=== PATIENT | female | born 1970 | race Caucasian/White ===

== ENCOUNTER 2019-10-20 11:32 | Outpatient (CLI) | payer OTHER, SELFPAY ==
[2019-10-20 11:53] VITALS: BMI 39.3
--- NOTE | 2019-10-20 12:08 | XR_ITS ---
PROCEDURE: XR CHEST PORTABLE PICC PLAC CLINICAL HISTORY: PICC line placement COMPARISON: No exams were available for comparison FINDINGS: A PICC line has been inserted by the right subclavian approach. The tip is in satisfactory position in the region of the superior vena cava. Faint nodular density is noted over the left lower lobe nonspecific measuring approximately 8 mm No acute bony abnormalities. IMPRESSION: Good position of PICC line. Nodular opacity left lower lobe nonspecific. Consider follow-up PA and lateral chest for further evaluation Dictated by: Zac Glover MD 10/20/2019 12:51 Electronically signed by Zac Glover MD in [place] 10/20/2019 12:51
[2019-10-20 13:30] VITALS: BP 112/74; PULSE 68; RESP 20; TEMP 36.9; O2SAT 95
[2019-10-20 14:00] VITALS: BP 116/74; PULSE 68; RESP 20; TEMP 36.9; O2SAT 95
[2019-10-20 14:30] VITALS: BP 112/74; PULSE 68; RESP 20; TEMP 36.6; O2SAT 97
[2019-10-20 15:00] VITALS: BP 112/55; PULSE 68; RESP 20; TEMP 36.9; O2SAT 95
[2019-10-20 15:30] VITALS: BP 112/74; PULSE 68; RESP 20; TEMP 36.9; O2SAT 95
[2019-10-20 16:00] VITALS: BP 116/74; PULSE 68; RESP 20; TEMP 36.9
== END 2019-10-20 16:00 | disposition home or self-care (01) ==
LOC: INF 11:39
PROVIDERS: PCP Internal Medicine Adolescent Medicine; Visit Provider Internal Medicine Adolescent Medicine
DX: L03.116 Cellulitis of left lower limb (principal); E11.621 Type 2 diabetes mellitus with foot ulcer
CPT/HCPCS: 36569; 71045; 96365; 96366; 96367; C1751; J3370

== ENCOUNTER → 2019-10-22 18:16 | Outpatient (CLI) | payer OTHER, SELFPAY ==
[2019-10-22 19:11] LABS: Vancomycin,Trough 19.6 mcg/ml (10.0-20.0)
== END ==
PROVIDERS: PCP Internal Medicine Adolescent Medicine; Visit Provider Internal Medicine Adolescent Medicine
DX: Z51.81 Encounter for therapeutic drug level monitoring (principal)
CPT/HCPCS: 80202

== ENCOUNTER → 2019-10-24 01:05 | Outpatient (REF) | payer SELFPAY ==
[2019-10-24 01:41] LABS: Gentamicin,Random 1.4 ug/mL (4.0-10.0)
== END ==
LOC: LAB.DROPOF 01:05
PROVIDERS: Visit Provider Internal Medicine Adolescent Medicine
DX: Z51.81 Encounter for therapeutic drug level monitoring (principal)
CPT/HCPCS: 80170

== ENCOUNTER → 2019-10-24 08:50 | Outpatient (CLI) | payer OTHER, SELFPAY ==
--- NOTE | 2019-10-24 09:00 | NM_ITS ---
PROCEDURE: NM BONE 3 PHASE CLINICAL INDICATION: CULCANEOUS ABCESS OF FOOT,CELLULITIS Possible osteomyelitis COMPARISON: No exams were available for comparison TECHNIQUE: Dose: 25.0 mCi technetium MDP FINDINGS: Blood flow images demonstrates focal increased activity at the lateral aspect the left metatarsophalangeal junction at the 5th MTP joint region. Blood pool images show increased activity at the left 5th metatarsophalangeal junction with slight increased activity at the 1st MTP joint. Delayed images also show increased activity at the left 5th metatarsophalangeal junction. Nonspecific increased activity is also present in the ankle. IMPRESSION: There is increased activity at the left 5th metatarsophalangeal junction on all 3 phases. This is consistent with osteomyelitis. Please correlate with radiographic findings. Patient refused to have x-rays performed at this institution at the time of the bone scan. Dictated by: Zac Glover MD 10/25/2019 13:41 Electronically signed by Zac Glover MD in [place] 10/25/2019 13:41
--- NOTE | 2019-10-24 10:48 | HMH.ITSHM ---
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 []COZAAR ASA NEURONTIN AMITRIPTYLINE PLAVIX MELOXICAM LIPITOR VITAMIN C ZINC LANTUS LOSARTAN HUMALOG
== END ==
PROVIDERS: PCP Family Medicine; Visit Provider Internal Medicine Adolescent Medicine
DX: L02.612 Cutaneous abscess of left foot (principal); L03.119 Cellulitis of unspecified part of limb
CPT/HCPCS: 78315; A9503

== ENCOUNTER → 2019-10-27 12:17 | Outpatient (CLI) | payer OTHER, SELFPAY ==
[2019-10-27 12:56] LABS: Gentamicin,Trough 0.3 ug/mL (0.0-2.0)
== END ==
PROVIDERS: Visit Provider Internal Medicine Adolescent Medicine
DX: Z51.81 Encounter for therapeutic drug level monitoring (principal)
CPT/HCPCS: 80170

== ENCOUNTER → 2019-11-06 17:24 | Outpatient (CLI) | payer OTHER, SELFPAY | PROVIDERS: Visit Provider Podiatrist | DX: E08.621 Diabetes mellitus due to underlying condition with foot ulcer (principal); L97.512 Non-pressure chronic ulcer of other part of right foot with fat layer exposed; G89.18 Other acute postprocedural pain; Z98.890 Other specified postprocedural states | CPT/HCPCS: 87070; 87077; 87186; 87205 ==

== ENCOUNTER → 2019-11-09 13:37 | Outpatient (REF) | payer OTHER, SELFPAY ==
[2019-11-09 15:32] LABS: Gentamicin,Trough 0.4 ug/mL (0.0-2.0)
== END ==
LOC: LAB 13:37
PROVIDERS: Visit Provider Internal Medicine Adolescent Medicine
DX: Z51.81 Encounter for therapeutic drug level monitoring (principal)
CPT/HCPCS: 80170

== ENCOUNTER → 2019-11-10 18:30 | Outpatient (CLI) | payer OTHER, SELFPAY ==
[2019-11-10 18:47] LABS: Vancomycin,Trough 17.3 mcg/ml (10.0-20.0)
== END ==
PROVIDERS: Visit Provider Internal Medicine Adolescent Medicine
DX: Z51.81 Encounter for therapeutic drug level monitoring (principal)
CPT/HCPCS: 80202

== ENCOUNTER → 2019-11-20 08:31 | Outpatient (CLI) | payer OTHER, SELFPAY ==
--- NOTE | 2019-11-20 08:40 | XR_ITS ---
PROCEDURE: XR FOOT WT BEARING LT 3V CLINICAL INDICATION: postop and diabetic ulcer COMPARISON: XR FOOT LT MIN 3V from 11/02/2019 XR FOOT LT 2V from 11/02/2019 XR FOOT RT MIN 3V from 11/02/2019 FINDINGS: Cast is still present which obscures most of the osseous detail. Postoperative findings at the 5th metatarsal area or are stable. On the lateral view there is somewhat more dorsal flexion causing relative widening of the posterior aspect of the tibiotalar joint compared to the prior study. IMPRESSION: Overall considering positioning of foot no significant change. Dictated by: Osiel Corrales 11/20/2019 15:01 Electronically signed by Osiel Corrales in [place] 11/20/2019 15:01
--- NOTE | 2019-11-20 08:40 | XR_ITS ---
PROCEDURE: XR ANKLE WT BEARING LT MIN 3V CLINICAL INDICATION: postop and diabetic ulcer COMPARISON: XR FOOT WT BEARING LT 3V from 11/20/2019 FINDINGS: When compared with exam of the foot performed on the same day, 11/20/2019, postoperative findings at the visualized portions of the 5th digit remains stable. The bone density, joint spaces and alignment appear normal. There is no definite acute fracture. The splint device obscures some of the osseous detail. IMPRESSION: No acute findings. Dictated by: Osiel Corrales 11/20/2019 18:02 Electronically signed by Osiel Corralse in [place] 11/20/2019 18:02
[2019-11-20 18:19] LABS: Vancomycin,Trough 6.2 mcg/ml (10.0-20.0)
== END ==
PROVIDERS: PCP Internal Medicine Adolescent Medicine; Referring Provider Family Medicine; Visit Provider Podiatrist
DX: M86.672 Other chronic osteomyelitis, left ankle and foot (principal); E11.40 Type 2 diabetes mellitus with diabetic neuropathy, unspecified; Z79.4 Long term (current) use of insulin; Z51.81 Encounter for therapeutic drug level monitoring
CPT/HCPCS: 73610; 73630; 80202

== ENCOUNTER → 2019-12-04 11:00 | Outpatient (CLI) | payer OTHER, SELFPAY ==
[2019-12-04 13:13] LABS: Vancomycin,Trough 19.2 mcg/ml (10.0-20.0)
== END ==
PROVIDERS: Visit Provider Nurse Practitioner Family
DX: Z51.81 Encounter for therapeutic drug level monitoring (principal)
CPT/HCPCS: 80202

== ENCOUNTER → 2019-12-11 16:52 | Outpatient (CLI) | payer OTHER, SELFPAY | PROVIDERS: Visit Provider Podiatrist | DX: E08.621 Diabetes mellitus due to underlying condition with foot ulcer (principal); L97.512 Non-pressure chronic ulcer of other part of right foot with fat layer exposed; Z98.890 Other specified postprocedural states; A49.8 Other bacterial infections of unspecified site | CPT/HCPCS: 87070; 87077; 87186; 87205 ==

== ENCOUNTER → 2019-12-18 11:48 | Outpatient (CLI) | payer OTHER, SELFPAY ==
--- NOTE | 2019-12-18 11:56 | XR_ITS ---
PROCEDURE: XR ANKLE WT BEARING LT MIN 3V CLINICAL INDICATION: postop, diabetic ulcer COMPARISON: No exams were available for comparison FINDINGS: There is diffuse demineralization. No acute fracture or dislocation is apparent. Degenerative dorsal posterior and plantar calcaneal spurring is noted. Amputation at the level of the proximal 5th metatarsal is incidentally noted. Soft tissue swelling is seen over both malleoli greatest laterally. IMPRESSION: No acute bone findings about the ankle. Demineralization and soft tissue swelling. Dictated by: Andrea Cook 12/18/2019 17:55 Electronically signed by Andrea Cook in [place] 12/18/2019 17:55
--- NOTE | 2019-12-18 11:56 | XR_ITS ---
PROCEDURE: XR FOOT WT BEARING LT 3V CLINICAL INDICATION: postop, diabetic ulcer COMPARISON: XR FOOT LT MIN 3V from 11/02/2019 XR FOOT RT MIN 3V from 11/02/2019 XR FOOT LT 2V from 11/02/2019 XR FOOT WT BEARING LT 3V from 11/20/2019 XR ANKLE WT BEARING LT MIN 3V from 12/18/2019 FINDINGS: There has been amputation at the level of the proximal 5th metatarsal. There is soft tissue swelling along the distal aspect of the lateral foot in the absence of the bony elements of the 5th digit and a small gas collection is suggested there. Infection from gas producing organisms is not excluded. No fracture or dislocation. There is questionable osteolysis involving the medial aspect of the talus where there appears to be a bony defect. There is diffuse demineralization . The joint spaces are well-preserved. Degenerative calcaneal spurring is noted. IMPRESSION: Questionable osteolysis of medial aspect of the talus. Osteomyelitis is not excluded. Further assessment could be attempted with CT. Postoperative changes associated with the with 5th metatarsal amputation with soft tissue swelling of the distal lateral foot and possible gas collection which may represent diabetic ulcer. Dictated by: Andrea Cook 12/18/2019 18:03 Electronically signed by Andrea Cook in [place] 12/18/2019 18:03
== END ==
PROVIDERS: PCP Internal Medicine Adolescent Medicine; Visit Provider Podiatrist
DX: E11.40 Type 2 diabetes mellitus with diabetic neuropathy, unspecified (principal); Z79.4 Long term (current) use of insulin; Z98.890 Other specified postprocedural states
CPT/HCPCS: 73610; 73630; 87070; 87077; 87186; 87205

== ENCOUNTER → 2019-12-28 10:22 | Outpatient (CLI) | payer OTHER, SELFPAY ==
[2019-12-28 10:46] LABS: Vancomycin,Trough 18.6 mcg/ml (10.0-20.0)
--- NOTE | 2019-12-28 11:17 | CT_ITS ---
Procedure: CT ANGIO ABDOMEN PELVIS CLINICAL HISTORY: AORTOILIAC OCCLUSION DISEASE COMPARISON: No exams were available for comparison TECHNIQUE: IV Contrast: 100ml Optiray 350 Axial images obtained with sagittal and coronal reformats. All CT scans at the facility use one or more dose reduction, viz: automated exposure control, ma/kV adjustment per patient size (including targeted exams where dose is matched to indication, i.e. head), or iterative reconstruction technique. FINDINGS: The upper abdominal aorta has an unremarkable appearance. There are 2 right renal arteries most dominant being posterior with no evidence of renal artery stenosis. A small amount plaque within the ostium of the left renal artery but no significant stenosis. There is only 1 left renal artery noted. The celiac and SMA have an unremarkable appearance. CARLEY is patent. There is an aorto iliac stent present. The stent is patent with no significant stenosis. Scattered atheromatous plaque is present in the right common and external iliac artery and common femoral artery with no significant stenosis. There is a moderate/high-grade area of stenosis involving the distal aspect of the left common iliac artery just distal to the distal portion of the iliac stent. The stenosis is felt to be approximately 75 percent percent somewhat difficult to evaluate due to the underlying calcification Non angiographic findings: There is a 9 mm noncalcified nodule in the left lower lobe. There is mild fatty liver. Moderate amount of retained colonic feces noted. There is a small left adrenal nodule measuring 13 mm. There are degenerative changes in the lumbar spine. There are bilateral injection granulomas in the buttock region IMPRESSION: 1. Status post prior aorto bi-iliac stent placement. The stent is patent. 2. Moderate to high-grade stenosis of the distal aspect of the left common iliac artery just distal to the distal portion of the stent. The stenosis is felt to be approximately 75 percent 3. 9 mm left lower lobe pulmonary nodule. Suggest 3 month follow-up CT chest without and with contrast Dictated by: Zac Glover MD 12/29/2019 10:27 Electronically signed by Zac Glover MD in [place] 12/29/2019 10:27
[2019-12-28 11:44] LABS: Blood Urea Nitrogen 9 mg/dL (7-18); Creatinine,Serum 1.13 mg/dL (0.55-1.02); Estimated Glomerular Filt Rate 51 ml/min (>60); GFR (African American) 62 ML/MIN (>60)
== END ==
PROVIDERS: PCP Internal Medicine Adolescent Medicine; Visit Provider Surgery Vascular Surgery
DX: I74.09 Other arterial embolism and thrombosis of abdominal aorta (principal); Z51.81 Encounter for therapeutic drug level monitoring
CPT/HCPCS: 36415; 74174; 80202; 82565; 84520; Q9967

== ENCOUNTER → 2020-05-01 11:21 | Outpatient (CLI) | payer OTHER, SELFPAY ==
--- NOTE | 2020-05-01 11:26 | XR_ITS ---
PROCEDURE: XR FOOT WT BEARING LT 3V CLINICAL INDICATION: postop views Follow-up surgery COMPARISON: XR FOOT LT MIN 3V from 11/02/2019 XR FOOT RT MIN 3V from 11/02/2019 XR FOOT WT BEARING LT 3V from 11/20/2019 XR FOOT WT BEARING LT 3V from 12/18/2019 FINDINGS: There has been prior amputation at the base of the 5th metatarsal. No other significant anomalies are evident. No bony destructive or lytic changes evident. The joint spaces are well-preserved. No significant degenerative/arthritic changes. No erosive changes evident. Other findings:None. IMPRESSION: Status post amputation at the base of the 5th metatarsal otherwise negative Dictated by: Zac Glover MD 05/01/2020 11:45 Electronically signed by Zac Glover MD in [place] 05/01/2020 11:45
--- NOTE | 2020-05-01 11:26 | XR_ITS ---
PROCEDURE: XR FOOT WT BEARING RT 3V CLINICAL INDICATION: wound Pain COMPARISON: XR FOOT LT MIN 3V from 11/02/2019 XR FOOT RT MIN 3V from 11/02/2019 XR FOOT WT BEARING LT 3V from 11/20/2019 XR FOOT WT BEARING LT 3V from 12/18/2019 FINDINGS: No fracture or dislocation. No lytic or blastic change. There is normal mineralization. The joint spaces are well-preserved. No significant degenerative/arthritic changes. No erosive changes evident. Other findings:None. IMPRESSION: No acute findings. Dictated by: Zac Glover MD 05/01/2020 11:44 Electronically signed by Zac Glover MD in [place] 05/01/2020 11:44
[2020-05-01 12:25] LABS: Basophils % 0.4 % (0.1-2.0); Eosinophils # 0.1 K/mm3 (0.0-0.4); Eosinophils % 0.8 % (0.1-12.0); Hematocrit 37.9 % (37.0-47.0); Hemoglobin 12.4 g/dL (12.2-16.2); Lymphocytes # 2.9 K/mm3 (0.7-4.5); Lymphocytes % 31.5 % (10-50); Mean Corpuscular HGB Conc 32.6 g/dL (31.8-35.4); Mean Corpuscular Hemoglobin 28.5 pg (27.0-31.2); Mean Corpuscular Volume 87.5 fl (81-99); Mean Platelet Volume 9.1 fl (7.4-10.4); Monocytes # 0.4 K/mm3 (0.1-1.0); Monocytes % 4.3 % (1.7-9.3); Neutrophils # 5.7 K/mm3 (1.8-7.8); Platelet Count 197 K/mm3 (142-424); Red Blood Count 4.33 M/mm3 (4.20-5.40); White Blood Count 9.1 K/mm3 (4.8-10.8)
[2020-05-01 13:32] LABS: Chloride 92 mmol/L (98-107); Potassium 3.8 mmoL/L (3.5-5.1); Sodium 135 mmol/L (136-145)
[2020-05-01 13:34] LABS: Blood Urea Nitrogen 42 mg/dl (7-17); Estimated Glomerular Filt Rate 43 ml/min (>60); GFR (African American) 52 ML/MIN (>60)
[2020-05-01 13:35] LABS: Alanine Aminotransferase 32 U/L (12-78); Albumin Level 3.9 g/dl (3.5-5.0); Albumin/Globulin Ratio 1.3 (1.1-1.8); Alkaline Phosphatase 113 U/L (38-126); Anion Gap 13.8 mEq/L (5-15); Aspartate Amino Transferase 38 U/L (14-36); Bilirubin,Total 0.9 mg/dl (0.2-1.3); Calcium 9.2 mg/dl (8.4-10.2); Carbon Dioxide 33 mmol/L (22.0-30.0); Globulin 3.1 g/dL (1.3-3.2); Glucose 247 mg/dl (74-100); Magnesium 1.6 mg/dl (1.6-2.3)
[2020-05-01 13:41] LABS: C-Reactive Protein 29.9 mg/L (0-4)
[2020-05-01 13:43] LABS: Erythrocyte Sedimentation Rate 31 mm/hr (0-20)
[2020-05-01 15:24] LABS: Hemoglobin A1C 11.9 % (4.0-6.0)
== END ==
PROVIDERS: PCP Family Medicine; Visit Provider Podiatrist
DX: Z98.890 Other specified postprocedural states (principal); Z51.89 Encounter for other specified aftercare; E11.621 Type 2 diabetes mellitus with foot ulcer; L97.529 Non-pressure chronic ulcer of other part of left foot with unspecified severity; E08.621 Diabetes mellitus due to underlying condition with foot ulcer
CPT/HCPCS: 36415; 73630; 80053; 83036; 83735; 85025; 85651; 86140; 87070; 87205

== ENCOUNTER → 2020-05-13 10:46 | Outpatient (CLI) | payer OTHER, SELFPAY ==
[2020-05-13 11:33] LABS: Basophils % 0.2 % (0.1-2.0); Eosinophils # 0.1 K/mm3 (0.0-0.4); Eosinophils % 0.8 % (0.1-12.0); Hematocrit 38.2 % (37.0-47.0); Hemoglobin 12.7 g/dL (12.2-16.2); Lymphocytes # 3.1 K/mm3 (0.7-4.5); Mean Corpuscular HGB Conc 33.3 g/dL (31.8-35.4); Mean Corpuscular Hemoglobin 29.4 pg (27.0-31.2); Mean Corpuscular Volume 88.4 fl (81-99); Mean Platelet Volume 9.1 fl (7.4-10.4); Monocytes # 0.4 K/mm3 (0.1-1.0); Monocytes % 4.4 % (1.7-9.3); Neutrophils # 5.5 K/mm3 (1.8-7.8); Neutrophils % 60.6 % (37.0-80.0); Platelet Count 190 K/mm3 (142-424); Red Blood Count 4.32 M/mm3 (4.20-5.40); Red Cell Distribution Width 16.8 % (11.5-17.5); White Blood Count 9.1 K/mm3 (4.8-10.8)
[2020-05-13 11:55] LABS: Alanine Aminotransferase 40 U/L (12-78); Albumin Level 4.1 g/dl (3.5-5.0); Albumin/Globulin Ratio 1.2 (1.1-1.8); Alkaline Phosphatase 118 U/L (38-126); Anion Gap 16.7 mEq/L (5-15); Aspartate Amino Transferase 47 U/L (14-36); Bilirubin,Total 0.6 mg/dl (0.2-1.3); Blood Urea Nitrogen 28 mg/dl (7-17); Carbon Dioxide 31 mmol/L (22.0-30.0); Chloride 91 mmol/L (98-107); Estimated Glomerular Filt Rate 59 ml/min (>60); GFR (African American) 71 ML/MIN (>60); Globulin 3.3 g/dL (1.3-3.2); Glucose 237 mg/dl (74-100); Potassium 3.7 mmoL/L (3.5-5.1); Sodium 135 mmol/L (136-145); Total Protein,Serum 7.4 g/dl (6.3-8.2)
[2020-05-13 12:40] LABS: Erythrocyte Sedimentation Rate 40 mm/hr (0-20)
[2020-05-13 13:34] LABS: C-Reactive Protein 26.8 mg/L (0-4)
== END ==
PROVIDERS: Visit Provider Podiatrist
DX: E08.621 Diabetes mellitus due to underlying condition with foot ulcer (principal); E11.621 Type 2 diabetes mellitus with foot ulcer; L97.529 Non-pressure chronic ulcer of other part of left foot with unspecified severity; Z79.4 Long term (current) use of insulin
CPT/HCPCS: 36415; 80053; 85025; 85651; 86140

== ENCOUNTER → 2020-05-27 10:38 | Outpatient (CLI) | payer OTHER, SELFPAY ==
[2020-05-27 11:30] LABS: Basophils % 0.4 % (0.1-2.0); Eosinophils # 0.1 K/mm3 (0.0-0.4); Eosinophils % 0.6 % (0.1-12.0); Hematocrit 39.1 % (37.0-47.0); Hemoglobin 13.4 g/dL (12.2-16.2); Lymphocytes % 29.9 % (10-50); Mean Corpuscular HGB Conc 34.2 g/dL (31.8-35.4); Mean Corpuscular Hemoglobin 29.6 pg (27.0-31.2); Mean Corpuscular Volume 86.6 fl (81-99); Mean Platelet Volume 8.6 fl (7.4-10.4); Monocytes # 0.4 K/mm3 (0.1-1.0); Monocytes % 4.2 % (1.7-9.3); Neutrophils # 6.5 K/mm3 (1.8-7.8); Platelet Count 226 K/mm3 (142-424); Red Blood Count 4.51 M/mm3 (4.20-5.40)
[2020-05-27 12:13] LABS: Erythrocyte Sedimentation Rate 65 mm/hr (0-20)
[2020-05-27 12:29] LABS: Chloride 92 mmol/L (98-107); Potassium 3.3 mmoL/L (3.5-5.1); Sodium 134 mmol/L (136-145)
[2020-05-27 12:32] LABS: Alanine Aminotransferase 42 U/L (12-78); Albumin/Globulin Ratio 1.2 (1.1-1.8); Alkaline Phosphatase 98 U/L (38-126); Anion Gap 14.3 mEq/L (5-15); Aspartate Amino Transferase 45 U/L (14-36); Bilirubin,Total 1.3 mg/dl (0.2-1.3); Blood Urea Nitrogen 24 mg/dl (7-17); Carbon Dioxide 31 mmol/L (22.0-30.0); Estimated Glomerular Filt Rate 53 ml/min (>60); GFR (African American) 64 ML/MIN (>60); Globulin 3.3 g/dL (1.3-3.2); Total Protein,Serum 7.3 g/dl (6.3-8.2)
[2020-05-27 12:33] LABS: Calcium 9.3 mg/dl (8.4-10.2); Glucose 144 mg/dl (74-100)
[2020-05-27 12:41] LABS: C-Reactive Protein 36.9 mg/L (0-4)
== END ==
PROVIDERS: Visit Provider Podiatrist
DX: Z51.89 Encounter for other specified aftercare (principal); E08.621 Diabetes mellitus due to underlying condition with foot ulcer; L97.512 Non-pressure chronic ulcer of other part of right foot with fat layer exposed; Z79.4 Long term (current) use of insulin
CPT/HCPCS: 36415; 80053; 85025; 85651; 86140

== ENCOUNTER → 2020-06-05 08:28 | Outpatient (CLI) | payer OTHER, SELFPAY ==
--- NOTE | 2020-06-05 08:35 | CT_ITS ---
Procedure: CT ANGIO ABDOMEN PELVIS CLINICAL HISTORY: AORTOILIAC OCCLUSIVE DISEASE COMPARISON: CT ANGIO ABDOMEN PELVIS from 12/28/2019 TECHNIQUE: IV Contrast: 100ml Optiray 350 Axial images obtained with sagittal and coronal reformats. All CT scans at the facility use one or more dose reduction, viz: automated exposure control, ma/kV adjustment per patient size (including targeted exams where dose is matched to indication, i.e. head), or iterative reconstruction technique. FINDINGS: There is a distal aortoiliac stent which is patent. There is only mild narrowing of the ostium of the right iliac artery. Moderate stenosis once again noted involving the ostium of the left external iliac artery just distal to the stent. It is difficult to determine the degree of stenosis due to artifact from the overlying stent but is felt to be 50 percent or less. The external iliacs have an unremarkable appearance. Mild calcific plaque noted at the femoral arteries on both sides. The SMA and celiac are unremarkable. The CARLEY is patent. Mild atheromatous changes are present at the ostium of the left renal artery with less than 50 percent stenosis. 9 mm noncalcified nodule once again noted involving the left lower lobe. Scattered areas of decreased attenuation are present involving the peripheral aspect of the liver consistent with fatty infiltration. Stable adrenal nodule. IMPRESSION: 1. Aortoiliac stent graft present and patent as described above with moderate stenosis of the proximal aspect of the left external iliac artery just distal to the stent of at least 50 percent. 2. Interval development of low-density changes in the sub capsular region of the liver in the right hepatic lobe consistent with focal fatty liver infiltration. Follow-up suggested to confirm stability Dictated by: Zac Glover MD 06/07/2020 12:06 Electronically signed by Zac Glover MD in [place] 06/07/2020 12:06
== END ==
PROVIDERS: PCP Family Medicine; Visit Provider Surgery Vascular Surgery
DX: I74.09 Other arterial embolism and thrombosis of abdominal aorta (principal)
CPT/HCPCS: 74174; Q9967

== ENCOUNTER → 2020-06-10 16:47 | Outpatient (CLI) | payer OTHER, SELFPAY | PROVIDERS: Visit Provider Nurse Practitioner | DX: Z51.89 Encounter for other specified aftercare (principal) | CPT/HCPCS: 87070; 87205 ==

== ENCOUNTER → 2020-07-01 17:54 | Outpatient (CLI) | payer OTHER, SELFPAY | PROVIDERS: Visit Provider Podiatrist | DX: E11.621 Type 2 diabetes mellitus with foot ulcer (principal); L97.529 Non-pressure chronic ulcer of other part of left foot with unspecified severity; Z51.89 Encounter for other specified aftercare | CPT/HCPCS: 87070; 87077; 87186; 87205 ==

== ENCOUNTER → 2020-09-23 15:24 | Outpatient (CLI) | payer OTHER, SELFPAY ==
--- NOTE | 2020-09-23 15:32 | XR_ITS ---
PROCEDURE: XR FOOT WT BEARING RT 3V CLINICAL INDICATION: foot pain COMPARISON: CR XR FOOT WT BEARING LT 3V from 11/20/2019 CR XR FOOT WT BEARING LT 3V from 12/18/2019 CR XR FOOT WT BEARING RT 3V from 05/01/2020 CR XR FOOT WT BEARING LT 3V from 05/01/2020 FINDINGS: No fracture or dislocation. No lytic or blastic change. There is normal mineralization. The joint spaces are well-preserved. No significant degenerative/arthritic changes. No erosive changes evident. Other findings:There is mild generalized osteopenia. There is normal alignment. IMPRESSION: Osteopenia otherwise negative Dictated by: Zac Glover MD 09/23/2020 16:23 Zac Glover MD in [place] 09/23/2020 16:23
--- NOTE | 2020-09-23 15:32 | XR_ITS ---
PROCEDURE: XR FOOT WT BEARING LT 3V CLINICAL INDICATION: foot pain COMPARISON: No exams were available for comparison FINDINGS: There is generalized osteopenia. There are mild osteoarthritic changes of the 1st metatarsophalangeal joint. There has been amputation at the base of the 5th metatarsal. No acute fracture or dislocation. Other findings:None. IMPRESSION: Minimal osteoarthritic change 1st MTP joint. Prior amputation base of 1st metatarsal. No change with no acute finding Dictated by: Zac Glover MD 09/23/2020 16:25 Zac Glover MD in [place] 09/23/2020 16:25
[2020-09-23 17:01] LABS: Basophils % 0.4 % (0.1-2.0); Eosinophils % 0.5 % (0.1-12.0); Hematocrit 41.6 % (37.0-47.0); Hemoglobin 13.2 g/dL (12.2-16.2); Lymphocytes # 2.5 K/mm3 (0.7-4.5); Lymphocytes % 32.4 % (10-50); Mean Corpuscular HGB Conc 31.6 g/dL (31.8-35.4); Mean Corpuscular Hemoglobin 28.1 pg (27.0-31.2); Mean Corpuscular Volume 88.9 fl (81-99); Mean Platelet Volume 9.1 fl (7.4-10.4); Monocytes # 0.4 K/mm3 (0.1-1.0); Monocytes % 5.4 % (1.7-9.3); Neutrophils # 4.8 K/mm3 (1.8-7.8); Neutrophils % 61.5 % (37.0-80.0); Platelet Count 199 K/mm3 (142-424); Red Blood Count 4.69 M/mm3 (4.20-5.40); Red Cell Distribution Width 15.4 % (11.5-17.5); White Blood Count 7.9 K/mm3 (4.8-10.8)
[2020-09-23 18:40] LABS: Erythrocyte Sedimentation Rate 23 mm/hr (0-20)
[2020-09-23 18:53] LABS: Blood Urea Nitrogen 27 mg/dl (7-17); Calcium 9.1 mg/dl (8.4-10.2); Carbon Dioxide 29 mmol/L (22.0-30.0); Chloride 88 mmol/L (98-107); Chol/HDL Ratio 3.9 (1-3.5); Cholesterol 135 mg/dl (140-200); Estimated Glomerular Filt Rate 53 ml/min (>60); GFR (African American) 64 ML/MIN (>60); HDL Cholesterol 35 mg/dl (40-60); Sodium 130 mmol/L (136-145); Triglycerides 382 mg/dl (30-150); VLDL Cholesterol 76 mg/dL (0-40)
[2020-09-23 19:00] LABS: C-Reactive Protein 29.6 mg/L (0-4)
[2020-09-23 19:04] LABS: Direct LDL Cholesterol 68.88 mg/dL (100-129)
[2020-09-23 19:23] LABS: Thyroid Stimulating Hormone 0.03 uIU/mL (0.465-4.68)
[2020-09-23 20:19] LABS: Glucose 489 mg/dl (74-100)
== END ==
PROVIDERS: Internal Medicine Endocrinology, Diabetes & Metabolism; PCP Family Medicine; Visit Provider Podiatrist
DX: L84 Corns and callosities (principal); M79.671 Pain in right foot; M79.672 Pain in left foot; E11.621 Type 2 diabetes mellitus with foot ulcer; L97.529 Non-pressure chronic ulcer of other part of left foot with unspecified severity; Z51.89 Encounter for other specified aftercare
CPT/HCPCS: 36415; 73630; 80048; 80061; 82533; 84443; 85025; 85651; 86140

== ENCOUNTER → 2020-11-04 15:31 | Outpatient (CLI) | payer OTHER, SELFPAY ==
[2020-11-04 19:10] LABS: Free T4 (Free Thyroxine) 1.72 ng/dl (0.78-2.19)
[2020-11-04 19:24] LABS: Thyroid Stimulating Hormone 1.58 uIU/mL (0.465-4.68)
== END ==
PROVIDERS: Visit Provider Internal Medicine Endocrinology, Diabetes & Metabolism
DX: E11.8 Type 2 diabetes mellitus with unspecified complications (principal); Z79.4 Long term (current) use of insulin
CPT/HCPCS: 36415; 84439; 84443

== ENCOUNTER → 2020-12-09 12:58 | Outpatient (CLI) | payer OTHER, SELFPAY ==
[2020-12-09 16:40] LABS: Folate > 20.00 ng/mL
== END ==
PROVIDERS: Visit Provider Specialist
DX: E11.40 Type 2 diabetes mellitus with diabetic neuropathy, unspecified (principal); R20.0 Anesthesia of skin; Z79.4 Long term (current) use of insulin
CPT/HCPCS: 36415; 82746

== ENCOUNTER → 2021-01-06 15:09 | Outpatient (CLI) | payer OTHER, SELFPAY ==
--- NOTE | 2021-01-06 15:10 | CA_ITS ---
APPROVED REPORT Bilateral Lower Extremity Venous Study for DVT. Wilderness Guide: Lilibeth Rosa RVT Indications Lower Extremity Pain: Bilateral Lower Extremity Edema: Bilateral leg pain/swelling Risk Factors Obesity Vein Imaging CFV (R): compressive, spontaneous, phasic, augmentation FEM (R): compressive, spontaneous, phasic, augmentation POP (R): compressive, spontaneous, phasic, augmentation GSV (R): Compressible Peroneals (R):Compressible GAS (R): Compressible CFV (L): compressive, spontaneous, phasic, augmentation FEM (L): compressive, spontaneous, phasic, augmentation POP (L): compressive, spontaneous, phasic, augmentation PTV (L): Compressible GSV (L): Compressible, Peroneals (L):Compressible GAS (L): Compressible Findings Study suggests no evidence of DVT of the bilateral lower extremites. Study suggests no evidence of SVT of the bilateral lower extremites. Conclusion Study suggests no evidence of DVT of the bilateral lower extremites. Study suggests no evidence of SVT of the bilateral lower extremites. Electronically signed by : Zac Glover MD 01/06/2021 16:05:45
== END ==
PROVIDERS: PCP Family Medicine; Visit Provider Nurse Practitioner Family
DX: I73.9 Peripheral vascular disease, unspecified (principal); M79.605 Pain in left leg; M79.604 Pain in right leg; R06.00 Dyspnea, unspecified; R60.0 Localized edema; Z95.828 Presence of other vascular implants and grafts
CPT/HCPCS: 93970

== ENCOUNTER → 2021-01-27 14:02 | Outpatient (CLI) | payer OTHER, SELFPAY ==
[2021-01-27 14:39] LABS: Basophils % 0.3 % (0.1-2.0); Eosinophils # 0.1 K/mm3 (0.0-0.4); Eosinophils % 0.9 % (0.1-12.0); Hematocrit 35.4 % (37.0-47.0); Hemoglobin 10.9 g/dL (12.2-16.2); Lymphocytes # 1.6 K/mm3 (0.7-4.5); Lymphocytes % 26.3 % (10-50); Mean Corpuscular HGB Conc 30.7 g/dL (31.8-35.4); Mean Corpuscular Hemoglobin 26.7 pg (27.0-31.2); Mean Corpuscular Volume 87.2 fl (81-99); Mean Platelet Volume 8.6 fl (7.4-10.4); Monocytes # 0.3 K/mm3 (0.1-1.0); Neutrophils # 4.2 K/mm3 (1.8-7.8); Neutrophils % 68.4 % (37.0-80.0); Platelet Count 154 K/mm3 (142-424); Red Blood Count 4.06 M/mm3 (4.20-5.40); Red Cell Distribution Width 15.9 % (11.5-17.5); White Blood Count 6.2 K/mm3 (4.8-10.8)
[2021-01-27 14:55] LABS: Hemoglobin A1C 9.8 % (4.0-6.0)
[2021-01-27 16:23] LABS: Alanine Aminotransferase 38 U/L (12-78); Albumin Level 3.8 g/dl (3.5-5.0); Albumin/Globulin Ratio 1.2 (1.1-1.8); Alkaline Phosphatase 99 U/L (38-126); Anion Gap 9.9 mEq/L (5-15); Aspartate Amino Transferase 46 U/L (14-36); Blood Urea Nitrogen 14 mg/dl (7-17); Calcium 9.9 mg/dl (8.4-10.2); Carbon Dioxide 32 mmol/L (22.0-30.0); Chloride 97 mmol/L (98-107); Estimated Glomerular Filt Rate 76 ml/min (>60); GFR (African American) 92 ML/MIN (>60); Globulin 3.2 g/dL (1.3-3.2); Glucose 285 mg/dl (74-100); Potassium 3.9 mmoL/L (3.5-5.1); Sodium 135 mmol/L (136-145)
[2021-01-27 16:29] LABS: C-Reactive Protein 33.6 mg/L (0-4)
[2021-01-27 17:01] LABS: Erythrocyte Sedimentation Rate 42 mm/hr (0-30)
== END ==
PROVIDERS: Visit Provider Podiatrist
DX: E08.621 Diabetes mellitus due to underlying condition with foot ulcer (principal); E11.621 Type 2 diabetes mellitus with foot ulcer; L03.116 Cellulitis of left lower limb; L97.529 Non-pressure chronic ulcer of other part of left foot with unspecified severity; L02.619 Cutaneous abscess of unspecified foot; L03.119 Cellulitis of unspecified part of limb; Z79.4 Long term (current) use of insulin
CPT/HCPCS: 80053; 83036; 85025; 85651; 86140; 87070; 87077; 87186; 87205

== ENCOUNTER 2021-02-05 09:10 | Outpatient (CLI) | payer OTHER, SELFPAY ==
[2021-02-05 10:38] VITALS: BMI 62.7
--- NOTE | 2021-02-05 10:50 | XR_ITS ---
PROCEDURE: XR CHEST PORTABLE CLINICAL HISTORY: Evaluate PICC line placement COMPARISON: CR XR CHEST PORTABLE PICC PLAC from 10/20/2019 FINDINGS: 10:54 a.m. Right upper extremity PICC line has been inserted. The line is curled in the infraclavicular region and projects back toward the axillary area. Suggest pulling back approximately 11 cm and then re-advancing. Otherwise negative. IMPRESSION: Abnormal right upper extremity PICC line position. Dictated by: Zac Glover MD 02/05/2021 11:01 Zac Glover MD in [place] 02/05/2021 11:01
--- NOTE | 2021-02-05 11:09 | XR_ITS ---
PROCEDURE: XR CHEST PORTABLE CLINICAL HISTORY: picc line placement COMPARISON: CR XR CHEST PORTABLE PICC PLAC from 10/20/2019 CR XR CHEST PORTABLE from 02/05/2021 FINDINGS: 11:10 a.m.. Right upper extremity PICC line is been reposition. The line appears curled along the medial aspect of the right clavicle projecting back upon itself toward the axillary region. Lungs are clear. IMPRESSION: Anomalous positioning of the PICC line on the right Dictated by: Zac Glover MD 02/05/2021 11:29 Zac Glover MD in [place] 02/05/2021 11:29
--- NOTE | 2021-02-05 11:24 | XR_ITS ---
PROCEDURE: XR CHEST PORTABLE CLINICAL HISTORY: picc line placement evaluation COMPARISON: CR XR CHEST PORTABLE PICC PLAC from 10/20/2019 CR XR CHEST PORTABLE PICC PLAC from 02/05/2021 CR XR CHEST PORTABLE from 02/05/2021 FINDINGS: 1132 hours. Right upper extremity PICC line tip now is in good position in the region of the SVC. The lungs are clear without infiltrates, suspicious nodules, or pleural effusions. No acute bony abnormalities. IMPRESSION: Right upper extremity PICC line tip in the region the SVC. Dictated by: Zac Glover MD 02/05/2021 11:39 Zac Glover MD in [place] 02/05/2021 11:39
[2021-02-05 12:15] VITALS: BP 151/63; PULSE 102; RESP 20; TEMP 36.3; O2SAT 99
[2021-02-05 13:20] VITALS: BP 127/56; PULSE 104; RESP 20
== END 2021-02-05 13:20 | disposition home or self-care (01) ==
LOC: INF 09:15
PROVIDERS: Visit Provider Podiatrist
DX: L03.116 Cellulitis of left lower limb (principal); E11.621 Type 2 diabetes mellitus with foot ulcer; L97.529 Non-pressure chronic ulcer of other part of left foot with unspecified severity; Z79.4 Long term (current) use of insulin
CPT/HCPCS: 36569; 71045; 96365; C1751; J0878

== ENCOUNTER → 2021-02-10 10:23 | Outpatient (CLI) | payer OTHER, SELFPAY ==
--- NOTE | 2021-02-10 10:24 | US_ITS ---
APPROVED REPORT Exam Type: Lower Extremity Segmental Pressures Senior Sharepoint Developer: Lilibeth Rosa RVT Indications Non-healing Ulcer: Numbness/Tingling Edema History of Smoking ULCER LT GREAT TOE Risk Factors Hypertension Hyperlipidemia Obesity Diabetes History of Smoking Pressures/Indices Right Indices Left Indices Brachial Brachial 145.00 mmHg Low Thigh 136.00 mmHg 0.94 Low Thigh 133.00 mmHg 0.92 Calf 115.00 mmHg 0.79 Calf 133.00 mmHg 0.92 Ankle(PT) 100.00 mmHg 0.69 Ankle(PT) 124.00 mmHg 0.86 Ankle(DP) 79.00 mmHg 0.54 Ankle(DP) 58.00 mmHg 0.40 Digit 130.00 mmHg 0.90 Digit 127.00 mmHg 0.88 Findings RT NICOLASA:0.69 LT NICOLASA:0.86 RT TBI:0.90 LT TBI:0.88 NORMAL WAVEFORMS BILATERAL NORMAL PULSES BILATERAL Conclusion RT NICOLASA:0.69 LT NICOLASA:0.86 RT TBI:0.90 LT TBI:0.88 NORMAL WAVEFORMS BILATERAL NORMAL PULSES BILATERAL Moderate arterial disease Electronically signed by : Zac Glover MD 02/10/2021 15:15:39
--- NOTE | 2021-02-10 10:24 | CA_ITS ---
APPROVED REPORT EXAM: Comprehensive 2D, Doppler, and color-flow Echocardiogram Fisher Spear: MAX Najera, RVS Ht: 5 ft 10 in Wt: 332lbs BSA: 2.59 BP: 140/68 mmHg Indications: CAD, morbid obesity,dm, ex-smoker 2D Dimensions LVDd 5.18 cm LVEF (Visual) 70.20 % LVDs 3.11 cm LA Volume 70.80 mL LVOT 2.11 cm (M/F) 1.5-2.5 LA Volume Index 26.70 mL/m2 (M/F) 16-34 M-Mode Dimensions RVDd 2.60 cm (0.9-2.6) LA Diam 3.66 cm (1.9-4.0) LVDd 5.58 cm (3.5-5.7) Ao Diam 2.85 cm (2.0-3.7) IVSd 0.74 cm (0.6-1.1) PWd 0.74 cm (0.6-1.1) EPSs 0.94 cm EDV (Teich) 152.40 mL TAPSE 2.56 (<1.7) LV Diastology E Decel Time 163.00 (160-240 msec) E/A Ratio 1.27 MED E' 10.10 (< 7 cm/sec) MED A' 11.40 cm/s E'/MED E' Ratio 10.30 (>14) LAT E' 9.70 (<10 cm/sec) LAT A' 10.20 cm/s E/LAT E' Ratio 10.72 (>14) Aortic Valve AO Peak GR. 9.90 mmHg Mitral Valve MV E Max Kermit. 104.00 (40-130 cm/s) MV A Velocity 82.00 (40-130 cm/s) E/A Ratio 1.27 MV Decel. Time 163.00 (160-240 ms) MV PHT 48.00 ms Pulmonary Valve PV Peak Velocity 109.00 (50-150 cm/s) Tricuspid Valve TR P. Velocity 245.00 cm/s Left Ventricle Left atrium is mildly enlarged, left ventricle is normal size, there is no concentric left ventricular hypertrophy, visually estimated ejection fraction 55% with no regional wall motion abnormality, diastolic parameters are within normal range. Right Ventricle Right atrium and right ventricle mildly enlarged with normal contractility. Aortic Valve Aortic valve is minimally thickened and calcified, there is no aortic stenosis or aortic insufficiency. Mitral Valve Mitral valve is grossly normal, there is trace mitral regurgitation. Tricuspid Valve Tricuspid valve grossly normal, there is trace tricuspid regurgitation, tricuspid regurgitation jet velocity is inadequate for calculation of the right ventricular systolic pressure. Pulmonic Valve Pulmonic valve is poorly visualized. Great Vessels Aortic root is normal size. Pericardium No significant pericardial effusion noted. Conclusion 1. Biatrial enlargement, normal left ventricular size, visually estimated ejection fraction 55% with no regional wall motion abnormality, diastolic parameters are within normal range. 2. Mildly enlarged right ventricle with normal contractility. 3. Trace mitral and tricuspid regurgitation. 4. No significant pericardial effusion noted. Electronically signed by : Kendrick Plasencia, 02/10/2021 11:57:01
[2021-02-10 12:03] LABS: Basophils % 0.3 % (0.1-2.0); Eosinophils # 0.1 K/mm3 (0.0-0.4); Eosinophils % 1.9 % (0.1-12.0); Hematocrit 33.9 % (37.0-47.0); Hemoglobin 10.3 g/dL (12.2-16.2); Lymphocytes # 1.6 K/mm3 (0.7-4.5); Lymphocytes % 31.2 % (10-50); Mean Corpuscular HGB Conc 30.3 g/dL (31.8-35.4); Mean Corpuscular Hemoglobin 26.9 pg (27.0-31.2); Mean Corpuscular Volume 88.8 fl (81-99); Mean Platelet Volume 9.1 fl (7.4-10.4); Monocytes # 0.3 K/mm3 (0.1-1.0); Monocytes % 6.7 % (1.7-9.3); Platelet Count 147 K/mm3 (142-424); Red Blood Count 3.82 M/mm3 (4.20-5.40); Red Cell Distribution Width 16.1 % (11.5-17.5)
[2021-02-10 12:43] LABS: Erythrocyte Sedimentation Rate 44 mm/hr (0-30)
[2021-02-10 12:55] LABS: Chloride 96 mmol/L (98-107)
[2021-02-10 12:56] LABS: Potassium 4.3 mmoL/L (3.5-5.1); Sodium 132 mmol/L (136-145)
[2021-02-10 12:58] LABS: Alanine Aminotransferase 47 U/L (12-78); Alkaline Phosphatase 111 U/L (38-126); Anion Gap 8.3 mEq/L (5-15); Aspartate Amino Transferase 52 U/L (14-36); Bilirubin,Total 1.1 mg/dl (0.2-1.3); Blood Urea Nitrogen 18 mg/dl (7-17); Carbon Dioxide 32 mmol/L (22.0-30.0); Creatine Kinase 212 U/L (30-135); Estimated Glomerular Filt Rate 66 ml/min (>60); GFR (African American) 80 ML/MIN (>60)
[2021-02-10 12:59] LABS: Albumin Level 3.5 g/dl (3.5-5.0); Albumin/Globulin Ratio 1.1 (1.1-1.8); Calcium 8.7 mg/dl (8.4-10.2); Globulin 3.2 g/dL (1.3-3.2); Total Protein,Serum 6.7 g/dl (6.3-8.2)
[2021-02-10 13:04] LABS: C-Reactive Protein 36.7 mg/L (0-4)
[2021-02-10 13:05] LABS: Glucose 409 mg/dl (74-100)
== END ==
PROVIDERS: Podiatrist; PCP Family Medicine; Visit Provider Nurse Practitioner Family
DX: R06.00 Dyspnea, unspecified (principal); R60.0 Localized edema; I73.9 Peripheral vascular disease, unspecified; Z95.828 Presence of other vascular implants and grafts
CPT/HCPCS: 36415; 80053; 82550; 85025; 85651; 86140; 93306; 93923

== ENCOUNTER → 2021-02-10 11:30 | Outpatient (CLI) | payer OTHER, SELFPAY | PROVIDERS: Visit Provider Podiatrist | DX: R06.02 Shortness of breath (principal) | CPT/HCPCS: 36415; 80053; 82550; 85025; 85651; 86140 ==

== ENCOUNTER 2021-03-03 12:04 | Outpatient (CLI) | payer OTHER, SELFPAY ==
[2021-03-03 12:05] VITALS: BMI 45.9
--- NOTE | 2021-03-03 12:17 | XR_ITS ---
PROCEDURE: XR FOOT WT BEARING LT 3V CLINICAL INDICATION: FRACTURE FOLLOW UP. COMPARISON: CR XR FOOT WT BEARING RT 3V from 05/01/2020 CR XR FOOT WT BEARING LT 3V from 05/01/2020 CR XR FOOT WT BEARING RT 3V from 09/23/2020 CR XR FOOT WT BEARING LT 3V from 09/23/2020 FINDINGS: There has been amputation at the base of the 5th metatarsal. There is a healing mildly displaced fracture involving the mid shaft of the 4th metatarsal. Fracture line remains visible especially on lateral view. There is minimal medial displacement of the distal fracture fragment with some developing callus formation noted. Minimally displaced fracture involves the diaphyseal metaphyseal junction of the 3rd metatarsal and 2nd metatarsal. There is some sclerosis at the fracture site suggesting healing. There is mild pes planus IMPRESSION: Healing fractures of the 2nd 3rd and 4th metatarsals as described above. Dictated by: Zac Glover MD 03/03/2021 14:32 Zac Glover MD in [place] 03/03/2021 14:32
[2021-03-03 12:29] LABS: Basophils % 0.2 % (0.1-2.0); Eosinophils # 0.1 K/mm3 (0.0-0.4); Eosinophils % 1.4 % (0.1-12.0); Hematocrit 36.3 % (37.0-47.0); Hemoglobin 10.6 g/dL (12.2-16.2); Lymphocytes # 2.2 K/mm3 (0.7-4.5); Lymphocytes % 31.6 % (10-50); Mean Corpuscular HGB Conc 29.3 g/dL (31.8-35.4); Mean Corpuscular Hemoglobin 25.7 pg (27.0-31.2); Mean Corpuscular Volume 87.8 fl (81-99); Mean Platelet Volume 7.6 fl (7.4-10.4); Monocytes # 0.4 K/mm3 (0.1-1.0); Monocytes % 5.7 % (1.7-9.3); Neutrophils # 4.2 K/mm3 (1.8-7.8); Neutrophils % 61.2 % (37.0-80.0); Platelet Count 162 K/mm3 (142-424); Red Blood Count 4.13 M/mm3 (4.20-5.40); Red Cell Distribution Width 16.3 % (11.5-17.5); White Blood Count 6.9 K/mm3 (4.8-10.8)
[2021-03-03 12:37] LABS: Chloride 101 mmol/L (98-107); Potassium 3.8 mmoL/L (3.5-5.1); Sodium 139 mmol/L (136-145)
[2021-03-03 12:39] LABS: Alanine Aminotransferase 63 U/L (12-78); Aspartate Amino Transferase 91 U/L (14-36); Blood Urea Nitrogen 13 mg/dl (7-17); Creatinine Clearance Estimated 90 mL/min (50-200); Estimated Glomerular Filt Rate 76 ml/min (>60); GFR (African American) 92 ML/MIN (>60)
[2021-03-03 12:40] LABS: Albumin/Globulin Ratio 1.1 (1.1-1.8); Alkaline Phosphatase 109 U/L (38-126); Anion Gap 8.8 mEq/L (5-15); Bilirubin,Total 0.9 mg/dl (0.2-1.3); Calcium 9.5 mg/dl (8.4-10.2); Carbon Dioxide 33 mmol/L (22.0-30.0); Globulin 3.5 g/dL (1.3-3.2); Glucose 111 mg/dl (74-100); Total Protein,Serum 7.5 g/dl (6.3-8.2)
[2021-03-03 12:45] LABS: C-Reactive Protein 19.7 mg/L (0-4)
[2021-03-03 13:54] LABS: Erythrocyte Sedimentation Rate > 140 mm/hr (0-30)
== END 2021-03-03 12:15 | disposition home or self-care (01) ==
LOC: INF 12:04
PROVIDERS: PCP Family Medicine; Visit Provider Podiatrist
DX: S92.302D Fracture of unspecified metatarsal bone(s), left foot, subsequent encounter for fracture with routine healing (principal); Z45.2 Encounter for adjustment and management of vascular access device
CPT/HCPCS: 73630; 80053; 85025; 85651; 86140; J1642

== ENCOUNTER 2021-03-18 11:56 | Outpatient (CLI) | payer OTHER, SELFPAY ==
[2021-03-18 13:05] VITALS: BMI 45.9
--- NOTE | 2021-03-18 13:06 | XR_ITS ---
PROCEDURE: XR CHEST PORTABLE PICC PLAC CLINICAL HISTORY: PICC line placement COMPARISON: CR XR CHEST PORTABLE PICC PLAC from 02/05/2021 CR XR CHEST PORTABLE from 02/05/2021 CR XR CHEST PORTABLE from 02/05/2021 FINDINGS: The patient is morbidly obese making visualization of the PICC line difficult. PICC line does appear to be situated at the junction of the right subclavian vein with SVC. The lung irving are grossly clear of infiltrate. Cardiac size and vascularity are grossly normal. IMPRESSION: PICC line with the tip location as described, this could be advanced 5-6 cm for better overall positioning if possible. Dictated by: Dr. Subhash French MD 03/18/2021 13:35 Dr. Subhash French MD in [place] 03/18/2021 13:35
[2021-03-18 13:54] LABS: Chloride 100 mmol/L (98-107); Potassium 4.2 mmoL/L (3.5-5.1); Sodium 136 mmol/L (136-145)
[2021-03-18 13:57] LABS: Alanine Aminotransferase 59 U/L (12-78); Albumin Level 3.5 g/dl (3.5-5.0); Albumin/Globulin Ratio 1.1 (1.1-1.8); Alkaline Phosphatase 96 U/L (38-126); Anion Gap 9.2 mEq/L (5-15); Aspartate Amino Transferase 65 U/L (14-36); Bilirubin,Total 0.8 mg/dl (0.2-1.3); Blood Urea Nitrogen 17 mg/dl (7-17); Calcium 9.1 mg/dl (8.4-10.2); Carbon Dioxide 31 mmol/L (22.0-30.0); Creatine Kinase 111 U/L (30-135); Creatinine Clearance Estimated 103 mL/min (50-200); Estimated Glomerular Filt Rate 88 ml/min (>60); GFR (African American) 107 ML/MIN (>60); Globulin 3.1 g/dL (1.3-3.2); Glucose 265 mg/dl (74-100); Total Protein,Serum 6.6 g/dl (6.3-8.2)
[2021-03-18 14:03] LABS: C-Reactive Protein 28.7 mg/L (0-4)
[2021-03-18 14:31] LABS: Basophils % 0.3 % (0.1-2.0); Eosinophils # 0.1 K/mm3 (0.0-0.4); Eosinophils % 1.3 % (0.1-12.0); Hemoglobin 10.8 g/dL (12.2-16.2); Lymphocytes % 32.5 % (10-50); Mean Corpuscular HGB Conc 30.8 g/dL (31.8-35.4); Mean Corpuscular Hemoglobin 27.1 pg (27.0-31.2); Mean Corpuscular Volume 87.9 fl (81-99); Mean Platelet Volume 8.8 fl (7.4-10.4); Monocytes # 0.3 K/mm3 (0.1-1.0); Monocytes % 5.4 % (1.7-9.3); Neutrophils # 3.6 K/mm3 (1.8-7.8); Neutrophils % 60.4 % (37.0-80.0); Platelet Count 146 K/mm3 (142-424); Red Blood Count 3.98 M/mm3 (4.20-5.40); Red Cell Distribution Width 17.1 % (11.5-17.5)
[2021-03-18 15:36] LABS: Erythrocyte Sedimentation Rate 43 mm/hr (0-30)
== END 2021-03-18 13:45 | disposition home or self-care (01) ==
LOC: INF 11:56
PROVIDERS: PCP Family Medicine; Visit Provider Podiatrist
DX: E11.621 Type 2 diabetes mellitus with foot ulcer (principal); L97.529 Non-pressure chronic ulcer of other part of left foot with unspecified severity; L03.116 Cellulitis of left lower limb; Z79.4 Long term (current) use of insulin
CPT/HCPCS: 36569; 71045; 80053; 82550; 85025; 85651; 86140; C1751

== ENCOUNTER 2021-03-24 15:55 | Outpatient (CLI) | payer OTHER, SELFPAY ==
[2021-03-24 15:59] VITALS: BMI 45.9
[2021-03-24 16:26] LABS: Basophils % 0.3 % (0.1-2.0); Eosinophils # 0.1 K/mm3 (0.0-0.4); Eosinophils % 1.4 % (0.1-12.0); Hematocrit 35.5 % (37.0-47.0); Hemoglobin 10.8 g/dL (12.2-16.2); Lymphocytes # 1.8 K/mm3 (0.7-4.5); Lymphocytes % 28.6 % (10-50); Mean Corpuscular HGB Conc 30.5 g/dL (31.8-35.4); Mean Corpuscular Volume 88.8 fl (81-99); Mean Platelet Volume 8.4 fl (7.4-10.4); Monocytes # 0.4 K/mm3 (0.1-1.0); Monocytes % 5.8 % (1.7-9.3); Neutrophils # 3.9 K/mm3 (1.8-7.8); Neutrophils % 63.9 % (37.0-80.0); Platelet Count 126 K/mm3 (142-424); Red Cell Distribution Width 17.2 % (11.5-17.5); White Blood Count 6.1 K/mm3 (4.8-10.8)
[2021-03-24 16:42] LABS: Alanine Aminotransferase 51 U/L (12-78); Albumin Level 3.6 g/dl (3.5-5.0); Albumin/Globulin Ratio 1.2 (1.1-1.8); Alkaline Phosphatase 103 U/L (38-126); Aspartate Amino Transferase 58 U/L (14-36); Bilirubin,Total 0.8 mg/dl (0.2-1.3); Blood Urea Nitrogen 19 mg/dl (7-17); Calcium 8.6 mg/dl (8.4-10.2); Carbon Dioxide 29 mmol/L (22.0-30.0); Chloride 98 mmol/L (98-107); Creatinine Clearance Estimated 90 mL/min (50-200); Estimated Glomerular Filt Rate 76 ml/min (>60); GFR (African American) 92 ML/MIN (>60); Glucose 379 mg/dl (74-100); Sodium 133 mmol/L (136-145); Total Protein,Serum 6.6 g/dl (6.3-8.2)
[2021-03-24 16:47] LABS: C-Reactive Protein 29.2 mg/L (0-4)
[2021-03-24 16:54] LABS: Erythrocyte Sedimentation Rate 40 mm/hr (0-30)
== END 2021-03-24 16:20 | disposition home or self-care (01) ==
LOC: INF 15:56
PROVIDERS: Podiatrist; PCP Family Medicine; Visit Provider Nurse Practitioner
DX: M86.172 Other acute osteomyelitis, left ankle and foot (principal); Z45.2 Encounter for adjustment and management of vascular access device
CPT/HCPCS: 80053; 85025; 85651; 86140; J1642

== ENCOUNTER → 2021-04-24 14:03 | Outpatient (CLI) | payer OTHER, SELFPAY ==
[2021-04-24 14:41] LABS: Appearance,Urine CLEAR (Clear); Bilirubin,Urine Negative (Negative); Blood, Urine Negative (Negative); Color,Urine YELLOW (Yellow); Glucose,Urine (UA) 2+ (Negative); Ketones,Urine TRACE (Negative); Leukocyte Esterase,Urine 1+ (Negative); Nitrate,Urine POSITIVE (Negative); Protein,Urine Negative (Negative); Specific Gravity, Urine 1.025 (1.005-1.030); Urobilinogen,Urine 0.2 EU/dl (0.2)
[2021-04-24 14:57] LABS: Bacteria,Urine 3+ /lpf; Microscopic, Urine URINE MICROSCOPIC (MICROSCOPIC)
== END ==
PROVIDERS: Visit Provider Internal Medicine Cardiovascular Disease
DX: R73.09 Other abnormal glucose (principal); I95.9 Hypotension, unspecified
CPT/HCPCS: 81001; 87086; 87088; 87186

== ENCOUNTER → 2021-05-01 09:31 | Outpatient (CLI) | payer OTHER, SELFPAY ==
[2021-05-01 10:14] LABS: Basophils % 0.2 % (0.1-2.0); Eosinophils # 0.1 K/mm3 (0.0-0.4); Hematocrit 38.6 % (37.0-47.0); Hemoglobin 12.5 g/dL (12.2-16.2); Lymphocytes # 1.8 K/mm3 (0.7-4.5); Lymphocytes % 32.5 % (10-50); Mean Corpuscular HGB Conc 32.3 g/dL (31.8-35.4); Mean Corpuscular Hemoglobin 28.7 pg (27.0-31.2); Mean Corpuscular Volume 88.9 fl (81-99); Mean Platelet Volume 9.4 fl (7.4-10.4); Monocytes # 0.3 K/mm3 (0.1-1.0); Monocytes % 5.4 % (1.7-9.3); Neutrophils # 3.4 K/mm3 (1.8-7.8); Neutrophils % 60.7 % (37.0-80.0); Platelet Count 128 K/mm3 (142-424); Red Blood Count 4.34 M/mm3 (4.20-5.40); Red Cell Distribution Width 17.3 % (11.5-17.5); White Blood Count 5.6 K/mm3 (4.8-10.8)
[2021-05-01 11:13] LABS: Alanine Aminotransferase 48 U/L (12-78); Albumin Level 3.5 g/dl (3.5-5.0); Albumin/Globulin Ratio 1.3 (1.1-1.8); Alkaline Phosphatase 93 U/L (38-126); Anion Gap 8.2 mEq/L (5-15); Aspartate Amino Transferase 62 U/L (14-36); Bilirubin,Total 0.8 mg/dl (0.2-1.3); Blood Urea Nitrogen 24 mg/dl (7-17); Calcium 8.7 mg/dl (8.4-10.2); Carbon Dioxide 32 mmol/L (22.0-30.0); Chloride 101 mmol/L (98-107); Creatine Kinase 103 U/L (30-135); Estimated Glomerular Filt Rate 66 ml/min (>60); GFR (African American) 80 ML/MIN (>60); Globulin 2.8 g/dL (1.3-3.2); Glucose 211 mg/dl (74-100); Potassium 4.2 mmoL/L (3.5-5.1); Sodium 137 mmol/L (136-145); Total Protein,Serum 6.3 g/dl (6.3-8.2)
[2021-05-01 11:15] LABS: Anion Gap 8.3 mEq/L (5-15); Blood Urea Nitrogen 24 mg/dl (7-17); Calcium 8.7 mg/dl (8.4-10.2); Carbon Dioxide 31 mmol/L (22.0-30.0); Chloride 101 mmol/L (98-107); Estimated Glomerular Filt Rate 76 ml/min (>60); GFR (African American) 92 ML/MIN (>60); Glucose 213 mg/dl (74-100); Potassium 4.3 mmoL/L (3.5-5.1); Sodium 136 mmol/L (136-145)
[2021-05-01 11:20] LABS: C-Reactive Protein 26.7 mg/L (0-4)
[2021-05-01 11:40] LABS: Erythrocyte Sedimentation Rate 22 mm/hr (0-30)
[2021-05-01 13:04] LABS: Hemoglobin A1C 10.1 % (4.0-6.0)
== END ==
PROVIDERS: Nurse Practitioner; Visit Provider Internal Medicine Cardiovascular Disease
DX: R06.00 Dyspnea, unspecified (principal); I73.9 Peripheral vascular disease, unspecified; E11.40 Type 2 diabetes mellitus with diabetic neuropathy, unspecified; M79.671 Pain in right foot; R60.0 Localized edema; Z79.4 Long term (current) use of insulin; Z95.828 Presence of other vascular implants and grafts; Z51.89 Encounter for other specified aftercare
CPT/HCPCS: 36415; 80048; 80053; 82550; 83036; 85025; 85651; 86140; 87070; 87205

== ENCOUNTER → 2021-05-08 15:02 | Outpatient (CLI) | payer OTHER, SELFPAY ==
--- NOTE | 2021-05-08 15:02 | US_ITS ---
APPROVED REPORT Exam Type: Ankle to Brachial Index Um Rn: Maximilian RCS, RVS/SW Indications Diabetic neuropathy Pressures/Indices Right Indices Left Indices Brachial 165.00 mmHg Brachial 152.00 mmHg Low Thigh 136.00 mmHg 0.82 Low Thigh 164.00 mmHg 0.99 Calf 141.00 mmHg 0.85 Calf 156.00 mmHg 0.95 Ankle(PT) 133.00 mmHg 0.81 Ankle(PT) 144.00 mmHg 0.87 Digit 127.00 mmHg 0.77 Digit 113.00 mmHg 0.68 Findings RT NICOLASA=0.85 LT NICOLASA=0.87 RT TPI=0.77 LT TPI=0.68 Conclusion RT NICOLASA=0.85 LT NICOLASA=0.87 RT TPI=0.77 LT TPI=0.68 Mild bilateral arterial disease Electronically signed by : Zac Glover MD 05/09/2021 15:08:15
== END ==
PROVIDERS: PCP Family Medicine; Visit Provider Podiatrist
DX: R09.89 Other specified symptoms and signs involving the circulatory and respiratory systems (principal)
CPT/HCPCS: 93923

== ENCOUNTER 2021-05-08 15:40 | Outpatient (RCR) | payer OTHER, SELFPAY ==
--- NOTE | 2021-05-08 16:40 | HMH.PTOPWND ---
Rehab Outpt Wound Evaluation Rehab OP Wound Evaluation Start: 05/08/21 15:56 Freq: Status: Active Protocol: Document 05/08/21 16:31 PWCHRISTI (Rec: 05/08/21 16:39 [email or web address] [id number]) Electronically Signed By Alennito Trammell, KATHY 05/08/21 16:31 Subjective/History History History This is the initial PT wound clinic evaluation for Zora Jerez. Pt is a 50 y/o female referred to wound care for non-healing DFU on B feet. 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 Pt now reports to wound clinic w/ 2 DFU's w/ a history of atleast 1 year each . Pt reports she is diabetic, A1C is 10+, and has severe neuropathy in B feet. Subjective Subjective pt c/o TTP along lateral L foot and 3rd/4th toe because they are broken Wound Eval Wound Left Medial Great Toe Wound Type Diabetic Foot Ulcer Is This a Chronic Wound Yes Wound Length (cm) 0.4 Wound Width (cm) 0.4 Wound Depth (cm) 0.1 Wound Bed Appearance Beefy Red Percentage Granulated (%) 100 Wound Margins Description Well Defined Surrounding Tissue Appearance Bright Red,Edematous Edema Type Non-Pitting Edema Appearance Tight Surrounding Tissue Temperature Warm Drainage Description None Drainage Amount None Drainage Odor No Odor Dressing Status Open to Air Wound Topical Solution/Irrigant Antibiotic Irrigant Primary Dressing Drainage Sponge Comment polymem dot Wound Debridement Method Sharps Wound Debridement Amount of Tissue Minimal Removed Wound Debridement Result Healthy Tissue Revealed Dressing Change Date 05/08/21 Dressing Change Patient Tolerance Tolerated Well Right Lower Medial Distal Foot Wound Type Diabetic Foot Ulcer Is This a Chronic Wound Yes Wound Length (cm) 0.4 Wound Width (cm) 0.4 Wound Depth (cm) 0.1 Wound Bed Appearance Beefy Red Percentage Granulated (%) 100 Wound Margins Description Well Defined Edema Type Non-Pitting Edema Appearance Tight Surrounding T
== END 2021-05-08 15:45 | disposition home or self-care (01) ==
LOC: PT 15:40
PROVIDERS: PCP Family Medicine; Visit Provider Podiatrist
DX: E11.621 Type 2 diabetes mellitus with foot ulcer (principal); L97.529 Non-pressure chronic ulcer of other part of left foot with unspecified severity; L97.512 Non-pressure chronic ulcer of other part of right foot with fat layer exposed
CPT/HCPCS: 97162; 97597

== ENCOUNTER → 2021-10-27 11:49 | Outpatient (CLI) | payer OTHER, SELFPAY ==
[2021-10-27 12:36] LABS: Basophils % 0.3 % (0.1-2.0); Eosinophils # 0.1 K/mm3 (0.0-0.4); Eosinophils % 0.8 % (0.1-12.0); Hematocrit 43.4 % (37.0-47.0); Lymphocytes % 25.7 % (10-50); Mean Corpuscular HGB Conc 32.2 g/dL (31.8-35.4); Mean Corpuscular Hemoglobin 30.7 pg (27.0-31.2); Mean Corpuscular Volume 95.4 fl (81-99); Mean Platelet Volume 9.4 fl (7.4-10.4); Monocytes # 0.3 K/mm3 (0.1-1.0); Monocytes % 3.9 % (1.7-9.3); Neutrophils # 5.3 K/mm3 (1.8-7.8); Neutrophils % 69.3 % (37.0-80.0); Platelet Count 134 K/mm3 (142-424); Red Blood Count 4.55 M/mm3 (4.20-5.40); Red Cell Distribution Width 15.5 % (11.5-17.5); White Blood Count 7.7 K/mm3 (4.8-10.8)
[2021-10-27 14:18] LABS: Chloride 100 mmol/L (98-107); Potassium 4.2 mmoL/L (3.5-5.1); Sodium 135 mmol/L (136-145)
[2021-10-27 14:20] LABS: Blood Urea Nitrogen 9 mg/dl (7-17); Estimated Glomerular Filt Rate 105 ml/min (>60); GFR (African American) 128 ML/MIN (>60)
[2021-10-27 14:21] LABS: Alanine Aminotransferase 20 U/L (12-78); Albumin Level 3.8 g/dl (3.5-5.0); Albumin/Globulin Ratio 1.3 (1.1-1.8); Alkaline Phosphatase 81 U/L (38-126); Anion Gap 10.2 mEq/L (5-15); Aspartate Amino Transferase 28 U/L (14-36); Bilirubin,Total 1.4 mg/dl (0.2-1.3); Calcium 9.6 mg/dl (8.4-10.2); Carbon Dioxide 29 mmol/L (22.0-30.0); Globulin 2.9 g/dL (1.3-3.2); Glucose 207 mg/dl (74-100); Total Protein,Serum 6.7 g/dl (6.3-8.2)
[2021-10-27 14:26] LABS: C-Reactive Protein 20.2 mg/L (0-4)
[2021-10-27 15:13] LABS: Erythrocyte Sedimentation Rate 23 mm/hr (0-30)
== END ==
PROVIDERS: Visit Provider Nurse Practitioner
DX: E11.621 Type 2 diabetes mellitus with foot ulcer (principal); L97.521 Non-pressure chronic ulcer of other part of left foot limited to breakdown of skin; L97.529 Non-pressure chronic ulcer of other part of left foot with unspecified severity; M14.672 Charcot's joint, left ankle and foot; R09.89 Other specified symptoms and signs involving the circulatory and respiratory systems; Z79.4 Long term (current) use of insulin; Z51.89 Encounter for other specified aftercare
CPT/HCPCS: 36415; 80053; 85025; 85651; 86140; 87070; 87077; 87186; 87205

== ENCOUNTER → 2022-02-26 10:36 | Outpatient (CLI) | payer OTHER, SELFPAY ==
--- NOTE | 2022-02-26 10:41 | XR_ITS ---
FINAL REPORT CLINICAL HISTORY: PAIN, simulated COMPARISON: March 03, 2021 FINDINGS: LEFT FOOT: Three simulated weight-bearing views of the left foot were obtained. There are postoperative changes from amputation of the 5th digit at the proximal 5th metatarsal. There is a chronic fracture of the 4th metatarsal with increased bone formation since the prior. There is a subacute fracture of the 2nd proximal phalanx without bony union. There are mild degenerative changes. There are calcaneal spurs. IMPRESSION: Postoperative changes and fractures as above. Reviewed, Interpreted and Dictated by Miah Queen III, MD Transcribed by Malcolm Mendiola Authenticated by Miah Queen III, MD on 02/26/2022 12:27:[address] [facility]
== END ==
PROVIDERS: PCP Family Medicine; Visit Provider Podiatrist
DX: M14.672 Charcot's joint, left ankle and foot (principal)
CPT/HCPCS: 73630

== ENCOUNTER → 2022-04-16 11:54 | Outpatient (CLI) | payer OTHER, SELFPAY ==
--- NOTE | 2022-04-16 12:06 | XR_ITS ---
FINAL REPORT CLINICAL HISTORY: pain, wounds COMPARISON: 02/26/2022 FINDINGS: LEFT FOOT Three views of the left foot demonstrate no acute fracture or dislocation. There is a chronic fracture of the 2nd proximal phalanx with at least partial nonunion, stable. There are chronic fractures of the distal 3rd metatarsal and mid 4th metatarsal. There are postoperative changes from amputation of the 5th digit at the proximal metatarsal. There is mild degenerative change. There are small calcaneal spurs. The soft tissues are unremarkable. IMPRESSION: Chronic fractures with degenerative and postoperative changes as above, with no acute bony abnormality. Reviewed, Interpreted and Dictated by Miah Queen III, MD Transcribed by Leonor Florez Authenticated by Miah Queen III, MD on 04/16/2022 01:17:59 PM [facility]
[2022-04-16 14:11] LABS: Basophils % 0.3 % (0.1-2.0); Eosinophils % 0.7 % (0.1-12.0); Hematocrit 37.9 % (37.0-47.0); Lymphocytes # 1.7 K/mm3 (0.7-4.5); Lymphocytes % 26.5 % (10-50); Mean Corpuscular HGB Conc 31.8 g/dL (31.8-35.4); Mean Corpuscular Hemoglobin 30.2 pg (27.0-31.2); Mean Corpuscular Volume 95.1 fl (81-99); Mean Platelet Volume 9.7 fl (7.4-10.4); Monocytes # 0.3 K/mm3 (0.1-1.0); Monocytes % 4.9 % (1.7-9.3); Neutrophils # 4.3 K/mm3 (1.8-7.8); Neutrophils % 67.7 % (37.0-80.0); Platelet Count 123 K/mm3 (142-424); Red Blood Count 3.98 M/mm3 (4.20-5.40); Red Cell Distribution Width 15.3 % (11.5-17.5); White Blood Count 6.4 K/mm3 (4.8-10.8)
[2022-04-16 14:45] LABS: Chloride 102 mmol/L (98-107); Potassium 4.2 mmoL/L (3.5-5.1); Sodium 136 mmol/L (136-145)
[2022-04-16 14:48] LABS: Alanine Aminotransferase 18 U/L (12-78); Albumin Level 3.4 g/dl (3.5-5.0); Albumin/Globulin Ratio 1.3 (1.1-1.8); Alkaline Phosphatase 93 U/L (38-126); Anion Gap 9.2 mEq/L (5-15); Aspartate Amino Transferase 20 U/L (14-36); Blood Urea Nitrogen 12 mg/dl (7-17); Calcium 9.2 mg/dl (8.4-10.2); Carbon Dioxide 29 mmol/L (22.0-30.0); Estimated Glomerular Filt Rate 105 ml/min (>60); GFR (African American) 127 ML/MIN (>60); Globulin 2.7 g/dL (1.3-3.2); Glucose 249 mg/dl (74-100); Total Protein,Serum 6.1 g/dl (6.3-8.2)
[2022-04-16 14:56] LABS: C-Reactive Protein 19.4 mg/L (0-4)
[2022-04-16 15:12] LABS: Erythrocyte Sedimentation Rate 35 mm/hr (0-30)
[2022-04-16 15:37] LABS: Hemoglobin A1C 8.6 % (4.0-6.0)
== END ==
PROVIDERS: PCP Family Medicine; Visit Provider Podiatrist
DX: M79.672 Pain in left foot (principal); Z51.89 Encounter for other specified aftercare
CPT/HCPCS: 36415; 73630; 80053; 83036; 85025; 85651; 86140; 87070; 87077; 87081; 87102; 87186; 87205; 87206; 87220

== ENCOUNTER → 2022-05-14 11:05 | Outpatient (CLI) | payer OTHER, SELFPAY ==
[2022-05-14 11:52] LABS: Basophils # 0.1 K/mm3 (0-0.2); Basophils % 1.3 % (0.1-2.0); Eosinophils # 0.1 K/mm3 (0.0-0.4); Eosinophils % 0.6 % (0.1-12.0); Hematocrit 34.2 % (37.0-47.0); Hemoglobin 11.3 g/dL (12.2-16.2); Lymphocytes # 2.4 K/mm3 (0.7-4.5); Lymphocytes % 24.6 % (10-50); Mean Corpuscular Hemoglobin 30.3 pg (27.0-31.2); Mean Corpuscular Volume 91.9 fl (81-99); Mean Platelet Volume 10.2 fl (7.4-10.4); Monocytes # 0.5 K/mm3 (0.1-1.0); Monocytes % 5.2 % (1.7-9.3); Neutrophils # 6.6 K/mm3 (1.8-7.8); Neutrophils % 68.3 % (37.0-80.0); Platelet Count 140 K/mm3 (142-424); Red Blood Count 3.73 M/mm3 (4.20-5.40); Red Cell Distribution Width 15.7 % (11.5-17.5); White Blood Count 9.6 K/mm3 (4.8-10.8)
[2022-05-14 12:18] LABS: Erythrocyte Sedimentation Rate 47 mm/hr (0-30)
[2022-05-14 12:32] LABS: Chloride 100 mmol/L (98-107); Sodium 140 mmol/L (136-145)
[2022-05-14 12:35] LABS: Alanine Aminotransferase 22 U/L (12-78); Albumin/Globulin Ratio 1.5 (1.1-1.8); Alkaline Phosphatase 81 U/L (38-126); Aspartate Amino Transferase 24 U/L (14-36); Bilirubin,Total 0.9 mg/dl (0.2-1.3); Blood Urea Nitrogen 20 mg/dl (7-17); Calcium 9.1 mg/dl (8.4-10.2); Carbon Dioxide 32 mmol/L (22.0-30.0); Estimated Glomerular Filt Rate 66 ml/min (>60); GFR (African American) 80 ML/MIN (>60); Globulin 2.6 g/dL (1.3-3.2); Glucose 190 mg/dl (74-100); Total Protein,Serum 6.6 g/dl (6.3-8.2)
[2022-05-14 12:37] LABS: Anion Gap 11.6 mEq/L (5-15); Potassium 3.6 mmoL/L (3.5-5.1)
[2022-05-14 12:40] LABS: C-Reactive Protein 19.6 mg/L (0-4)
== END ==
PROVIDERS: PCP Family Medicine; Visit Provider Podiatrist
DX: Z51.89 Encounter for other specified aftercare (principal); E11.621 Type 2 diabetes mellitus with foot ulcer; L97.519 Non-pressure chronic ulcer of other part of right foot with unspecified severity; Z79.4 Long term (current) use of insulin
CPT/HCPCS: 36415; 80053; 85025; 85651; 86140

== ENCOUNTER → 2022-06-05 09:41 | Outpatient (CLI) | payer OTHER, SELFPAY ==
--- NOTE | 2022-06-05 09:47 | CT_ITS ---
FINAL REPORT CLINICAL HISTORY: AORTOILIAC OCCLUSIVE DISEASE, NUMBNESS IN LOWER LEGS COMPARISON: June 05, 2020 FINDINGS: Thin section axial CT images of the abdomen, pelvis and lower extremities were obtained with contrast. Multiplanar reformatted images were also obtained and reviewed. ABDOMEN AND PELVIS: There is a stent in the distal abdominal aorta that is patent. There is moderate vascular calcification. There is no abdominal aortic aneurysm or dissection. The proximal celiac axis and proximal superior mesenteric artery are unremarkable. There is no renal artery stenosis. The inferior mesenteric artery is patent. There is mild stenosis of the right common iliac artery. There is moderate stenosis of the left common iliac artery, stable. The external iliac arteries demonstrate mild stenosis. The internal iliac arteries are patent. RIGHT LOWER EXTREMITY: There is mild stenosis of the common femoral artery. There is moderate stenosis of the proximal superficial femoral artery. The right deep femoral artery is patent. The right popliteal artery is patent. There is three-vessel runoff to the distal lower leg. LEFT LOWER EXTREMITY: There is mild stenosis of the common femoral artery. The superficial femoral artery is patent. The left deep femoral artery is patent. The left popliteal artery is patent. There is three-vessel runoff to the distal lower leg. OTHER FINDINGS: The liver has a lobular contour worrisome for cirrhosis. There is a left adrenal nodule consistent with an adenoma. IMPRESSION: Patent distal abdominal aorta stent. Moderate, stable stenosis of the left common internal iliac artery. Moderate stenosis of the proximal right superficial femoral artery. Mild stenoses of the right common iliac and bilateral common femoral arteries. Reviewed, Interpreted and Dictated by Miah Queen III, MD Transcribed by Malcolm Mendiola Authenticated and [facility]
== END ==
PROVIDERS: PCP Family Medicine; Visit Provider Surgery Vascular Surgery
DX: I74.09 Other arterial embolism and thrombosis of abdominal aorta (principal)
CPT/HCPCS: 75635; Q9967

== ENCOUNTER → 2022-06-25 16:29 | Outpatient (CLI) | payer OTHER, SELFPAY | PROVIDERS: Visit Provider Podiatrist | DX: Z51.89 Encounter for other specified aftercare (principal); E11.621 Type 2 diabetes mellitus with foot ulcer; L97.522 Non-pressure chronic ulcer of other part of left foot with fat layer exposed | CPT/HCPCS: 87070; 87205 ==

== ENCOUNTER → 2022-11-12 12:25 | Outpatient (CLI) | payer OTHER, SELFPAY ==
--- NOTE | 2022-11-12 12:30 | XR_ITS ---
FINAL REPORT CLINICAL HISTORY: Left Foot Pain COMPARISON: February 26, 2022 FINDINGS: LEFT FOOT Three views of the left foot were obtained. There has been amputation of the 5th digit at the proximal 5th metatarsal. There is a chronic 3rd proximal phalanx fracture with interval healing. No acute bony abnormality is identified. There are mild degenerative changes. The soft tissues are unremarkable. IMPRESSION: Amputation of 5th digit. Interval healing of chronic 3rd proximal phalanx fracture. Mild degenerative changes. Reviewed, Interpreted and Dictated by Miah Queen III, MD Transcribed by Rosa Gonzalez Authenticated and . [facility]
--- NOTE | 2022-11-12 12:30 | XR_ITS ---
FINAL REPORT CLINICAL HISTORY: Right Foot Pain COMPARISON: 09/23/2020 FINDINGS: RIGHT FOOT Three views of the right foot were obtained. There is a comminuted fracture of the distal aspect of the 2nd proximal phalanx. The fracture line extends to the PIP joint. There is soft tissue swelling of the 2nd digit. There is a chronic fracture of the distal 3rd metatarsal. There are mild degenerative changes. IMPRESSION: Comminuted fracture of the distal aspect of the 2nd proximal phalanx. Reviewed, Interpreted and Dictated by Miah Queen III, MD Transcribed by Rosa Gonzalez Authenticated and [facility]
== END ==
PROVIDERS: PCP Family Medicine; Visit Provider Podiatrist
DX: M79.671 Pain in right foot (principal); M79.672 Pain in left foot
CPT/HCPCS: 73630

== ENCOUNTER → 2023-01-19 12:15 | Outpatient (CLI) | payer OTHER, SELFPAY ==
--- NOTE | 2023-01-19 12:21 | XR_ITS ---
FINAL REPORT CLINICAL HISTORY: ? PINCHED NERVE IN NECK, PAIN FINDINGS: CERVICAL SPINE Five views of the cervical spine were obtained. There is no acute fracture. There is no malalignment. There are moderate degenerative changes at C5-6 and C6-7 with osteophytes. There is mild left C4-5 and C6-7 neural foraminal narrowing. There is no soft tissue abnormality. IMPRESSION: Degenerative changes with mild left C4-5 and C6-7 neural foraminal narrowing. No acute bony abnormality. Reviewed, Interpreted and Dictated by Miah Queen III, MD Transcribed by Rosa Gonzalez Authenticated and . [facility]
== END ==
LOC: RAD 12:16
PROVIDERS: PCP Family Medicine; Visit Provider Nurse Practitioner Family
DX: Z71.2 Person consulting for explanation of examination or test findings (principal); M54.2 Cervicalgia
CPT/HCPCS: 72050

== ENCOUNTER 2023-03-05 11:00 | Outpatient (RCR) | payer OTHER, SELFPAY ==
--- NOTE | 2023-01-19 15:36 | HMH.PTOPWND ---
Rehab Outpt Wound Evaluation Rehab OP Wound Evaluation Start: 01/19/23 14:32 Freq: Status: Active Protocol: Document 01/19/23 14:36 PHORNE (Rec: 01/19/23 15:36 PHORNE [id number]) E-signed By Geronimo Otero, PT Subjective/History History History This is the initial PT eval for Zora Jerez 52 yowf who presents with c/o B LE edema for many years. She reports difficulty walking even short distances and remains sedentary mnost of the day. She works from home and spends all day in a chair basically. She c/o significant pain related to diabetic neuropathy and has hx of significant PAD. She had NICOLASA performed to B LE 05/08/21 showing R LE= 0.85 and L LE= 0 .87. More recent CTA abdomen shows mild stenosis and femoral and common iliac arteries B, but otherwise good blood flow to B LE. She has hx of Aortic stenting due to PAD. She reports numbness in B LE from mid-calf distally and intermittent pain. 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 Subjective Subjective Currently 0/10 pain, at worst 8/10 pain. R capps wound L= 0.4 cm, W= 0.2 cm, D= 0.1 cm. L Capps wound L= 0.5 cm, W= 1.0 cm, D= 0.1 cm. No pitting edema at this time, mild fibrotic edema noted. Lymphedema Eval Classification of Lymphedema Secondary Lymphedema Yes: PAD/CVI Stemmer's sign Stemmer's Sign no Stage of Lymphedema Lymphedema stages Stage II (Pitting edema, increased fibrosis w/ decreased pitting) Skin Changes Dry Skin Yes Redness Yes Brittle Uneven Nails Yes Discoloration of Skin Yes Other Changes Yes Pain Scale Pain Scale (0-10) 8 Affected Extremities Areas Affected by Lymphedema/Edema Right Lower Extremity,Left
--- NOTE | 2023-03-05 12:21 | HMH.RHREAS ---
Rehab Reassessment Rehab OP Re-assessment Start: 03/05/23 12:04 Freq: Status: Active Protocol: Document 03/05/23 12:07 JACKELYN (Rec: 03/05/23 12:21 PHOALETHA [id number]) E-signed By Geronimo Otero, PT Rehab Re-assessment Subjective Subjective Pt reports She continues to have pain all the time , but does feel some better than initial eval. She has been unable to come in for any appointments over the past 3 weeks and states, It was raining, and I don't get out in the rain. Objective Objective Notes Circumferential measurements: R LE total 222.7 cm which is - 6.5 cm since initial eval. L LE total 223.9 cm which is -1. 1 cm since initial eval. Pain: 6/10 overall today. TTP: 1/4 on B lower legs. Edema: MIN fibrosis noted to B LE this date. Assessment Progress Assessment Slower Than Expected Assessment Notes Pt has shown improvement in B LE edema, but limited visits and decreased adherence to HEP have limited her improvements at this time. She has shown significantly less fibrotic edema with treatment. She continues to require skilled intervention to improve edema and all functional mobility for ADLs. Patient goals met ST,2,3,4,[address] LT,2,3,4,5,6,7,8, 9 Revised Goals none Plan Plan Continue per initial POC. Increase pt education re: importance of HEP and adherence to POC. Frequency of Therapy 1-2 x/wk Duration of therapy 4 wks Time and Billing Re-Eval Time 17 Re-Eval Billing Units 1 PHYSICIAN CERTIFICATION: I certify the specified therapy services for Zora Jerez are required, authorized, and reviewed every 30 days.
== END 2023-03-05 11:05 | disposition home or self-care (01) ==
LOC: PT 11:00
PROVIDERS: PCP Family Medicine; Visit Provider Podiatrist
DX: I89.0 Lymphedema, not elsewhere classified (principal); L89.891 Pressure ulcer of other site, stage 1; R09.89 Other specified symptoms and signs involving the circulatory and respiratory systems
CPT/HCPCS: 97110; 97140; 97163; 97164

== ENCOUNTER → 2023-08-24 12:00 | Outpatient (CLI) | payer OTHER, SELFPAY ==
--- NOTE | 2023-08-24 12:05 | XR_ITS ---
FINAL REPORT CLINICAL HISTORY: osteomyelitis COMPARISON: 11/12/2022 FINDINGS: AP, oblique and lateral views of the left foot were obtained. There is no prior exam for comparison. There is no acute fracture or dislocation. There is amputation of the 5th digit at the base of the 5th metatarsal. There is osteopenia and multi joint degenerative disease. Soft tissues are normal. IMPRESSION: Amputation of the 5th digit at the base of the 5th metatarsal. Multi joint degenerative disease and osteopenia. Reviewed, Interpreted and Dictated by Denise Barnett MD Transcribed by Zora Edwards Authenticated and [facility]
--- NOTE | 2023-08-24 12:05 | XR_ITS ---
FINAL REPORT CLINICAL HISTORY: osteomyelitis COMPARISON: 11/12/2022 FINDINGS: AP, oblique and lateral views of the right foot were obtained. There is no prior exam for comparison. Again identified is a fracture at the head of the 2nd proximal phalanx. Multi joint degenerative disease is identified, stable. Soft tissues are normal. IMPRESSION: Fracture at the head of the 2nd proximal phalanx with multi joint degenerative disease. Reviewed, Interpreted and Dictated by Denise Barnett MD Transcribed by Zora Edwards Authenticated and [facility]
== END ==
LOC: RAD 12:02
PROVIDERS: PCP Family Medicine
DX: M86.9 Osteomyelitis, unspecified (principal)
CPT/HCPCS: 73630

== ENCOUNTER → 2023-08-24 23:16 | Outpatient (CLI) | payer OTHER, SELFPAY | LOC: LAB.DROPOF 23:17 | PROVIDERS: PCP Family Medicine; Visit Provider Nurse Practitioner Family | DX: Z51.89 Encounter for other specified aftercare (principal); M79.671 Pain in right foot; B96.89 Other specified bacterial agents as the cause of diseases classified elsewhere; B96.1 Klebsiella pneumoniae [K. pneumoniae] as the cause of diseases classified elsewhere | CPT/HCPCS: 87070; 87077; 87186; 87205 ==

== ENCOUNTER 2024-05-15 12:30 | Outpatient (CLI) | payer OTHER, SELFPAY ==
--- NOTE | 2024-05-15 12:30 | US_ITS ---
FINAL REPORT CLINICAL HISTORY: decreased sensation of b/l LE, discoloration bilateral feet, HTN, previous smoker, DM, HLD, ulcers bilateral feet/great toes, morbid obesity COMPARISON: None FINDINGS: LOWER EXTREMITY SEGMENTAL PRESSURE MEASUREMENTS Pressure indices are as follows: RIGHT LOWER EXTREMITY: Thigh: 0.77 Calf: 0.93 Ankle, posterior tibial artery: 0.85 Ankle, dorsalis pedis: 0.74 Toe: 0.5 NICOLASA: 0.85 Comments: Mild disease. LEFT LOWER EXTREMITY: Thigh: 0.79 Calf: 0.94 Ankle, posterior tibial artery: 0.84 Ankle, dorsalis pedis: 0.83 Toe: 0.58 NICOLASA: 0.84 Comments: Mild disease IMPRESSION: Mildly abnormal suggesting mild bilateral PVD. Reviewed, Interpreted and Dictated by Aysha Brock MD Transcribed by Leonor Florez Authenticated and [facility]
== END 2024-05-15 23:59 | disposition home or self-care (01) ==
PROVIDERS: PCP Family Medicine; Visit Provider Podiatrist
DX: I89.0 Lymphedema, not elsewhere classified (principal); R09.89 Other specified symptoms and signs involving the circulatory and respiratory systems
CPT/HCPCS: 93923

== ENCOUNTER 2024-06-13 10:57 | Outpatient (CLI) | payer OTHER, MEDICAID, SELFPAY ==
--- NOTE | 2024-06-13 11:03 | XR_ITS ---
FINAL REPORT CLINICAL HISTORY: Shortness of breath and high BP COMPARISON: 03/18/2021 FINDINGS: PA and lateral views of the chest were obtained. The cardiac and mediastinal silhouettes are within normal limits. Left lower lobe opacity could be atelectasis or pneumonia.. There is no pleural effusion or pneumothorax. No acute osseous abnormality is identified. IMPRESSION: Left lower lobe opacity, could represent atelectasis or pneumonia. Reviewed, Interpreted and Dictated by Denise Barnett MD Transcribed by Leonor Florez Authenticated and [facility]
--- NOTE | 2024-06-13 11:34 | ECG_ITS ---
APPROVED REPORT Exam: Resting ECG HR:66 bpm ECG Measurements Heart Rate 66 AXES NJ 134 P 41 QRSd 78 QRS -11 QT 367 T 47 QTc 380 Conclusion SINUS RHYTHM LAD with late R Wave progression - unchanged since 2018 BORDERLINE ECG UNCONFIRMED REPORT Electronically signed by : Davin Paul MD 06/14/2024 07:10:48
== END 2024-06-13 23:59 | disposition home or self-care (01) ==
LOC: LAB 10:58 → RAD 11:01
PROVIDERS: PCP Family Medicine; Visit Provider Podiatrist
DX: Z01.818 Encounter for other preprocedural examination (principal); E11.621 Type 2 diabetes mellitus with foot ulcer; L97.512 Non-pressure chronic ulcer of other part of right foot with fat layer exposed; Z79.4 Long term (current) use of insulin; Z79.85 Long-term (current) use of injectable non-insulin antidiabetic drugs
CPT/HCPCS: 71046; 93005

== ENCOUNTER 2024-07-03 15:17 | Emergency (ER) | payer OTHER, MEDICAID, SELFPAY ==
--- NOTE | 2024-07-03 | US_ITS ---
FINAL REPORT CLINICAL HISTORY: discoloration of BLE, HTN, HLD, obesity, COMPARISON: None FINDINGS: ANKLE-BRACHIAL PRESSURE INDICES Pressure indices are as follows: RIGHT LOWER EXTREMITY: Ankle-brachial pressure index: 0.86 Comments: Mild PVD LEFT LOWER EXTREMITY: Ankle-brachial pressure index: 0.84 Comments: Mild PVD CONCLUSION: Mild obstructive peripheral vascular disease. Reviewed, Interpreted and Dictated by Miah Queen III, MD Transcribed by Thania Lutz Authenticated and [facility]
[2024-07-03 15:17] VITALS: BP 134/51; PULSE 102; RESP 20; TEMP 36.7; O2SAT 94; BMI 51.6
[2024-07-03 15:30] VITALS: BP 119/83; PULSE 92; O2SAT 93
--- NOTE | 2024-07-03 15:40 | ED_ITS ---
<Statement entered by Comfort Monique MD - 07/05/24 22:45> I was consulted by the ELAN, and we discussed the complexity of the problems being addressed. I approved the treatment and management plan for this patient's care in the emergency department, thus performing a substantive portion of the medical decision making. Comfort oMnique MD, NIKITA, FACEP Discharge Plan Disposition Patient Disposition: Xfer SNF Condition: Good Prescriptions Prescriptions: New methocarbamol 750 mg tablet 750 mg PO Q6H PRN (Reason: muscle spasm) Qty: 20 0RF No Action gabapentin 800 mg tablet 800 mg PO QID clopidogrel [Plavix] 75 mg tablet 75 mg PO HS meloxicam [Mobic] 15 mg tablet 15 mg PO HS atorvastatin [Lipitor] 80 mg tablet 80 mg PO HS rabeprazole 20 mg tablet,delayed release (DR/EC) 20 mg PO HS aspirin 81 mg tablet,delayed release (DR/EC) 81 mg PO BID fluconazole 100 mg tablet 200 mg PO Adult Probiotic 3 billion cell capsule 3,000 mmu cells PO DAILY Rx Instructions: administer with a meal biotin 10,000 mcg capsule PO DAILY insulin regular hum U-500 conc 500 unit/mL (3 mL) insulin pen 200 unit SQ TID magnesium 250 mg tablet 250 mg PO BID furosemide 40 mg tablet 160 mg PO DAILY potassium chloride 10 mEq tablet extended release 10 meq PO (DME) Dexcom G6 Sensor Device See Rx Instructions .ROUTE .MEDSUPPLY Qty: 3 Patient Comments: USE DIRECTED by md} Rx Instructions: As directed ketoconazole 2 % cream TOPICAL Patient Comments: APPLY UP TO 2 GRAMS TO AFFECTED AREA TWICE DAILY DIRECTED. losartan 25 mg tablet 25 mg PO DAILY Trulicity 4.5 mg/0.5 mL pen injector 4.5 mg SQ WEEKLY spironolactone 25 mg tablet 25 mg PO gentamicin 0.1 % cream 1 applic TOPICAL ONCE 30 Days Qty: 30 3RF Referrals Follow up/Referrals: Chris Underwood [Primary Care Provider] - See instructions Activity Restrictions/Add. Instructions Additional Instructions/Restrictions: Follow-up with podiatry as scheduled. Keep your follow-up with vascular surgery as scheduled. I prescribed you both muscle relaxer and topical anesthetic. Return to ER for any worsening signs or symptoms. Clinical Impressions Clinical Impression: Peripheral vascular disease, Diabetic foot ulcer Arthralgia of hip Qualifiers: Laterality: left Qualified Code(s): M25.552 - Pain in left hip Diabetic neuropathy Qualifiers: Diabetes mellitus type: type 2 Diabetes mellitus complication detail: diabetic polyneuropathy Qualified Code(s): E11.42 - Type 2 diabetes mellitus with diabetic polyneuropathy Instructions Patient Instructions: DI for Hip Pain Print Language Print Language: Cameroonian Discharge ED Provider: Comfort Monique General Adult HPI General Chief complaint: PAIN Stated complaint: Hip pain Time Seen by Provider: 07/03/24 15:40 Mode of Arrival: EMS Source of Information: Patient Limitations: No Limitations Description of Symptoms (Recalled from ER Triage Doc. by RN): Patient reports severe left hip pain that has been going on for 3 weeks now. States that she has been seen at [facility] already for this and her scans were negative. Patient also requesting Dr. Jackson to come to the er to evaluate her left foot. States she is to be scheduled for one of her toes to be amputated on that foot and thinks they need to add another toe on that foot and would like for Dr. Jackson to come and see it. History of Present Illness HPI narrative: Patient presents for evaluation of multiple complaints but her primary complaint is left hip pain. Patient has chronic issues including her hip pain however it is worsened over the last week. Patient has known osteoarthritis. Patient currently is a resident of a snf due to significant peripheral vascular disease and diabetic foot ulcers in her bilateral feet. She is unable to ambulate due to those. Patient additionally has skin breakdown in her intertriginous areas in her groin and pannus. Patient is potentially scheduled for amputation of the bilateral lower extremities in the near future and is followed with vascular surgery at the [facility] Dr. Jackson of podiatry here at at [facility]. Patient denies chest pain fever chills hemoptysis hematochezia melena nausea vomiting diarrhea. Related Data Home Medications ?Medication ?Instructions ?Recorded ?Confirmed atorvastatin 80 mg tablet (Lipitor) 80 mg PO HS High cholesterol 10/31/19 06/13/24 clopidogrel 75 mg tablet (Plavix) 75 mg PO HS Heart disease 10/31/19 06/13/24 gabapentin 800 mg tablet 800 mg PO QID Pain 10/31/19 06/13/24 meloxicam 15 mg tablet (Mobic) 15 mg PO HS unknown 10/31/19 06/13/24 rabeprazole 20 mg tablet,delayed 20 mg PO HS GERD 10/31/19 06/13/24 release lactobacillus combination no.8 3 3,000 mmu cells PO DAILY 10/14/20 06/13/24 billion cell capsule (Adult Probiotic) aspirin 81 mg tablet,delayed 81 mg PO BID Blood thinner 01/06/21 06/13/24 release biotin 10,000 mcg capsule mcg PO DAILY 01/06/21 06/13/24 insulin regular hum U-500 conc 500 200 unit SQ TID 03/03/21 06/13/24 unit/mL(3 mL) subcut pen blood-glucose sensor ([employer] G6 #3 ea 01/26/22 06/13/24 Sensor device) potassium chloride 10 mEq 10 meq PO 01/26/22 06/13/24 tablet,extended release ketoconazole 2 % topical cream g topical 02/26/22 06/13/24 dulaglutide 4.5 mg/0.5 mL 4.5 mg SQ WEEKLY 06/25/22 06/13/24 subcutaneous pen injector ([employer]) furosemide 40 mg tablet 160 mg PO DAILY Fluid 06/25/22 06/13/24 losartan 25 mg tablet 25 mg PO DAILY 06/25/22 06/13/24 magnesium 250 mg tablet 250 mg PO BID 06/25/22 06/13/24 spironolactone 25 mg tablet 25 mg PO 03/02/23 06/13/24 fluconazole 100 mg tablet 200 mg PO 05/15/24 06/13/24 Previous Rx's ?Medication ?Instructions ?Recorded gentamicin 0.1 % topical cream 1 applic topical ONCE toe wound 30 05/31/23 days #30 grams methocarbamol 750 mg tablet 750 mg PO Q6H PRN muscle spasm #20 07/03/24 tabs Allergies Allergy/AdvReac Type Severity Reaction Status Date / Time duloxetine [From Cymbalta] Allergy Verified 06/13/24 10:01 Histamine H2 Inhibitors Allergy Verified 06/13/24 10:01 lisinopril Allergy Verified 06/13/24 10:01 sulfamethoxazole Allergy Verified 06/13/24 10:01 [From Bactrim] trimethoprim [From Bactrim] Allergy Verified 06/13/24 10:01 metoprolol AdvReac Severe Verified 06/13/24 10:01 beta blockers AdvReac Severe Insomnia Uncoded 06/13/24 10:01 [facility] Disclaimer: The information contained in this section may have been updated after the patient was seen, as this information can be updated by other users. Medical History Diastolic dysfunction Social History Smoking Status: Unknown if ever smoked second hand exposure: No alcohol intake: never substance use type: denies use current occupational status: employed Travel in the last 8 weeks: None household members: none and other housing: apartment current occupational exposures/hazards: No caffeine: No ROS Obtained: Yes Systems reviewed as appropriate & no additional complaints except as documented Physical Exam General General appearance: alert and in no apparent distress Head Head exam: atraumatic and normal inspection Eye Eye exam: Present normal appearance, PERRL and EOMI Respiratory Respiratory exam: Present normal lung sounds bilaterally Cardiovascular Cardiovascular exam: Present regular rate and normal rhythm Abdominal Exam Abdominal exam: Present soft (Grossly obese); Absent tenderness Back Exam Back exam: Present normal inspection and full ROM; Absent tenderness Neurological Exam Neurological exam: Present alert, oriented X3 and CN II-XII intact Psychiatric Psychiatric exam: Present normal affect and normal mood Other Other exam information: Patient has tenderness to palpation about the left hip but no bony deformity edema erythema ecchymosis. Patient also has significant dusky bilateral lower extremities to the level of the knees with various and numerous diabetic ulcers in various stages of healing but no evidence of active purulence or drainage. Medical Decision Making Medical Records Medical records reviewed: Yes I reviewed the patient's medical records. Mike Inquiry Pt receiving controlled substance: No Vital Signs: 07/03/24 15:17 07/03/24 15:30 07/03/24 18:52 Temperature 98.0 F 98.0 F Temperature Source Oral Oral Pulse Rate 92 H 92 H Pulse Rate [Radial] 102 H Respiratory Rate 20 18 Blood Pressure 119/83 119/83 Blood Pressure [Right Arm] 134/51 L Blood Pressure Mean 92 Blood Pressure Mean [Right Arm] 78 Blood Pressure Source Automatic Cuff Blood Pressure Source [Right Arm] Automatic Cuff Blood Pressure Position Sitting Blood Pressure Position [Right Arm] Supine 02 Sat by Pulse Oximetry 94 L 93 L Oxygen Delivery Method Room Air Room Air Lab Data Lab results reviewed: Yes I reviewed the patient's lab results. Lab Results 07/03/24 15:55: WBC 8.9, RBC 4.42, Hgb 13.6, Hct 44.8, MCV 101.4 H, MCH 30.8, M CHC 30.4 L, RDW 15.4, Plt Count 112 L, MPV 9.5, Neut % (Auto) 87.4 H, Lymph % (Auto) 10.0, Grimes % (Auto) 1.9, Eos % (Auto) 0.5, Baso % (Auto) 0.1, Neut # (Auto) 7.7, Lymph # (Auto) 0.9, Grimes # (Auto) 0.2, Eos # (Auto) 0.0, Baso # (Auto) 0.0, Total Counted 100, Neutrophils % (Manual) 87 H, Band Neutrophils % 3.0, Lymphocytes % (Manual) 8 L, Monocytes % (Manual) 2, Platelet Estimate Slight decrease, Hypochromasia 2+, Macrocytosis 2+, ESR 16, Sodium 135 L, P otassium 5.4 H, Chloride 103, Carbon Dioxide 27, Anion Gap 10.4, BUN 25 H, Creatinine 0.80, Estimated Creat Clear 87, Estimated GFR 75, Est GFR ( Amer) 90, Glucose 319 H, Hemoglobin A1c 9.1 H, Lactate 2.9 H, Calcium 8.7, Magnesium 1.7, Total Bilirubin 1.0, AST 32, ALT 40, Alkaline Phosphatase 65, Total Creatine Kinase 45, C-Reactive Protein 8.8 H, Total Protein 6.8, Albumin 3.8, Globulin 3.0, Albumin/Globulin Ratio 1.3 07/03/24 16:45: Urine Color Yellow, Urine Appearance Clear, Urine pH 7.0, Ur Specific [place] 1.015, Urine Protein Negative, Urine Glucose (UA) 3+, Urine Ketones Negative, Urine Blood Negative, Urine Nitrate Negative, Urine Bilirubin Negative, Urine Urobilinogen 0.2, Ur Leukocyte Esterase Negative, Urine RBC 3-5, Urine WBC 3-5, Ur Squamous Epith Cells 5-10, Urine Bacteria 1+ 07/03/24 15:55 07/03/24 15:55 Orders (Tests/Meds): ED MEDICATIONS Discontinued Medications Generic Name Dose Route Start Last Admin Trade Name Freq PRN Reason Stop Dose Admin Acetaminophen 1,000 mg 07/03/24 15:43 07/03/24 16:01 Acetaminophen 1,000mg/100ml Vial IV 07/03/24 15:44 1,000 mg ONCE ONE Administration Lactated Ringer's 1,000 mls @ 999 mls/hr 07/03/24 15:43 07/03/24 16:01 Lactated Ringer's 1000 Ml Bag IV 07/03/24 16:43 999 mls/hr .Q1H1M ONE Administration Ketorolac Tromethamine 15 mg 07/03/24 15:43 07/03/24 16:01 Ketorolac 30mg/Ml Vial IV 07/03/24 15:44 15 mg ONCE ONE Administration ORDERS Category Date Time Status Consult to Podiatry [CONS] Routine Cons 07/03/24 15:42 Active XR foot LT min 3V Stat Exams 07/03/24 16:45 Completed XR foot RT min 3V Stat Exams 07/03/24 16:45 Completed CBC w/Auto Diff [Complete Blood Count Auto Diff] Stat Lab 07/03/24 15:55 Completed CK [Creatine Kinase] Stat Lab 07/03/24 15:55 Completed CMP [Comprehensive Metabolic Panel] Stat Lab 07/03/24 15:55 Completed CRP [C-Reactive Protein] Stat Lab 07/03/24 15:55 Completed ESR [Erythrocyte Sedimentation Rate] Stat Lab 07/03/24 15:55 Completed Hemoglobin A1C Stat Lab 07/03/24 15:55 Completed Lactic Acid Stat Lab 07/03/24 15:55 Completed Magnesium Stat Lab 07/03/24 15:55 Completed UA [Urinalysis and Microscopic] Stat Lab 07/03/24 16:45 Completed Blood Culture Stat Micro 07/03/24 15:55 Received US Arterial Lower Ext Rest Routine Ultrasound 07/03/24 Completed Medical Decision Narrative: In summary patient is a 53-year-old female who presents to the emergency department for evaluation of multiple complaints including right hip pain bilateral diabetic foot ulcers peripheral vascular disease and wounds in her groin. Patient is hemodynamically stable upon arrival, afebrile. Physical exam is remarkable for reduced range of motion of the left hip but no evidence of erythema edema joint effusion sciatica. Examination of the patient's lower abdomen and external genitalia reveals significant tinea along with wet macerated skin but no evidence of fluctuance cellulitis ecchymosis. Additionally patient has significant peripheral vascular disease with bilateral dusky lower extremities with numerous diabetic foot ulcers that appear to be poorly healing.. Differential diagnosis includes sepsis versus UTI versus septic joint versus osteoarthritis flare etc. Initial workup will be conducted with hematologic labs urinalysis and podiatry consult. Initial interventions include crystalloid bolus Toradol Tylenol. Initial workup reviewed by me shows that her hematologic labs are nonactionable urinalysis via cath specimen actually was clean and patient's podiatry consult shows that her bilateral lower extremities are stable including ABIs.. Upon repeat evaluation did have improvement in her right hip pain after ministration of Tylenol and Toradol.. Given this patient is appropriate for discharge back to the snf following pile trimmer instructions along with close follow-up with vascular surgery and podiatry as an outpatient, and a prescription for Robaxin sent to the [facility] pharmacy. Critical Care Critical Care Time Critical Care Time: No
[2024-07-03] MEDS: ACETAMINOPHEN 1,000MG/100ML VIAL 1000 MG IV (16:01)
[2024-07-03] MEDS: LACTATED RINGERS 1000ML 1,000 ML 999 ML IV (16:01)
[2024-07-03] MEDS: KETOROLAC 30MG/ML VIAL 15 MG IV (16:01)
[2024-07-03 16:08] LABS: Basophils % 0.1 % (0.1-2.0); Eosinophils % 0.5 % (0.1-12.0); Hematocrit 44.8 % (37.0-47.0); Hemoglobin 13.6 g/dL (12.2-16.2); Lymphocytes # 0.9 K/mm3 (0.7-4.5); Mean Corpuscular HGB Conc 30.4 g/dL (31.8-35.4); Mean Corpuscular Hemoglobin 30.8 pg (27.0-31.2); Mean Corpuscular Volume 101.4 fl (81-99); Mean Platelet Volume 9.5 fl (7.4-10.4); Monocytes # 0.2 K/mm3 (0.1-1.0); Monocytes % 1.9 % (1.7-9.3); Neutrophils # 7.7 K/mm3 (1.8-7.8); Neutrophils % 87.4 % (37.0-80.0); Platelet Count 112 K/mm3 (142-424); Red Blood Count 4.42 M/mm3 (4.20-5.40); Red Cell Distribution Width 15.4 % (11.5-17.5); White Blood Count 8.9 K/mm3 (4.8-10.8)
[2024-07-03 16:11] LABS: MANUAL DIFFERENTIAL MANUAL DIFFERENTIAL (MANUAL DIFF)
[2024-07-03 16:18] LABS: Lymphocytes % 8 % (10-50); Monocytes % 2 % (2-9); Neutrophils % 87 % (42-76); Total Cells Counted 100
[2024-07-03 16:19] LABS: Albumin Level 3.8 g/dl (3.5-5.0); Chloride 103 mmol/L (98-107); Hypochromasia 2+; Macrocytosis 2+; Platelet Estimate Slight Decrease; Potassium 5.4 mmoL/L (3.5-5.1); Sodium 135 mmol/L (136-145)
[2024-07-03 16:21] LABS: Alanine Aminotransferase 40 U/L (12-78); Anion Gap 10.4 mEq/L (5-15); Aspartate Amino Transferase 32 U/L (14-36); Blood Urea Nitrogen 25 mg/dl (7-17); Carbon Dioxide 27 mmol/L (22.0-30.0); Creatinine Clearance Estimated 87 mL/min (50-200); Estimated Glomerular Filt Rate 75 ml/min (>60); GFR (African American) 90 ML/MIN (>60); Magnesium 1.7 mg/dl (1.6-2.3)
[2024-07-03 16:22] LABS: Albumin/Globulin Ratio 1.3 (1.1-1.8); Alkaline Phosphatase 65 U/L (38-126); Calcium 8.7 mg/dl (8.4-10.2); Creatine Kinase 45 U/L (30-135); Glucose 319 mg/dl (74-100); Total Protein,Serum 6.8 g/dl (6.3-8.2)
[2024-07-03 16:27] LABS: C-Reactive Protein 8.8 mg/L (0-4)
[2024-07-03 16:31] LABS: Lactic Acid 2.9 mmol/L (0.7-2.1)
[2024-07-03 16:38] LABS: Erythrocyte Sedimentation Rate 16 mm/hr (0-30)
--- NOTE | 2024-07-03 16:45 | XR_ITS ---
PROCEDURE INFORMATION: Exam: XR Right Foot Exam date and time: 07/03/2024 5:04 PM Age: 53 years old Clinical indication: Other: Red swelling; Additional info: Dfu TECHNIQUE: Imaging protocol: Radiologic exam of the right foot. Views: 3 or more views. COMPARISON: No relevant prior studies available. FINDINGS: Bones/joints: There is a plantar calcaneal enthesophyte. Multiple views were obtained. The osseous structures appear intact with no evidence of acute fracture, dislocation, or malalignment. Joint spaces are preserved. No abnormal bone density or destructive lesions are noted. Soft tissues: Soft tissue swelling is observed, and further clinical correlation is advised. IMPRESSION: At the time of imaging, the skeletal radiograph demonstrates no acute osseous abnormalities but does show soft tissue swelling.
--- NOTE | 2024-07-03 16:45 | XR_ITS ---
PROCEDURE INFORMATION: Exam: XR Left Foot Exam date and time: 07/03/2024 5:04 PM Age: 53 years old Clinical indication: Other: Red, swelling; Additional info: Dfu TECHNIQUE: Imaging protocol: Radiologic exam of the left foot. Views: 3 or more views. COMPARISON: No relevant prior studies available. 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 There is a plantar calcaneal enthesophyte. Soft tissues: There is diffuse soft tissue swelling. IMPRESSION: Postsurgical changes with significant soft tissue swelling but without acute osseous abnormality. No radiographic findings of osteomyelitis.
[2024-07-03 16:55] LABS: Microscopic, Urine URINE MICROSCOPIC (MICROSCOPIC)
--- NOTE | 2024-07-03 16:55 | PC.NURSE ---
DR FLYNN AT BEDSIDE
[2024-07-03 16:56] LABS: Appearance,Urine CLEAR (Clear); Bilirubin,Urine Negative (Negative); Blood, Urine Negative (Negative); Color,Urine YELLOW (Yellow); Glucose,Urine (UA) 3+ (Negative); Ketones,Urine Negative (Negative); Leukocyte Esterase,Urine Negative (Negative); Nitrate,Urine Negative (Negative); Protein,Urine Negative (Negative); Specific Gravity, Urine 1.015 (1.005-1.030); Urobilinogen,Urine 0.2 EU/dl (0.2)
--- NOTE | 2024-07-03 17:01 | PC.NURSE ---
DR FLYNN REQUESTING STAT NICOLASA, VASCULAR LAB NOTIFIED
--- NOTE | 2024-07-03 17:09 | PC.NURSE ---
XR AT BEDSIDE
--- NOTE | 2024-07-03 17:20 | PC.NURSE ---
VASCULAR AT BEDSIDE
[2024-07-03 17:24] LABS: Bacteria,Urine 1+ /lpf
[2024-07-03 17:29] LABS: Hemoglobin A1C 9.1 % (4.0-6.0)
--- NOTE | 2024-07-03 18:20 | P.CONS_ITS ---
History of Present Illness *Admission Date: 07/03/24 *Reason for visit:: B/L DFUs *History of present illness: Patient is a 53-year-old diabetic female well-known to the podiatry service. She presents to the ER today for left hip pain from [facility]. Reports pain to left hip x weeks. Also reports recent WCx from vagina, positive for E. coli. Reports b/l LE rest pain and discoloration has gotten progressively worse. C/o toes are now purple and black . Sees Dr Joaquin Almodovar at [facility]. She has a hx of revasc procedures. I am awaiting vascular clearance prior to any distal extremity amputation, debridement or interventions. She also reports b/l LE pitting edema and not having her Lasix given for several days. [facility] Disclaimer: The information contained in this section may have been updated after the patient was seen, as this information can be updated by other users. Medical History Diastolic dysfunction Social History Smoking Status: Unknown if ever smoked second hand exposure: No alcohol intake: never substance use type: denies use current occupational status: employed Travel in the last 8 weeks: None household members: none and other housing: apartment current occupational exposures/hazards: No caffeine: No Review of Systems Review of Systems Review of systems:: pertinent systems reviewed and negative unless documented below Constitutional Constitutional: Reports system reviewed and no additional complaints, except as documented Eyes Eyes: Reports system reviewed and no additional complaints, except as documented ENT Ears, Nose, Mouth, and Throat: Reports system reviewed and no additional complaints, except as documented *Cardiovascular Cardiovascular: Reports system reviewed and no additional complaints, except as documented, Reports edema and Reports pedal edema *Respiratory Respiratory: Reports system reviewed and no additional complaints, except as documented *Gastrointestinal Gastrointestinal: Reports system reviewed and no additional complaints, except as documented *Genitourinary Genitourinary: Reports system reviewed and no additional complaints, except as documented, Reports vaginal discharge and Reports vaginal pruritus *Musculoskeletal Musculoskeletal: Reports system reviewed and no additional complaints, except as documented, Reports joint swelling, Reports numbness and Reports tingling Integumentary/Breasts Skin/Breast: Reports system reviewed and no additional complaints, except as documented, Reports dry skin, Reports non-healing lesions, Reports skin ulcer, Reports skin swelling and Reports wounds *Neurologic Neurologic: Reports system reviewed and no additional complaints, except as documented, Reports numbness, Reports paresthesias and Reports tingling Psychiatric Psychiatric: Reports system reviewed and no additional complaints, except as documented Endocrine Endocrine: Reports system reviewed and no additional complaints, except as documented Hematologic/Lymphatic Hematologic/Lymphatic: Reports system reviewed and no additional complaints, except as documented and Reports easy bruising Allergic/Immunologic Allergic/Immunologic: Reports system reviewed and no additional complaints, except as documented Meds Home Medications and Allergies Home Medications ?Medication ?Instructions ?Recorded ?Confirmed ?Type atorvastatin 80 mg tablet (Lipitor) 80 mg PO HS High cholesterol 10/31/19 06/13/24 History clopidogrel 75 mg tablet (Plavix) 75 mg PO HS Heart disease 10/31/19 06/13/24 History gabapentin 800 mg tablet 800 mg PO QID Pain 10/31/19 06/13/24 History meloxicam 15 mg tablet (Mobic) 15 mg PO HS unknown 10/31/19 06/13/24 History rabeprazole 20 mg tablet,delayed 20 mg PO HS GERD 10/31/19 06/13/24 History release lactobacillus combination no.8 3 3,000 mmu cells PO DAILY 10/14/20 06/13/24 History billion cell capsule (Adult Probiotic) aspirin 81 mg tablet,delayed 81 mg PO BID Blood thinner 01/06/21 06/13/24 History release biotin 10,000 mcg capsule mcg PO DAILY 01/06/21 06/13/24 History insulin regular hum U-500 conc 500 200 unit SQ TID 03/03/21 06/13/24 History unit/mL(3 mL) subcut pen blood-glucose sensor (Dexcom G6 #3 ea 01/26/22 06/13/24 History Sensor device) potassium chloride 10 mEq 10 meq PO 01/26/22 06/13/24 History tablet,extended release ketoconazole 2 % topical cream g topical 02/26/22 06/13/24 History dulaglutide 4.5 mg/0.5 mL 4.5 mg SQ WEEKLY 06/25/22 06/13/24 History subcutaneous pen injector (Trulicity) furosemide 40 mg tablet 160 mg PO DAILY Fluid 06/25/22 06/13/24 History losartan 25 mg tablet 25 mg PO DAILY 06/25/22 06/13/24 History magnesium 250 mg tablet 250 mg PO BID 06/25/22 06/13/24 History spironolactone 25 mg tablet 25 mg PO 03/02/23 06/13/24 History gentamicin 0.1 % topical cream 1 applic topical ONCE toe wound 30 05/31/23 06/13/24 Rx days #30 grams fluconazole 100 mg tablet 200 mg PO 05/15/24 06/13/24 History methocarbamol 750 mg tablet 750 mg PO Q6H PRN muscle spasm #20 07/03/24 Rx tabs New Prescriptions to Start Prescriptions: methocarbamol Tristian Silver Allergies Allergy/AdvReac Type Severity Reaction Status Date / Time duloxetine [From Cymbalta] Allergy Verified 06/13/24 10:01 Histamine H2 Inhibitors Allergy Verified 06/13/24 10:01 lisinopril Allergy Verified 06/13/24 10:01 sulfamethoxazole Allergy Verified 06/13/24 10:01 [From Bactrim] trimethoprim [From Bactrim] Allergy Verified 06/13/24 10:01 metoprolol AdvReac Severe Verified 06/13/24 10:01 beta blockers AdvReac Severe Insomnia Uncoded 06/13/24 10:01 Exam (Inpt) Vital signs and Labs for Last 24 Hours: Temp Pulse Resp BP Pulse Ox O2 Del Method 98.0 F 92 H 20 119/83 93 L Room Air 07/03/24 15:17 07/03/24 15:30 07/03/24 15:17 07/03/24 15:30 07/03/24 15:30 07/03/24 15:17 Laboratory Results - last 24 hr 07/03/24 15:55: WBC 8.9, RBC 4.42, Hgb 13.6, Hct 44.8, MCV 101.4 H, MCH 30.8, M CHC 30.4 L, RDW 15.4, Plt Count 112 L, MPV 9.5, Neut % (Auto) 87.4 H, Lymph % (Auto) 10.0, Barry % (Auto) 1.9, Eos % (Auto) 0.5, Baso % (Auto) 0.1, Neut # (Auto) 7.7, Lymph # (Auto) 0.9, Barry # (Auto) 0.2, Eos # (Auto) 0.0, Baso # (Auto) 0.0, Total Counted 100, Neutrophils % (Manual) 87 H, Band Neutrophils % 3.0, Lymphocytes % (Manual) 8 L, Monocytes % (Manual) 2, Platelet Estimate Slight decrease, Hypochromasia 2+, Macrocytosis 2+, ESR 16, Sodium 135 L, P otassium 5.4 H, Chloride 103, Carbon Dioxide 27, Anion Gap 10.4, BUN 25 H, Creatinine 0.80, Estimated Creat Clear 87, Estimated GFR 75, Est GFR ( Amer) 90, Glucose 319 H, Hemoglobin A1c 9.1 H, Lactate 2.9 H, Calcium 8.7, Magnesium 1.7, Total Bilirubin 1.0, AST 32, ALT 40, Alkaline Phosphatase 65, Total Creatine Kinase 45, C-Reactive Protein 8.8 H, Total Protein 6.8, Albumin 3.8, Globulin 3.0, Albumin/Globulin Ratio 1.3 07/03/24 16:45: Urine Color Yellow, Urine Appearance Clear, Urine pH 7.0, Ur Specific [place] 1.015, Urine Protein Negative, Urine Glucose (UA) 3+, Urine Ketones Negative, Urine Blood Negative, Urine Nitrate Negative, Urine Bilirubin Negative, Urine Urobilinogen 0.2, Ur Leukocyte Esterase Negative, Urine RBC 3-5, Urine WBC 3-5, Ur Squamous Epith Cells 5-10, Urine Bacteria 1+ I & O for Labs for Last 24 Hours: Intake & Output 07/01/24 07/02/24 07/03/24 07/04/24 11:59 11:59 11:59 11:59 Weight 360 lb Constitutional: Present no acute distress and morbidly obese Head: Present normocephalic Neck: Present normal inspection Respiratory: Present normal respiratory effort and able to speak in complete sentences Cardiac: Present pedal pulses present (weakly palpable PF) Comment:: Dopplerable faint DP, PT. New ABIs pending. GI: Present soft Rectal (female): Present deferred (female): Present deferred Extremities: Present full ROM and edema (b/l LE 2+ pitting edema); Absent normal capillary refill Skin: Present erythema, pallor, wounds and gangrene Comment:: No new SOI. B/L LE lymphedema and PVD. Multiple wounds noted to b/l feet. Some eschar and dark skin changes noted to right lateral foot, dorsal hallux, left medial hallux. Distal toes all looks darker purple. No debridement in ER: Right sub 1st met DFU: 0.4 x 0.6 x 0.1cm, 100% granular, thru skin into subq. Right dorsal medial hallux DFU: 1.0 x 0.6 x 0cm, 100% granular, thru skin only. Right lateral 5th MPJ DFU: dark gangrenous changes, skin sloughing, 100% dusky dark purple eschar, 3.8 x 2.2 x 0.1cm, thru skin into subq. Right 4th interspace: new interdigital maceration with wound thru skin, 0.3 x 0.3 x 0.1cm. Left lateral hallux: 1.9 x 1.5 x 0.1cm, 100% granular, thru skin into subq. Left medial hallux: 1.9 x 1.0 x 0.1cm, 100% granular, thru skin into subq. Left proximal medial hallux: 0.3 x 0.3 x 0cm, 100% scab, skin. Neuro: Present Numbness, Motor Function Intact, oriented x 3 and moves all extremities; Absent Sensory Function Intact Ankle: bilateral: normal inspection and bilateral: swelling (2+ pitting edema) Feet/Toes: left: amputation (hx partial 5th ray) and bilateral: hammer toe, bilateral: nail abnormalities, bilateral: onychomycosis, bilateral: swelling (pitting edema) and bilateral: wound (multiple b/l DFUs) Inspection: Present skin break and ulceration Pulses: L dorsalis pedis pulse: dopplerable, R dorsalis pedis pulse: dopplerable, L posterior tibial pulse: dopplerable and R posterior tibial pulse: dopplerable CFT: doppl: CFT Monofilament exam: L 1st metatarsals: absent, L 3rd metatarsals: absent, L 5th metatarsals: absent, L great toe: absent, L 3rd toe: absent, L 5th toe: absent, R 1st metatarsals: absent, R 3rd metatarsals: absent, R 5th metatarsals: absent, R great toe: absent, R 3rd toe: absent and R 5th toe: absent Results Labs 07/03/24 15:55 07/03/24 15:55 Labs: Abnormal lab results 07/03/24 Range/Units 15:55 MCV 101.4 H (81-99) fl MCHC 30.4 L (31.8-35.4) g/dL Plt Count 112 L (142-424) K/mm3 Neut % (Auto) 87.4 H (37.0-80.0) % Neutrophils % (Manual) 87 H (42-76) % Lymphocytes % (Manual) 8 L (10-50) % Sodium 135 L (136-145) mmol/L Potassium 5.4 H (3.5-5.1) mmoL/L BUN 25 H (7-17) mg/dl Glucose 319 H (74-100) mg/dl Hemoglobin A1c 9.1 H (4.0-6.0) % Lactate 2.9 H (0.7-2.1) mmol/L C-Reactive Protein 8.8 H (0-4) mg/L H & H 07/03/24 Range/Units 15:55 Hgb 13.6 (12.2-16.2) g/dL Hct 44.8 (37.0-47.0) % All other labs normal. Diagnostic results Ankle/Foot x-ray: report reviewed ((-) OM) and image reviewed Assessment and Plan *Assessment and plan (1) Diabetic ulcer of right foot associated with diabetes mellitus due to underlying condition, with fat layer exposed: Status: Chronic Qualifiers: Diabetic foot ulcer location: toe Qualified Code(s): E08.621 - Diabetes mellitus due to underlying condition with foot ulcer; L97.512 - Non-pressure chronic ulcer of other part of right foot with fat layer exposed Category: Medical Code(s): E08.621 - Diabetes mellitus due to underlying condition with foot ulcer; L97.512 - Non-pressure chronic ulcer of other part of right foot with fat layer exposed (2) Diabetic ulcer of left foot associated with diabetes mellitus due to underlying condition, with fat layer exposed: Status: Acute Qualifiers: Diabetic foot ulcer location: toe Qualified Code(s): E08.621 - Diabetes mellitus due to underlying condition with foot ulcer; L97.522 - Non-pressure chronic ulcer of other part of left foot with fat layer exposed Category: Medical Code(s): E08.621 - Diabetes mellitus due to underlying condition with foot ulcer; L97.522 - Non-pressure chronic ulcer of other part of left foot with fat layer exposed (3) PAD (peripheral artery disease): Status: Chronic Category: Medical Code(s): I73.9 - Peripheral vascular disease, unspecified (4) Lymphedema of both lower extremities: Status: Acute Category: Medical Code(s): I89.0 - Lymphedema, not elsewhere classified (5) Type 2 diabetes mellitus with foot ulcer: Status: Acute Qualifiers: Diabetes mellitus extermination supervisor insulin use: with longterm use Qualified Code(s): E11.621 - Type 2 diabetes mellitus with foot ulcer; L97.509 - Non- pressure chronic ulcer of other part of unspecified foot with unspecified severity; Z79.4 - assistant terminal manager (current) use of insulin Category: Medical Code(s): E11.621 - Type 2 diabetes mellitus with foot ulcer; L97.509 - Non-pressure chronic ulcer of other part of unspecified foot with unspecified severity (6) Claudication of both lower extremities: Status: Acute Category: Medical Code(s): I73.9 - Peripheral vascular disease, unspecified (7) Charcot's joint of left foot: Status: Acute Category: Medical Code(s): M14.672 - Charcot's joint, left ankle and foot (8) Diabetes mellitus with diabetic neuropathy: Status: Chronic Qualifiers: Diabetes mellitus extermination supervisor insulin use: with longterm use Diabetes mellitus type: type 2 Qualified Code(s): E11.40 - Type 2 diabetes mellitus with diabetic neuropathy, unspecified Category: Medical Code(s): E11.40 - Type 2 diabetes mellitus with diabetic neuropathy, unspecified (9) BMI 50.0-59.9, adult: Status: Acute Category: Medical Code(s): Z68.43 - Body mass index [BMI] 50.0-59.9, adult Plan 07/03/24, ER consult: Labs: wbc 8.9, esr 16, crp 8.8, cr 0.8, gfr 75, K 5.4, glucose 319, Ha1c 9.1%, lactate 2.9, albumin 3.8 DFU x6: see note -at [facility] in [place] -wants transfer to [facility] -multiple DFUs noted with gangrenous changes -discussed she is high risk for debridement, possible toe amputation or TMA due to PAD/PVD, wound, new gang. changes - reviewed ABIs -pt reports she got new CTA - vascular office reviewed and said no other options for my distal flow, can not be stented below ankle -last office visit was 06/13/24, was awaiting vascular clearance -patient seen and evaluated in ER with Podiatry CLINICAL INFORMATICS SPEC -b/l foot XR and new ABIs reviewed: stable, no new SOI, no OM or abnormal infection labs -discussed outpatient follow up -discussed possibility of b/l TMA however, due to chronic gangrene changes, PAD, hx b/l LE revasc, cool feet, discoloration, edema, poor compliance, uncontrolled DM I do not think the patient will heal a TMA -she is high risk for b/l BKA vs AKA -patient is refusing proximal amputation -stable gangrene and wounds for now -patient is refusing to see another surgeon regarding the b/l DFUs-wants me to amputate the toes -discussed realistic expectations and possibility/likelihood of multiple staged surgery with delayed healing, chronic wounds -complex patient with bilateral DFU's coupled with PAD where no more vascular intervention is possible, complicated more by uncontrolled diabetes and morbid obesity -betadine DSD applied by nursing -stable from Podiatry stand point and can f/u out patient -discussed plan of care with ER providers -patient understands [facility] needs to do the paperwork for [facility] transfer or if she gets admitted then care management can try to work on her transfer pending bed availability and insurance coverage
[2024-07-03 18:52] VITALS: BP 119/83; PULSE 92; RESP 18; TEMP 36.7; O2SAT 93
--- NOTE | 2024-07-03 18:53 | PC.NURSE ---
Called EMS to transfer this pt to [facility] in [place]
[2024-07-03 20:04] LABS: Reflex Lactic Add Lactic Reflex
== END 2024-07-03 19:18 ==
PROVIDERS: Physician Assistant; Emergency Provider Student in an Organized Health Care Education/Training Program; PCP Family Medicine
DX: M25.552 Pain in left hip; E11.621 Type 2 diabetes mellitus with foot ulcer; Z79.4 Long term (current) use of insulin; Z79.85 Long-term (current) use of injectable non-insulin antidiabetic drugs; L97.519 Non-pressure chronic ulcer of other part of right foot with unspecified severity; L97.529 Non-pressure chronic ulcer of other part of left foot with unspecified severity; I73.9 Peripheral vascular disease, unspecified; E11.42 Type 2 diabetes mellitus with diabetic polyneuropathy
CPT/HCPCS: 73630; 80053; 81001; 82550; 83036; 83605; 83735; 85007; 85025; 85027; 85651; 86140; 87040; 93923; 96361; 96374; 96375; 99285; J0131; J1885; J7120

== ENCOUNTER 2024-07-19 11:44 | Inpatient (IN) | payer OTHER, MEDICAID, SELFPAY ==
[2024-07-17 11:34] VITALS: BMI 54.5
[2024-07-19] VITALS (17 sets, daily range): BP systolic 98–158; BP diastolic 57–92; PULSE 90–100; RESP 16–22; TEMP 36.4–36.7; O2SAT 94–100; BMI 54.5
[2024-07-19 13:02] LABS: Basophils % 0.3 % (0.1-2.0); Eosinophils # 0.1 K/mm3 (0.0-0.4); Eosinophils % 1.1 % (0.1-12.0); Hematocrit 45.5 % (37.0-47.0); Hemoglobin 13.8 g/dL (12.2-16.2); Lymphocytes # 1.1 K/mm3 (0.7-4.5); Lymphocytes % 10.8 % (10-50); Mean Corpuscular HGB Conc 30.4 g/dL (31.8-35.4); Mean Corpuscular Hemoglobin 30.7 pg (27.0-31.2); Mean Corpuscular Volume 101.1 fl (81-99); Mean Platelet Volume 10.5 fl (7.4-10.4); Monocytes # 0.4 K/mm3 (0.1-1.0); Monocytes % 3.6 % (1.7-9.3); Neutrophils # 8.8 K/mm3 (1.8-7.8); Neutrophils % 84.3 % (37.0-80.0); Platelet Count 136 K/mm3 (142-424); Red Cell Distribution Width 15.6 % (11.5-17.5); White Blood Count 10.4 K/mm3 (4.8-10.8)
--- NOTE | 2024-07-19 13:07 | SW/DCPLANNER ---
Addendum entered by Mona Fink RN 07/21/24 15:10: Patient discharging to [facility] today. Addendum entered by Velma Lu 07/20/24 15:22: Updated patient information has been faxed to [facility]. Addendum entered by Velma Lu 07/20/24 14:30: Jill fournier/ [facility] is unable to accept this patient. Addendum entered by Velma Lu 07/20/24 09:46: Patient is requesting information be faxed to [facility] at this time. Patient does understand if they are not able to accept the plan would be to return to [facility]. Original Note: Patient currently resides at [facility] level of care. I will continue to follow up w/ this patient during hospital admission and assist w/ any discharge planning needs. Discharge date is unknown at this time.
[2024-07-19 13:17] LABS: Anion Gap 7.2 mEq/L (5-15); Blood Urea Nitrogen 29 mg/dl (7-17); Calcium 8.6 mg/dl (8.4-10.2); Carbon Dioxide 32 mmol/L (22.0-30.0); Chloride 100 mmol/L (98-107); Creatinine Clearance Estimated 87 mL/min (50-200); Estimated Glomerular Filt Rate 75 ml/min (>60); GFR (African American) 90 ML/MIN (>60); Glucose 220 mg/dl (74-100); Potassium 5.2 mmoL/L (3.5-5.1); Sodium 134 mmol/L (136-145)
[2024-07-19] MEDS: 0.9 % SODIUM CHLORIDE 1000ML 1,000 ML 25 ML IV (13:31)
--- NOTE | 2024-07-19 15:23 | P.PNANES_ITS ---
[facility] Disclaimer: The information contained in this section may have been updated after the patient was seen, as this information can be updated by other users. 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 History of intravascular stent placement Family History (Updated 07/19/24 @ 12:28 by Kelsie Lindo RN) Other No significant family history Social History (Updated 07/19/24 @ 12:53 by Kelsie Lindo RN) Smoking Status: Unknown if ever smoked second hand exposure: No alcohol intake: never substance use type: denies use current occupational status: employed Travel in the last 8 weeks: None household members: none and other housing: apartment current occupational exposures/hazards: No caffeine: No H Anesthesia Checklist Patient Identification Patient Identification: Arm Band and Verbal (Name & ) Structural Data Admitted From: Long-term Nursing Facility (per pt) Planned Operative Procedure/s: SARKIS transmetatarsal ampution and placement of antibiotic beads Consent for Planned Operative Procedure(s) Verified: Yes Verified Documents: Surgical Consent and History and Physical NPO Status Verified Time NPO: 17:30 Chart Verification Results Verified: CBC, BMP, ECG and Chest Xray Additional verifications Fingerstick Blood Glucose: 219 Patient : No Anesthesia Reactions: No Hx Blood Transfusions: No Blood Transfusion Reaction: No Cardiovascular Assessment Heart Sounds: S1 & S2 Pulse Rhythm: Irregular Peripheral Edema: Yes Airway Assessment Mallampati Score:: Class III C-Spine Mobility Assessed: Yes TMJ Mobility Assessed: Yes Dentition: Poor Dentition (Nothing loose per pt.) Neurological Assessment Level of Consciousness: Awake, Alert, Appropriate and Follows Commands Hx Seizures: No Numbness or tingling in extremities: Yes (SARKIS LE) Anesthesia Plan Anesthesia Risk discussed: Yes Anesthesia Plan: Verified ASA Class: III Anesthesia Type: General
--- NOTE | 2024-07-19 16:19 | EXP.POD.CONS ---
Documented by User: Jyoti Stallworth, DRISS 07/20/24 06:58 History of Present Illness *Admission Date: 07/19/24 *Reason for visit:: Bilateral Transmetatarsal amputations, Rotational flap, ANA, Abx. beads *History of present illness: Patient is 53 DM female who presents with multiple b/l DFU and gangrene. We discussed conservative versus surgical treatment options. Conservative treatment options include local wound care, oral and IV antibiotics, change in shoe wear, taping/padding, and off-loading. She has had vascular re-evaluation. Discussed since no other vascular options for distal toes/foot, I would not recommend surgical debridement or right toe amp. There is not enough soft tissue coverage or flow to heal toe amp. Would recommend right TMA instead. We discussed surgical intervention for amputation of the left hallux. Patient understands that there is a chance that the toes can migrate to fill the gap or the foot may change shape after surgery. Patient also understands that they could have wound healing complications including delayed healing and infection. We discussed that if the wound does not heal, it is possible that they may need a more proximal amputation and could result in further loss of digits, loss of partial foot or loss of leg (high risk for BKA). We discussed the risks and benefits in great detail. Other surgical risks include: prolonged pain and swelling, further infection requiring oral or IV antibiotics, delay in healing of soft tissue or bone, nerve or blood vessel damage, CRPS/RSD, DVT/PE, anesthesia complications, and even . All questions answered. Patient verbalized understanding. Consent obtained. [facility] Disclaimer: The information contained in this section may have been updated after the patient was seen, as this information can be updated by other users. 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 History of intravascular stent placement Family History (Updated 07/19/24 @ 12:28 by Kelsie Lindo RN) Other No significant family history Social History (Updated 07/19/24 @ 12:53 by Kelsie Lindo RN) Smoking Status: Unknown if ever smoked second hand exposure: No alcohol intake: never substance use type: denies use current occupational status: employed Travel in the last 8 weeks: None household members: none and other housing: apartment current occupational exposures/hazards: No caffeine: No Review of Systems Review of Systems Review of systems:: pertinent systems reviewed and negative unless documented below Constitutional Constitutional: Reports system reviewed and no additional complaints, except as documented Eyes Eyes: Reports system reviewed and no additional complaints, except as documented ENT Ears, Nose, Mouth, and Throat: Reports system reviewed and no additional complaints, except as documented *Cardiovascular Cardiovascular: Reports system reviewed and no additional complaints, except as documented, Reports edema and Reports pedal edema *Respiratory Respiratory: Reports system reviewed and no additional complaints, except as documented *Gastrointestinal Gastrointestinal: Reports system reviewed and no additional complaints, except as documented *Genitourinary Genitourinary: Reports system reviewed and no additional complaints, except as documented, Reports vaginal discharge and Reports vaginal pruritus *Musculoskeletal Musculoskeletal: Reports system reviewed and no additional complaints, except as documented, Reports joint swelling, Reports numbness and Reports tingling Integumentary/Breasts Skin/Breast: Reports system reviewed and no additional complaints, except as documented, Reports dry skin, Reports non-healing lesions, Reports skin ulcer, Reports skin swelling and Reports wounds *Neurologic Neurologic: Reports system reviewed and no additional complaints, except as documented, Reports numbness, Reports paresthesias and Reports tingling Psychiatric Psychiatric: Reports system reviewed and no additional complaints, except as documented Endocrine Endocrine: Reports system reviewed and no additional complaints, except as documented Hematologic/Lymphatic Hematologic/Lymphatic: Reports system reviewed and no additional complaints, except as documented and Reports easy bruising Allergic/Immunologic Allergic/Immunologic: Reports system reviewed and no additional complaints, except as documented Meds Home Medications and Allergies Home Medications ?Medication ?Instructions ?Recorded ?Confirmed ?Type atorvastatin 80 mg tablet (Lipitor) 80 mg PO HS High cholesterol 10/31/19 07/19/24 History clopidogrel 75 mg tablet (Plavix) 75 mg PO HS Heart disease 10/31/19 07/19/24 History gabapentin 800 mg tablet 800 mg PO QID 10/31/19 07/19/24 History meloxicam 15 mg tablet (Mobic) 15 mg PO HS unknown 10/31/19 07/19/24 History rabeprazole 20 mg tablet,delayed 20 mg PO HS 10/31/19 07/19/24 History release aspirin 81 mg tablet,delayed 81 mg PO BID 01/06/21 07/19/24 History release biotin 10,000 mcg capsule 10,000 mcg PO DAILY 01/06/21 07/19/24 History insulin regular hum U-500 conc 500 80 unit SQ TID 03/03/21 06/13/24 History unit/mL(3 mL) subcut pen potassium chloride 10 mEq 30 meq PO DAILY 01/26/22 06/13/24 History tablet,extended release dulaglutide 4.5 mg/0.5 mL 4.5 mg SQ WEEKLY 06/25/22 07/19/24 History subcutaneous pen injector (Trulicity) furosemide 40 mg tablet 160 mg PO DAILY Fluid 06/25/22 06/13/24 History losartan 25 mg tablet 25 mg PO DAILY 06/25/22 07/19/24 History magnesium 250 mg tablet 250 mg PO BID 06/25/22 07/19/24 History spironolactone 25 mg tablet 25 mg PO DAILY 03/02/23 07/19/24 History furosemide 80 mg tablet 80 mg PO DAILY 07/19/24 07/19/24 History New Prescriptions to Start Prescriptions: Allergies Allergy/AdvReac Type Severity Reaction Status Date / Time duloxetine [From Cymbalta] Allergy Verified 07/19/24 12:54 Histamine H2 Inhibitors Allergy Verified 07/19/24 12:54 lisinopril Allergy Verified 07/19/24 12:54 sulfamethoxazole Allergy Verified 07/19/24 12:54 [From Bactrim] trimethoprim [From Bactrim] Allergy Verified 07/19/24 12:54 metoprolol AdvReac Severe Verified 07/19/24 12:54 beta blockers AdvReac Severe Insomnia Uncoded 06/13/24 10:01 Exam (Inpt) Vital signs and Labs for Last 24 Hours: Temp Pulse Resp BP Pulse Ox O2 Del Method 97.8 F 94 H 18 158/81 H 97 Room Air 07/19/24 12:35 07/19/24 12:35 07/19/24 12:35 07/19/24 12:35 07/19/24 12:35 07/19/24 12:35 Laboratory Results - last 24 hr 07/19/24 12:51: WBC 10.4, RBC 4.50, Hgb 13.8, Hct 45.5, MCV 101.1 H, MCH 30.7, MCHC 30.4 L, RDW 15.6, Plt Count 136 L, MPV 10.5 H, Neut % (Auto) 84.3 H, Lymph % (Auto) 10.8, [place] % (Auto) 3.6, Eos % (Auto) 1.1, Baso % (Auto) 0.3, Neut # (Auto) 8.8 H, Lymph # (Auto) 1.1, [place] # (Auto) 0.4, Eos # (Auto) 0.1, Baso # (Auto) 0.0, Sodium 134 L, Potassium 5.2 H, Chloride 100, Carbon Dioxide 32 H, Anion Gap 7.2, BUN 29 H, Creatinine 0.80, Estimated Creat Clear 87, Estimated GFR 75, Est GFR ( Amer) 90, Glucose 220 H, Calcium 8.6 I & O for Labs for Last 24 Hours: Intake & Output 07/16/24 07/17/24 07/18/24 07/19/24 23:59 23:59 23:59 23:59 Weight 380 lb 380 lb Constitutional: Present no acute distress and morbidly obese Head: Present normocephalic Neck: Present normal inspection Respiratory: Present normal respiratory effort and able to speak in complete sentences Cardiac: Present pedal pulses present (weakly palpable PF) Comment:: B/L faint DP, PT. GI: Present soft Rectal (female): Present deferred (female): Present deferred Extremities: Present full ROM and edema (b/l LE 1+ pitting edema); Absent normal capillary refill Skin: Present erythema, pallor, warm and gangrene Comment:: B/L TMA surgical sites, dressings intact. Neuro: Present Numbness, Motor Function Intact, oriented x 3 and moves all extremities; Absent Sensory Function Intact Ankle: bilateral: normal inspection and bilateral: swelling (1+ pitting edema) Feet/Toes: left: amputation (s/p Bilateral TMA 07/19/24) and bilateral: swelling (1+ pitting edema) and bilateral: wound (B/L TMA sites) Inspection: Present other (B/L TMA sites ) Pulses: L dorsalis pedis pulse: diminished, R dorsalis pedis pulse: diminished, L posterior tibial pulse: diminished and R posterior tibial pulse: diminished CFT: dim: CFT Monofilament exam: L 1st metatarsals: absent, L 3rd metatarsals: absent, L 5th metatarsals: absent, L great toe: absent, L 3rd toe: absent, L 5th toe: absent, R 1st metatarsals: absent, R 3rd metatarsals: absent, R 5th metatarsals: absent, R great toe: absent, R 3rd toe: absent and R 5th toe: absent Results Labs 07/20/24 06:06 07/20/24 06:06 Labs: Abnormal lab results 07/19/24 Range/Units 12:51 MCV 101.1 H (81-99) fl MCHC 30.4 L (31.8-35.4) g/dL Plt Count 136 L (142-424) K/mm3 MPV 10.5 H (7.4-10.4) fl Neut % (Auto) 84.3 H (37.0-80.0) % Neut # (Auto) 8.8 H (1.8-7.8) K/mm3 Sodium 134 L (136-145) mmol/L Potassium 5.2 H (3.5-5.1) mmoL/L Carbon Dioxide 32 H (22.0-30.0) mmol/L BUN 29 H (7-17) mg/dl Glucose 220 H (74-100) mg/dl H & H 07/19/24 Range/Units 12:51 Hgb 13.8 (12.2-16.2) g/dL Hct 45.5 (37.0-47.0) % All other labs normal. Assessment and Plan *Assessment and plan (1) Diabetic ulcer of right foot associated with diabetes mellitus due to underlying condition, with fat layer exposed: Status: Chronic Qualifiers: Diabetic foot ulcer location: toe Qualified Code(s): E08.621 - Diabetes mellitus due to underlying condition with foot ulcer; L97.512 - Non-pressure chronic ulcer of other part of right foot with fat layer exposed Category: Medical Code(s): E08.621 - Diabetes mellitus due to underlying condition with foot ulcer; L97.512 - Non-pressure chronic ulcer of other part of right foot with fat layer exposed (2) Diabetic ulcer of left foot associated with diabetes mellitus due to underlying condition, with fat layer exposed: Status: Acute Qualifiers: Diabetic foot ulcer location: toe Qualified Code(s): E08.621 - Diabetes mellitus due to underlying condition with foot ulcer; L97.522 - Non-pressure chronic ulcer of other part of left foot with fat layer exposed Category: Medical Code(s): E08.621 - Diabetes mellitus due to underlying condition with foot ulcer; L97.522 - Non-pressure chronic ulcer of other part of left foot with fat layer exposed (3) PAD (peripheral artery disease): Status: Chronic Category: Medical Code(s): I73.9 - Peripheral vascular disease, unspecified (4) Lymphedema of both lower extremities: Status: Acute Category: Medical Code(s): I89.0 - Lymphedema, not elsewhere classified (5) Type 2 diabetes mellitus with foot ulcer: Status: Acute 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 Qualified Code(s): E11.621 - Type 2 diabetes mellitus with foot ulcer; L97.509 - Non-pressure chronic ulcer of other part of unspecified foot with unspecified severity; 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.4 - 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 Category: Medical Code(s): E11.621 - Type 2 diabetes mellitus with foot ulcer; L97.509 - Non-pressure chronic ulcer of other part of unspecified foot with unspecified severity (6) Claudication of both lower extremities: Status: Acute Category: Medical Code(s): I73.9 - Peripheral vascular disease, unspecified (7) Charcot's joint of left foot: Status: Acute Category: Medical Code(s): M14.672 - Charcot's joint, left ankle and foot (8) Diabetes mellitus with diabetic neuropathy: Status: Chronic Qualifiers: Diabetes mellitus detention insulin use: with detention use Diabetes mellitus type: type 2 Qualified Code(s): E11.40 - Type 2 diabetes mellitus with diabetic neuropathy, unspecified Category: Medical Code(s): E11.40 - Type 2 diabetes mellitus with diabetic neuropathy, unspecified (9) BMI 50.0-59.9, adult: Status: Acute Category: Medical Code(s): Z68.43 - Body mass index [BMI] 50.0-59.9, adult Plan 07/19/24: 07/19/24, labs, wbc. 10.4, glucose 220 07/03/24:wbc. 8.9, esr. 16, glucose 319, A1c 9.1, crp. 8.8 ABIs -pt reports she got new CTA - vascular office reviewed and said no other options for my distal flow, can not be stented below ankle -b/l foot XR and new ABIs reviewed: stable, no new SOI, no OM or abnormal infection labs -she is high risk for b/l BKA vs AKA -discussed realistic expectations and possibility/likelihood of multiple staged surgery with delayed healing, chronic wounds -complex patient with bilateral DFU's coupled with PAD where no more vascular intervention is possible, complicated more by uncontrolled diabetes and morbid obesity Plan: 07/19/24- S/P Bilateral TMA surgery -Strict nonweightbearing b/l lower extremities -Keep TMA surgical sites elevated on pillows -May reinforce surgical dressings with ABD pads, rosie wraps an needed -Continue IV antibiotics as ordered -Start with clear diabetic diet and advance as tolerated to a full Diabetic diet -Podiatry to round and change dressing in the AM. Documented by User: Joanna Jackson DPM 07/19/24 18:16 [facility] 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 History of intravascular stent placement Family History (Updated 07/19/24 @ 12:28 by Kelsie Lindo RN) Other No significant family history Social History (Updated 07/19/24 @ 12:53 by Kelsie Lindo RN) Smoking Status: Unknown if ever smoked second hand exposure: No alcohol intake: never substance use type: denies use current occupational status: employed Travel in the last 8 weeks: None household members: none and other housing: apartment current occupational exposures/hazards: No caffeine: No Meds Home Medications and Allergies Home Medications ?Medication ?Instructions ?Recorded ?Confirmed ?Type atorvastatin 80 mg tablet (Lipitor) 80 mg PO HS High cholesterol 10/31/19 07/19/24 History clopidogrel 75 mg tablet (Plavix) 75 mg PO HS Heart disease 10/31/19 07/19/24 History gabapentin 800 mg tablet 800 mg PO QID 10/31/19 07/19/24 History meloxicam 15 mg tablet (Mobic) 15 mg PO HS unknown 10/31/19 07/19/24 History rabeprazole 20 mg tablet,delayed 20 mg PO HS 10/31/19 07/19/24 History release aspirin 81 mg tablet,delayed 81 mg PO BID 01/06/21 07/19/24 History release biotin 10,000 mcg capsule 10,000 mcg PO DAILY 01/06/21 07/19/24 History insulin regular hum U-500 conc 500 80 unit SQ TID 03/03/21 06/13/24 History unit/mL(3 mL) subcut pen potassium chloride 10 mEq 30 meq PO DAILY 01/26/22 06/13/24 History tablet,extended release dulaglutide 4.5 mg/0.5 mL 4.5 mg SQ WEEKLY 06/25/22 07/19/24 [facility] furosemide 40 mg tablet 160 mg PO DAILY Fluid 06/25/22 06/13/24 History losartan 25 mg tablet 25 mg PO DAILY 06/25/22 07/19/24 History magnesium 250 mg tablet 250 mg PO BID 06/25/22 07/19/24 History spironolactone 25 mg tablet 25 mg PO DAILY 03/02/23 07/19/24 History furosemide 80 mg tablet 80 mg PO DAILY 07/19/24 07/19/24 History New Prescriptions to Start Prescriptions: Allergies Allergy/AdvReac Type Severity Reaction Status Date / Time duloxetine [From Cymbalta] Allergy Verified 07/19/24 12:54 Histamine H2 Inhibitors Allergy Verified 07/19/24 12:54 lisinopril Allergy Verified 07/19/24 12:54 sulfamethoxazole Allergy Verified 07/19/24 12:54 [From Bactrim] trimethoprim [From Bactrim] Allergy Verified 07/19/24 12:54 metoprolol AdvReac Severe Verified 07/19/24 12:54 beta blockers AdvReac Severe Insomnia Uncoded 06/13/24 10:01 Results Labs 07/20/24 06:06 07/20/24 06:06 Assessment and Plan *Assessment and plan (1) Diabetic ulcer of right foot associated with diabetes mellitus due to underlying condition, with fat layer exposed: Status: Chronic Qualifiers: Diabetic foot ulcer location: toe Qualified Code(s): E08.621 - Diabetes mellitus due to underlying condition with foot ulcer; L97.512 - Non-pressure chronic ulcer of other part of right foot with fat layer exposed Category: Medical Code(s): E08.621 - Diabetes mellitus due to underlying condition with foot ulcer; L97.512 - Non-pressure chronic ulcer of other part of right foot with fat layer exposed (2) Diabetic ulcer of left foot associated with diabetes mellitus due to underlying condition, with fat layer exposed: Status: Acute Qualifiers: Diabetic foot ulcer location: toe Qualified Code(s): E08.621 - Diabetes mellitus due to underlying condition with foot ulcer; L97.522 - Non-pressure chronic ulcer of other part of left foot with fat layer exposed Category: Medical Code(s): E08.621 - Diabetes mellitus due to underlying condition with foot ulcer; L97.522 - Non-pressure chronic ulcer of other part of left foot with fat layer exposed (3) PAD (peripheral artery disease): Status: Chronic Category: Medical Code(s): I73.9 - Peripheral vascular disease, unspecified (4) Lymphedema of both lower extremities: Status: Acute Category: Medical Code(s): I89.0 - Lymphedema, not elsewhere classified (5) Type 2 diabetes mellitus with foot ulcer: Status: Acute Qualifiers: 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 Qualified Code(s): E11.621 - Type 2 diabetes mellitus with foot ulcer; L97.509 - Non-pressure chronic ulcer of other part of unspecified foot with unspecified severity; Z79.4 - longterm (current) use of insulin Category: Medical Code(s): E11.621 - Type 2 diabetes mellitus with foot ulcer; L97.509 - Non-pressure chronic ulcer of other part of unspecified foot with unspecified severity (6) Claudication of both lower extremities: Status: Acute Category: Medical Code(s): I73.9 - Peripheral vascular disease, unspecified (7) Charcot's joint of left foot: Status: Acute Category: Medical Code(s): M14.672 - Charcot's joint, left ankle and foot (8) Diabetes mellitus with diabetic neuropathy: Status: Chronic 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 10.4, glucose 220 07/03/24:wbc. 8.9, esr. 16, glucose 319, A1c 9.1, crp. 8.8 ABIs -pt reports she got new CTA - vascular office reviewed and said no other options for my distal flow, can not be stented below ankle -b/l foot XR and new ABIs reviewed: stable, no new SOI, no OM or abnormal infection labs -she is high risk for b/l BKA vs AKA -discussed realistic expectations and possibility/likelihood of multiple staged surgery with delayed healing, chronic wounds -complex patient with bilateral DFU's coupled with PAD where no more vascular intervention is possible, complicated more by uncontrolled diabetes and morbid obesity Plan: 07/19/24- S/P Bilateral TMA surgery -Strict nonweightbearing b/l lower extremities -Keep TMA surgical sites elevated on pillows -May reinforce surgical dressings with ABD pads, rosie wraps an needed -Continue IV antibiotics as ordered -Start with clear diabetic diet and advance as tolerated to a full Diabetic diet -Podiatry to round and change dressing in the AM. All orders per Dr Jackson -consult case mgmt team: SNF placement evaluation ([facility] instead of [facility] in [place]) -NWB to b/l LE in fx boots -Ok to transition in fx boot to heels to bedside commode, with walker
[2024-07-19] MEDS: CEFEPIME HCL 1 GM in 0.9 % SODIUM CHLORIDE 50 ML IV (16:25)
[2024-07-19] MEDS: GENTAMICIN 80 MG/2 ML VIAL ×2 (16:32→16:57)
[2024-07-19] MEDS: BUPIVACAINE 0.5% 10ML VIAL 50 MG (16:32)
[2024-07-19] MEDS: VANCOMYCIN 1000MG VIAL 1000 MG (16:32)
[2024-07-19] MEDS: VANCOMYCIN HCL 2,500 MG in 0.9 % SODIUM CHLORIDE 250 ML 125 MG IV (16:57)
--- NOTE | 2024-07-19 17:10 | EXP.HP ---
History of Present Illness *Admission Date: 07/19/24 *History of present illness: Really nice patient with past medical history of diabetic foot ulcer, hypertension, peripheral artery disease. Patient presents for bilateral TMA. Will be taken to the OR today by podiatry service, then managed by medicine service. No new complaints. Denies fevers, chills, known sick contacts, recent travel, nausea, vomiting, diarrhea, constipation. [facility] Disclaimer: The information contained in this section may have been updated after the patient was seen, as this information can be updated by other users. 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 History of intravascular stent placement Family History (Updated 07/19/24 @ 12:28 by Kelsie Lindo RN) Other No significant family history Social History (Updated 07/19/24 @ 12:53 by Kelsie Lindo RN) Smoking Status: Unknown if ever smoked second hand exposure: No alcohol intake: never substance use type: denies use current occupational status: employed Travel in the last 8 weeks: None household members: none and other housing: apartment current occupational exposures/hazards: No caffeine: No Review of Systems Review of Systems Review of systems:: pertinent systems reviewed and negative unless documented below *Musculoskeletal Musculoskeletal: Reports numbness and Reports tingling *Neurologic Neurologic: Reports system reviewed and no additional complaints, except as documented, Reports numbness, Reports paresthesias and Reports tingling Meds Home Medications and Allergies Home Medications ?Medication ?Instructions ?Recorded ?Confirmed ?Type atorvastatin 80 mg tablet (Lipitor) 80 mg PO HS High cholesterol 10/31/19 07/19/24 History clopidogrel 75 mg tablet (Plavix) 75 mg PO HS Heart disease 10/31/19 07/19/24 History gabapentin 800 mg tablet 800 mg PO QID 10/31/19 07/19/24 History meloxicam 15 mg tablet (Mobic) 15 mg PO HS unknown 10/31/19 07/19/24 History rabeprazole 20 mg tablet,delayed 20 mg PO HS 10/31/19 07/19/24 History release aspirin 81 mg tablet,delayed 81 mg PO BID 01/06/21 07/19/24 History release biotin 10,000 mcg capsule 10,000 mcg PO DAILY 01/06/21 07/19/24 History insulin regular hum U-500 conc 500 80 unit SQ TID 03/03/21 06/13/24 History unit/mL(3 mL) subcut pen potassium chloride 10 mEq 30 meq PO DAILY 01/26/22 06/13/24 History tablet,extended release dulaglutide 4.5 mg/0.5 mL 4.5 mg SQ WEEKLY 06/25/22 07/19/24 History subcutaneous pen injector (Trulicity) furosemide 40 mg tablet 160 mg PO DAILY Fluid 06/25/22 06/13/24 History losartan 25 mg tablet 25 mg PO DAILY 06/25/22 07/19/24 History magnesium 250 mg tablet 250 mg PO BID 06/25/22 07/19/24 History spironolactone 25 mg tablet 25 mg PO DAILY 03/02/23 07/19/24 History furosemide 80 mg tablet 80 mg PO DAILY 07/19/24 07/19/24 History New Prescriptions to Start Prescriptions: Allergies Allergy/AdvReac Type Severity Reaction Status Date / Time duloxetine [From Cymbalta] Allergy Verified 07/19/24 12:54 Histamine H2 Inhibitors Allergy Verified 07/19/24 12:54 lisinopril Allergy Verified 07/19/24 12:54 sulfamethoxazole Allergy Verified 07/19/24 12:54 [From Bactrim] trimethoprim [From Bactrim] Allergy Verified 07/19/24 12:54 metoprolol AdvReac Severe Verified 07/19/24 12:54 beta blockers AdvReac Severe Insomnia Uncoded 06/13/24 10:01 Exam Data for Last 24 hours Vital signs and Labs for Last 24 Hours: Temp Pulse Resp BP Pulse Ox O2 Del Method 97.8 F 94 H 18 158/81 H 97 Room Air 07/19/24 12:35 07/19/24 12:35 07/19/24 12:35 07/19/24 12:35 07/19/24 12:35 07/19/24 12:35 Laboratory Results - last 24 hr 07/19/24 12:51: WBC 10.4, RBC 4.50, Hgb 13.8, Hct 45.5, MCV 101.1 H, MCH 30.7, MCHC 30.4 L, RDW 15.6, Plt Count 136 L, MPV 10.5 H, Neut % (Auto) 84.3 H, Lymph % (Auto) 10.8, [place] % (Auto) 3.6, Eos % (Auto) 1.1, Baso % (Auto) 0.3, Neut # (Auto) 8.8 H, Lymph # (Auto) 1.1, [place] # (Auto) 0.4, Eos # (Auto) 0.1, Baso # (Auto) 0.0, Sodium 134 L, Potassium 5.2 H, Chloride 100, Carbon Dioxide 32 H, Anion Gap 7.2, BUN 29 H, Creatinine 0.80, Estimated Creat Clear 87, Estimated GFR 75, Est GFR ( Amer) 90, Glucose 220 H, Calcium 8.6 I & O for Last 24 hours: Intake & Output 07/16/24 07/17/24 07/18/24 07/19/24 23:59 23:59 23:59 23:59 Weight 172.365 kg 172.365 kg Constitutional Constitutional: no acute distress *Routine HEENT Exam Head: Present normocephalic Eye: Present EOMI ENT: Present mucous membranes moist *Routine Neck Exam Neck: Present supple and full ROM *Routine Respiratory Exam Respiratory: Present CTA bilaterally *Routine Cardiovascular Exam Cardiovascular: Present RRR, Normal S1 and Normal S2 *Routine Abdominal Exam Abdominal: Present soft and normoactive bowel sounds *Routine Rectal Exam Rectal:: deferred *Routine Genitalia Exam Genitalia:: deferred *Routine Extremities Exam Extremities: Present full ROM and normal capillary refill *Routine Skin Exam Skin: Present intact and dry *Routine Neurological Exam Neurological: Present alert and oriented X3 H&P: Result Impressions Labs pending Assessment and Plan *Assessment and plan (1) Diabetic neuropathy: Status: Acute Qualifiers: Diabetes mellitus complication detail: diabetic polyneuropathy Diabetes mellitus type: type 2 Qualified Code(s): E11.42 - Type 2 diabetes mellitus with diabetic polyneuropathy Category: Medical Code(s): E11.40 - Type 2 diabetes mellitus with diabetic neuropathy, unspecified (2) Diabetic foot ulcer: Status: Acute Category: Medical Code(s): E11.621 - Type 2 diabetes mellitus with foot ulcer; L97.509 - Non-pressure chronic ulcer of other part of unspecified foot with unspecified severity (3) Peripheral vascular disease: Status: Acute Category: Medical Code(s): I73.9 - Peripheral vascular disease, unspecified Plan Bilateral TMA in diabetic patient: ? taken to the OR for debridement. As needed pain meds. As needed antiemetics. Hypertension: Continue home management Diabetes: Sign scale insulin, ACHS Accu-Cheks. PPx: SCDs CODE STATUS full FEN: Clears after surgery and advance as tolerated
--- NOTE | 2024-07-19 18:06 | P.PNANES_ITS ---
[facility] Anesthesia Record Part I Anesthesia Record I Intake, IV Amount: 1,000 Hydration: Adequate Estimated blood loss (mL): 250 Urine output (mL): 0 Blood Products used (#): none Blood Pressure: 102/67 SaO2: 95 Pulse Rate: 96 Airway Patency: Patent Respiratory Rate: 22 Temperature: 97.8 F Patient is:: Awake (Talking), Nasal O2 (4L/min NC) and Stable Stable to PACU at:: 18:00
--- NOTE | 2024-07-19 18:17 | P.OP_ITS ---
Date of procedure: 07/19/24 Pre-op Diagnosis:: B/L DFU B/L foot gangrene PAD Post-op Diagnosis:: Same Procedure performed:: B/L transmetatarsal amputation Manual prep/insertion of drug delivery device (intramedullary) Surgeon:: Joanna Jackson DPM [employer]ENT:: Carla Higginbothamyelitza Anesthesia: GETA Estimated blood loss (mL): 10 Clinical Note:: Patient is well-known to the podiatry service. She is a 53-year-old diabetic female with significant bilateral lower extremity PAD. She has great clearance from her cardiovascular surgeon to proceed with bilateral TMA. Risks and benefits were reviewed with patient. See preop H&P. Discussed in detail increased risk for delayed healing of soft tissue and bone due to significant PAD and history of diabetic foot ulcers with chronic nonhealing wounds. Discussed if the wounds do not heal there is an increased risk of infection, ga ngrene which could ultimately lead to further loss of foot or leg/limb. Patient was previously counseled and offered bilateral below-knee amputations but she refused. Other risks and benefits of surgery were discussed with patient, see office note. Operative findings:: Right medial heel diabetic foot ulcer. Left lateral foot diabetic ulcer. Both full-thickness through skin into subcutaneous tissue. Gangrenous dusky discoloration and changes noted to both feet. Multiple arterial ulcers noted to the distal feet. New arterial ischemic changes to bilateral lower extremities. Distal legs were a purpleish blue color. Minimal to no bleeding noted throughout the case to both feet. Prognosis: Poor, high risk for further amputation (including bilateral below-knee amputations), gangrene secondary to significant PAD and lack of blood flow during surgery today. Operative note:: On this date and time patient was deemed an appropriate surgical candidate. With informed consent signed, the patient was taken to the operating theater. The patient was positioned supine. General anesthesia was induced. No tourniquet used. IV Vanco 1g, IV Cefepime infused. Bilateral lower extremity was prepped and draped in normal sterile fashion. Left transmetatarsal amputation: Attention was directed to the left foot where previous fifth partial ray resection skin was noted to be healed. Gangrenous changes with dusky discoloration noted to the digits. Diabetic foot ulcer noted to the hallux. A fish mouth incision was mapped out at the level of the MPJs. Utilizing a 15 blade dissection was carried down sharply to the level of the bone around the proximal phalanx bases, which were disarticulated from the metatarsals. The distal foot/toes was sent as gross pathology. Attention was then directed to the metatarsals. Utilizing power resection the metatarsal heads 1-4 were transected, and sent for metatarsal bone culture. The remaining metatarsals looked within normal limits, bone hard, no obvious signs of osteomyelitis noted. Next 1.5L of gentamicin irrigation was used to flush the wound and pulse lavage. The wound was reexplored and no further signs of infection noted. At this point the double-ended rasp was used to smooth down the edges of the bone so that there were no sharp prominences. Cerament G was then prepared and inserted into the medullary canals to prevent infection. Minimal to little bleeding noted. 2-0 Vicryl was used to reapproximate the subcutaneous tissue. Nylon was used to close skin in a simple suture fashion. A 7 flat LC drain was inserted medially. Greg were used to reinforce the skin closure. The wounds were cleansed. B/L DFU wound debridement: Ulcer noted to the right heel and left lateral foot. Sharp excisional full-thickness debridement through skin into subcutaneous tissue with 15 blade and forceps and curette. Postdebridement wounds were granular. The right heel wound measured approximately 3.5 x 2 x 0.2 cm, 100% granular. The left lateral foot wound measured 1.5 x 1.0 x 0.2 cm, 100% granular. No drainage or signs of infection noted from the wounds. Right transmetatarsal amputation, irrigation and debridement: Attention was directed to the right foot where gangrenous changes with dusky discoloration noted to the digits. Dry black eschar noted to several of the toes and the fifth metatarsal distally. A fish mouth incision was mapped out at the level of the MPJs. Utilizing a 15 blade dissection was carried down sharply to the level of the bone around the proximal phalanx bases, which were disarticulated from the metatarsals. The distal foot/toes was sent as gross pathology. Attention was then directed to the metatarsals. Utilizing power resection the metatarsal heads 1-5 were transected, and sent for metatarsal bone culture. A piece of the metatarsals were then transected and sent for proximal margin to pathology. The remaining metatarsals looked within normal limits, bone hard, no obvious signs of osteomyelitis noted. Next 1.5L of gentamicin irrigation was used to flush the wound and pulse lavage. The wound was reexplored and no further signs of infection noted. At this point the double-ended rasp was used to smooth down the edges of the bone so that there were no sharp prominences. Cerament G was then prepared and inserted into the medullary canals to prevent infection. Minimal bleeding noted. 2-0 Vicryl was used to reapproximate the subcutaneous tissue. Nylon was used to close skin in a simple suture fashion. A 7 flat LC drain was inserted medially. [place] were used to reinforce the skin closure. The wounds were cleansed. Betadine soaked Xeroform and dry sterile dressing was then applie d to both feet. The patient was awoken from anesthesia and transferred to recovery with vital signs stable and neurovascular status intact. She appeared to tolerate the procedure and anesthesia well without complication. Materials: Skin greg, 7 flat LC drain x2, Cerament G Discharge/Plan: Patient is to maintain dressing clean dry and intact. Instructions dispensed on how to change the drain if necessary. Continue antibiotics: IV Vanco, Cefepime will admitted. Non weight bearing to the b/l LE with DME assistance (walker, wheelchair). Ok to transition to bedside commode, bed, PWB to heel in fracture boots with walker only for transitions. Plan for podiatry dressing change in the morning. Consult care management for possible [facility] placement. Condition: stable Disposition: floor Specimens:: Culture: right mets bone culture left mets bone culture Path: Left toes, right toes, right met proximal margins Complications:: None
--- NOTE | 2024-07-19 18:29 | XR_ITS ---
PROCEDURE INFORMATION: Exam: XR Left Ankle Exam date and time: 07/19/2024 6:37 PM Age: 53 years old Clinical indication: Pain; Ankle; Left; Prior surgery; Surgery date: Post-operative (0-2 days); Surgery type: Unknown; Additional info: Post op TECHNIQUE: Imaging protocol: Radiologic exam of the left ankle. Views: 3 or more views. COMPARISON: CR XR ANKLE WT BEARING LT MIN 3V 12/18/2019 12:06 PM FINDINGS: Bones/joints: Normal. No acute fracture identified. No other significant bone or joint abnormality. Soft tissues: Normal. IMPRESSION: No acute findings.
--- NOTE | 2024-07-19 18:29 | XR_ITS ---
PROCEDURE INFORMATION: Exam: XR Right Ankle Exam date and time: 07/19/2024 6:37 PM Age: 53 years old Clinical indication: Pain; Ankle; Right; Prior surgery; Surgery date: Post-operative (0-2 days); Surgery type: Unknown; Additional info: Post op TECHNIQUE: Imaging protocol: Radiologic exam of the right ankle. Views: 3 or more views. COMPARISON: CR XR FOOT RT MIN 3V 07/03/2024 5:04 PM FINDINGS: Bones/joints: Interval amputation of the right foot at the mid metatarsal level. No acute bone or joint abnormality. Soft tissues: Normal. IMPRESSION: Postop right foot.
--- NOTE | 2024-07-19 18:46 | PC.NURSE ---
arrived to the floor at 18:46 pm
--- NOTE | 2024-07-19 19:20 | SUR.PHASEI ---
180- report received from Brooks Myers RN and Dyna CAICEDO. Pt is sleeping but arousable w/HOB @ 35 degrees. Respirations are easy and unlabored. O2 is applied 4 lpm per N/C. Patch to left eye noted. Dexcom noted to left upper arm. Pt has bilateral foot dressing of xeroform, 4x4s, abd pads, soft roll, rosie wrap and zuleyma drain. No drainage noted from bilateral drains. 181-pt continues to rest. No changes in physical assessment. VSS. 1825-xray @ bedside taking bilateral 3 views of ankles. Pt alert and talking moving both lower extremities. 183-detailed report called to Manisha ALVAREZ. 184-Pt transported via stretcher w/portable O2 @ 4 LPM per Yenny ALVAREZ, Maryana Fam and Ghada Lutz. 184-Pt arrived to floor and transferred to Hospital bed. O2 @ 99% w/4lpm via N/C.
--- NOTE | 2024-07-19 19:57 | XR_ITS ---
PROCEDURE INFORMATION: Exam: XR Right Foot Exam date and time: 07/19/2024 8:13 PM Age: 53 years old Clinical indication: Pain; Foot; Right; Prior surgery; Surgery date: Post-operative (0-2 days); Surgery type: S/P tma TECHNIQUE: Imaging protocol: Radiologic exam of the right foot. Views: 3 or more views. COMPARISON: CR XR FOOT RT MIN 3V 07/03/2024 5:04 PM FINDINGS: Bones/joints: Interval amputation of the mid right foot at the mid metatarsal level. No other findings. Soft tissues: Normal. IMPRESSION: Postop right foot.
--- NOTE | 2024-07-19 19:57 | XR_ITS ---
PROCEDURE INFORMATION: Exam: XR Left Foot Exam date and time: 07/19/2024 8:13 PM Age: 53 years old Clinical indication: Pain; Foot; Left; Prior surgery; Surgery date: Post-operative (0-2 days); Surgery type: S/P tma TECHNIQUE: Imaging protocol: Radiologic exam of the left foot. Views: 3 or more views. COMPARISON: CR XR FOOT LT MIN 3V 07/03/2024 5:04 PM FINDINGS: Bones/joints: Interval amputation of the distal left foot at the mid metatarsal level. Previous amputation of the 5th metatarsal at the proximal portion redemonstrated. Soft tissues: Normal. IMPRESSION: Postop left foot.
[2024-07-19] MEDS: humaLOG 100 UNITS/ML 10ML VIAL (SSI) SQ (21:06)
[2024-07-19] MEDS: VANCOMYCIN CONSULT REQUEST 1 EACH NOTAPPLIC (21:10)
[2024-07-19 21:15] LABS: POC Glucose,Bedside 384 (70-110)
[2024-07-19] MEDS: 0.9 % SODIUM CHLORIDE 1000ML 1,000 ML 100 ML IV (21:22)
[2024-07-20] VITALS (9 sets, daily range): BP systolic 102–142; BP diastolic 57–101; PULSE 62–102; RESP 16–20; TEMP 36.4–37.1; O2SAT 93–98; BMI 52.1
[2024-07-20] MEDS: VANCOMYCIN HCL 2,500 MG in 0.9 % SODIUM CHLORIDE 500 ML 166 MG IV (04:34)
--- NOTE | 2024-07-20 05:02 | PC.WOUNDNOTE ---
Open sore to left groin area
--- NOTE | 2024-07-20 05:34 | PC.NURSE ---
Patient alert and oriented x4 throughout shift. Maintaining O2 stats >92% with 4L NC. Bilateral LC drains in place on both feet, draining well. Dressings C/D/I. Patient has not had any complaints of pain this shift. Tolerated getting on bedside commode well once this shift. Antibiotics administered per JAN. Patient has rested well this shift. Bed alarm on for patient safety. Call light within reach.
[2024-07-20 05:35] LABS: POC Glucose,Bedside 403 (70-110)
[2024-07-20] MEDS: humaLOG 100 UNITS/ML 10ML VIAL (SSI) SQ ×4 (06:00→21:01)
[2024-07-20 06:34] LABS: Basophils % 0.1 % (0.1-2.0); Hematocrit 40.6 % (37.0-47.0); Lymphocytes # 0.6 K/mm3 (0.7-4.5); Lymphocytes % 6.4 % (10-50); Mean Corpuscular HGB Conc 29.2 g/dL (31.8-35.4); Mean Corpuscular Hemoglobin 30.7 pg (27.0-31.2); Mean Platelet Volume 9.7 fl (7.4-10.4); Monocytes # 0.3 K/mm3 (0.1-1.0); Monocytes % 3.1 % (1.7-9.3); Neutrophils # 8.4 K/mm3 (1.8-7.8); Neutrophils % 90.4 % (37.0-80.0); Platelet Count 111 K/mm3 (142-424); Red Blood Count 3.87 M/mm3 (4.20-5.40); Red Cell Distribution Width 15.5 % (11.5-17.5); White Blood Count 9.3 K/mm3 (4.8-10.8)
[2024-07-20 06:40] LABS: MANUAL DIFFERENTIAL MANUAL DIFFERENTIAL (MANUAL DIFF)
[2024-07-20 06:42] LABS: Albumin Level 3.3 g/dl (3.5-5.0); Chloride 101 mmol/L (98-107); Sodium 134 mmol/L (136-145)
[2024-07-20 06:44] LABS: Blood Urea Nitrogen 33 mg/dl (7-17); Creatinine Clearance Estimated 58 mL/min (50-200); Estimated Glomerular Filt Rate 47 ml/min (>60); GFR (African American) 57 ML/MIN (>60)
[2024-07-20 06:45] LABS: Alanine Aminotransferase 39 U/L (12-78); Albumin/Globulin Ratio 1.2 (1.1-1.8); Alkaline Phosphatase 56 U/L (38-126); Anion Gap 9.1 mEq/L (5-15); Aspartate Amino Transferase 29 U/L (14-36); Bilirubin,Total 1.2 mg/dl (0.2-1.3); Carbon Dioxide 30 mmol/L (22.0-30.0); Globulin 2.7 g/dL (1.3-3.2); Glucose 363 mg/dl (74-100); Magnesium 2.2 mg/dl (1.6-2.3)
[2024-07-20 06:51] LABS: C-Reactive Protein 39.2 mg/L (0-4); Potassium 6.1 mmoL/L (3.5-5.1)
[2024-07-20 06:52] LABS: Erythrocyte Sedimentation Rate 27 mm/hr (0-30)
--- NOTE | 2024-07-20 06:58 | P.CONS_ITS ---
Documented by User: Jyoti Jayden Stallworth APRN 07/20/24 07:28 History of Present Illness *Admission Date: 07/19/24 *Reason for visit:: S/P bilateral Transmetatarsal amputation with LC drain placement *History of present illness: Really nice patient with past medical history of diabetic foot ulcer, hypertension, peripheral artery disease. Patient presents for bilateral TMA. Will be taken to the OR today by podiatry service, then managed by medicine service. No new complaints. Denies fevers, chills, known sick contacts, recent travel, nausea, vomiting, diarrhea, constipation. [facility] Disclaimer: The information contained in this section may have been updated after the patient was seen, as this information can be updated by other users. 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 History of intravascular stent placement Family History (Updated 07/19/24 @ 12:28 by Kelsie Lindo RN) No significant family history Social History (Updated 07/19/24 @ 12:53 by Kelsie Lindo RN) Smoking Status: Unknown if ever smoked second hand exposure: No alcohol intake: never substance use type: denies use current occupational status: employed Travel in the last 8 weeks: None household members: none and other housing: apartment current occupational exposures/hazards: No caffeine: No Review of Systems *Musculoskeletal Musculoskeletal: Reports numbness and Reports tingling *Neurologic Neurologic: Reports system reviewed and no additional complaints, except as documented, Reports numbness, Reports paresthesias and Reports tingling Meds Home Medications and Allergies Home Medications ?Medication ?Instructions ?Recorded ?Confirmed ?Type atorvastatin 80 mg tablet (Lipitor) 80 mg PO HS High cholesterol 10/31/19 07/19/24 History clopidogrel 75 mg tablet (Plavix) 75 mg PO HS Heart disease 10/31/19 07/19/24 History gabapentin 800 mg tablet 800 mg PO QID 10/31/19 07/19/24 History meloxicam 15 mg tablet (Mobic) 15 mg PO HS unknown 10/31/19 07/19/24 History rabeprazole 20 mg tablet,delayed 20 mg PO HS 10/31/19 07/19/24 History release aspirin 81 mg tablet,delayed 81 mg PO BID 01/06/21 07/19/24 History release biotin 10,000 mcg capsule 10,000 mcg PO DAILY 01/06/21 07/19/24 History insulin regular hum U-500 conc 500 80 unit SQ TID 03/03/21 06/13/24 History unit/mL(3 mL) subcut pen potassium chloride 10 mEq 30 meq PO DAILY 01/26/22 06/13/24 History tablet,extended release dulaglutide 4.5 mg/0.5 mL 4.5 mg SQ WEEKLY 06/25/22 07/19/24 History subcutaneous pen injector (Trulicity) furosemide 40 mg tablet 160 mg PO DAILY Fluid 06/25/22 06/13/24 History losartan 25 mg tablet 25 mg PO DAILY 06/25/22 07/19/24 History magnesium 250 mg tablet 250 mg PO BID 06/25/22 07/19/24 History spironolactone 25 mg tablet 25 mg PO DAILY 03/02/23 07/19/24 History furosemide 80 mg tablet 80 mg PO DAILY 07/19/24 07/19/24 History New Prescriptions to Start Prescriptions: Allergies Allergy/AdvReac Type Severity Reaction Status Date / Time duloxetine [From Cymbalta] Allergy Verified 07/19/24 12:54 Histamine H2 Inhibitors Allergy Verified 07/19/24 12:54 lisinopril Allergy Verified 07/19/24 12:54 sulfamethoxazole Allergy Verified 07/19/24 12:54 [From Bactrim] trimethoprim [From Bactrim] Allergy Verified 07/19/24 12:54 metoprolol AdvReac Severe Verified 07/19/24 12:54 beta blockers AdvReac Severe Insomnia Uncoded 06/13/24 10:01 Exam (Inpt) Vital signs and Labs for Last 24 Hours: Temp Pulse Resp BP Pulse Ox O2 Del Method O2 Flow Rate 98.0 F 78 20 142/57 H 96 Nasal Cannula 4 07/20/24 04:00 07/20/24 04:00 07/20/24 04:00 07/20/24 04:00 07/20/24 04:00 07/20/24 06:48 07/20/24 06:48 Laboratory Results - last 24 hr 07/19/24 12:51: WBC 10.4, RBC 4.50, Hgb 13.8, Hct 45.5, MCV 101.1 H, MCH 30.7, M CHC 30.4 L, RDW 15.6, Plt Count 136 L, MPV 10.5 H, Neut % (Auto) 84.3 H, Lymph % (Auto) 10.8, Bollinger % (Auto) 3.6, Eos % (Auto) 1.1, Baso % (Auto) 0.3, Neut # (Auto) 8.8 H, Lymph # (Auto) 1.1, Bollinger # (Auto) 0.4, Eos # (Auto) 0.1, Baso # (Auto) 0.0, Sodium 134 L, Potassium 5.2 H, Chloride 100, Carbon Dioxide 32 H, Anion Gap 7.2, BUN 29 H, Creatinine 0.80, Estimated Creat Clear 87, Estimated GFR 75, Est GFR ( Amer) 90, Glucose 220 H, Calcium 8.6 07/19/24 21:05: POC Glucose 384 H* 07/20/24 05:26: POC Glucose 403 H* 07/20/24 06:06: WBC 9.3, RBC 3.87 L, Hct 40.6, MCV 105.0 H, MCH 30.7, MCHC 29.2 L, RDW 15.5, Plt Count 111 L, MPV 9.7, Neut % (Auto) 90.4 H, Lymph % (Auto) 6.4 L, Bollinger % (Auto) 3.1, Eos % (Auto) 0.0 L, Baso % (Auto) 0.1, Neut # (Auto) 8.4 H , Lymph # (Auto) 0.6 L, Bollinger # (Auto) 0.3, Eos # (Auto) 0.0, Baso # (Auto) 0.0, ESR 27, Sodium 134 L, Potassium 6.1 H*, Chloride 101, Carbon Dioxide 30, Anion Gap 9.1, BUN 33 H, Creatinine 1.20 H D, Estimated Creat Clear 58, Estimated GFR 47 L, Est GFR ( Amer) 57 L D, Glucose 363 H D, Calcium 8.0 L, Magnesium 2.2, Total Bilirubin 1.2, AST 29, ALT 39, Alkaline Phosphatase 56, Total Protein 6.0 L, Albumin 3.3 L, Globulin 2.7, Albumin/Globulin Ratio 1.2 I & O for Labs for Last 24 Hours: Intake & Output 07/17/24 07/18/24 07/19/24 07/20/24 23:59 23:59 23:59 23:59 Intake Total 1000 / 1000 Output Total 700 / 700 Balance 1000 / 1000 -700 / -700 Weight 380 lb 380 lb 364 lb 4.8 oz Constitutional: Present no acute distress and morbidly obese Head: Present normocephalic Neck: Present normal inspection and trachea midline Respiratory: Present normal respiratory effort and able to speak in complete sentences Cardiac: Present pedal pulses present (weakly palpable PF) Comment:: B/L faint DP, PT. GI: Present soft Rectal (female): Present deferred (female): Present deferred Extremities: Present full ROM and edema (b/l LE 1+ pitting edema); Absent normal capillary refill Skin: Present erythema, pallor, warm, wounds (B/L DFU; Right heel, left lateral foot , no drainage noted.) and gangrene Comment:: -B/L TMA surgical sites with LC drain, dressings intact. -B/L DFU wound debridement: Ulcer noted to the right heel and left lateral foot. Sharp excisional full-thickness debridement through skin into subcutaneous tissue with 15 blade and forceps and curette. Postdebridement wounds were granular. The right heel wound measured approximately 3.5 x 2 x 0.2 cm, 100% granular. The left lateral foot wound measured 1.5 x 1.0 x 0.2 cm, 100% granular. No drainage or signs of infection noted from the wounds. Neuro: Present Numbness, Motor Function Intact, oriented x 3 and moves all extremities; Absent Sensory Function Intact Ankle: bilateral: normal inspection and bilateral: swelling (1+ pitting edema) Feet/Toes: left: amputation (s/p Bilateral TMA 07/19/24) and bilateral: swelling (1+ pitting edema) and bilateral: wound (B/L TMA sites) Inspection: Present other (B/L TMA sites ) Pulses: L dorsalis pedis pulse: diminished, R dorsalis pedis pulse: diminished, L posterior tibial pulse: diminished and R posterior tibial pulse: diminished CFT: dim: CFT Monofilament exam: L 1st metatarsals: absent, L 3rd metatarsals: absent, L 5th metatarsals: absent, L great toe: absent, L 3rd toe: absent, L 5th toe: absent, R 1st metatarsals: absent, R 3rd metatarsals: absent, R 5th metatarsals: absent, R great toe: absent, R 3rd toe: absent and R 5th toe: absent Results Labs 07/20/24 06:06 07/20/24 06:06 Labs: Abnormal lab results 07/19/24 07/19/24 07/20/24 Range/Units 12:51 21:05 05:26 RBC (4.20-5.40) M/mm3 MCV 101.1 H (81-99) fl MCHC 30.4 L (31.8-35.4) g/dL Plt Count 136 L (142-424) K/mm3 MPV 10.5 H (7.4-10.4) fl Neut % (Auto) 84.3 H (37.0-80.0) % Lymph % (Auto) (10-50) % Eos % (Auto) (0.1-12.0) % Neut # (Auto) 8.8 H (1.8-7.8) K/mm3 Lymph # (Auto) (0.7-4.5) K/mm3 Sodium 134 L (136-145) mmol/L Potassium 5.2 H (3.5-5.1) mmoL/L Carbon Dioxide 32 H (22.0-30.0) mmol/L BUN 29 H (7-17) mg/dl Creatinine (0.52-1.04) mg/dl Estimated GFR (>60) ml/min Est GFR ( Amer) (>60) ML/MIN Glucose 220 H (74-100) mg/dl POC Glucose 384 H* 403 H* (70-110) Calcium (8.4-10.2) mg/dl Total Protein (6.3-8.2) g/dl Albumin (3.5-5.0) g/dl 07/20/24 Range/Units 06:06 RBC 3.87 L (4.20-5.40) M/mm3 MCV 105.0 H (81-99) fl MCHC 29.2 L (31.8-35.4) g/dL Plt Count 111 L (142-424) K/mm3 MPV (7.4-10.4) fl Neut % (Auto) 90.4 H (37.0-80.0) % Lymph % (Auto) 6.4 L (10-50) % Eos % (Auto) 0.0 L (0.1-12.0) % Neut # (Auto) 8.4 H (1.8-7.8) K/mm3 Lymph # (Auto) 0.6 L (0.7-4.5) K/mm3 Sodium 134 L (136-145) mmol/L Potassium 6.1 H* (3.5-5.1) mmoL/L Carbon Dioxide (22.0-30.0) mmol/L BUN 33 H (7-17) mg/dl Creatinine 1.20 H D (0.52-1.04) mg/dl Estimated GFR 47 L (>60) ml/min Est GFR ( Amer) 57 L D (>60) ML/MIN Glucose 363 H D (74-100) mg/dl POC Glucose (70-110) Calcium 8.0 L (8.4-10.2) mg/dl Total Protein 6.0 L (6.3-8.2) g/dl Albumin 3.3 L (3.5-5.0) g/dl H & H 07/19/24 07/20/24 Range/Units 12:51 06:06 Hgb 13.8 (12.2-16.2) g/dL Hct 45.5 40.6 (37.0-47.0) % All other labs normal. Assessment and Plan *Assessment and plan (1) Diabetic ulcer of right foot associated with diabetes mellitus due to underlying condition, with fat layer exposed: Status: Chronic Qualifiers: Diabetic foot ulcer location: toe Qualified Code(s): E08.621 - Diabetes mellitus due to underlying condition with foot ulcer; L97.512 - Non-pressure chronic ulcer of other part of right foot with fat layer exposed Category: Medical Code(s): E08.621 - Diabetes mellitus due to underlying condition with foot ulcer; L97.512 - Non-pressure chronic ulcer of other part of right foot with fat layer exposed (2) Diabetic ulcer of left foot associated with diabetes mellitus due to underlying condition, with fat layer exposed: Status: Acute Qualifiers: Diabetic foot ulcer location: toe Qualified Code(s): E08.621 - Diabetes mellitus due to underlying condition with foot ulcer; L97.522 - Non-pressure chronic ulcer of other part of left foot with fat layer exposed Category: Medical Code(s): E08.621 - Diabetes mellitus due to underlying condition with foot ulcer; L97.522 - Non-pressure chronic ulcer of other part of left foot with fat layer exposed (3) PAD (peripheral artery disease): Status: Chronic Category: Medical Code(s): I73.9 - Peripheral vascular disease, unspecified (4) Lymphedema of both lower extremities: Status: Acute Category: Medical Code(s): I89.0 - Lymphedema, not elsewhere classified (5) Type 2 diabetes mellitus with foot ulcer: Status: Acute Qualifiers: 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: with dedicated intermodal truck driver use Qualified Code(s): E11.621 - Type 2 diabetes mellitus with foot ulcer; L97.509 - Non- pressure chronic ulcer of other part of unspecified foot with unspecified severity; 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 Category: Medical Code(s): E11.621 - Type 2 diabetes mellitus with foot ulcer; L97.509 - Non-pressure chronic ulcer of other part of unspecified foot with unspecified severity (6) Claudication of both lower extremities: Status: Acute Category: Medical Code(s): I73.9 - Peripheral vascular disease, unspecified (7) Charcot's joint of left foot: Status: Acute Category: Medical Code(s): M14.672 - Charcot's joint, left ankle and foot (8) Diabetes mellitus with diabetic neuropathy: Status: Chronic Qualifiers: Diabetes mellitus [facility] insulin use: with dedicated intermodal truck driver use Diabetes mellitus type: type 2 Qualified Code(s): E11.40 - Type 2 diabetes mellitus with diabetic neuropathy, unspecified Category: Medical Code(s): E11.40 - Type 2 diabetes mellitus with diabetic neuropathy, unspecified (9) BMI 50.0-59.9, adult: Status: Acute Category: Medical Code(s): Z68.43 - Body mass index [BMI] 50.0-59.9, adult Plan 07/20/24: 07/20/2024, wbc 9.3, ESR 27, potassium 6.1, GFR 47, glucose 363, CRP 39.2 07/19/24, labs, wbc. 10.4, glucose 220 07/03/24:wbc. 8.9, esr. 16, glucose 319, A1c 9.1, crp. 8.8 ABIs -pt reports she got new CTA - vascular office reviewed and said no other options for my distal flow, can not be stented below ankle -b/l foot XR and new ABIs reviewed: stable, no new SOI, no OM or abnormal infection labs -she is high risk for b/l BKA vs AKA -discussed realistic expectations and possibility/likelihood of multiple staged surgery with delayed healing, chronic wounds -complex patient with bilateral DFU's coupled with PAD where no more vascular intervention is possible, complicated more by uncontrolled diabetes and morbid obesity Plan: S/P 07/19/24- S/P Bilateral TMA surgery /B/L DFU wounds: Discharge/Plan: The wounds were cleansed. Betadine soaked Xeroform and dry sterile dressing was then applied to both feet. Patient is to maintain dressings clean dry and intact. Instructions dispensed on how to change the drain if necessary. Continue antibiotics: IV Vanco, Cefepime will admitted. Non weight bearing to the b/l LE with DME assistance (walker, wheelchair). Ok to transition to bedside commode, bed, PWB to heel in fracture boots with walker only for transitions. Plan for podiatry dressing change in the morning. Consult care management for possible [facility] placement. Specimens:: Pending Culture: right mets bone culture left mets bone culture Path: Left toes, right toes, right met proximal margins All orders per Dr Jackson Documented by User: Joanna Jackson DPM 07/20/24 08:23 History of Present Illness *History of present illness: Patient with past medical history of diabetic foot ulcer, hypertension, peripheral artery disease. Patient presents for bilateral TMA. Will be taken to the OR today by podiatry service, then managed by medicine service. No new complaints. Denies fevers, chills, known sick contacts, recent travel, nausea, vomiting, diarrhea, constipation. PFSH PFSH 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 History of intravascular stent placement Family History (Updated 07/19/24 @ 12:28 by Kelsie Lindo RN) No significant family history Social History (Updated 07/19/24 @ 12:53 by Kelsie Lindo RN) Smoking Status: Unknown if ever smoked second hand exposure: No alcohol intake: never substance use type: denies use current occupational status: employed Travel in the last 8 weeks: None household members: none and other housing: apartment current occupational exposures/hazards: No caffeine: No Meds Home Medications and Allergies Home Medications ?Medication ?Instructions ?Recorded ?Confirmed ?Type atorvastatin 80 mg tablet (Lipitor) 80 mg PO HS High cholesterol 10/31/19 07/19/24 History clopidogrel 75 mg tablet (Plavix) 75 mg PO HS Heart disease 10/31/19 07/19/24 History gabapentin 800 mg tablet 800 mg PO QID 10/31/19 07/19/24 History meloxicam 15 mg tablet (Mobic) 15 mg PO HS unknown 10/31/19 07/19/24 History rabeprazole 20 mg tablet,delayed 20 mg PO HS 10/31/19 07/19/24 History release aspirin 81 mg tablet,delayed 81 mg PO BID 01/06/21 07/19/24 History release biotin 10,000 mcg capsule 10,000 mcg PO DAILY 01/06/21 07/19/24 History insulin regular hum U-500 conc 500 80 unit SQ TID 03/03/21 06/13/24 History unit/mL(3 mL) subcut pen potassium chloride 10 mEq 30 meq PO DAILY 01/26/22 06/13/24 History tablet,extended release dulaglutide 4.5 mg/0.5 mL 4.5 mg SQ WEEKLY 06/25/22 07/19/24 History subcutaneous pen injector (Trulicity) furosemide 40 mg tablet 160 mg PO DAILY Fluid 06/25/22 06/13/24 History losartan 25 mg tablet 25 mg PO DAILY 06/25/22 07/19/24 History magnesium 250 mg tablet 250 mg PO BID 06/25/22 07/19/24 History spironolactone 25 mg tablet 25 mg PO DAILY 03/02/23 07/19/24 History furosemide 80 mg tablet 80 mg PO DAILY 07/19/24 07/19/24 History New Prescriptions to Start Prescriptions: Allergies Allergy/AdvReac Type Severity Reaction Status Date / Time duloxetine [From Cymbalta] Allergy Verified 07/19/24 12:54 Histamine H2 Inhibitors Allergy Verified 07/19/24 12:54 lisinopril Allergy Verified 07/19/24 12:54 sulfamethoxazole Allergy Verified 07/19/24 12:54 [From Bactrim] trimethoprim [From Bactrim] Allergy Verified 07/19/24 12:54 metoprolol AdvReac Severe Verified 07/19/24 12:54 beta blockers AdvReac Severe Insomnia Uncoded 06/13/24 10:01 Results Labs 07/20/24 06:06 07/20/24 06:06 Assessment and Plan *Assessment and plan (1) Diabetic ulcer of right foot associated with diabetes mellitus due to underlying condition, with fat layer exposed: Status: Chronic Qualifiers: Diabetic foot ulcer location: toe Qualified Code(s): E08.621 - Diabetes mellitus due to underlying condition with foot ulcer; L97.512 - Non-pressure chronic ulcer of other part of right foot with fat layer exposed Category: Medical Code(s): E08.621 - Diabetes mellitus due to underlying condition with foot ulcer; L97.512 - Non-pressure chronic ulcer of other part of right foot with fat layer exposed (2) Diabetic ulcer of left foot associated with diabetes mellitus due to underlying condition, with fat layer exposed: Status: Acute Qualifiers: Diabetic foot ulcer location: toe Qualified Code(s): E08.621 - Diabetes mellitus due to underlying condition with foot ulcer; L97.522 - Non-pressure chronic ulcer of other part of left foot with fat layer exposed Category: Medical Code(s): E08.621 - Diabetes mellitus due to underlying condition with foot ulcer; L97.522 - Non-pressure chronic ulcer of other part of left foot with fat layer exposed (3) PAD (peripheral artery disease): Status: Chronic Category: Medical Code(s): I73.9 - Peripheral vascular disease, unspecified (4) Lymphedema of both lower extremities: Status: Acute Category: Medical Code(s): I89.0 - Lymphedema, not elsewhere classified (5) Type 2 diabetes mellitus with foot ulcer: Status: Acute Qualifiers: 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: with dedicated intermodal truck driver use Qualified Code(s): E11.621 - Type 2 diabetes mellitus with foot ulcer; L97.509 - Non- pressure chronic ulcer of other part of unspecified foot with unspecified severity; 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 Category: Medical Code(s): E11.621 - Type 2 diabetes mellitus with foot ulcer; L97.509 - Non-pressure chronic ulcer of other part of unspecified foot with unspecified severity (6) Claudication of both lower extremities: Status: Acute Category: Medical Code(s): I73.9 - Peripheral vascular disease, unspecified (7) Charcot's joint of left foot: Status: Acute Category: Medical Code(s): M14.672 - Charcot's joint, left ankle and foot (8) Diabetes mellitus with diabetic neuropathy: Status: Chronic Qualifiers: 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: with dedicated intermodal truck driver use Diabetes mellitus type: type 2 Qualified Code(s): E11.40 - Type 2 diabetes mellitus with diabetic neuropathy, unspecified Category: Medical Code(s): E11.40 - Type 2 diabetes mellitus with diabetic neuropathy, unspecified (9) BMI 50.0-59.9, adult: Status: Acute Category: Medical Code(s): Z68.43 - Body mass index [BMI] 50.0-59.9, adult Plan 07/20/24: 07/20/2024, wbc 9.3, ESR 27, potassium 6.1, GFR 47, glucose 363, CRP 39.2 07/19/24, labs, wbc. 10.4, glucose 220 07/03/24:wbc. 8.9, esr. 16, glucose 319, A1c 9.1, crp. 8.8 ABIs -pt reports she got new CTA - vascular office reviewed and said no other options for my distal flow, can not be stented below ankle -b/l foot XR and new ABIs reviewed: stable, no new SOI, no OM or abnormal infection labs -she is high risk for b/l BKA vs AKA -discussed realistic expectations and possibility/likelihood of multiple staged surgery with delayed healing, chronic wounds -complex patient with bilateral DFU's coupled with PAD where no more vascular intervention is possible, complicated more by uncontrolled diabetes and morbid obesity Surgery, 07/19/24: s/p Bilateral TMA surgery, B/L DFU: Intraop Specimens: Pending Culture: right mets bone culture left mets bone culture Path: Left toes, right toes, right met proximal margins 07/20/24: POD #1 The wounds were cleansed. Betadine soaked Xeroform and dry sterile dressing was then applied to both feet. Patient is to maintain dressings clean dry and intact. Instructions dispensed on how to change the drain if necessary. Continue antibiotics: IV Vanco, Cefepime will admitted. (has hx MRSA, E coli, 08/24/23 right foot WCx: Enterobacter cloacae, Klebsiella pneumoniae). Recommend d/c with PICC, IV abx x2 wks IV abx as above. Non weight bearing to the b/l LE with DME assistance (walker, wheelchair). Ok to transition to bedside commode, bed, PWB to heel in fracture boots with walker only for transitions. Consult care management for possible [facility] placement, needs one short fracture boot (other one mother has) All orders per Dr Jackson SNF Orders: NWB to b/l LE except to transfer (using heels in fracture boot). Daily dressing changes to b/l feet: betadine soaked gauze to incision/wound, cover with dry dressing (gauze, janes/kerlix, Star). LC drain mgmt daily. PICC, IV abx: Vanco, Cefepime based on previous cultures and hx. Recommend 2 wks IV abx then transition to oral abx outpatient as needed. Follow up with Podiatry outpt in one week.
--- NOTE | 2024-07-20 07:00 | PC.NURSE ---
0650 - Lab called with critical potassium of 6.1 0656 - Jyoti Luna APRN notified of critical lab. Verbal order for CMP stat. 0659 - Lab notified of order entered
[2024-07-20 07:14] LABS: Phosphorous 4.6 mg/dl (2.5-4.5)
--- NOTE | 2024-07-20 07:20 | EXP.ANES.II ---
[facility] Anesthesia Record Part II Anesthesia Record Part II Discharge Time: 18:30 Destination: Medical Surgical Department PACU nurse assessment reviewed?: Yes Patient Condition:: Good Anesthesia Complications:: None Swallowing reflex intact?: Yes Airway Patency: Patent Cyanosis?: No Blood Pressure: 126/60 SaO2: 97 Respiratory Rate: 16 Pulse Rate: 100 Temperature: 97.8 F Mental Status: Alert & Oriented Pain level:: 0 Nausea and/or vomitting:: None Intake, IV Amount: 1,000 Hydration: Adequate
--- NOTE | 2024-07-20 07:41 | EXP.PHA.CONS ---
Pharmacy Consult Date: 07/20/24 Time: 07:42 Referring provider: DR FLYNN Reason for Consult:: VANCOMYCIN DOSING CONSULT Allergies Allergy/AdvReac Type Severity Reaction Status Date / Time duloxetine [From Cymbalta] Allergy Verified 07/19/24 12:54 Histamine H2 Inhibitors Allergy Verified 07/19/24 12:54 lisinopril Allergy Verified 07/19/24 12:54 sulfamethoxazole Allergy Verified 07/19/24 12:54 [From Bactrim] trimethoprim [From Bactrim] Allergy Verified 07/19/24 12:54 metoprolol AdvReac Severe Verified 07/19/24 12:54 beta blockers AdvReac Severe Insomnia Uncoded 06/13/24 10:01 Home Medications ?Medication ?Instructions ?Recorded ?Confirmed ?Type atorvastatin 80 mg tablet (Lipitor) 80 mg PO HS High cholesterol 10/31/19 07/19/24 History clopidogrel 75 mg tablet (Plavix) 75 mg PO HS Heart disease 10/31/19 07/19/24 History gabapentin 800 mg tablet 800 mg PO QID 10/31/19 07/19/24 History meloxicam 15 mg tablet (Mobic) 15 mg PO HS unknown 10/31/19 07/19/24 History rabeprazole 20 mg tablet,delayed 20 mg PO HS 10/31/19 07/19/24 History release aspirin 81 mg tablet,delayed 81 mg PO BID 01/06/21 07/19/24 History release biotin 10,000 mcg capsule 10,000 mcg PO DAILY 01/06/21 07/19/24 History insulin regular hum U-500 conc 500 80 unit SQ TID 03/03/21 06/13/24 History unit/mL(3 mL) subcut pen potassium chloride 10 mEq 30 meq PO DAILY 01/26/22 06/13/24 History tablet,extended release dulaglutide 4.5 mg/0.5 mL 4.5 mg SQ WEEKLY 06/25/22 07/19/24 History subcutaneous pen injector (Trulicity) furosemide 40 mg tablet 160 mg PO DAILY Fluid 06/25/22 06/13/24 History losartan 25 mg tablet 25 mg PO DAILY 06/25/22 07/19/24 History magnesium 250 mg tablet 250 mg PO BID 06/25/22 07/19/24 History spironolactone 25 mg tablet 25 mg PO DAILY 03/02/23 07/19/24 History furosemide 80 mg tablet 80 mg PO DAILY 07/19/24 07/19/24 History New Prescriptions to Start Prescriptions: Height: 1.78 m Weight: 165.244 kg Laboratory Results:: Laboratory Results - last 24 hr 07/19/24 12:51: WBC 10.4, RBC 4.50, Hgb 13.8, Hct 45.5, MCV 101.1 H, MCH 30.7, MCHC 30.4 L, RDW 15.6, Plt Count 136 L, MPV 10.5 H, Neut % (Auto) 84.3 H, Lymph % (Auto) 10.8, [place] % (Auto) 3.6, Eos % (Auto) 1.1, Baso % (Auto) 0.3, Neut # (Auto) 8.8 H, Lymph # (Auto) 1.1, [place] # (Auto) 0.4, Eos # (Auto) 0.1, Baso # (Auto) 0.0, Sodium 134 L, Potassium 5.2 H, Chloride 100, Carbon Dioxide 32 H, Anion Gap 7.2, BUN 29 H, Creatinine 0.80, Estimated Creat Clear 87, Estimated GFR 75, Est GFR ( Amer) 90, Glucose 220 H, Calcium 8.6 07/19/24 21:05: POC Glucose 384 H* 07/20/24 05:26: POC Glucose 403 H* 07/20/24 06:06: WBC 9.3, RBC 3.87 L, Hct 40.6, MCV 105.0 H, MCH 30.7, MCHC 29.2 L, RDW 15.5, Plt Count 111 L, MPV 9.7, Neut % (Auto) 90.4 H, Lymph % (Auto) 6.4 L, [place] % (Auto) 3.1, Eos % (Auto) 0.0 L, Baso % (Auto) 0.1, Neut # (Auto) 8.4 H, Lymph # (Auto) 0.6 L, [place] # (Auto) 0.3, Eos # (Auto) 0.0, Baso # (Auto) 0.0, ESR 27, Sodium 134 L, Potassium 6.1 H*, Chloride 101, Carbon Dioxide 30, Anion Gap 9.1, BUN 33 H, Creatinine 1.20 H D, Estimated Creat Clear 58, Estimated GFR 47 L, Est GFR ( Amer) 57 L D, Glucose 363 H D, Calcium 8.0 L, Phosphorus 4.6 H, Magnesium 2.2, Total Bilirubin 1.2, AST 29, ALT 39, Alkaline Phosphatase 56, C-Reactive Protein 39.2 H, Total Protein 6.0 L, Albumin 3.3 L, Globulin 2.7, Albumin/Globulin Ratio 1.2 Medical History: Medical History (Updated 07/12/24 @ 11:25 by SANTIAGO Vuong) Gastro-esophageal reflux disease without esophagitis Diabetic ulcer of toe of left foot associated with type 2 diabetes mellitus, limited to breakdown of skin Diabetic ulcer of right foot associated with diabetes mellitus due to underlying condition, with fat layer exposed Morbid obesity with body mass index (BMI) of 40.0 to 49.9 PAD (peripheral artery disease) Type 2 diabetes mellitus with diabetic neuropathy, with long-term current use of insulin Diabetes mellitus with diabetic neuropathy Diastolic dysfunction Assessment and Plan Assessment and plan all Dx Assessment and Plan for all problems:: Pharmacokinetic dosing service Objective: Age: 53 yo Serum creatinine: 1.2 mg/dL Height: 70.1 Inches Weight (kg): 165.244 Diagnosis: DIABETIC FOOT ULCER Assessment: IBW (kg): 68.73 Dosing wt(kg): 165.244 Estimated Creatinine clearance (ml/min): 90.8 CRCL method: Cockcroft and Gault using adjusted body weight Drug selected: Vancomycin Loading dose (mg): 2500 MG Vd (liters): 115.7 (factor used: 0.7 L/kg) Tyson (hr-1): 0.080 Half life (hrs): 8.66 CLvanco=?? 9.256 L/hr Recommended dose: 2500 mg Interval: 12 hrs Infusion time (hrs): 2.0 Predicted peak (mcg/mL): 32.4 Predicted trough (mcg/mL): 14.56 Total body weight is being used for vancomycin dosing. Recommendations: Give Vancomycin 2500 mg q 12 hrs with an expected Cpeak of 32.4 mcg/ml and an expected Ctrough of 14.56 mcg/ml AUC 0-24 /JA Data: JA 0.5 mcg/mL:?? AUC/JA:? 1080.4 JA 1.0 mcg/mL:?? AUC/JA:? 540.2 --------- JA 1.5 mcg/mL:?? AUC/JA:? 360.1 AJ 2.0 mcg/mL:?? AUC/JA:? 270.1 Thank you for the consult
--- NOTE | 2024-07-20 08:12 | P.PN_ITS ---
Subjective *Date: 07/20/24 *Time: 08:22 Interval history: Patient is resting comfortably in bed. Bilateral foot dressings and LC drains intact. She denies pain to the feet. Ortho Exam (Inpt) Vital signs and Labs for Last 24 Hours: Temp Pulse Resp BP Pulse Ox O2 Del Method O2 Flow Rate 97.7 F 62 18 122/81 98 Room Air 4 07/20/24 07:53 07/20/24 07:53 07/20/24 07:53 07/20/24 07:53 07/20/24 07:53 07/20/24 07:53 07/20/24 06:48 Laboratory Results - last 24 hr 07/19/24 12:51: WBC 10.4, RBC 4.50, Hgb 13.8, Hct 45.5, MCV 101.1 H, MCH 30.7, MCHC 30.4 L, RDW 15.6, Plt Count 136 L, MPV 10.5 H, Neut % (Auto) 84.3 H, Lymph % (Auto) 10.8, [place] % (Auto) 3.6, Eos % (Auto) 1.1, Baso % (Auto) 0.3, Neut # (Auto) 8.8 H, Lymph # (Auto) 1.1, [place] # (Auto) 0.4, Eos # (Auto) 0.1, Baso # (Auto) 0.0, Sodium 134 L, Potassium 5.2 H, Chloride 100, Carbon Dioxide 32 H, Anion Gap 7.2, BUN 29 H, Creatinine 0.80, Estimated Creat Clear 87, Estimated GFR 75, Est GFR ( Amer) 90, Glucose 220 H, Calcium 8.6 07/19/24 21:05: POC Glucose 384 H* 07/20/24 05:26: POC Glucose 403 H* 07/20/24 06:06: WBC 9.3, RBC 3.87 L, Hct 40.6, MCV 105.0 H, MCH 30.7, MCHC 29.2 L, RDW 15.5, Plt Count 111 L, MPV 9.7, Neut % (Auto) 90.4 H, Lymph % (Auto) 6.4 L, [place] % (Auto) 3.1, Eos % (Auto) 0.0 L, Baso % (Auto) 0.1, Neut # (Auto) 8.4 H , Lymph # (Auto) 0.6 L, [place] # (Auto) 0.3, Eos # (Auto) 0.0, Baso # (Auto) 0.0, ESR 27, Sodium 134 L, Potassium 6.1 H*, Chloride 101, Carbon Dioxide 30, Anion Gap 9.1, BUN 33 H, Creatinine 1.20 H D, Estimated Creat Clear 58, Estimated GFR 47 L, Est GFR ( Amer) 57 L D, Glucose 363 H D, Calcium 8.0 L, Phosphorus 4.6 H, Magnesium 2.2, Total Bilirubin 1.2, AST 29, ALT 39, Alkaline Phosphatase 56, C-Reactive Protein 39.2 H, Total Protein 6.0 L, Albumin 3.3 L, Globulin 2.7, Albumin/Globulin Ratio 1.2 I & O for Labs for Last 24 Hours: Intake & Output 07/17/24 07/18/24 07/19/24 07/20/24 11:59 11:59 11:59 11:59 Intake Total 1999 / 1999 Output Total 700 / 700 Balance 1300 / 1300 Weight 380 lb 364 lb 4.8 oz Constitutional: Present morbidly obese Head: Present normocephalic Neck: Present normal inspection Respiratory: Present able to speak in complete sentences Cardiac: Absent pedal pulses present (weakly palpable) GI: Present soft Rectal (female): Present deferred (female): Present deferred Extremities: Present edema (b/l LE); Absent normal capillary refill Comment:: S/p b/l TMA with skin sutures and j luis intact. LC drain intact b/l. Multiple arterial abrasions to b/l LE/distal legs. Full-thickness wounds extending through skin into subcutaneous tissue to the right heel and left lateral foot. Right heel wound measured approximately 3.5 x 2 x 0.2 cm, 100% granular. The left lateral foot wound measured 1.5 x 1.0 x 0.2 cm, 100% granular. No drainage or signs of infection noted from the wounds. Neuro: Present Numbness, Motor Function Intact, awake and moves all extremities; Absent Sensory Function Intact Ankle: bilateral: normal inspection, bilateral: swelling and bilateral: wound (arterial abrasions) Assessment and Plan *Assessment and plan (1) Diabetic ulcer of right foot associated with diabetes mellitus due to underlying condition, with fat layer exposed: Status: Chronic Qualifiers: Diabetic foot ulcer location: toe Qualified Code(s): E08.621 - Diabetes mellitus due to underlying condition with foot ulcer; L97.512 - Non-pressure chronic ulcer of other part of right foot with fat layer exposed Category: Medical Code(s): E08.621 - Diabetes mellitus due to underlying condition with foot ulcer; L97.512 - Non-pressure chronic ulcer of other part of right foot with fat layer exposed (2) Diabetic ulcer of left foot associated with diabetes mellitus due to underlying condition, with fat layer exposed: Status: Acute Qualifiers: Diabetic foot ulcer location: toe Qualified Code(s): E08.621 - Diabetes mellitus due to underlying condition with foot ulcer; L97.522 - Non-pressure chronic ulcer of other part of left foot with fat layer exposed Category: Medical Code(s): E08.621 - Diabetes mellitus due to underlying condition with foot ulcer; L97.522 - Non-pressure chronic ulcer of other part of left foot with fat layer exposed (3) PAD (peripheral artery disease): Status: Chronic Category: Medical Code(s): I73.9 - Peripheral vascular disease, unspecified (4) Lymphedema of both lower extremities: Status: Acute Category: Medical Code(s): I89.0 - Lymphedema, not elsewhere classified (5) Type 2 diabetes mellitus with foot ulcer: Status: Acute Qualifiers: Diabetes mellitus penitentiary insulin use: with penitentiary use Qualified Code(s): E11.621 - Type 2 diabetes mellitus with foot ulcer; L97.509 - Non- pressure chronic ulcer of other part of unspecified foot with unspecified s everity; Z79.4 - termite control servicer (current) use of insulin Category: Medical Code(s): E11.621 - Type 2 diabetes mellitus with foot ulcer; L97.509 - Non-pressure chronic ulcer of other part of unspecified foot with unspecified severity (6) Claudication of both lower extremities: Status: Acute Category: Medical Code(s): I73.9 - Peripheral vascular disease, unspecified (7) Charcot's joint of left foot: Status: Acute Category: Medical Code(s): M14.672 - Charcot's joint, left ankle and foot (8) Diabetes mellitus with diabetic neuropathy: Status: Chronic Qualifiers: Diabetes mellitus termite control service representative insulin use: with penitentiary use Diabetes mellitus type: type 2 Qualified Code(s): E11.40 - Type 2 diabetes mellitus with diabetic neuropathy, unspecified Category: Medical Code(s): E11.40 - Type 2 diabetes mellitus with diabetic neuropathy, unspecified (9) BMI 50.0-59.9, adult: Status: Acute Category: Medical Code(s): Z68.43 - Body mass index [BMI] 50.0-59.9, adult Plan 07/20/2024, wbc 9.3, ESR 27, potassium 6.1, GFR 47, glucose 363, CRP 39.2 07/19/24, labs, wbc. 10.4, glucose 220 07/03/24:wbc. 8.9, esr. 16, glucose 319, A1c 9.1, crp. 8.8 ABIs: -pt reports she got new CTA - vascular office reviewed and said no other options for my distal flow, can not be stented below ankle -b/l foot XR and new ABIs reviewed: stable, no new SOI, no OM or abnormal infection labs -she is high risk for b/l BKA vs AKA -discussed realistic expectations and possibility/likelihood of multiple staged surgery with delayed healing, chronic wounds -complex patient with bilateral DFU's coupled with PAD where no more vascular intervention is possible, complicated more by uncontrolled diabetes and morbid obesity Surgery, 07/19/24: s/p Bilateral TMA surgery, B/L DFU: Intraop Specimens: Pending Culture: right mets bone culture left mets bone culture Path: Left toes, right toes, right met proximal margins 07/20/24: POD #1 The wounds were cleansed. Betadine soaked Xeroform and dry sterile dressing was then applied to both feet. Patient is to maintain dressings clean dry and intact. Instructions dispensed on how to change the drain if necessary. Continue antibiotics: IV Vanco, Cefepime will admitted. (has hx MRSA, E coli, 08/24/23 right foot WCx: Enterobacter cloacae, Klebsiella pneumoniae). Recommend d/c with PICC, IV abx x2 wks IV abx as above. Non weight bearing to the b/l LE with DME assistance (walker, wheelchair). Ok to transition to bedside commode, bed, PWB to heel in fracture boots with walker only for transitions. Consult care management for possible [place] [facility] placement, needs one short fracture boot (other one mother has) All orders per Dr [facility] SNF Orders: NWB to b/l LE except to transfer (using heels in fracture boot). Daily dressing changes to b/l feet: betadine soaked gauze to incision/wound, cover with dry dressing (gauze, janes/kerlix, Star). LC drain mgmt daily. PICC, IV abx: Vanco, Cefepime based on previous cultures and hx. Recommend 2 wks IV abx then transition to oral abx outpatient as needed. Follow up with Podiatry outpt in one week.
--- NOTE | 2024-07-20 08:36 | P.PN_ITS ---
Subjective *Date: 07/20/24 *Time: 08:41 Interval history: Patient doing well after bilateral TMA procedure by podiatry. Patient requesting transfer from shelter in [place] to shelter in [place] it is close to my family. Patient also states that her U-500 needs to be rice ged to U100 insulin to facilitate shelter placement change. Denies fever/chills overnight. Medical Exam Vital signs and Labs for Last 24 Hours: Vital Signs Temp Pulse Pulse Resp BP BP BP 07/20/24 07:53 97.7 F 62 18 122/81 07/20/24 07:22 16 07/20/24 06:48 07/20/24 05:00 07/20/24 04:00 98.0 F 78 20 142/57 H 07/20/24 03:00 07/20/24 02:35 98 F 90 20 118/101 H 07/20/24 01:35 102 H 20 102/64 L 07/20/24 00:50 07/20/24 00:35 94 H 20 127/76 07/19/24 23:00 07/19/24 22:35 97.5 F L 94 H 20 119/92 H 07/19/24 21:35 90 20 104/66 L 07/19/24 21:06 07/19/24 21:05 94 H 20 98/73 L 07/19/24 21:00 07/19/24 20:35 97 H 20 116/67 07/19/24 20:05 96 H 20 102/78 L 07/19/24 19:35 96 H 20 127/70 07/19/24 19:20 95 H 19 113/71 07/19/24 19:05 98 F 91 H 20 108/79 L 07/19/24 18:50 98.1 F 94 H 20 100/57 L 07/19/24 18:30 100 H 16 126/60 07/19/24 18:25 94 H 16 117/70 07/19/24 18:15 96 H 16 128/74 07/19/24 18:09 97.8 F 96 H 22 102/67 L 07/19/24 18:05 95 H 16 110/77 07/19/24 17:55 97.8 F 98 H 16 102/67 L 07/19/24 12:35 97.8 F 94 H 18 158/81 H Pulse Ox O2 Del Method O2 Flow Rate 07/20/24 07:53 98 Room Air 07/20/24 07:22 07/20/24 06:48 Nasal Cannula 4 07/20/24 05:00 Nasal Cannula 4 07/20/24 04:00 96 Nasal Cannula 4 07/20/24 03:00 Nasal Cannula 4 07/20/24 02:35 96 Nasal Cannula 4 07/20/24 01:35 96 Nasal Cannula 4 07/20/24 00:50 Nasal Cannula 4 07/20/24 00:35 95 Nasal Cannula 4 07/19/24 23:00 Nasal Cannula 4 07/19/24 22:35 97 Nasal Cannula 4 07/19/24 21:35 98 Nasal Cannula 4 07/19/24 21:06 99 Nasal Cannula 4 07/19/24 21:05 99 Nasal Cannula 4 07/19/24 21:00 Nasal Cannula 4 07/19/24 20:35 100 Nasal Cannula 4 07/19/24 20:05 100 Nasal Cannula 4 07/19/24 19:35 96 Nasal Cannula 4 07/19/24 19:20 96 Nasal Cannula 4 07/19/24 19:05 98 Nasal Cannula 4 07/19/24 18:50 99 Nasal Cannula 4 07/19/24 18:30 97 Nasal Cannula 4 07/19/24 18:25 97 Nasal Cannula 4 07/19/24 18:15 95 Nasal Cannula 4 07/19/24 18:09 07/19/24 18:05 94 L Nasal Cannula 4 07/19/24 17:55 97 Nasal Cannula 4 07/19/24 12:35 97 Room Air Intake and Output 07/19/24 07/20/24 07/20/24 23:59 07:59 15:59 Intake Total 1000 / 1000 1000 / 1000 Output Total 700 / 700 Balance 1000 / 300 300 / 300 Intake: Intake, Total IV Amount 1000 / 1000 1000 / 1000 Output: Output, Urine Amount 700 / 700 Other: Weight 165.244 kg Patient Weight 07/20/24 23:59 Weight 165.244 kg Laboratory Results - last 24 hr 07/19/24 12:51: WBC 10.4, RBC 4.50, Hgb 13.8, Hct 45.5, MCV 101.1 H, MCH 30.7, MCHC 30.4 L, RDW 15.6, Plt Count 136 L, MPV 10.5 H, Neut % (Auto) 84.3 H, Lymph % (Auto) 10.8, [place] % (Auto) 3.6, Eos % (Auto) 1.1, Baso % (Auto) 0.3, Neut # (A uto) 8.8 H, Lymph # (Auto) 1.1, [place] # (Auto) 0.4, Eos # (Auto) 0.1, Baso # (Auto) 0.0, Sodium 134 L, Potassium 5.2 H, Chloride 100, Carbon Dioxide 32 H, Anion Gap 7.2, BUN 29 H, Creatinine 0.80, Estimated Creat Clear 87, Estimated GFR 75, Est GFR ( Amer) 90, Glucose 220 H, Calcium 8.6 07/19/24 21:05: POC Glucose 384 H* 07/20/24 05:26: POC Glucose 403 H* 07/20/24 06:06: WBC 9.3, RBC 3.87 L, Hct 40.6, MCV 105.0 H, MCH 30.7, MCHC 29.2 L, RDW 15.5, Plt Count 111 L, MPV 9.7, Neut % (Auto) 90.4 H, Lymph % (Auto) 6.4 L, [place] % (Auto) 3.1, Eos % (Auto) 0.0 L, Baso % (Auto) 0.1, Neut # (Auto) 8.4 H , Lymph # (Auto) 0.6 L, [place] # (Auto) 0.3, Eos # (Auto) 0.0, Baso # (Auto) 0.0, ESR 27, Sodium 134 L, Potassium 6.1 H*, Chloride 101, Carbon Dioxide 30, Anion Gap 9.1, BUN 33 H, Creatinine 1.20 H D, Estimated Creat Clear 58, Estimated GFR 47 L, Est GFR ( Amer) 57 L D, Glucose 363 H D, Calcium 8.0 L, Phosphorus 4.6 H, Magnesium 2.2, Total Bilirubin 1.2, AST 29, ALT 39, Alkaline Phosphatase 56, C-Reactive Protein 39.2 H, Total Protein 6.0 L, Albumin 3.3 L, Globulin 2.7, Albumin/Globulin Ratio 1.2 I & O for Labs for Last 24 Hours: Intake & Output 07/17/24 07/18/24 07/19/24 07/20/24 23:59 23:59 23:59 23:59 Intake Total 1000 / 1000 1000 / 1000 Output Total 700 / 700 Balance 1000 / 300 300 / 300 Weight 172.365 kg 172.365 kg 165.244 kg Constitutional: Present obese Head: Present normocephalic ENT: Present normal exam Neck: Present normal inspection and full ROM Respiratory: Present CTA bilaterally Cardiac: Present Reg Rate and Rhythm GI: Present soft and normal bowel sounds Rectal (female): Present deferred (female): Present deferred Extremities: Present normal inspection and full ROM Comment:: Bilateral lower extremity dressing C/D/I without signs of purulent drainage or blood. Skin: Present intact and dry Assessment and Plan *Assessment and plan (1) Diabetic foot ulcer: Status: Acute Category: Medical Code(s): E11.621 - Type 2 diabetes mellitus with foot ulcer; L97.509 - Non-pressure chronic ulcer of other part of unspecified foot with unspecified severity (2) Peripheral vascular disease: Status: Acute Category: Medical Code(s): I73.9 - Peripheral vascular disease, unspecified (3) Diabetic neuropathy: Status: Acute Qualifiers: Diabetes mellitus complication detail: diabetic polyneuropathy Diabetes mellitus type: type 2 Qualified Code(s): E11.42 - Type 2 diabetes mellitus with diabetic polyneuropathy Category: Medical Code(s): E11.40 - Type 2 diabetes mellitus with diabetic neuropathy, unspecified Plan Bilateral TMA in diabetic patient: ? taken to the OR for debridement. As needed pain meds. As needed antiemetics. Hypertension: Continue home management Diabetes: Sign scale insulin, ACHS Accu-Cheks. PPx: 07/19 SCDs, after surgery advance to Lovenox 40 mg subcu daily CODE STATUS full FEN: -07/20 advance to diabetic diet -07/19 Clears after surgery and advance as tolerated Disposition: ? 07/20 Patient desires to be placed in shelter in [facility] closer to family. States she is currently in a shelter in [facility]. Will discuss arrangements with case management. Patient also states she needs her U-500 changed to U100 in order to finalize shelter placement [facility].
--- NOTE | 2024-07-20 09:16 | HMH.PHAINT1 ---
Pharmacy Intervention Comments: verified home medication list using list from skilled nursing
[2024-07-20 09:38] LABS: Lymphocytes % 10 % (10-50); Monocytes % 2 % (2-9); Neutrophils % 88 % (42-76); Total Cells Counted 100
[2024-07-20 09:39] LABS: Macrocytosis 1+; Platelet Estimate Slight Decrease
[2024-07-20 09:40] LABS: Albumin Level 3.5 g/dl (3.5-5.0); Chloride 103 mmol/L (98-107); Potassium 5.5 mmoL/L (3.5-5.1); Sodium 137 mmol/L (136-145)
[2024-07-20 09:42] LABS: Blood Urea Nitrogen 32 mg/dl (7-17); Creatinine Clearance Estimated 58 mL/min (50-200); Estimated Glomerular Filt Rate 47 ml/min (>60); GFR (African American) 57 ML/MIN (>60)
[2024-07-20 09:43] LABS: Alanine Aminotransferase 49 U/L (12-78); Albumin/Globulin Ratio 1.2 (1.1-1.8); Alkaline Phosphatase 58 U/L (38-126); Anion Gap 13.5 mEq/L (5-15); Aspartate Amino Transferase 34 U/L (14-36); Bilirubin,Total 1.2 mg/dl (0.2-1.3); Calcium 8.3 mg/dl (8.4-10.2); Carbon Dioxide 26 mmol/L (22.0-30.0); Globulin 2.9 g/dL (1.3-3.2); Glucose 284 mg/dl (74-100); Total Protein,Serum 6.4 g/dl (6.3-8.2)
[2024-07-20 10:29] LABS: Hemoglobin 11.9 g/dL (12.2-16.2)
[2024-07-20] MEDS: APAP/HYDROCODONE 325MG/7.5MG TAB 1 TAB PO ×2 (10:40→19:32)
[2024-07-20] MEDS: SPIRONOLACTONE 25MG TABLET 25 MG PO (10:41)
[2024-07-20] MEDS: ASPIRIN 81MG CHEWABLE TABLET 81 MG PO (10:41)
[2024-07-20] MEDS: IRBESARTAN 75MG TABLET 75 MG PO (10:41)
[2024-07-20] MEDS: LIDOCAINE 5% TRANSDERMAL PATCH 1 EACH TP (10:41)
[2024-07-20] MEDS: GABAPENTIN 800MG TABLET 800 MG PO ×4 (10:41→21:01)
[2024-07-20] MEDS: FUROSEMIDE 80 MG TABLET PO (10:42)
[2024-07-20] MEDS: INSULIN GLARGINE 100 UNITS/ML 10ML VIAL 30 UNIT SQ (10:42)
[2024-07-20] MEDS: SODIUM POLY SULFON 15GM/60ML ORAL.SUSP 30 GM PO (10:42)
[2024-07-20 11:48] LABS: POC Glucose,Bedside 304 (70-110)
[2024-07-20] MEDS: 0.9 % SODIUM CHLORIDE 1000ML 1,000 ML 100 ML IV (12:43)
--- NOTE | 2024-07-20 14:01 | XR_ITS ---
PROCEDURE INFORMATION: Exam: XR Chest Exam date and time: 07/20/2024 4:46 PM Age: 53 years old Clinical indication: Device placement; Picc; Additional info: Confirm picc line placement TECHNIQUE: Imaging protocol: Radiologic exam of the chest. Views: 1 view. COMPARISON: CR XR CHEST 2V 06/13/2024 11:21 AM FINDINGS: Lungs: Regions of bibasilar subsegmental atelectasis. Pleural spaces: Unremarkable. No pleural effusion. No pneumothorax. Heart/Mediastinum: PICC line identified approximately at the level of the atrial caval junction. Interpretation limited by technique . Bones/joints: Unremarkable. IMPRESSION: 1. PICC line identified approximately at the level of the atrial caval junction. Interpretation limited by technique . 2. Regions of bibasilar subsegmental atelectasis.
[2024-07-20 14:12] LABS: Chloride 103 mmol/L (98-107); Sodium 135 mmol/L (136-145)
[2024-07-20 14:13] LABS: Potassium 4.5 mmoL/L (3.5-5.1)
[2024-07-20 14:15] LABS: Blood Urea Nitrogen 31 mg/dl (7-17); Creatinine Clearance Estimated 53 mL/min (50-200); Estimated Glomerular Filt Rate 43 ml/min (>60); GFR (African American) 52 ML/MIN (>60)
[2024-07-20 14:16] LABS: Anion Gap 9.5 mEq/L (5-15); Calcium 7.9 mg/dl (8.4-10.2); Carbon Dioxide 27 mmol/L (22.0-30.0); Glucose 304 mg/dl (74-100)
[2024-07-20 15:52] LABS: POC Glucose,Bedside 333 (70-110)
[2024-07-20] MEDS: VANCOMYCIN HCL 2,500 MG in 0.9 % SODIUM CHLORIDE 250 ML 125 MG IV (18:45)
[2024-07-20 20:38] LABS: POC Glucose,Bedside 333 (70-110)
[2024-07-20] MEDS: CLOPIDOGREL 75MG TAB 75 MG PO (21:00)
[2024-07-20] MEDS: ATORVASTATIN 40MG TABLET 80 MG PO (21:00)
[2024-07-20] MEDS: INSULIN GLARGINE 100 UNITS/ML 3ML FLEXPEN 20 UNIT SQ (21:01)
[2024-07-20] MEDS: MAGNESIUM OXIDE 400MG TABLET 400 MG PO (21:02)
[2024-07-21] MEDS: APAP/HYDROCODONE 325MG/7.5MG TAB 1 TAB PO (02:19)
[2024-07-21 03:54] LABS: Vancomycin,Trough 25.6 ug/mL (5.0-10.0)
[2024-07-21 04:00] VITALS: BP 118/72; PULSE 71; RESP 20; TEMP 37.1; O2SAT 94; BMI 53.4
[2024-07-21] MEDS: 0.9 % SODIUM CHLORIDE 1000ML 1,000 ML 100 ML IV (04:44)
--- NOTE | 2024-07-21 05:03 | PC.NURSE ---
Pt is A&OX4 and has tolerated room air. Dressing over lower extremities has remained clean, dry and intact. LC drains have remained in place and draining well. Pt has complained of feet pain twice this shift and was treated per the MAR. She has got up to the beside commode once this shift. Pt is currently asleep with call light within reach.
--- NOTE | 2024-07-21 05:35 | PC.NURSE ---
Called [facility] to report vanc through. Instructions given to keep current order.
[2024-07-21 06:06] LABS: POC Glucose,Bedside 249 (70-110)
[2024-07-21] MEDS: humaLOG 100 UNITS/ML 10ML VIAL (SSI) SQ ×2 (06:32→11:07)
[2024-07-21 06:37] LABS: POC Glucose,Bedside 219 (70-110)
[2024-07-21 06:43] LABS: Basophils % 0.2 % (0.1-2.0); Eosinophils # 0.1 K/mm3 (0.0-0.4); Eosinophils % 0.7 % (0.1-12.0); Hematocrit 38.6 % (37.0-47.0); Lymphocytes # 1.8 K/mm3 (0.7-4.5); Lymphocytes % 18.7 % (10-50); Mean Corpuscular HGB Conc 31.1 g/dL (31.8-35.4); Mean Corpuscular Hemoglobin 31.1 pg (27.0-31.2); Mean Corpuscular Volume 100.1 fl (81-99); Mean Platelet Volume 9.3 fl (7.4-10.4); Monocytes # 0.5 K/mm3 (0.1-1.0); Monocytes % 5.7 % (1.7-9.3); Neutrophils # 7.1 K/mm3 (1.8-7.8); Neutrophils % 74.7 % (37.0-80.0); Platelet Count 118 K/mm3 (142-424); Red Blood Count 3.85 M/mm3 (4.20-5.40); Red Cell Distribution Width 15.5 % (11.5-17.5); White Blood Count 9.5 K/mm3 (4.8-10.8)
[2024-07-21 06:47] LABS: Chloride 101 mmol/L (98-107); Sodium 135 mmol/L (136-145)
[2024-07-21 06:48] LABS: Potassium 4.5 mmoL/L (3.5-5.1)
[2024-07-21 06:50] LABS: Anion Gap 4.5 mEq/L (5-15); Blood Urea Nitrogen 32 mg/dl (7-17); Carbon Dioxide 34 mmol/L (22.0-30.0); Creatinine Clearance Estimated 70 mL/min (50-200); Estimated Glomerular Filt Rate 58 ml/min (>60); GFR (African American) 70 ML/MIN (>60); Phosphorous 3.6 mg/dl (2.5-4.5)
[2024-07-21 06:51] LABS: Calcium 8.2 mg/dl (8.4-10.2); Glucose 214 mg/dl (74-100); Magnesium 1.9 mg/dl (1.6-2.3)
--- NOTE | 2024-07-21 07:55 | P.CONPHA_ITS ---
Pharmacy Consult Date: 07/21/24 Time: 07:55 Referring provider: DR. ROY Reason for Consult:: VANCOMYCIN TROUGH LEVEL Allergies Allergy/AdvReac Type Severity Reaction Status Date / Time duloxetine [From Cymbalta] Allergy Verified 07/19/24 12:54 Histamine H2 Inhibitors Allergy Verified 07/19/24 12:54 lisinopril Allergy Verified 07/19/24 12:54 sulfamethoxazole Allergy Verified 07/19/24 12:54 [From Bactrim] trimethoprim [From Bactrim] Allergy Verified 07/19/24 12:54 metoprolol AdvReac Severe Verified 07/19/24 12:54 beta blockers AdvReac Severe Insomnia Uncoded 06/13/24 10:01 Home Medications ?Medication ?Instructions ?Recorded ?Confirmed ?Type atorvastatin 80 mg tablet (Lipitor) 80 mg PO HS High cholesterol 10/31/19 07/19/24 History clopidogrel 75 mg tablet (Plavix) 75 mg PO HS Heart disease 10/31/19 07/19/24 History gabapentin 800 mg tablet 800 mg PO QID 10/31/19 07/19/24 History rabeprazole 20 mg tablet,delayed 20 mg PO HS 10/31/19 07/19/24 History release potassium chloride 10 mEq 30 meq PO DAILY 01/26/22 07/20/24 History tablet,extended release dulaglutide 4.5 mg/0.5 mL 4.5 mg SQ WEEKLY on Tuesdays06/25/22 07/19/24 History subcutaneous pen injector (Trulicity) losartan 25 mg tablet 25 mg PO DAILY 06/25/22 07/19/24 History spironolactone 25 mg tablet 25 mg PO DAILY 03/02/23 07/19/24 History furosemide 80 mg tablet 80 mg PO DAILYP PRN weight gain >5 07/19/24 07/20/24 History pounds Saccharomyces boulardii 250 mg 250 mg PO BID 07/20/24 07/20/24 History capsule (Florastor) ascorbic acid (vitamin C) 500 mg 500 mg PO DAILY 07/20/24 07/20/24 History tablet aspirin 81 mg chewable tablet 81 mg PO DAILY 07/20/24 07/20/24 History (Aspirin Childrens) lidocaine 4 % topical patch 1 patch topical DAILY apply to 07/20/24 07/20/24 History left hip magnesium oxide 400 mg PO BID 07/20/24 07/20/24 History methocarbamol 750 mg tablet 750 mg PO QIDP PRN muscle spasms 07/20/24 07/20/24 History cefepime 1 gram solution for 1 g IV Q12H #10 ea 07/21/24 Rx injection hydrocodone 7.5 mg-acetaminophen 1 tab PO Q4HP PRN Moderate Pain 07/21/24 Rx 325 mg tablet (4-6) #20 tabs insulin glargine 100 unit/mL (3 30 unit (0.3 mL) SQ BID #15 mL 07/21/24 Rx mL) subcutaneous pen (Lantus Solostar U-100 Insulin) insulin lispro 100 unit/mL 8 unit (0.08 mL) SQ TID #15 mL 07/21/24 Rx subcutaneous pen vancomycin 500 mg/100 mL in 0.9% 2,500 mg (500 mL) IV Q12H 07/21/24 Rx sodium chloride intravenous Cellulitis status post bilateral piggyback TMA 14 days #12,000 mL New Prescriptions to Start Prescriptions: hydrocodone-acetaminophen Roy,Aron cefepime Roy,Aron insulin glargine [Lantus Solostar U-100 Insulin] Roy,[place] insulin lispro Roy,[place] Height: 1.78 m Weight: 169.417 kg Laboratory Results:: Laboratory Results - last 24 hr 07/19/24 12:49: POC Glucose 219 H 07/20/24 06:06: Hgb 11.9 L D, Total Counted 100, Neutrophils % (Manual) 88 H, Lymphocytes % (Manual) 10, Monocytes % (Manual) 2, Platelet Estimate Slight decrease, Macrocytosis 1+ 07/20/24 08:55: Sodium 137, Potassium 5.5 H, Chloride 103, Carbon Dioxide 26, Anion Gap 13.5, BUN 32 H, Creatinine 1.20 H, Estimated Creat Clear 58, Estimated GFR 47 L, Est GFR ( Amer) 57 L, Glucose 284 H D, Calcium 8.3 L, Total Bilirubin 1.2, AST 34, ALT 49 D, Alkaline Phosphatase 58, Total Protein 6.4, Albumin 3.5, Globulin 2.9, Albumin/Globulin Ratio 1.2 07/20/24 11:38: POC Glucose 304 H* 07/20/24 13:55: Sodium 135 L, Potassium 4.5, Chloride 103, Carbon Dioxide 27, Anion Gap 9.5, BUN 31 H, Creatinine 1.30 H, Estimated Creat Clear 53, Estimated GFR 43 L, Est GFR ( Amer) 52 L, Glucose 304 H, Calcium 7.9 L 07/20/24 15:45: POC Glucose 333 H* 07/20/24 20:23: POC Glucose 333 H* 07/21/24 03:24: Vancomycin Trough 25.6 H 07/21/24 05:48: POC Glucose 249 H 07/21/24 06:17: WBC 9.5, RBC 3.85 L, Hgb 12.0 L, Hct 38.6, MCV 100.1 H, MCH 31.1, MCHC 31.1 L, RDW 15.5, Plt Count 118 L, MPV 9.3, Neut % (Auto) 74.7, Lymph % (Auto) 18.7, [place] % (Auto) 5.7, Eos % (Auto) 0.7, Baso % (Auto) 0.2, Neut # (Auto) 7.1, Lymph # (Auto) 1.8, [place] # (Auto) 0.5, Eos # (Auto) 0.1, Baso # (Auto) 0.0, Sodium 135 L, Potassium 4.5, Chloride 101, Carbon Dioxide 34 H, Anion Gap 4.5 L, BUN 32 H, Creatinine 1.00 D, Estimated Creat Clear 70, Estimated GFR 58 L, Est GFR ( Amer) 70 D, Glucose 214 H D, Calcium 8.2 L , Phosphorus 3.6, Magnesium 1.9 D Medical History: Medical History (Updated 07/12/24 @ 11:25 by SANTIAGO Vuong) Gastro-esophageal reflux disease without esophagitis Diabetic ulcer of toe of left foot associated with type 2 diabetes mellitus, limited to breakdown of skin Diabetic ulcer of right foot associated with diabetes mellitus due to underlying condition, with fat layer exposed Morbid obesity with body mass index (BMI) of 40.0 to 49.9 PAD (peripheral artery disease) Type 2 diabetes mellitus with diabetic neuropathy, with long-term current use of insulin Diabetes mellitus with diabetic neuropathy Diastolic dysfunction Assessment and Plan Assessment and plan (1) Diabetic foot ulcer: Status: Acute Category: Medical Code(s): E11.621 - Type 2 diabetes mellitus with foot ulcer; L97.509 - Non-pressure chronic ulcer of other part of unspecified foot with unspecified severity Assessment and plan all Dx Assessment and Plan for all problems:: VANCOMYCIN TROUGH LEVEL THIS MORNING WAS 25.6. PREVIOUS DOSE OF VANCOMYCIN WAS GIVEN 3.5 HOURS LATE. RECOMMEND LOWERING DOSE OF VANCOMYCIN TO 2,000MG EVERY 12 HOURS. PHARMACY WILL CONTINUE TO MONITOR AND WILL ADJUST VANCOMYCIN DOSE APPROPRIATE. -JEFFREY GRANADOS, EVELINAD
[2024-07-21 08:00] VITALS: BP 142/85; PULSE 82; RESP 17; TEMP 36.6; O2SAT 97
--- NOTE | 2024-07-21 08:01 | P.DS_ITS ---
General Admission date:: 07/19/24 Discharge date: 07/21/24 HPI HPI HPI: Patient with past medical history of diabetic foot ulcer, hypertension, peripheral artery disease. Patient presents for bilateral TMA. Will be taken to the OR today by podiatry service, then managed by medicine service. No new complaints. Denies fevers, chills, known sick contacts, recent travel, nausea, vomiting, diarrhea, constipation. Hospital Course Hospital Course Hospital Course: Patient presented to hospital and underwent transmetatarsal amputation bilaterally 07/19/2024. Patient monitored in house 07/20/2024 to achieve adequate blood sugar control. [facility] 07/21/2024 on 14 days IV vancomycin/cefepime antibiotics. Patient received PT/OT evaluations throughout hospitalization. Patient advised to follow-up with podiatry, primary care physician, and endocrinology in outpatient basis. Patient discharged on glargine 30 units twice daily, and lispro 8 units with meals. Patient heavily encouraged to achieve adequate blood sugar control to ensure adequate wound healing. Patient also noted to suffer from elevated potassium during hospitalization. Patient given Kayexalate and IV fluids 07/19/2024 with potassium decreasing from 6.1 to 4.5 by 07/21/24. Patient will follow-up with primary care physician for further elevated potassium care. Patient also discontinuted from potassium chloride oral daily supplementation care at time of hospital discharge by Dr. Roy. Exam Data for Last 24 hours Vital signs and Labs for Last 24 Hours: Temp Pulse Resp BP Pulse Ox O2 Del Method O2 Flow Rate 98.8 F 71 20 118/72 94 L Room Air 4 07/21/24 04:00 07/21/24 04:00 07/21/24 04:00 07/21/24 04:00 07/21/24 04:00 07/21/24 06:38 07/20/24 06:48 Laboratory Results - last 24 hr 07/19/24 12:49: POC Glucose 219 H 07/20/24 06:06: Hgb 11.9 L D, Total Counted 100, Neutrophils % (Manual) 88 H, Lymphocytes % (Manual) 10, Monocytes % (Manual) 2, Platelet Estimate Slight decrease, Macrocytosis 1+ 07/20/24 08:55: Sodium 137, Potassium 5.5 H, Chloride 103, Carbon Dioxide 26, Anion Gap 13.5, BUN 32 H, Creatinine 1.20 H, Estimated Creat Clear 58, Estimated GFR 47 L, Est GFR ( Amer) 57 L, Glucose 284 H D, Calcium 8.3 L, Total Bilirubin 1.2, AST 34, ALT 49 D, Alkaline Phosphatase 58, Total Protein 6.4, Albumin 3.5, Globulin 2.9, Albumin/Globulin Ratio 1.2 07/20/24 11:38: POC Glucose 304 H* 07/20/24 13:55: Sodium 135 L, Potassium 4.5, Chloride 103, Carbon Dioxide 27, Anion Gap 9.5, BUN 31 H, Creatinine 1.30 H, Estimated Creat Clear 53, Estimated GFR 43 L, Est GFR ( Amer) 52 L, Glucose 304 H, Calcium 7.9 L 07/20/24 15:45: POC Glucose 333 H* 07/20/24 20:23: POC Glucose 333 H* 07/21/24 03:24: Vancomycin Trough 25.6 H 07/21/24 05:48: POC Glucose 249 H 07/21/24 06:17: WBC 9.5, RBC 3.85 L, Hgb 12.0 L, Hct 38.6, MCV 100.1 H, MCH 31.1, MCHC 31.1 L, RDW 15.5, Plt Count 118 L, MPV 9.3, Neut % (Auto) 74.7, Lymph % (Auto) 18.7, [place] % (Auto) 5.7, Eos % (Auto) 0.7, Baso % (Auto) 0.2, Neut # (Auto) 7.1, Lymph # (Auto) 1.8, [place] # (Auto) 0.5, Eos # (Auto) 0.1, Baso # (Auto) 0.0, Sodium 135 L, Potassium 4.5, Chloride 101, Carbon Dioxide 34 H, Anion Gap 4.5 L, BUN 32 H, Creatinine 1.00 D, Estimated Creat Clear 70, Estimated GFR 58 L, Est GFR ( Amer) 70 D, Glucose 214 H D, Calcium 8.2 L , Phosphorus 3.6, Magnesium 1.9 D I & O for Last 24 hours: Intake & Output 07/18/24 07/19/24 07/20/24 07/21/24 23:59 23:59 23:59 23:59 Intake Total 1000 / 1000 1719 300 / 300 Output Total 790 / 790 Balance 1000 / 300 930 / 1230 300 / 300 Weight 172.365 kg 165.244 kg 169.417 kg Constitutional Constitutional: no acute distress *Routine HEENT Exam Head: Present normocephalic Eye: Present EOMI and normal accommodation ENT: Present mucous membranes moist *Routine Neck Exam Neck: Present supple and full ROM *Routine Respiratory Exam Respiratory: Present CTA bilaterally *Routine Cardiovascular Exam Cardiovascular: Present RRR, Normal S1 and Normal S2 *Routine Abdominal Exam Abdominal: Present soft and normoactive bowel sounds; Absent rebound or guarding *Routine Extremities Exam Extremities: Present full ROM and normal capillary refill *Routine Skin Exam Skin: Present intact and dry *Routine Neurological Exam Neurological: Present alert and oriented X3 Results Data Completed and Pending Labs on day of discharge: Labs from last 24 hours 07/21/24 07/21/24 07/21/24 06:17 05:48 03:24 WBC 9.5 RBC 3.85 L Hgb 12.0 L Hct 38.6 MCV 100.1 H MCH 31.1 MCHC 31.1 L RDW 15.5 Plt Count 118 L MPV 9.3 Neut % (Auto) 74.7 Lymph % (Auto) 18.7 [place] % (Auto) 5.7 Eos % (Auto) 0.7 Baso % (Auto) 0.2 Neut # (Auto) 7.1 Lymph # (Auto) 1.8 [place] # (Auto) 0.5 Eos # (Auto) 0.1 Baso # (Auto) 0.0 Total Counted Neutrophils % (Manual) Lymphocytes % (Manual) Monocytes % (Manual) Platelet Estimate Macrocytosis Sodium 135 L Potassium 4.5 Chloride 101 Carbon Dioxide 34 H Anion Gap 4.5 L BUN 32 H Creatinine 1.00 D Estimated Creat Clear 70 Estimated GFR 58 L Est GFR ( Amer) 70 D Glucose 214 H D POC Glucose 249 H Calcium 8.2 L Phosphorus 3.6 Magnesium 1.9 D Total Bilirubin AST ALT Alkaline Phosphatase Total Protein Albumin Globulin Albumin/Globulin Ratio Vancomycin Trough 25.6 H 07/20/24 07/20/24 07/20/24 20:23 15:45 13:55 WBC RBC Hgb Hct MCV MCH MCHC RDW Plt Count MPV Neut % (Auto) Lymph % (Auto) [place] % (Auto) Eos % (Auto) Baso % (Auto) Neut # (Auto) Lymph # (Auto) [place] # (Auto) Eos # (Auto) Baso # (Auto) Total Counted Neutrophils % (Manual) Lymphocytes % (Manual) Monocytes % (Manual) Platelet Estimate Macrocytosis Sodium 135 L Potassium 4.5 Chloride 103 Carbon Dioxide 27 Anion Gap 9.5 BUN 31 H Creatinine 1.30 H Estimated Creat Clear 53 Estimated GFR 43 L Est GFR ( Amer) 52 L Glucose 304 H POC Glucose 333 H* 333 H* Calcium 7.9 L Phosphorus Magnesium Total Bilirubin AST ALT Alkaline Phosphatase Total Protein Albumin Globulin Albumin/Globulin Ratio Vancomycin Trough 07/20/24 07/20/24 07/20/24 11:38 08:55 06:06 WBC RBC Hgb 11.9 L D Hct MCV MCH MCHC RDW Plt Count MPV Neut % (Auto) Lymph % (Auto) [place] % (Auto) Eos % (Auto) Baso % (Auto) Neut # (Auto) Lymph # (Auto) [place] # (Auto) Eos # (Auto) Baso # (Auto) Total Counted 100 Neutrophils % (Manual) 88 H Lymphocytes % (Manual) 10 Monocytes % (Manual) 2 Platelet Estimate Slight decrease Macrocytosis 1+ Sodium 137 Potassium 5.5 H Chloride 103 Carbon Dioxide 26 Anion Gap 13.5 BUN 32 H Creatinine 1.20 H Estimated Creat Clear 58 Estimated GFR 47 L Est GFR ( Amer) 57 L Glucose 284 H D POC Glucose 304 H* Calcium 8.3 L Phosphorus Magnesium Total Bilirubin 1.2 AST 34 ALT 49 D Alkaline Phosphatase 58 Total Protein 6.4 Albumin 3.5 Globulin 2.9 Albumin/Globulin Ratio 1.2 Vancomycin Trough 07/19/24 12:49 WBC RBC Hgb Hct MCV MCH MCHC RDW Plt Count MPV Neut % (Auto) Lymph % (Auto) [place] % (Auto) Eos % (Auto) Baso % (Auto) Neut # (Auto) Lymph # (Auto) [place] # (Auto) Eos # (Auto) Baso # (Auto) Total Counted Neutrophils % (Manual) Lymphocytes % (Manual) Monocytes % (Manual) Platelet Estimate Macrocytosis Sodium Potassium Chloride Carbon Dioxide Anion Gap BUN Creatinine Estimated Creat Clear Estimated GFR Est GFR ( Amer) Glucose POC Glucose 219 H Calcium Phosphorus Magnesium Total Bilirubin AST ALT Alkaline Phosphatase Total Protein Albumin Globulin Albumin/Globulin Ratio Vancomycin Trough DS: Diagnosis Discharge Diagnosis (1) Diabetic foot ulcer: Status: Acute Code(s): E11.621 - Type 2 diabetes mellitus with foot ulcer; L97.509 - Non-pressure chronic ulcer of other part of unspecified foot with unspecified severity Meds Home Medications and Allergies Home Medications ?Medication ?Instructions ?Recorded ?Confirmed ?Type atorvastatin 80 mg tablet (Lipitor) 80 mg PO HS High cholesterol 10/31/19 07/19/24 History clopidogrel 75 mg tablet (Plavix) 75 mg PO HS Heart disease 10/31/19 07/19/24 History gabapentin 800 mg tablet 800 mg PO QID 10/31/19 07/19/24 History rabeprazole 20 mg tablet,delayed 20 mg PO HS 10/31/19 07/19/24 History release potassium chloride 10 mEq 30 meq PO DAILY 01/26/22 07/20/24 History tablet,extended release dulaglutide 4.5 mg/0.5 mL 4.5 mg SQ WEEKLY on Tuesdays06/25/22 07/19/24 History subcutaneous pen injector (Trulicity) losartan 25 mg tablet 25 mg PO DAILY 06/25/22 07/19/24 History spironolactone 25 mg tablet 25 mg PO DAILY 03/02/23 07/19/24 History furosemide 80 mg tablet 80 mg PO DAILYP PRN weight gain >5 07/19/24 07/20/24 History pounds Saccharomyces boulardii 250 mg 250 mg PO BID 07/20/24 07/20/24 History capsule (Florastor) ascorbic acid (vitamin C) 500 mg 500 mg PO DAILY 07/20/24 07/20/24 History tablet aspirin 81 mg chewable tablet 81 mg PO DAILY 07/20/24 07/20/24 History (Aspirin Childrens) lidocaine 4 % topical patch 1 patch topical DAILY apply to 07/20/24 07/20/24 History left hip magnesium oxide 400 mg PO BID 07/20/24 07/20/24 History methocarbamol 750 mg tablet 750 mg PO QIDP PRN muscle spasms 07/20/24 07/20/24 H istory cefepime 1 gram solution for 1 g IV Q12H #10 ea 07/21/24 Rx injection hydrocodone 7.5 mg-acetaminophen 1 tab PO Q4HP PRN Moderate Pain 07/21/24 Rx 325 mg tablet (4-6) #20 tabs insulin glargine 100 unit/mL (3 30 unit (0.3 mL) SQ BID #15 mL 07/21/24 Rx mL) subcutaneous pen (Lantus Solostar U-100 Insulin) insulin lispro 100 unit/mL 8 unit (0.08 mL) SQ TID #15 mL 07/21/24 Rx subcutaneous pen vancomycin 500 mg/100 mL in 0.9% 2,500 mg (500 mL) IV Q12H 07/21/24 Rx sodium chloride intravenous Cellulitis status post bilateral piggyback TMA 14 days #12,000 mL New Prescriptions to Start Prescriptions: hydrocodone-acetaminophen Roy,[place] cefepime Roy,[place] insulin glargine [Lantus Solostar U-100 Insulin] Roy,A[place] insulin lispro Roy,[place] Allergies Allergy/AdvReac Type Severity Reaction Status Date / Time duloxetine [From Cymbalta] Allergy Verified 07/19/24 12:54 Histamine H2 Inhibitors Allergy Verified 07/19/24 12:54 lisinopril Allergy Verified 07/19/24 12:54 sulfamethoxazole Allergy Verified 07/19/24 12:54 [From Bactrim] trimethoprim [From Bactrim] Allergy Verified 07/19/24 12:54 metoprolol AdvReac Severe Verified 07/19/24 12:54 beta blockers AdvReac Severe Insomnia Uncoded 06/13/24 10:01 Discharge Plan Disposition Patient Disposition: er Intermediate Care Fac Condition: Fair Discharge Order Discharge Orders: Discharge Order (Routine); Ordered 07/21/24 Ordered By: Aron Roy Follow up Plan Follow up with: Chris Underwood [Primary Care Provider] - 1 week ([facility]) Subhash Marks MD [Referring] - 07/28/24 10:40 am (Poorly controlled diabetes status post bilateral lower extremity transmetatarsal amputation teleahealth appointment) Joanna Jackson DPM [Staff Physician] - 07/27/24 11:15 am Prescriptions/Medication Reconciliation: New insulin glargine [Lantus Solostar U-100 Insulin] 100 unit/mL (3 mL) insulin pen 30 unit SQ BID Qty: 15 3RF hydrocodone-acetaminophen 7.5-325 mg Tablet 1 tab PO Q4HP PRN (Reason: Moderate Pain (4-6)) Qty: 20 0RF insulin lispro 100 unit/mL insulin pen 8 unit SQ TID Qty: 15 1RF cefepime 1 gram Recon Soln 1 g IV Q12H Qty: 10 0RF vancomycin in 0.9 % sodium chl 500 mg/100 mL piggyback 2,500 mg IV Q12H 14 Days Continued gabapentin 800 mg tablet 800 mg PO QID clopidogrel [Plavix] 75 mg tablet 75 mg PO HS atorvastatin [Lipitor] 80 mg tablet 80 mg PO HS rabeprazole 20 mg tablet,delayed release (DR/EC) 20 mg PO HS potassium chloride 10 mEq tablet extended release 30 meq PO DAILY losartan 25 mg tablet 25 mg PO DAILY Trulicity 4.5 mg/0.5 mL pen injector 4.5 mg SQ WEEKLY spironolactone 25 mg tablet 25 mg PO DAILY furosemide 80 mg tablet 80 mg PO DAILYP PRN (Reason: weight gain >5 pounds) lidocaine 4 % Adhesive Patch,Medicated 1 patch TOPICAL DAILY ascorbic acid (vitamin C) 500 mg Tablet 500 mg PO DAILY aspirin [Aspirin Childrens] 81 mg Tablet,Chewable 81 mg PO DAILY Saccharomyces boulardii [Florastor] 250 mg Capsule 250 mg PO BID magnesium oxide 400 mg magnesium Tablet 400 mg PO BID methocarbamol 750 mg Tablet 750 mg PO QIDP PRN (Reason: muscle spasms) Discontinued meloxicam [Mobic] 15 mg tablet 15 mg PO HS insulin regular hum U-500 conc 500 unit/mL (3 mL) insulin pen 80 unit SQ AC furosemide [Lasix] 80 mg Tablet 80 mg PO DAILY Problem Reconciliation Problems Reviewed?: Yes Patient Discharge Instructions ACTIVITY: Continue current activity DIET: continue same diet Additional Instructions: Okay for patient to transfer from bed or chair to bedside commode. Patient Instructions: How to Care for a Surgical Wound, Surgical Site Infection, How to Care for a Surgical Wound-Greg Print Language: Green[place]ic Providers Primary Care Provider: Chris Underwood Provider: Lane Honeycutt Attending Provider: Aron Roy
[2024-07-21] MEDS: CEFEPIME HCL 2 GM in 0.9 % SODIUM CHLORIDE 100 ML IV (08:37)
[2024-07-21] MEDS: INSULIN GLARGINE 100 UNITS/ML 10ML VIAL 30 UNIT SQ (08:37)
[2024-07-21] MEDS: GABAPENTIN 800MG TABLET 800 MG PO ×2 (08:38→12:52)
[2024-07-21] MEDS: MAGNESIUM OXIDE 400MG TABLET 400 MG PO (08:38)
[2024-07-21] MEDS: FUROSEMIDE 80 MG TABLET PO (08:38)
[2024-07-21] MEDS: IRBESARTAN 75MG TABLET 75 MG PO (08:38)
[2024-07-21] MEDS: ASPIRIN 81MG CHEWABLE TABLET 81 MG PO (08:39)
[2024-07-21] MEDS: ASCORBIC ACID 500MG TAB 500 MG PO (08:39)
[2024-07-21] MEDS: SPIRONOLACTONE 25MG TABLET 25 MG PO (08:39)
--- NOTE | 2024-07-21 09:47 | HMH.OTEV ---
OT Inpatient Evaluation Rehab OT IP Evaluation Start: 07/20/24 14:30 Freq: ONCE Status: Active Protocol: Document 07/21/24 09:42 [facility] (Rec: 07/21/24 09:47 [facility] [id number]) Rehab OT IP Assessment Subjective History Pt oriented x 3 on arrival. Pt agreeable to engage in therapy evaluation. Pt admitted on 07/19/24 due to B/L transmetatarsal amputation History and Physical: Really nice patient with past medical history of diabetic foot ulcer, hypertension, peripheral artery disease. Patient presents for bilateral TMA. Will be taken to the OR today by podiatry service, then managed by medicine service. No new complaints. Denies fevers, chills, known sick contacts, recent travel, nausea, vomiting, diarrhea, constipation. Subjective I am supposed to leave today. Prior to being in the hospital , pt has been living at [facility] since March. Pt claims she was requiring assistance with most ADLS such as dressing and bathing at the facility. Pt was also requiring assistance with transferring from staff. However, up until March, pt was able to transfer self using rolling walker. Objective Patient Orientation Person,Place,Birthday Right Upper Extremity Gross ROM WFL Left Upper Extremity Gross ROM WFL Bed Mobility bed mobility-scooting,bed mobility - supine/sit,bed mobility - rolling Assist Level Supervision/Stand by Rehab OT IP prob,goals,plan Problems Date of Evaluation: 07/21/24 OT IP Problems Bed Mobility,Transfers,Balance ,Self care,Safety Rehab Potential Rehab Potential Good Equipment Needs Assistive Devices Rolling / Wheeled Walker Plan OT intervention Plan Bed Mobility,Transfers,Balance ,Self care,Safety,Therapeutic Exercise OT Plan Frequency Daily Duration LOS Discharge Goals Bed Mobility Ability Standby Assistance Sit to Stand Chair Transfer Ability Maximum x 1 (75% assist) Chair Transfer Ability Maximum x 1 (75% assist) Chair Transfer Technique Stand Pivot Chair Transfer Assistive Devices Rolling Walker Lower Body Dressing Ability Contact Guard Upper Body Dressing Ability Moderate Assistance Bathing Ability Maximum Assistance Performing Toilet Hygiene Ability Moderate Assistance Overall Commode/Toilet Transfer Ability Maximum Assistance Commode/Toilet Transfer Technique Stand Pivot Commode/Toilet Transfer Assistive Grab Bars Devices Oral Care Assist Minimal Assistance Discharge Plan OT Discharge Plan Pt will continue to be seen for OT services while at [facility]. Pt would benefit from returning to SNF for short term rehab following hospital stay. Continued skilled therapy is important in order for patient to improve strength, safety, endurance, ADL independence, and functional transfers to reach PLOF. Pt agreeable with this plan. Eval Complexity Eval Charge Codes 54009 - Moderate Complexity PHYSICIAN CERTIFICATION: I certify the specified therapy services for Zora Jerez are required, authorized, and reviewed every 30 days.
--- NOTE | 2024-07-21 09:52 | HMH.PTEV ---
Physical Therapy Evaluation Rehab PT IP Evaluation Start: 07/20/24 14:29 Freq: ONCE Status: Active Protocol: Document 07/21/24 09:48 LAURA (Rec: 07/21/24 09:51 LAURA [id number]) Subjective/History History History H&P: Really nice patient with past medical history of diabetic foot ulcer, hypertension, peripheral artery disease. Patient presents for bilateral TMA. Will be taken to the OR today by podiatry service, then managed by medicine service. No new complaints. Denies fevers, chills, known sick contacts, recent travel, nausea, vomiting, diarrhea, constipation. Subjective Subjective Pt was living at [facility] since March. Pt claims she was requiring assistance with most ADLS such as dressing and bathing at the facility. Pt was also requiring assistance with transferring from staff. However, up until March, pt was able to transfer self using rolling walker. New diagnosis of cancer in past 12 No months? Rehab PT IP Eval Objective Appearance Patient Behavior Appropriate,Cooperative Patient Orientation Person,Situation Difficulty following instructions none Speech Pattern Clear Ambulation Patient Able to Ambulate No Balance Ability to Arise Able, uses arms to help Sitting Balance Steady, safe Transfers Bed Transfer Ability Supervision/Stand by Rehab PT IP prob,goals,plan Problems Date of Evaluation: 07/21/24 PT IP Problems Bed Mobility,Transfers,Balance ,Self care,Safety Rehab Potential Rehab Potential Good Equipment Needs Assistive Devices Rolling / Wheeled Walker Plan PT Intervention Plan Bed Mobility,Transfers,Gait, Balance,Safety,Therapeutic Exercise Other Intervention Plan 1-2 times PT Plan Frequency Daily Duration LOS Discharge Goals Bed Transfer Ability Independent Sit to Stand Chair Transfer Ability Contact Guard/Hand Hold Discharge Plan PT Discharge Plan Initial physical therapy evaluation performed. Patient presents below baseline at this time in functional mobility, transfers, and strength. PT recommending short-term rehabilitation stay upon d/c from [facility]. Pt would benefit from skilled PT while at [facility] to prevent further functional decline and maximize safety with mobility. Eval Complexity Eval Charge Codes 84289 - Moderate Complexity PHYSICIAN CERTIFICATION: I certify the specified therapy services for Zora Jerez are required, authorized, and reviewed every 30 days.
[2024-07-21] MEDS: VANCOMYCIN HCL 2,000 MG in 0.9 % SODIUM CHLORIDE 250 ML 125 MG IV (10:01)
[2024-07-21 11:06] LABS: POC Glucose,Bedside 299 (70-110)
--- NOTE | 2024-07-21 13:21 | PC.NURSE ---
report called to [facility]
== END 2024-07-21 14:55 | DRG 41 ==
LOC: 2ND 14:00
PROVIDERS: Nurse Practitioner Acute Care; Podiatrist; Admitting Provider Internal Medicine Adolescent Medicine; PCP Family Medicine; Visit Provider Internal Medicine
PROC: 0Y6M0Z9 Detachment at Right Foot, Partial 1st Ray, Open Approach (ICD-10-PCS; principal; 2024-07-19 13:45)
DX: E11.42 Type 2 diabetes mellitus with diabetic polyneuropathy (principal); Z79.899 Other long term (current) drug therapy; I70.263 Atherosclerosis of native arteries of extremities with gangrene, bilateral legs; Z68.43 Body mass index [BMI] 50.0-59.9, adult; L97.512 Non-pressure chronic ulcer of other part of right foot with fat layer exposed; L97.522 Non-pressure chronic ulcer of other part of left foot with fat layer exposed; Z79.4 Long term (current) use of insulin; I89.0 Lymphedema, not elsewhere classified; M14.672 Charcot's joint, left ankle and foot; E11.40 Type 2 diabetes mellitus with diabetic neuropathy, unspecified; E11.621 Type 2 diabetes mellitus with foot ulcer; E66.01 Morbid (severe) obesity due to excess calories; I10 Essential (primary) hypertension
CPT/HCPCS: 36410; 36415; 36569; 71045; 73610; 73630; 80048; 80053; 80202; 82962; 83735; 84100; 85007; 85025; 85027; 85651; 86140; 88304; 96374; 97162; 97166; J3490; C1751; J0330; J0692; J1100; J1580; J2250; J2405; J3010; J3370; J7030; S0028

== ENCOUNTER 2024-07-29 07:43 | Emergency (ER) | payer OTHER, MEDICAID, SELFPAY ==
[2024-07-29 07:43] VITALS: BP 145/69; PULSE 81; RESP 13; TEMP 36.6; O2SAT 98; BMI 54.5
--- NOTE | 2024-07-29 07:50 | PC.NURSE ---
Dr. Marie speaking with Dr. Jackson
--- NOTE | 2024-07-29 07:59 | ED_ITS ---
Discharge Plan Disposition Patient Disposition: Xfer SNF Condition: Good Prescriptions Prescriptions: No Action gabapentin 800 mg tablet 800 mg PO QID clopidogrel [Plavix] 75 mg tablet 75 mg PO HS atorvastatin [Lipitor] 80 mg tablet 80 mg PO HS rabeprazole 20 mg tablet,delayed release (DR/EC) 20 mg PO HS potassium chloride 10 mEq tablet extended release 30 meq PO DAILY losartan 25 mg tablet 25 mg PO DAILY Trulicity 4.5 mg/0.5 mL pen injector 4.5 mg SQ WEEKLY spironolactone 25 mg tablet 25 mg PO DAILY furosemide 80 mg tablet 80 mg PO DAILYP PRN (Reason: weight gain >5 pounds) lidocaine 4 % Adhesive Patch,Medicated 1 patch TOPICAL DAILY ascorbic acid (vitamin C) 500 mg Tablet 500 mg PO DAILY aspirin [Aspirin Childrens] 81 mg Tablet,Chewable 81 mg PO DAILY Saccharomyces boulardii [Florastor] 250 mg Capsule 250 mg PO BID magnesium oxide 400 mg magnesium Tablet 400 mg PO BID methocarbamol 750 mg Tablet 750 mg PO QIDP PRN (Reason: muscle spasms) insulin glargine [Lantus Solostar U-100 Insulin] 100 unit/mL (3 mL) insulin pen 30 unit SQ BID Qty: 15 3RF hydrocodone-acetaminophen 7.5-325 mg Tablet 1 tab PO Q4HP PRN (Reason: Moderate Pain (4-6)) Qty: 20 0RF insulin lispro 100 unit/mL insulin pen 8 unit SQ TID Qty: 15 1RF cefepime 1 gram Recon Soln 1 g IV Q12H Qty: 10 0RF vancomycin in 0.9 % sodium chl 500 mg/100 mL piggyback 2,500 mg IV Q12H 14 Days Activity Restrictions/Add. Instructions Additional Instructions/Restrictions: You were evaluated in the Emergency Department today. It is okay that the drain came out, as the plan is to remove it anyway. If the other drain comes out, it is okay. Continue with dressing changes as instructed by Dr. Jackson. Reasons to return to the ER would be fever, pus draining from the wounds, opening of the wounds, or other concerns. Otherwise, please continue management at your facility. See below from Dr. Jackson's previous instructions: -maintain dressing clean dry and intact -do not soak wounds -daily dressing changes -skin cleaned with saline or betadine, dry. then apply betadine soaked gauze, dry gauze, janes/kerlix, secure with tape or Star -avoid tight dressings and coban due to PAD -float heels off bed with pillows or heel protectors to avoid heel wounds -avoid PT for now, no prolonged standing due to b/l DFU and post op b/l TMA incisions -NWB to b/l LE except to transfer (using heels in fracture boot). -daily dressing changes to b/l feet: betadine soaked gauze to incision/wound, cover with dry dressing (gauze, janes/kerlix, Star). -LC drain mgmt daily. -PICC, IV abx: Vanco, Cefepime based on previous cultures and hx via PICC x 2 wks (end date 08/04/24 but may extend if esr/crp still elevated). -recommend 2 wks IV abx then transition to oral abx outpatient as needed. -weekly labs: cbc, bmp, esr, crp while on IV abx. -follow up with Podiatry outpt in one week, 08/03/24. Clinical Impressions Clinical Impression: Encounter for post surgical wound check Instructions Patient Instructions: How to Care for a Surgical Wound, DI with Wound Drains Print Language Print Language: Citizen Of [place] Discharge ED Provider: Ashanti Marie General Adult HPI General Chief complaint: Recheck/Abnormal Lab/Rx Stated complaint: drain came out surgery on Time Seen by Provider: 07/29/24 07:53 Mode of Arrival: EMS Source of Information: Patient Limitations: No Limitations Description of Symptoms (Recalled from ER Triage Doc. by RN): pt presents to ED via [facility] for possible drain displacement. pt had bilateral toe amuptations on 07/19. pt reports when she was attempting to get up out of bed, one of the draine pt with bilateral drains. right foot drain present, left foot drain absent. no pain, fevers noted per pt report. History of Present Illness HPI narrative: This patient is a 53-year-old female with a history of obesity, type 2 diabetes, peripheral neuropathy, Charcot foot, peripheral arterial disease, and recent bilateral foot surgery presenting to the emergency department with concern that her drain of her left foot has become displaced. No fevers, chills, nausea, vomiting, increasing pain, or abnormal drainage from the foot. Otherwise, she states she is been doing just fine. EMS reports the patient was stable en route with normal vitals and no other concerns or complaints. Patient states that [facility] in [place] sent her to the ER while she was trying to get ahold of her surgeon, Dr. Jackson, for recommendations. Related Data Home Medications ?Medication ?Instructions ?Recorded ?Confirmed atorvastatin 80 mg tablet (Lipitor) 80 mg PO HS High cholesterol 10/31/19 07/27/24 clopidogrel 75 mg tablet (Plavix) 75 mg PO HS Heart disease 10/31/19 07/27/24 gabapentin 800 mg tablet 800 mg PO QID 10/31/19 07/27/24 rabeprazole 20 mg tablet,delayed 20 mg PO HS 10/31/19 07/27/24 release potassium chloride 10 mEq 30 meq PO DAILY 01/26/22 07/27/24 tablet,extended release dulaglutide 4.5 mg/0.5 mL 4.5 mg SQ WEEKLY on Tuesdays06/25/22 07/27/24 subcutaneous pen injector (Trulicity) losartan 25 mg tablet 25 mg PO DAILY 06/25/22 07/27/24 spironolactone 25 mg tablet 25 mg PO DAILY 03/02/23 07/27/24 furosemide 80 mg tablet 80 mg PO DAILYP PRN weight gain >5 07/19/24 07/27/24 pounds Saccharomyces boulardii 250 mg 250 mg PO BID 07/20/24 07/27/24 capsule (Florastor) ascorbic acid (vitamin C) 500 mg 500 mg PO DAILY 07/20/24 07/27/24 tablet aspirin 81 mg chewable tablet 81 mg PO DAILY 07/20/24 07/27/24 (Aspirin Childrens) lidocaine 4 % topical patch 1 patch topical DAILY apply to 07/20/24 07/27/24 left hip magnesium oxide 400 mg PO BID 07/20/24 07/27/24 methocarbamol 750 mg tablet 750 mg PO QIDP PRN muscle spasms 07/20/24 07/27/24 Previous Rx's ?Medication ?Instructions ?Recorded cefepime 1 gram solution for 1 g IV Q12H #10 ea 07/21/24 injection hydrocodone 7.5 mg-acetaminophen 1 tab PO Q4HP PRN Moderate Pain 07/21/24 325 mg tablet (4-6) #20 tabs insulin glargine 100 unit/mL (3 30 unit (0.3 mL) SQ BID #15 mL 07/21/24 mL) subcutaneous pen (Lantus Solostar U-100 Insulin) insulin lispro 100 unit/mL 8 unit (0.08 mL) SQ TID #15 mL 07/21/24 subcutaneous pen vancomycin 500 mg/100 mL in 0.9% 2,500 mg (500 mL) IV Q12H 07/21/24 sodium chloride intravenous Cellulitis status post bilateral piggyback TMA 14 days #12,000 mL Allergies Allergy/AdvReac Type Severity Reaction Status Date / Time duloxetine [From Cymbalta] Allergy Verified 07/27/24 11:46 Histamine H2 Inhibitors Allergy Verified 07/27/24 11:46 lisinopril Allergy Verified 07/27/24 11:46 sulfamethoxazole Allergy Verified 07/27/24 11:46 [From Bactrim] trimethoprim [From Bactrim] Allergy Verified 07/27/24 11:46 metoprolol AdvReac Severe Verified 07/27/24 11:46 beta blockers AdvReac Severe Insomnia Uncoded 06/13/24 10:01 [facility] Disclaimer: The information contained in this section may have been updated after the patient was seen, as this information can be updated by other users. 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 History of intravascular stent placement Family History Other No significant family history Social History Smoking Status: Former smoker second hand exposure: No alcohol intake: never substance use type: denies use current occupational status: employed Travel in the last 8 weeks: None household members: none and other housing: apartment current occupational exposures/hazards: No caffeine: No ROS Obtained: Yes All systems reviewed & no additional complaints except as documented Physical Exam General General appearance: alert, in no apparent distress and obese Head Head exam: atraumatic and normocephalic Eye Eye exam: Present normal appearance, PERRL and EOMI ENT ENT exam: Present normal exam, normal oropharynx, mucous membranes moist and normal external ear exam Neck Neck exam: Present normal inspection, full ROM and trachea midline; Absent tenderness Chest Chest inspection: Present normal inspection and symmetric chest wall rise; Abse nt tenderness Respiratory Respiratory exam: Present normal lung sounds bilaterally; Absent respiratory distress, wheezes, stridor or accessory muscle use Cardiovascular Cardiovascular exam: Present regular rate and normal rhythm Abdominal Exam Abdominal exam: Present soft; Absent distention, tenderness or guarding Extremities Exam Extremities exam: Present full ROM, normal capillary refill and other (postop wounds on bilateral feet c/d/i with minimal serosanguinous drainage in R foot LC drain. L foot LC drain displaced. No erythema, warmth, purulence); Absent tenderness or edema Back Exam Back exam: Present normal inspection and full ROM; Absent tenderness Neurological Exam Neurological exam: Present alert, oriented X3, CN II-XII intact and other Psychiatric Psychiatric exam: Present normal affect and normal mood Skin Skin exam: Present warm and dry Medical Decision Making Medical Records Medical records reviewed: Yes I reviewed the patient's medical records. Mike Inquiry Pt receiving controlled substance: No Vital Signs: 07/29/24 07:43 Temperature 97.9 F Temperature Source Oral Pulse Rate [Left Radial] 81 Respiratory Rate 13 Blood Pressure [Right Arm] 145/69 H Blood Pressure Mean [Right Arm] 94 02 Sat by Pulse Oximetry 98 Oxygen Delivery Method Room Air Lab Data Lab results reviewed: Yes I reviewed the patient's lab results. Medical Decision Narrative: In summary, this patient is a 53-year-old female presenting to the Emergency Department for evaluation of left foot LC drain dislodgment. Differential diagnoses considered include but are not limited to LC drain dislodgment, wound dehiscence, postoperative infection. Ruling out the most morbid conditions drove assessment. It should be noted patient's history includes obesity, diabetes, Charcot foot, peripheral arterial disease which may or may not be at goal therapy. This complicates all aspects of care by increasing patient's risk for morbidity. I reviewed patient's past medical records and noted most recent podiatry evaluation 07/27/2024. On exam, the patient is well-appearing with no purulence, erythema, warmth, or o ther concerns. Wound is not dehisced. It is clean, dry, intact. I shared pictures with Dr. Jackson and had an interactive discussion with her. She advised that the wounds look great, even improved from her recent office evaluation 07/27/2024. She states that she was planning to remove the drains anyway, so there is nothing to do. She advised continuing with outpatient management as previously instructed. Given that the patient is afebrile with no systemic symptoms and wounds appear great, no labs or imaging were ordered. Patient was discharged back to [facility]. I had an interactive discussion with them regarding management in the future. Patient was transported back in stable condition with strict return precautions after we performed local wound care and re-dressed her wounds. Critical Care Critical Care Time Critical Care Time: No
--- NOTE | 2024-07-29 08:04 | PC.NURSE ---
Dr. Marie speaking with nurse at [facility]
[2024-07-29 08:47] VITALS: BP 145/69; PULSE 81; RESP 13; TEMP 36.7
== END 2024-07-29 08:50 ==
PROVIDERS: Emergency Provider Emergency Medicine; PCP Family Medicine
DX: T88.9XXA Complication of surgical and medical care, unspecified, initial encounter; Z89.421 Acquired absence of other right toe(s); Z89.422 Acquired absence of other left toe(s); Z87.891 Personal history of nicotine dependence; E11.51 Type 2 diabetes mellitus with diabetic peripheral angiopathy without gangrene; E11.610 Type 2 diabetes mellitus with diabetic neuropathic arthropathy
CPT/HCPCS: 99282

== ENCOUNTER 2024-08-01 13:23 | Emergency (ER) | payer OTHER, SELFPAY ==
[2024-08-01] VITALS (7 sets, daily range): BP systolic 93–139; BP diastolic 54–95; PULSE 49–84; RESP 18–20; TEMP 36.8–36.9; O2SAT 92–99; BMI 56.0
--- NOTE | 2024-08-01 14:13 | ED_ITS ---
<Statement entered by Ashanti Marie DO - 08/01/24 16:15> I was consulted by the ELAN, and we discussed the complexity of the problems being addressed. I approved the treatment and management plan for this patient's care in the emergency department, thus performing a substantive portion of the medical decision making. Ashanti Marie DO Discharge Plan Disposition Patient Disposition: Home, Self-Care Condition: Fair Prescriptions Prescriptions: New ibuprofen 800 mg tablet 800 mg PO Q8H 5 Days Qty: 15 0RF Rx Instructions: Do not take meloxicam while taking ibuprofen. nystatin 100,000 unit/gram powder 1 applic topical BID Qty: 30 0RF No Action gabapentin 800 mg tablet 800 mg PO QID clopidogrel [Plavix] 75 mg tablet 75 mg PO HS atorvastatin [Lipitor] 80 mg tablet 80 mg PO HS rabeprazole 20 mg tablet,delayed release (DR/EC) 20 mg PO HS potassium chloride 10 mEq tablet extended release 30 meq PO DAILY losartan 25 mg tablet 25 mg PO DAILY Trulicity 4.5 mg/0.5 mL pen injector 4.5 mg SQ WEEKLY spironolactone 25 mg tablet 25 mg PO DAILY furosemide 80 mg tablet 80 mg PO DAILYP PRN (Reason: weight gain >5 pounds) lidocaine 4 % Adhesive Patch,Medicated 1 patch TOPICAL DAILY ascorbic acid (vitamin C) 500 mg Tablet 500 mg PO DAILY aspirin [Aspirin Childrens] 81 mg Tablet,Chewable 81 mg PO DAILY Saccharomyces boulardii [Florastor] 250 mg Capsule 250 mg PO BID magnesium oxide 400 mg magnesium Tablet 400 mg PO BID methocarbamol 750 mg Tablet 750 mg PO QIDP PRN (Reason: muscle spasms) insulin glargine [Lantus Solostar U-100 Insulin] 100 unit/mL (3 mL) insulin pen 30 unit SQ BID Qty: 15 3RF hydrocodone-acetaminophen 7.5-325 mg Tablet 1 tab PO Q4HP PRN (Reason: Moderate Pain (4-6)) Qty: 20 0RF insulin lispro 100 unit/mL insulin pen 8 unit SQ TID Qty: 15 1RF cefepime 1 gram Recon Soln 1 g IV Q12H Qty: 10 0RF vancomycin in 0.9 % sodium chl 500 mg/100 mL piggyback 2,500 mg IV Q12H 14 Days Referrals Follow up/Referrals: Provider,Referral, [Referring] - See instructions Activity Restrictions/Add. Instructions Additional Instructions/Restrictions: I prescribed you ibuprofen every 8 hours for the next 5 days. Do not take meloxicam while taking ibuprofen. You also need to keep the skin folds dry. It would be best if you do not sit directly upright to offload the pressure in your lower abdominal wall. I have also prescribed you nystatin to place into your skin folds of your abdomen. Follow-up with your PCP within 48 hours for recheck. Return to ER for any worsening signs or symptoms as needed. Clinical Impressions Clinical Impression: Intertrigo Instructions Patient Instructions: DI for Skin Abscess Print Language Print Language: [place] Discharge ED Provider: Ashanti Marie General Adult HPI <GUILLAUME Skaggs - Last Filed: 08/01/24 15:52> General Chief complaint: Skin/Abscess/Foreign Body Stated complaint: Rash Time Seen by Provider: 08/01/24 13:37 Mode of Arrival: EMS Source of Information: Patient, EMS and Medical Record Limitations: No Limitations Description of Symptoms (Recalled from ER Triage Doc. by RN): pt is here for rash on abd per [facility], upon triage patient abd is red and swollen from fluid overload but no actuial rash, pt is on vancomycin and cefipime for recentn ricky amputation surgery. pt states she needs a vanc trough done gwendolyn they were suppose to do it today today at 11 but didnt come and then patient states she wants an order for nystatin and vagisil for her yeast infection bc they stopped giving it at [facility] due to no order History of Present Illness HPI narrative: Patient presents for evaluation of lower abdominal wall pain. Patient has a significant past medical history of morbid obesity, poorly controlled diabetes mellitus, chronic osteomyelitis status post bilateral forefoot amputation due to osteomyelitis, hypertension hyperlipidemia diabetic neuropathy. Patient presents from [facility] today because of pain in her abdominal apron. According to the patient the nurses told her that her veins are dilated in her abdomen. Denies fever chills hemoptysis hematochezia melena nausea vomiting diarrhea itching shortness of breath. Related Data Home Medications ?Medication ?Instructions ?Recorded ?Confirmed atorvastatin 80 mg tablet (Lipitor) 80 mg PO HS High cholesterol 10/31/19 07/27/24 clopidogrel 75 mg tablet (Plavix) 75 mg PO HS Heart disease 10/31/19 07/27/24 gabapentin 800 mg tablet 800 mg PO QID 10/31/19 07/27/24 rabeprazole 20 mg tablet,delayed 20 mg PO HS 10/31/19 07/27/24 release potassium chloride 10 mEq 30 meq PO DAILY 01/26/22 07/27/24 tablet,extended release dulaglutide 4.5 mg/0.5 mL 4.5 mg SQ WEEKLY on Tuesdays06/25/22 07/27/24 subcutaneous pen injector (Trulicity) losartan 25 mg tablet 25 mg PO DAILY 06/25/22 07/27/24 spironolactone 25 mg tablet 25 mg PO DAILY 03/02/23 07/27/24 furosemide 80 mg tablet 80 mg PO DAILYP PRN weight gain >5 07/19/24 07/27/24 pounds Saccharomyces boulardii 250 mg 250 mg PO BID 07/20/24 07/27/24 capsule (Florastor) ascorbic acid (vitamin C) 500 mg 500 mg PO DAILY 07/20/24 07/27/24 tablet aspirin 81 mg chewable tablet 81 mg PO DAILY 07/20/24 07/27/24 (Aspirin Childrens) lidocaine 4 % topical patch 1 patch topical DAILY apply to 07/20/24 07/27/24 left hip magnesium oxide 400 mg PO BID 07/20/24 07/27/24 methocarbamol 750 mg tablet 750 mg PO QIDP PRN muscle spasms 07/20/24 07/27/24 Previous Rx's ?Medication ?Instructions ?Recorded cefepime 1 gram solution for 1 g IV Q12H #10 ea 07/21/24 injection hydrocodone 7.5 mg-acetaminophen 1 tab PO Q4HP PRN Moderate Pain 07/21/24 325 mg tablet (4-6) #20 tabs insulin glargine 100 unit/mL (3 30 unit (0.3 mL) SQ BID #15 mL 07/21/24 mL) subcutaneous pen (Lantus Solostar U-100 Insulin) insulin lispro 100 unit/mL 8 unit (0.08 mL) SQ TID #15 mL 07/21/24 subcutaneous pen vancomycin 500 mg/100 mL in 0.9% 2,500 mg (500 mL) IV Q12H 07/21/24 sodium chloride intravenous Cellulitis status post bilateral piggyback TMA 14 days #12,000 mL ibuprofen 800 mg tablet 800 mg PO Q8H 5 days #15 tabs 08/01/24 nystatin 100,000 unit/gram topical 1 applic topical BID #30 grams 08/01/24 powder Allergies Allergy/AdvReac Type Severity Reaction Status Date / Time duloxetine [From Cymbalta] Allergy Verified 07/27/24 11:46 Histamine H2 Inhibitors Allergy Verified 07/27/24 11:46 lisinopril Allergy Verified 07/27/24 11:46 sulfamethoxazole Allergy Verified 07/27/24 11:46 [From Bactrim] trimethoprim [From Bactrim] Allergy Verified 07/27/24 11:46 metoprolol AdvReac Severe Verified 07/27/24 11:46 beta blockers AdvReac Severe Insomnia Uncoded 06/13/24 10:01 PFS <GUILLAUME Skaggs - Last Filed: 08/01/24 15:52> [facility] Disclaimer: The information contained in this section may have been updated after the patient was seen, as this information can be updated by other users. 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 History of intravascular stent placement Family History Other No significant family history Social History Smoking Status: Never smoker second hand exposure: No alcohol intake: never substance use type: denies use current occupational status: employed Travel in the last 8 weeks: None household members: none and other housing: apartment current occupational exposures/hazards: No caffeine: No <GUILLAUME Skaggs - Last Filed: 08/01/24 15:52> ROS Obtained: Yes Systems reviewed as appropriate & no additional complaints except as documented Physical Exam <GUILLAUME kSaggs - Last Filed: 08/01/24 15:52> General General appearance: alert and in no apparent distress Respiratory Respiratory exam: Present normal lung sounds bilaterally Cardiovascular Cardiovascular exam: Present regular rate and normal rhythm Abdominal Exam Abdominal exam: Present soft, tenderness (Patient is tender to palpation over her dependent portion of her pannus. There is erythema but no induration or fluctuance.), rigidity and normal bowel sounds; Absent guarding or rebound Neurological Exam Neurological exam: Present alert and oriented X3 Medical Decision Making <GUILLAUME Skaggs - Last Filed: 08/01/24 15:52> Medical Records Medical records reviewed: Yes I reviewed the patient's medical records. Mike Inquiry Pt receiving controlled substance: No Vital Signs: 08/01/24 13:24 08/01/24 14:02 08/01/24 14:31 Temperature 98.5 F Temperature Source Oral Pulse Rate 68 74 Pulse Rate [Right Radial] 84 Respiratory Rate 20 18 Blood Pressure 139/77 93/74 L Blood Pressure [Right Arm] 125/54 L Blood Pressure Mean 97 Blood Pressure Mean [Right Arm] 77 02 Sat by Pulse Oximetry 99 97 92 L Oxygen Delivery Method Room Air Room Air Room Air 08/01/24 15:00 Temperature Temperature Source Pulse Rate 80 Pulse Rate [Right Radial] Respiratory Rate 20 Blood Pressure 100/58 L Blood Pressure [Right Arm] Blood Pressure Mean Blood Pressure Mean [Right Arm] 02 Sat by Pulse Oximetry 93 L Oxygen Delivery Method Room Air Lab Data Lab results reviewed: Yes I reviewed the patient's lab results. Lab Results 08/01/24 13:32: WBC 6.3, RBC 3.27 L, Hgb 10.2 L, Hct 33.7 L, MCV 103.0 H, MCH 31.3 H, MCHC 30.4 L, RDW 16.1, Plt Count 111 L, MPV 10.4, Neut % (Auto) 72.5, Lymph % (Auto) 19.6, Vernon % (Auto) 6.0, Eos % (Auto) 1.5, Baso % (Auto) 0.4, Neut # (Auto) 4.6, Lymph # (Auto) 1.2, Vernon # (Auto) 0.4, Eos # (Auto) 0.1, Baso # (Auto) 0.0, ESR 66 H, Sodium 135 L, Potassium 4.1, Chloride 102, Carbon Dioxide 30, Anion Gap 7.1, BUN 21 H, Creatinine 0.90, Estimated Creat Clear 77, Estimated GFR 65, Est GFR ( Amer) 79, Glucose 269 H, Calcium 8.5, Total Bilirubin 1.1, AST 27, ALT 32, Alkaline Phosphatase 69, C-Reactive Protein 28.0 H, Total Protein 6.3, Albumin 3.6, Globulin 2.7, Albumin/Globulin Ratio 1.3, V ancomycin Trough 16.9 H 08/01/24 13:32 08/01/24 13:32 Orders (Tests/Meds): ED MEDICATIONS Discontinued Medications Generic Name Dose Route Start Last Admin Trade Name Freq PRN Reason Stop Dose Admin Acetaminophen 1,000 mg 08/01/24 14:14 08/01/24 14:32 Acetaminophen 1,000mg/100ml Vial IV 08/01/24 14:15 1,000 mg ONCE ONE Administration Lactated Ringer's 1,000 mls @ 999 mls/hr 08/01/24 14:14 08/01/24 14:32 Lactated Ringer's 1000 Ml Bag IV 08/01/24 15:14 999 mls/hr .Q1H1M ONE Administration Ketorolac Tromethamine 15 mg 08/01/24 14:14 08/01/24 14:32 Ketorolac 30mg/Ml Vial IV 08/01/24 14:15 15 mg ONCE ONE Administration Oxycodone HCl 5 mg 08/01/24 14:14 08/01/24 14:32 Oxycodone 5mg Immediate Release Tablet PO 08/01/24 14:15 5 mg ONCE ONE Administration ORDERS Category Date Time Status POCUS Point of Care (ER Only) Stat Exams 08/01/24 14:14 Ordered CBC w/Auto Diff [Complete Blood Count Auto Diff] Stat Lab 08/01/24 13:32 Completed CMP [Comprehensive Metabolic Panel] Stat Lab 08/01/24 13:32 Completed CRP [C-Reactive Protein] Stat Lab 08/01/24 13:32 Completed ESR [Erythrocyte Sedimentation Rate] Stat Lab 08/01/24 13:32 Completed Vancomycin,Trough Stat Lab 08/01/24 13:32 Completed Medical Decision Narrative: In summary patient is a 53-year-old female who presents to the emergency department for evaluation of lower abdominal skin pain. Patient is hemodynamically stable upon arrival, afebrile. Physical exam is remarkable for erythema of her dependent portion of her pannus but no actual induration or fluctuance. It is very tender to palpation however. The actual intertriginous folds are dry but erythematous as well. Differential diagnosis includes cellulitis versus medication reaction versus intertrigo. Initial workup will be conducted with hematologic labs POCUS. Initial interventions include crystalloid bolus acetaminophen and Toradol. Initial workup reviewed by me actually shows her hematologic labs are nonactionable with a normal white count and her inflammatory markers while elevated are actually decreasing from previous and POCUS reveals no evidence of abscess or fluid collection. Given this I have made the recommendation to the patient to hold her meloxicam and prescribed her ibuprofen 800 mg every 8 hours for the inflammatory component, and recommended that she offload the area is much as possible. Unfortunately patient sits upright most of the time causing significant venous congestion of the area as well which is very difficult to manage given her morbid obesity. <Ashanti Marie, DO - Last Filed: 08/01/24 16:16> Vital Signs: 08/01/24 13:24 08/01/24 14:02 08/01/24 14:31 Temperature 98.5 F Temperature Source Oral Pulse Rate 68 74 Pulse Rate [Right Radial] 84 Respiratory Rate 20 18 Blood Pressure 139/77 93/74 L Blood Pressure [Right Arm] 125/54 L Blood Pressure Mean 97 Blood Pressure Mean [Right Arm] 77 02 Sat by Pulse Oximetry 99 97 92 L Oxygen Delivery Method Room Air Room Air Room Air 08/01/24 15:00 Temperature Temperature Source Pulse Rate 80 Pulse Rate [Right Radial] Respiratory Rate 20 Blood Pressure 100/58 L Blood Pressure [Right Arm] Blood Pressure Mean Blood Pressure Mean [Right Arm] 02 Sat by Pulse Oximetry 93 L Oxygen Delivery Method Room Air Lab Data Lab Results 08/01/24 13:32: WBC 6.3, RBC 3.27 L, Hgb 10.2 L, Hct 33.7 L, MCV 103.0 H, MCH 31.3 H, MCHC 30.4 L, RDW 16.1, Plt Count 111 L, MPV 10.4, Neut % (Auto) 72.5, Lymph % (Auto) 19.6, Vernon % (Auto) 6.0, Eos % (Auto) 1.5, Baso % (Auto) 0.4, Neut # (Auto) 4.6, Lymph # (Auto) 1.2, Vernon # (Auto) 0.4, Eos # (Auto) 0.1, Baso # (Auto) 0.0, ESR 66 H, Sodium 135 L, Potassium 4.1, Chloride 102, Carbon Dioxide 30, Anion Gap 7.1, BUN 21 H, Creatinine 0.90, Estimated Creat Clear 77, Estimated GFR 65, Est GFR ( Amer) 79, Glucose 269 H, Calcium 8.5, Total Bilirubin 1.1, AST 27, ALT 32, Alkaline Phosphatase 69, C-Reactive Protein 28.0 H, Total Protein 6.3, Albumin 3.6, Globulin 2.7, Albumin/Globulin Ratio 1.3, V ancomycin Trough 16.9 H Orders (Tests/Meds): ED MEDICATIONS Discontinued Medications Generic Name Dose Route Start Last Admin Trade Name Radha PRN Reason Stop Dose Admin Acetaminophen 1,000 mg 08/01/24 14:14 08/01/24 14:32 Acetaminophen 1,000mg/100ml Vial IV 08/01/24 14:15 1,000 mg ONCE ONE Administration Lactated Ringer's 1,000 mls @ 999 mls/hr 08/01/24 14:14 08/01/24 14:32 Lactated Ringer's 1000 Ml Bag IV 08/01/24 15:14 999 mls/hr .Q1H1M ONE Administration Ketorolac Tromethamine 15 mg 08/01/24 14:14 08/01/24 14:32 Ketorolac 30mg/Ml Vial IV 08/01/24 14:15 15 mg ONCE ONE Administration Oxycodone HCl 5 mg 08/01/24 14:14 08/01/24 14:32 Oxycodone 5mg Immediate Release Tablet PO 08/01/24 14:15 5 mg ONCE ONE Administration ORDERS Category Date Time Status POCUS Point of Care (ER Only) Stat Exams 08/01/24 14:14 Ordered CBC w/Auto Diff [Complete Blood Count Auto Diff] Stat Lab 08/01/24 13:32 Completed CMP [Comprehensive Metabolic Panel] Stat Lab 08/01/24 13:32 Completed CRP [C-Reactive Protein] Stat Lab 08/01/24 13:32 Completed ESR [Erythrocyte Sedimentation Rate] Stat Lab 08/01/24 13:32 Completed Vancomycin,Trough Stat Lab 08/01/24 13:32 Completed Medical Decision Narrative: In summary patient is a 53-year-old female who presents to the emergency department for evaluation of lower abdominal skin pain. Patient is hemodynamically stable upon arrival, afebrile. Physical exam is remarkable for erythema of her dependent portion of her pannus but no actual induration or fluctuance. It is very tender to palpation however. The actual intertriginous folds are dry but erythematous as well. Differential diagnosis includes cellulitis versus medication reaction versus intertrigo. Initial workup will be conducted with hematologic labs POCUS. Initial interventions include crystalloid bolus acetaminophen and Toradol. Initial workup reviewed by me actually shows her hematologic labs are nonactionable with a normal white count and she is afebrile. Given this I have made the recommendation to the patient to hold her meloxicam and prescribed her ibuprofen 800 mg every 8 hours for the inflammatory component, and recommended that she offload the area is much as possible. Unfortunately patient sits upright most of the time causing significant venous congestion of the area as well which is very difficult to manage given her morbid obesity. She was discharged with strict return precautions. Critical Care <GUILLAUME Skaggs - Last Filed: 08/01/24 15:52> Critical Care Time Critical Care Time: No
[2024-08-01 14:21] LABS: Albumin Level 3.6 g/dl (3.5-5.0); Basophils % 0.4 % (0.1-2.0); Chloride 102 mmol/L (98-107); Eosinophils # 0.1 K/mm3 (0.0-0.4); Eosinophils % 1.5 % (0.1-12.0); Hematocrit 33.7 % (37.0-47.0); Hemoglobin 10.2 g/dL (12.2-16.2); Lymphocytes # 1.2 K/mm3 (0.7-4.5); Lymphocytes % 19.6 % (10-50); Mean Corpuscular HGB Conc 30.4 g/dL (31.8-35.4); Mean Corpuscular Hemoglobin 31.3 pg (27.0-31.2); Mean Platelet Volume 10.4 fl (7.4-10.4); Monocytes # 0.4 K/mm3 (0.1-1.0); Neutrophils # 4.6 K/mm3 (1.8-7.8); Neutrophils % 72.5 % (37.0-80.0); Platelet Count 111 K/mm3 (142-424); Red Blood Count 3.27 M/mm3 (4.20-5.40); Red Cell Distribution Width 16.1 % (11.5-17.5); Sodium 135 mmol/L (136-145); White Blood Count 6.3 K/mm3 (4.8-10.8)
[2024-08-01 14:22] LABS: Potassium 4.1 mmoL/L (3.5-5.1)
[2024-08-01 14:24] LABS: Alanine Aminotransferase 32 U/L (12-78); Albumin/Globulin Ratio 1.3 (1.1-1.8); Alkaline Phosphatase 69 U/L (38-126); Anion Gap 7.1 mEq/L (5-15); Aspartate Amino Transferase 27 U/L (14-36); Bilirubin,Total 1.1 mg/dl (0.2-1.3); Blood Urea Nitrogen 21 mg/dl (7-17); Carbon Dioxide 30 mmol/L (22.0-30.0); Creatinine Clearance Estimated 77 mL/min (50-200); Estimated Glomerular Filt Rate 65 ml/min (>60); GFR (African American) 79 ML/MIN (>60); Globulin 2.7 g/dL (1.3-3.2); Total Protein,Serum 6.3 g/dl (6.3-8.2)
[2024-08-01 14:25] LABS: Calcium 8.5 mg/dl (8.4-10.2); Glucose 269 mg/dl (74-100)
[2024-08-01] MEDS: OXYCODONE 5MG IMMEDIATE RELEASE TABLET 5 MG PO (14:32)
[2024-08-01] MEDS: LACTATED RINGERS 1000ML 1,000 ML 999 ML IV (14:32)
[2024-08-01] MEDS: KETOROLAC 30MG/ML VIAL 15 MG IV (14:32)
[2024-08-01] MEDS: ACETAMINOPHEN 1,000MG/100ML VIAL 1000 MG IV (14:32)
[2024-08-01 15:00] LABS: Vancomycin,Trough 16.9 ug/mL (5.0-10.0)
[2024-08-01 15:24] LABS: Erythrocyte Sedimentation Rate 66 mm/hr (0-30)
--- NOTE | 2024-08-01 16:10 | PC.NURSE ---
called report to tre at [facility] in [place]. answered all questions and went over dc summary
--- NOTE | 2024-08-01 16:17 | PC.NURSE ---
Called EMS to advise them of this pt going back to [facility] in [place]
== END 2024-08-01 16:45 | disposition home or self-care (01) ==
PROVIDERS: Physician Assistant; Emergency Provider Emergency Medicine; PCP Family Medicine
DX: L30.4 Erythema intertrigo (principal); E66.01 Morbid (severe) obesity due to excess calories; E11.40 Type 2 diabetes mellitus with diabetic neuropathy, unspecified; E11.65 Type 2 diabetes mellitus with hyperglycemia; I10 Essential (primary) hypertension; E78.5 Hyperlipidemia, unspecified; E11.51 Type 2 diabetes mellitus with diabetic peripheral angiopathy without gangrene; K21.9 Gastro-esophageal reflux disease without esophagitis; Z87.891 Personal history of nicotine dependence; Z79.4 Long term (current) use of insulin; Z79.85 Long-term (current) use of injectable non-insulin antidiabetic drugs
CPT/HCPCS: 80053; 80202; 85025; 85651; 86140; 96361; 96374; 96375; 99285; J0131; J1885; J7120

== ENCOUNTER 2024-08-08 05:33 | Emergency (ER) | payer OTHER, SELFPAY ==
[2024-08-08 05:40] VITALS: BP 116/59; PULSE 75; O2SAT 93
[2024-08-08 05:44] VITALS: BP 116/59; PULSE 86; RESP 16; TEMP 36.8; O2SAT 94; BMI 58.6
--- NOTE | 2024-08-08 06:00 | ED_ITS ---
Discharge Plan Disposition Patient Disposition: Xfer SNF Condition: Good Prescriptions Prescriptions: No Action gabapentin 800 mg tablet 800 mg PO QID clopidogrel [Plavix] 75 mg tablet 75 mg PO HS atorvastatin [Lipitor] 80 mg tablet 80 mg PO HS rabeprazole 20 mg tablet,delayed release (DR/EC) 20 mg PO HS potassium chloride 10 mEq tablet extended release 30 meq PO DAILY losartan 25 mg tablet 25 mg PO DAILY Trulicity 4.5 mg/0.5 mL pen injector 4.5 mg SQ WEEKLY spironolactone 25 mg tablet 25 mg PO DAILY furosemide 80 mg tablet 80 mg PO DAILYP PRN (Reason: weight gain >5 pounds) lidocaine 4 % Adhesive Patch,Medicated 1 patch TOPICAL DAILY ascorbic acid (vitamin C) 500 mg Tablet 500 mg PO DAILY aspirin [Aspirin Childrens] 81 mg Tablet,Chewable 81 mg PO DAILY Saccharomyces boulardii [Florastor] 250 mg Capsule 250 mg PO BID magnesium oxide 400 mg magnesium Tablet 400 mg PO BID methocarbamol 750 mg Tablet 750 mg PO QIDP PRN (Reason: muscle spasms) insulin glargine [Lantus Solostar U-100 Insulin] 100 unit/mL (3 mL) insulin pen 30 unit SQ BID Qty: 15 3RF hydrocodone-acetaminophen 7.5-325 mg Tablet 1 tab PO Q4HP PRN (Reason: Moderate Pain (4-6)) Qty: 20 0RF insulin lispro 100 unit/mL insulin pen 8 unit SQ TID Qty: 15 1RF ibuprofen 800 mg tablet 800 mg PO Q8H 5 Days Qty: 15 0RF Rx Instructions: Do not take meloxicam while taking ibuprofen. nystatin 100,000 unit/gram powder 1 applic topical BID Qty: 30 0RF Activity Restrictions/Add. Instructions Additional Instructions/Restrictions: Zora was evaluated in the ER and is appropriate for discharge at this time. Keep the wounds clean and dry. Continue dressing them as had been done previously. Continue wound care and postoperative management as previously directed by Dr. Jackson. Follow-up with Dr. Jackson on 08/10/2024 as scheduled. Patient should return to the ER with new, worsening, or otherwise concerning symptoms. Clinical Impressions Clinical Impression: Surgical wound present, Bleeding from wound Print Language Print Language: Tajik Discharge ED Provider: Diego Hale General Adult [facility] General Chief complaint: Extremity Injury, Lower Stated complaint: extremity problem Time Seen by Provider: 08/08/24 05:40 Mode of Arrival: EMS Source of Information: Patient Limitations: Physical Limitations Description of Symptoms (Recalled from ER Triage Doc. by RN): Patient hit foot that she just had surgery on. Had some bleeding from the site (Right foot). Wanted to come to the hospital to be checked out. History of Present Illness HPI narrative: 53-year-old female with history of transmetatarsal amputation bilaterally in June presents to the ER for complaints of bleeding from left foot wound after hitting it while transferring into her bed. Patient did not fall or have other injuries. Patient requested to be taken to our facility because her amputation was performed by Dr. Jackson with podiatry. Patient has no other complaints at this time, no fevers. Patient does report she has been receiving her increased dose of Lasix as was recently recommended. Reportedly the facility rewrapped her foot after it initially happened and she has not had significant bleeding from it since that time. EMS reports they did not provide any medications or other interventions during transport. Related Data Home Medications ?Medication ?Instructions ?Recorded ?Confirmed atorvastatin 80 mg tablet (Lipitor) 80 mg PO HS High cholesterol 10/31/19 08/03/24 clopidogrel 75 mg tablet (Plavix) 75 mg PO HS Heart disease 10/31/19 08/03/24 gabapentin 800 mg tablet 800 mg PO QID 10/31/19 08/03/24 rabeprazole 20 mg tablet,delayed 20 mg PO HS 10/31/19 08/03/24 release potassium chloride 10 mEq 30 meq PO DAILY 01/26/22 08/03/24 tablet,extended release dulaglutide 4.5 mg/0.5 mL 4.5 mg SQ WEEKLY on Tuesdays06/25/22 08/03/24 subcutaneous pen injector (Trulicity) losartan 25 mg tablet 25 mg PO DAILY 06/25/22 08/03/24 spironolactone 25 mg tablet 25 mg PO DAILY 03/02/23 08/03/24 furosemide 80 mg tablet 80 mg PO DAILYP PRN weight gain >5 07/19/24 08/03/24 pounds Saccharomyces boulardii 250 mg 250 mg PO BID 07/20/24 08/03/24 capsule (Florastor) ascorbic acid (vitamin C) 500 mg 500 mg PO DAILY 07/20/24 08/03/24 tablet aspirin 81 mg chewable tablet 81 mg PO DAILY 07/20/24 08/03/24 (Aspirin Childrens) lidocaine 4 % topical patch 1 patch topical DAILY apply to 07/20/24 08/03/24 left hip magnesium oxide 400 mg PO BID 07/20/24 08/03/24 methocarbamol 750 mg tablet 750 mg PO QIDP PRN muscle spasms 07/20/24 08/03/24 Previous Rx's ?Medication ?Instructions ?Recorded hydrocodone 7.5 mg-acetaminophen 1 tab PO Q4HP PRN Moderate Pain 07/21/24 325 mg tablet (4-6) #20 tabs insulin glargine 100 unit/mL (3 30 unit (0.3 mL) SQ BID #15 mL 07/21/24 mL) subcutaneous pen (Lantus Solostar U-100 Insulin) insulin lispro 100 unit/mL 8 unit (0.08 mL) SQ TID #15 mL 07/21/24 subcutaneous pen ibuprofen 800 mg tablet 800 mg PO Q8H 5 days #15 tabs 08/01/24 nystatin 100,000 unit/gram topical 1 applic topical BID #30 grams 08/01/24 powder Allergies Allergy/AdvReac Type Severity Reaction Status Date / Time duloxetine [From Cymbalta] Allergy Verified 08/03/24 11:16 Histamine H2 Inhibitors Allergy Verified 08/03/24 11:16 lisinopril Allergy Verified 08/03/24 11:16 sulfamethoxazole Allergy Verified 08/03/24 11:16 [From Bactrim] trimethoprim [From Bactrim] Allergy Verified 08/03/24 11:16 metoprolol AdvReac Severe Verified 08/03/24 11:16 beta blockers AdvReac Severe Insomnia Uncoded 06/13/24 10:01 [facility] Disclaimer: The information contained in this section may have been updated after the patient was seen, as this information can be updated by other users. 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 History of intravascular stent placement Family History Other No significant family history Social History Smoking Status: Never smoker second hand exposure: No alcohol intake: never substance use type: denies use current occupational status: employed Travel in the last 8 weeks: None household members: none and other housing: apartment current occupational exposures/hazards: No caffeine: No ROS Obtained: Yes All systems reviewed & no additional complaints except as documented Positive ROS per HPI Physical Exam General General appearance: alert, in no apparent distress and obese Comment: Chronically ill-appearing Head Head exam: atraumatic and normocephalic ENT ENT exam: Present mucous membranes moist Neck Neck exam: Present normal inspection and full ROM Chest Chest inspection: Present symmetric chest wall rise Respiratory Respiratory exam: Present normal lung sounds bilaterally; Absent respiratory distress, wheezes or stridor Cardiovascular Cardiovascular exam: Present regular rate and normal rhythm Abdominal Exam Abdominal exam: Present soft; Absent distention or tenderness Extremities Exam Extremities exam: Present full ROM, edema (Venous stasis changes and bilateral lower extremity pitting edema) and other (No traumatic injuries identified on exam); Absent joint swelling Expanded Lower Extremity Exam Left: Lower leg exam: Absent ecchymosis or deformity Foot/toe exam: Present tenderness (Tenderness and swelling of bilateral feet with recent transmetatarsal potation), swelling and amputation (patient has recent transmetatarsal amputation wounds with no bleeding at this time. 2 j luis have partially pulled through which is where the patient had had bleeding but is hemostatic at this time, the but there is no wound dehiscence. No erythema, induration, or purulence. ) Right: Lower leg exam: Absent ecchymosis or deformity Foot/toe exam: Present tenderness, swelling (Tenderness and swelling of the forefoot), amputation (Recent transmetatarsal amputation wound appears intact without dehiscence, no bleeding, induration, erythema, or purulence. ) and other (2 cm heel ulceration present) Neurological Exam Neurological exam: Present alert and oriented X3; Absent motor sensory deficit Psychiatric Psychiatric exam: Present normal affect and normal mood Skin Skin exam: Present warm and dry Medical Decision Making Medical Records Medical records reviewed: Yes I reviewed the patient's medical records. MR Comment: Patient had postoperative visit with her adult secondary education instructor on 08/03/2024. At that time the plan was to continue IV antibiotics and follow-up with labs before discontinuing antibiotics potentially at her next appointment which is 08/10/2024. Patient has had previous wound problems and adult secondary education instructor was concerned for swelling, recommending daily furosemide to help with bilateral lower extremity edema to prevent wound dehiscence. Patient is to be partially weightbearing on the heels only for transfers according to podiatry note. Mike Inquiry Pt receiving controlled substance: No Vital Signs: 08/08/24 05:44 Temperature 98.2 F Temperature Source Oral Pulse Rate [Right Radial] 86 Respiratory Rate 16 Blood Pressure [Right Arm] 116/59 L Blood Pressure Mean [Right Arm] 78 Blood Pressure Source [Right Arm] Automatic Cuff Blood Pressure Position [Right Arm] Supine 02 Sat by Pulse Oximetry 94 L Oxygen Delivery Method Room Air Medical Decision Narrative: In summary, this 53-year-old female with multiple comorbidities including history of diabetes, recent transmetatarsal amputation bilaterally which increased risk of infection, postoperative complications presents to the emergency department today with concerns of bleeding from the left surgical wound after accidentally hitting the foot while transferring to her bed at nursing facility. On initial evaluation patient is hemodynamically stable, afebrile, patient has no active bleeding from either surgical wound, 2 j luis on the left foot have partially pulled through which is where patient had had bleeding but is hemostatic at this time, there is not any wound dehiscence, no fluctuance, no purulence, no induration. Differential diagnosis includes but is not limited to wound dehiscence, surgical wound hemorrhage, hematoma expression, wound infection. No findings of infection on exam, no dehiscence, no active bleeding. Wound is well-approximated and I do not believe requires any further intervention at this time. The j luis appear to still be holding tissue so I did not remove them as I do not want to cause dehiscence. Patient's bilateral feet were dressed with clean dressings. Patient has outpatient follow-up with Dr. Jackson on 08/10/2024, 2 days from now. No new medications or other interventions outpatient are necessary at this time. Patient is appropriate for discharge. I called patient's nursing facility and spoke with her bedside nurse, Lilibeth, and updated her on the patient's status, ER interventions, and plan to be discharged as well as my discharge instructions. Patient was given instructions on symptomatic management, follow up instructions, and return precautions for the emergency department. Patient indicated understanding and was discharged in stable condition. Critical Care Critical Care Time Critical Care Time: No
[2024-08-08 06:10] VITALS: BP 96/74; PULSE 64; O2SAT 97
[2024-08-08 06:27] VITALS: BP 94/48; PULSE 91; O2SAT 90
--- NOTE | 2024-08-08 06:30 | PC.NURSE ---
on the phone with [facility] at this time.
[2024-08-08 06:31] VITALS: BP 106/52; PULSE 80; O2SAT 89
--- NOTE | 2024-08-08 06:31 | PC.NURSE ---
Dr. Hale called report to [facility]
--- NOTE | 2024-08-08 06:42 | PC.NURSE ---
EMS notified of need for transport
[2024-08-08 06:53] VITALS: BP 110/60; PULSE 64; RESP 18; TEMP 36.8; O2SAT 96
== END 2024-08-08 07:02 ==
PROVIDERS: Emergency Provider Emergency Medicine
DX: L76.22 Postprocedural hemorrhage of skin and subcutaneous tissue following other procedure (principal); E11.40 Type 2 diabetes mellitus with diabetic neuropathy, unspecified; I73.9 Peripheral vascular disease, unspecified; Z79.4 Long term (current) use of insulin; Z79.85 Long-term (current) use of injectable non-insulin antidiabetic drugs; Z89.421 Acquired absence of other right toe(s); W22.8XXA Striking against or struck by other objects, initial encounter
CPT/HCPCS: 99282

== ENCOUNTER 2024-08-10 11:58 | Emergency (ER) | payer OTHER, SELFPAY ==
[2024-08-10 11:59] VITALS: BP 101/61; PULSE 74; RESP 20; TEMP 36.6; O2SAT 98; BMI 58.9
[2024-08-10 12:15] VITALS: BP 101/61; PULSE 75; RESP 22; O2SAT 95
--- NOTE | 2024-08-10 12:24 | CT_ITS ---
FINAL REPORT CLINICAL HISTORY: R hip/lower abd pain COMPARISON: 06/05/2020 FINDINGS: CT OF THE ABDOMEN AND PELVIS WITH CONTRAST Axial CT images of the abdomen and pelvis were obtained after the administration of IV contrast. Coronal reformatted images were also obtained and reviewed.This study was performed with techniques to keep radiation doses as low as reasonably achievable (ALARA). Individualized dose reduction techniques using automated exposure control or adjustment of mA and/or kV according to the patient's size were employed. Abdomen: There is a stable left lower lobe noncalcified nodule measuring 10 mm. The heart is normal in size. The liver has a nodular contour consistent with cirrhosis. The spleen is unremarkable. There is a left adrenal mass measuring 32 mm, previously measured 16 mm, but nonspecific. The pancreas has an unremarkable appearance. The kidneys are normal, without evidence of mass or hydronephrosis. Stents are present in the distal abdominal aorta and iliac arteries. There are moderate vascular calcifications. Diffuse anasarca is noted. Pelvis: The appendix is not well-visualized. The urinary bladder is unremarkable. Multiple borderline size inguinal nodes are favored to be reactive. There is no evidence of bowel obstruction. Bones: There are diffuse degenerative changes in the spine. There is no acute fracture or dislocation. IMPRESSION: Diffuse anasarca. Interval enlargement of nonspecific left adrenal mass. This could be further evaluated with adrenal mass protocol CT or MRI. Reviewed, Interpreted and Dictated by Miah Queen III, MD Transcribed by Leonor Florez Authenticated and [facility]
--- NOTE | 2024-08-10 12:24 | XR_ITS ---
FINAL REPORT CLINICAL HISTORY: pain, limited weight bearing COMPARISON: None FINDINGS: RIGHT HIP Five images of the right hip were obtained. Images are suboptimal. There is no acute fracture or dislocation. Moderate degenerative change is noted. The visualized bony structures are well aligned. No soft tissue abnormality is seen. IMPRESSION: Moderate degenerative change without acute bony abnormality. Reviewed, Interpreted and Dictated by Miah Queen III, MD Transcribed by Leonor Florez Authenticated and [facility]
--- NOTE | 2024-08-10 12:24 | XR_ITS ---
FINAL REPORT CLINICAL HISTORY: pain, limited weight bearing COMPARISON: None FINDINGS: Three views of the right knee reveal no evidence of fracture or dislocation. The bony alignment is normal. There are mild degenerative changes. There is no evidence of joint effusion. No localized soft tissue abnormality is identified. IMPRESSION: Mild degenerative changes without acute abnormality identified. Reviewed, Interpreted and Dictated by Miah Queen III, MD Transcribed by Leonor Florez Authenticated and [facility]
--- NOTE | 2024-08-10 12:24 | XR_ITS ---
FINAL REPORT CLINICAL HISTORY: pain, limited weight bearing COMPARISON: None FINDINGS: Two views of the right femur were obtained. There is no acute fracture or dislocation. The joint spaces are well preserved. There is no acute soft tissue abnormality. IMPRESSION: No acute abnormality identified. Reviewed, Interpreted and Dictated by Miah Queen III, MD Transcribed by Leonor Florez Authenticated and [facility]
--- NOTE | 2024-08-10 12:25 | PC.NURSE ---
DR HERRERA SPEAKING WITH DR FLYNN
[2024-08-10] MEDS: IOPAMIDOL-370 (76%);100ML BOTTLE 75 ML IV (13:57)
[2024-08-10] MEDS: SODIUM CHLORIDE 0.9% 10ML SYR (RAD ONLY) 10 ML IV (13:57)
--- NOTE | 2024-08-10 14:04 | PC.NURSE ---
PT TO XR
--- NOTE | 2024-08-10 14:35 | PC.NURSE ---
Blood collected from R picc line and sent to lab at this time.
[2024-08-10 14:45] LABS: Basophils % 0.6 % (0.1-2.0); Eosinophils # 0.1 K/mm3 (0.0-0.4); Eosinophils % 2.6 % (0.1-12.0); Hematocrit 30.5 % (37.0-47.0); Hemoglobin 9.2 g/dL (12.2-16.2); Lymphocytes # 1.2 K/mm3 (0.7-4.5); Lymphocytes % 23.3 % (10-50); Mean Corpuscular HGB Conc 30.1 g/dL (31.8-35.4); Mean Corpuscular Hemoglobin 30.2 pg (27.0-31.2); Mean Corpuscular Volume 100.2 fl (81-99); Mean Platelet Volume 9.5 fl (7.4-10.4); Monocytes # 0.4 K/mm3 (0.1-1.0); Neutrophils # 3.4 K/mm3 (1.8-7.8); Neutrophils % 65.5 % (37.0-80.0); Platelet Count 163 K/mm3 (142-424); Red Blood Count 3.05 M/mm3 (4.20-5.40); Red Cell Distribution Width 16.1 % (11.5-17.5); White Blood Count 5.2 K/mm3 (4.8-10.8)
--- NOTE | 2024-08-10 14:51 | ED_ITS ---
Discharge Plan Disposition Patient Disposition: Xfer SNF Condition: Good Prescriptions Prescriptions: No Action gabapentin 800 mg tablet 800 mg PO QID clopidogrel [Plavix] 75 mg tablet 75 mg PO HS atorvastatin [Lipitor] 80 mg tablet 80 mg PO HS rabeprazole 20 mg tablet,delayed release (DR/EC) 20 mg PO HS potassium chloride 10 mEq tablet extended release 30 meq PO DAILY losartan 25 mg tablet 25 mg PO DAILY Trulicity 4.5 mg/0.5 mL pen injector 4.5 mg SQ WEEKLY spironolactone 25 mg tablet 25 mg PO DAILY furosemide 80 mg tablet 80 mg PO DAILYP PRN (Reason: weight gain >5 pounds) lidocaine 4 % Adhesive Patch,Medicated 1 patch TOPICAL DAILY ascorbic acid (vitamin C) 500 mg Tablet 500 mg PO DAILY aspirin [Aspirin Childrens] 81 mg Tablet,Chewable 81 mg PO DAILY Saccharomyces boulardii [Florastor] 250 mg Capsule 250 mg PO BID magnesium oxide 400 mg magnesium Tablet 400 mg PO BID methocarbamol 750 mg Tablet 750 mg PO QIDP PRN (Reason: muscle spasms) insulin glargine [Lantus Solostar U-100 Insulin] 100 unit/mL (3 mL) insulin pen 30 unit SQ BID Qty: 15 3RF hydrocodone-acetaminophen 7.5-325 mg Tablet 1 tab PO Q4HP PRN (Reason: Moderate Pain (4-6)) Qty: 20 0RF insulin lispro 100 unit/mL insulin pen 8 unit SQ TID Qty: 15 1RF ibuprofen 800 mg tablet 800 mg PO Q8H 5 Days Qty: 15 0RF Rx Instructions: Do not take meloxicam while taking ibuprofen. nystatin 100,000 unit/gram powder 1 applic topical BID Qty: 30 0RF Referrals Follow up/Referrals: Chris Underwood [Primary Care Provider] - See instructions Activity Restrictions/Add. Instructions Additional Instructions/Restrictions: You were evaluated in the emergency department today. Please continue diuresis with daily Lasix. Continue with wound care. Follow-up closely with primary care. Return to the emergency department for new or worsening symptoms. You have an enlarged adrenal mass, which was present on prior imaging. Please follow-up very closely for further evaluation and management of this on an outpatient basis. Clinical Impressions Clinical Impression: Anasarca, Acute pain of right hip, Elevated erythrocyte sedimentation rate, CRP elevated, Debility, Adrenal mass Print Language Print Language: Arabic Discharge ED Provider: Ashanti Marie General Adult HPI General Chief complaint: PAIN Stated complaint: R Hip Pain Time Seen by Provider: 08/10/24 12:15 Mode of Arrival: Wheelchair Source of Information: Patient and Relative Limitations: No Limitations Description of Symptoms (Recalled from ER Triage Doc. by RN): Pt c/o chronic R hip pain. States it is painful to bear-weight, roll-over in bed, and lift leg up. Pt feels I'm so swollen all over because I need IV lasix, then took me down to 80mg a day. I was on 160mg a day . Denies any SOA or chest pain. History of Present Illness HPI narrative: This patient is a 53-year-old female with history of obesity, type 2 diabetes, peripheral neuropathy, Charcot foot, peripheral arterial disease, and recent bilateral foot surgery presenting to the emergency department with concern for right hip pain. She states that her hip has been hurting and is making it hard for her to assist with transfers or mobilization in the nursing facility. She went to podiatry today for evaluation but podiatry is not able to evaluate her right hip, so patient came to the ED for evaluation. No known falls or traumatic injuries. No fevers, chills, or other concerns she does note that she is having a lot of swelling to her abdominal wall and vagina still at this point. She states that she is concerned she needs IV Lasix with worsening swelling. I had an interactive discussion with Dr. Glover her undertaker helper to advise that her foot wounds are doing well. Related Data Home Medications ?Medication ?Instructions ?Recorded ?Confirmed atorvastatin 80 mg tablet (Lipitor) 80 mg PO HS High cholesterol 10/31/19 08/10/24 clopidogrel 75 mg tablet (Plavix) 75 mg PO HS Heart disease 10/31/19 08/10/24 gabapentin 800 mg tablet 800 mg PO QID 10/31/19 08/10/24 rabeprazole 20 mg tablet,delayed 20 mg PO HS 10/31/19 08/10/24 release potassium chloride 10 mEq 30 meq PO DAILY 01/26/22 08/10/24 tablet,extended release dulaglutide 4.5 mg/0.5 mL 4.5 mg SQ WEEKLY on Tuesdays06/25/22 08/10/24 subcutaneous pen injector (Trulicity) losartan 25 mg tablet 25 mg PO DAILY 06/25/22 08/10/24 spironolactone 25 mg tablet 25 mg PO DAILY 03/02/23 08/10/24 furosemide 80 mg tablet 80 mg PO DAILYP PRN weight gain >5 07/19/24 08/10/24 pounds Saccharomyces boulardii 250 mg 250 mg PO BID 07/20/24 08/10/24 capsule (Florastor) ascorbic acid (vitamin C) 500 mg 500 mg PO DAILY 07/20/24 08/10/24 tablet aspirin 81 mg chewable tablet 81 mg PO DAILY 07/20/24 08/10/24 (Aspirin Childrens) lidocaine 4 % topical patch 1 patch topical DAILY apply to 07/20/24 08/10/24 left hip magnesium oxide 400 mg PO BID 07/20/24 08/10/24 methocarbamol 750 mg tablet 750 mg PO QIDP PRN muscle spasms 07/20/24 08/10/24 Previous Rx's ?Medication ?Instructions ?Recorded hydrocodone 7.5 mg-acetaminophen 1 tab PO Q4HP PRN Moderate Pain 07/21/24 325 mg tablet (4-6) #20 tabs insulin glargine 100 unit/mL (3 30 unit (0.3 mL) SQ BID #15 mL 07/21/24 mL) subcutaneous pen (Lantus Solostar U-100 Insulin) insulin lispro 100 unit/mL 8 unit (0.08 mL) SQ TID #15 mL 07/21/24 subcutaneous pen ibuprofen 800 mg tablet 800 mg PO Q8H 5 days #15 tabs 08/01/24 nystatin 100,000 unit/gram topical 1 applic topical BID #30 grams 08/01/24 powder Allergies Allergy/AdvReac Type Severity Reaction Status Date / Time duloxetine [From Cymbalta] Allergy Verified 08/10/24 11:15 Histamine H2 Inhibitors Allergy Verified 08/10/24 11:15 lisinopril Allergy Verified 08/10/24 11:15 sulfamethoxazole Allergy Verified 08/10/24 11:15 [From Bactrim] trimethoprim [From Bactrim] Allergy Verified 08/10/24 11:15 metoprolol AdvReac Severe Verified 08/10/24 11:15 beta blockers AdvReac Severe Insomnia Uncoded 06/13/24 10:01 [facility] Disclaimer: The information contained in this section may have been updated after the patient was seen, as this information can be updated by other users. 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 History of intravascular stent placement Family History Other No significant family history Social History Smoking Status: Former smoker second hand exposure: No alcohol intake: never substance use type: denies use current occupational status: employed Travel in the last 8 weeks: None household members: none and other housing: apartment current occupational exposures/hazards: No caffeine: No ROS Obtained: Yes All systems reviewed & no additional complaints except as documented Physical Exam General General appearance: alert, in no apparent distress and obese Head Head exam: atraumatic and normocephalic Eye Eye exam: Present normal appearance, PERRL and EOMI ENT ENT exam: Present normal exam, normal oropharynx, mucous membranes moist and normal external ear exam Neck Neck exam: Present normal inspection, full ROM and trachea midline; Absent tenderness Chest Chest inspection: Present normal inspection and symmetric chest wall rise; Absent tenderness Respiratory Respiratory exam: Present normal lung sounds bilaterally; Absent respiratory distress, wheezes, stridor or accessory muscle use Cardiovascular Cardiovascular exam: Present regular rate and normal rhythm Abdominal Exam Abdominal exam: Present soft and other (Significant soft tissue edema about the lower abdominal wall and mons); Absent distention, tenderness or guarding External exam: Present other (Significant soft tissue edema) Extremities Exam Extremities exam: Present normal capillary refill and other (dressings to BLE); Absent tenderness or edema Back Exam Back exam: Present normal inspection and full ROM; Absent tenderness Neurological Exam Neurological exam: Present alert, oriented X3, CN II-XII intact and normal gait; Absent motor sensory deficit Psychiatric Psychiatric exam: Present normal affect and normal mood Skin Skin exam: Present warm and dry Medical Decision Making Medical Records Medical records reviewed: Yes I reviewed the patient's medical records. Mike Inquiry Pt receiving controlled substance: No Vital Signs: 08/10/24 11:59 08/10/24 12:15 08/10/24 16:18 Temperature 97.8 F 97.8 F Temperature Source Oral Oral Pulse Rate 75 85 Pulse Rate [Right] 74 Respiratory Rate 20 22 20 Blood Pressure 101/61 L 124/80 Blood Pressure [Right Arm] 101/61 L Blood Pressure Mean [Right Arm] 74 Blood Pressure Source Automatic Cuff Blood Pressure Source [Right Arm] Automatic Cuff 02 Sat by Pulse Oximetry 98 95 Oxygen Delivery Method Room Air Room Air Room Air Lab Data Lab results reviewed: Yes I reviewed the patient's lab results. Lab Results 08/10/24 12:52: Urine Color Yellow, Urine Appearance Clear, Urine pH 6.0, Ur Specific [place] 1.010, Urine Protein Negative, Urine Glucose (UA) Negative, Urine Ketones Negative, Urine Blood Negative, Urine Nitrate Negative, Urine Bilirubin Negative, Urine Urobilinogen 0.2, Ur Leukocyte Esterase Negative, Urine RBC None, Urine WBC None, Ur Squamous Epith Cells Occasional, Urine Bacteria Trace 08/10/24 14:30: WBC 5.2, RBC 3.05 L, Hgb 9.2 L, Hct 30.5 L, MCV 100.2 H, MCH 30.2, MCHC 30.1 L, RDW 16.1, Plt Count 163, MPV 9.5, Neut % (Auto) 65.5, Lymph % (Auto) 23.3, [place] % (Auto) 8.0, Eos % (Auto) 2.6, Baso % (Auto) 0.6, Neut # (Auto) 3.4, Lymph # (Auto) 1.2, [place] # (Auto) 0.4, Eos # (Auto) 0.1, Baso # (Auto) 0.0, ESR 101 H, Sodium 135 L, Potassium 3.9, Chloride 100, Carbon Dioxide 33 H, Anion Gap 5.9, BUN 29 H, Creatinine 1.20 H, Estimated Creat Clear 58, E stimated GFR 47 L, Est GFR ( Amer) 57 L, Glucose 87, Calcium 8.1 L, Total Bilirubin 1.5 H, AST 47 H, ALT 36, Alkaline Phosphatase 77, C-Reactive Protein 66.9 H, Total Protein 6.4, Albumin 3.3 L, Globulin 3.1, Albumin/Globulin Ratio 1.1 08/10/24 14:30 08/10/24 14:30 Orders (Tests/Meds): ED MEDICATIONS Discontinued Medications Generic Name Dose Route Start Last Admin Trade Name Freq PRN Reason Stop Dose Admin Iopamidol 75 ml 08/10/24 13:56 08/10/24 13:57 Iopamidol-370 (76%);100ml Bottle IV 08/10/24 13:57 75 ml ONCE ONE Administration Sodium Chloride 10 ml 08/10/24 13:56 08/10/24 13:57 Sodium Chloride 0.9% 10ml Syr (Rad Only) IV 08/10/24 13:57 10 ml ONCE ONE Administration ORDERS Category Date Time Status CT abdomen pelvis w con Stat Cat Scan 08/10/24 12:24 Completed Femur XR right 2 views [XR femur RT 2V] Stat Exams 08/10/24 12:24 Completed Hip XR right minimum 2 views [XR hip RT 2-3V w/pelvis] Exams 08/10/24 12:24 Completed Stat Knee XR right 3 views [XR knee RT 3V] Stat Exams 08/10/24 12:24 Completed CRP [C-Reactive Protein] Stat Lab 08/10/24 14:30 Completed Complete Blood Count Auto Diff Stat Lab 08/10/24 14:30 Completed Comprehensive Metabolic Panel Stat Lab 08/10/24 14:30 Completed ESR [Erythrocyte Sedimentation Rate] Stat Lab 08/10/24 14:30 Completed Urinalysis and Microscopic Routine Lab 08/10/24 12:52 Completed Medical Decision Narrative: In summary, this patient is a 53-year-old female presenting to the Emergency Department for evaluation of right hip pain and continued lower abdominal wall edema. Differential diagnoses considered include but are not limited to fracture, contusion, musculoskeletal strain/sprain, referred pain. Ruling out the most morbid conditions drove assessment. It should be noted patient's history includes morbid obesity, diabetes, peripheral vascular disease which are not at goal therapy. This complicates all aspects of care by increasing patient's risk for morbidity. I reviewed patient's past medical records and noted multiple previous ED evaluations for various complaints over the last several days. On exam, the patient is lying in bed in no acute distress. She has continued abdominal wall and mons edema but no obvious other acute concerns. Workup included lab evaluation to screen for infectious/inflammatory issue as well as CT abdomen and pelvis, CT bony pelvis, and x-rays of the painful right lower extremity. I independently interpreted CT scans and x-rays prior to the radiologist read and noted abdominal wall edema but no other acutely concerning abnormality. Please see their read for final interpretation. Labs were obtained that demonstrated elevated inflammatory markers which is chronic but slightly worsened. Her creatinine is also mildly elevated. She has chronic anemia. Urine is not concerning for infection and she has no significant leukocytosis. She has intact passive range of motion of her hip without significant pain, so doubt septic arthritis or other acute cause of her pain. She has degenerative change on imaging but no acute fracture. Ultimately I feel this is likely related to her morbid obesity, general debility, and body mechanics. She has an enlarging adrenal gland, which I notified her of. On reassessment, patient is resting comfortably. Ultimately, she was found to have anasarca which is ongoing, very mild GERARDO and degenerative changes to her hip, but workup was otherwise been reassuring. She already has outpatient management for this and was just restarted on her Lasix to try and get rid of this edema. I advised her to feel is important to continue with this. Ultimately it does not appear that there is anything acute that has changed from the patient's chronic clinical course, so I feel she is appropriate for discharge home with continued diuresis and close outpatient monitoring. She already has wound care and support in her nursing facility. Strict return precautions were given and the patient was discharged after all questions were answered. Critical Care Critical Care Time Critical Care Time: No
--- NOTE | 2024-08-10 15:04 | PC.NURSE ---
CONTACTED LAB TO ASSIST WITH ORDERING UA.
[2024-08-10 15:05] LABS: Microscopic, Urine URINE MICROSCOPIC (MICROSCOPIC)
[2024-08-10 15:09] LABS: Appearance,Urine CLEAR (Clear); Bilirubin,Urine Negative (Negative); Blood, Urine Negative (Negative); Color,Urine YELLOW (Yellow); Glucose,Urine (UA) Negative (Negative); Ketones,Urine Negative (Negative); Leukocyte Esterase,Urine Negative (Negative); Nitrate,Urine Negative (Negative); Protein,Urine Negative (Negative); Urobilinogen,Urine 0.2 EU/dl (0.2)
[2024-08-10 15:13] LABS: Albumin Level 3.3 g/dl (3.5-5.0); Chloride 100 mmol/L (98-107); Potassium 3.9 mmoL/L (3.5-5.1); Sodium 135 mmol/L (136-145)
[2024-08-10 15:16] LABS: Alanine Aminotransferase 36 U/L (12-78); Albumin/Globulin Ratio 1.1 (1.1-1.8); Alkaline Phosphatase 77 U/L (38-126); Anion Gap 5.9 mEq/L (5-15); Aspartate Amino Transferase 47 U/L (14-36); Bilirubin,Total 1.5 mg/dl (0.2-1.3); Blood Urea Nitrogen 29 mg/dl (7-17); Calcium 8.1 mg/dl (8.4-10.2); Carbon Dioxide 33 mmol/L (22.0-30.0); Creatinine Clearance Estimated 58 mL/min (50-200); Estimated Glomerular Filt Rate 47 ml/min (>60); GFR (African American) 57 ML/MIN (>60); Globulin 3.1 g/dL (1.3-3.2); Glucose 87 mg/dl (74-100); Total Protein,Serum 6.4 g/dl (6.3-8.2)
[2024-08-10 15:22] LABS: C-Reactive Protein 66.9 mg/L (0-4)
[2024-08-10 15:26] LABS: Bacteria,Urine Trace /lpf; Squamous Epithelial Cell,Urine Occasional #/hpf (0-5)
[2024-08-10 15:27] LABS: Erythrocyte Sedimentation Rate 101 mm/hr (0-30)
[2024-08-10 16:18] VITALS: BP 124/80; PULSE 85; RESP 20; TEMP 36.6; O2SAT 96
== END 2024-08-10 16:20 ==
PROVIDERS: Emergency Provider Emergency Medicine; PCP Family Medicine
DX: M25.551 Pain in right hip (principal); R60.1 Generalized edema; E27.8 Other specified disorders of adrenal gland; R70.0 Elevated erythrocyte sedimentation rate; R79.82 Elevated C-reactive protein (CRP); R53.81 Other malaise
CPT/HCPCS: 73502; 73552; 73562; 74177; 80053; 81001; 85025; 85651; 86140; 99284; Q9967

== ENCOUNTER 2024-08-15 12:26 | Emergency (ER) | payer OTHER, SELFPAY ==
[2024-08-15 11:59] VITALS: BP 96/43; PULSE 73; RESP 16; O2SAT 97; BMI 58.9
[2024-08-15 12:22] VITALS: BP 104/27; PULSE 76
--- NOTE | 2024-08-15 12:24 | CT_ITS ---
FINAL REPORT TECHNIQUE: Axial CT images were performed through the head. Coronal and sagittal reformatted images were submitted. This study was performed with techniques to keep radiation doses as low as reasonably achievable (ALARA). Individualized dose reduction techniques using automated exposure control or adjustment of mA and/or kV according to the patient's size were employed. CLINICAL HISTORY: fall, L medial canthus injury COMPARISON: None FINDINGS: There is limitation of overall image quality secondary to motion artifact. The ventricles are normal in size. There is a soft tissue laceration with subcutaneous emphysema noted adjacent to the medial aspect of the orbit on the left side. The left globe appears unremarkable. No foreign body is identified. There is no evidence of hemorrhage. There is no mass or edema identified. There is no abnormal extra-axial fluid seen. There is opacification of the left mastoid air cells, with soft tissue density in the left middle ear cavity consistent with an otitis. No acute fracture is identified. IMPRESSION: Soft tissue laceration with subcutaneous emphysema is present adjacent to the medial aspect of the orbit on the left side. No radiopaque foreign body is identified in the left globe appears unremarkable. Opacification of the left mastoid air cells with soft tissue density in the left middle ear cavity consistent with otitis. Reviewed, Interpreted and Dictated by Raji Madera MD Transcribed by Thania Lutz Authenticated and [facility]
--- NOTE | 2024-08-15 12:24 | CT_ITS ---
FINAL REPORT TECHNIQUE: Axial images were obtained of the cervical spine by computed tomography. Coronal and sagittal reconstruction process performed. This study was performed with techniques to keep radiation doses as low as reasonably achievable (ALARA). Individualized dose reduction techniques using automated exposure control or adjustment of mA and/or kV according to the patient''s size were employed. CLINICAL HISTORY: fall, head trauma FINDINGS: Exam is significantly underpenetrated and markedly compromised. There is significant disc space narrowing at C4-5, C5-6, and C6-7. There is reversal of the cervical lordosis. Prominent posterior osteophytes are seen at C5-6 and C6-7 resulting in moderate spinal canal compromise. The facets are properly aligned. IMPRESSION: Markedly compromised imaging. Advanced degenerative disc disease with posterior osteophytes as detailed above. No fracture identified. Reviewed, Interpreted and Dictated by Raji Madera MD Transcribed by Zora Edwards Authenticated and [facility]
--- NOTE | 2024-08-15 12:24 | XR_ITS ---
FINAL REPORT CLINICAL HISTORY: fall, L knee and ankle pain COMPARISON: None FINDINGS: LEFT KNEE 3 views of the left knee were obtained. There is no acute fracture or dislocation. Visualized joint spaces are normally aligned. There is subcutaneous soft tissue swelling in the distal thigh and the proximal calf. IMPRESSION: Extensive soft tissue swelling with no acute bony abnormality. Reviewed, Interpreted and Dictated by Raji Madera MD Transcribed by Thania Lutz Authenticated and [facility]
--- NOTE | 2024-08-15 12:24 | XR_ITS ---
FINAL REPORT CLINICAL HISTORY: fall, L ankle pain COMPARISON: None FINDINGS: LEFT ANKLE Three views demonstrate no acute fracture or dislocation. Extensive medial soft tissue swelling is present. There has been a recent transmetatarsal amputation of the left foot, with multiple surgical j luis noted. The visualized joint spaces are normally aligned. IMPRESSION: Recent transmetatarsal amputation with j luis and extensive medial soft tissue swelling, no acute bony abnormality. Reviewed, Interpreted and Dictated by Raji Madera MD Transcribed by Thania Lutz Authenticated and [facility]
--- NOTE | 2024-08-15 12:24 | CT_ITS ---
FINAL REPORT TECHNIQUE: Multiple axial CT sections were performed through the face without IV contrast. Coronal reconstruction images were performed. This study was performed with techniques to keep radiation doses as low as reasonably achievable (ALARA). Individualized dose reduction techniques using automated exposure control or adjustment of mA and/or kV according to the patient's size were employed. CLINICAL HISTORY: fal, medial canthus injury L FINDINGS: There is a soft tissue defect medial to the left orbit with subcutaneous emphysema. No foreign body is identified. There is no evidence of fracture. There is mild mucoperiosteal thickening and complete opacification of the left mastoid air cells. There is abnormal soft tissue in the middle ear cavity. IMPRESSION: Soft tissue defect medial to the left orbit without evidence of fracture or foreign body. Reviewed, Interpreted and Dictated by Raji Madera MD Transcribed by Zora Edwards Authenticated and [facility]
[2024-08-15 12:31] VITALS: BP 90/38; PULSE 74
--- NOTE | 2024-08-15 13:25 | ED_ITS ---
Discharge Plan Disposition Patient Disposition: Xfer Short-Term Hosp Chief Complaint: Fall Prescriptions Prescriptions: No Action gabapentin 800 mg tablet 800 mg PO QID clopidogrel [Plavix] 75 mg tablet 75 mg PO HS atorvastatin [Lipitor] 80 mg tablet 80 mg PO HS rabeprazole 20 mg tablet,delayed release (DR/EC) 20 mg PO HS potassium chloride 10 mEq tablet extended release 30 meq PO DAILY losartan 25 mg tablet 25 mg PO DAILY Trulicity 4.5 mg/0.5 mL pen injector 4.5 mg SQ WEEKLY spironolactone 25 mg tablet 25 mg PO DAILY furosemide 80 mg tablet 80 mg PO DAILYP PRN (Reason: weight gain >5 pounds) lidocaine 4 % Adhesive Patch,Medicated 1 patch TOPICAL DAILY ascorbic acid (vitamin C) 500 mg Tablet 500 mg PO DAILY aspirin [Aspirin Childrens] 81 mg Tablet,Chewable 81 mg PO DAILY Saccharomyces boulardii [Florastor] 250 mg Capsule 250 mg PO BID magnesium oxide 400 mg magnesium Tablet 400 mg PO BID methocarbamol 750 mg Tablet 750 mg PO QIDP PRN (Reason: muscle spasms) insulin glargine [Lantus Solostar U-100 Insulin] 100 unit/mL (3 mL) insulin pen 30 unit SQ BID Qty: 15 3RF hydrocodone-acetaminophen 7.5-325 mg Tablet 1 tab PO Q4HP PRN (Reason: Moderate Pain (4-6)) Qty: 20 0RF insulin lispro 100 unit/mL insulin pen 8 unit SQ TID Qty: 15 1RF ibuprofen 800 mg tablet 800 mg PO Q8H 5 Days Qty: 15 0RF Rx Instructions: Do not take meloxicam while taking ibuprofen. nystatin 100,000 unit/gram powder 1 applic topical BID Qty: 30 0RF Referrals Follow up/Referrals: Chris Underwood [Primary Care Provider] - See instructions Clinical Impressions Clinical Impression: Injury of canthus of eyelid, CHI (closed head injury), Face lacerations, Acute pain of left knee, Acute left ankle pain Print Language Print Language: Latvian Discharge ED Provider: Jama Cuellar General Adult HPI General Chief complaint: Fall Stated complaint: Fall Time Seen by Provider: 08/15/24 13:14 Mode of Arrival: EMS Source of Information: Patient and EMS Limitations: No Limitations Description of Symptoms (Recalled from ER Triage Doc. by RN): Patient was brought in by EMS with c/o a fall. Pt reports she fell asleep while sitting on the side of the bed and hit her face on another bed. Patient does reports she takes a blood thinner. History of Present Illness HPI narrative: Please note that above description of symptoms, in this electronic medical record under categorization of recalled from ER triage doctor by RN are reflective of an initial nursing assessment, however, is not reflective of my full history and physical exam that was personally taken and clarified. Consequentially, this preceding description of symptoms, which may include the patient's categorized chief complaint in the EMR, do not reflect my personal clinical impression, and the ultimate description of history of present illness and patient stated complaints should be deferred to this section of the note. Unless stated otherwise or congruent with this section of the note, additional signs, symptoms, or incongruence should be interpreted as inaccurate with my clinical impression. Related Data Home Medications ?Medication ?Instructions ?Recorded ?Confirmed atorvastatin 80 mg tablet (Lipitor) 80 mg PO HS High cholesterol 10/31/19 08/10/24 clopidogrel 75 mg tablet (Plavix) 75 mg PO HS Heart disease 10/31/19 08/10/24 gabapentin 800 mg tablet 800 mg PO QID 10/31/19 08/10/24 rabeprazole 20 mg tablet,delayed 20 mg PO HS 10/31/19 08/10/24 release potassium chloride 10 mEq 30 meq PO DAILY 01/26/22 08/10/24 tablet,extended release dulaglutide 4.5 mg/0.5 mL 4.5 mg SQ WEEKLY on Tuesdays06/25/22 08/10/24 subcutaneous pen injector (Trulicity) losartan 25 mg tablet 25 mg PO DAILY 06/25/22 08/10/24 spironolactone 25 mg tablet 25 mg PO DAILY 03/02/23 08/10/24 furosemide 80 mg tablet 80 mg PO DAILYP PRN weight gain >5 07/19/24 08/10/24 pounds Saccharomyces boulardii 250 mg 250 mg PO BID 07/20/24 08/10/24 capsule (Florastor) ascorbic acid (vitamin C) 500 mg 500 mg PO DAILY 07/20/24 08/10/24 tablet aspirin 81 mg chewable tablet 81 mg PO DAILY 07/20/24 08/10/24 (Aspirin Childrens) lidocaine 4 % topical patch 1 patch topical DAILY apply to 07/20/24 08/10/24 left hip magnesium oxide 400 mg PO BID 07/20/24 08/10/24 methocarbamol 750 mg tablet 750 mg PO QIDP PRN muscle spasms 07/20/24 08/10/24 Previous Rx's ?Medication ?Instructions ?Recorded hydrocodone 7.5 mg-acetaminophen 1 tab PO Q4HP PRN Moderate Pain 07/21/24 325 mg tablet (4-6) #20 tabs insulin glargine 100 unit/mL (3 30 unit (0.3 mL) SQ BID #15 mL 07/21/24 mL) subcutaneous pen (Lantus Solostar U-100 Insulin) insulin lispro 100 unit/mL 8 unit (0.08 mL) SQ TID #15 mL 07/21/24 subcutaneous pen ibuprofen 800 mg tablet 800 mg PO Q8H 5 days #15 tabs 08/01/24 nystatin 100,000 unit/gram topical 1 applic topical BID #30 grams 08/01/24 powder Allergies Allergy/AdvReac Type Severity Reaction Status Date / Time duloxetine [From Cymbalta] Allergy Verified 08/10/24 11:15 Histamine H2 Inhibitors Allergy Verified 08/10/24 11:15 lisinopril Allergy Verified 08/10/24 11:15 sulfamethoxazole Allergy Verified 08/10/24 11:15 [From Bactrim] trimethoprim [From Bactrim] Allergy Verified 08/10/24 11:15 metoprolol AdvReac Severe Verified 08/10/24 11:15 beta blockers AdvReac Severe Insomnia Uncoded 06/13/24 10:01 [facility] Disclaimer: The information contained in this section may have been updated after the patient was seen, as this information can be updated by other users. 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 History of intravascular stent placement Family History Other No significant family history Social History Smoking Status: Never smoker second hand exposure: No alcohol intake: never substance use type: denies use current occupational status: employed Travel in the last 8 weeks: None household members: none and other housing: apartment current occupational exposures/hazards: No caffeine: No ROS Obtained: Yes All systems reviewed & no additional complaints except as documented Physical Exam General General appearance: alert Head Head exam: normocephalic and other (Patient has 1 cm laceration within 1 mm of medial canthus of left eye) Eye Eye exam: Present EOMI and other (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 No evidence of hyphema, proptosis, entrapment, conjunctival hemorrhage, acute pupillary changes, cellulitic change, obvious foreign body, or otherwise irregular ocular findings. ) Neck Neck exam: Present normal inspection, full ROM and trachea midline Respiratory Respiratory exam: Absent respiratory distress, wheezes, stridor, accessory muscle use or prolonged expiratory phase Cardiovascular Cardiovascular exam: Present other (Pulses equal symmetric in upper and lower extremities) Abdominal Exam Abdominal exam: Present soft; Absent distention, tenderness or pulsatile mass Extremities Exam Extremities exam: Absent edema Neurological Exam Neurological exam: Present alert, oriented X3 and CN II-XII intact; Absent motor sensory deficit Skin Skin exam: Present warm and dry; Absent diaphoresis or erythema Medical Decision Making Medical Records Medical records reviewed: Yes I reviewed the patient's medical records. Screening: Per USPSTF and CDC recommendations, given the prevalence of disease in our region, it is our hospital?s policy to screen for HIV and viral Hepatitis for all patients aged 18 and over and those with ongoing risk factors. Mike Inquiry Pt receiving controlled substance: No Mike was queried for this patient: No Vital Signs: 08/15/24 11:59 08/15/24 12:22 08/15/24 12:31 Pulse Rate 76 74 Pulse Rate [Right Brachial] 73 Respiratory Rate 16 Blood Pressure 104/27 L 90/38 L Blood Pressure [Right Arm] 96/43 L Blood Pressure Mean 65 58 Blood Pressure Mean [Right Arm] 60 02 Sat by Pulse Oximetry 97 Oxygen Delivery Method Room Air Room Air Room Air Orders (Tests/Meds): ORDERS Category Date Time Status CT cervical spine wo con Stat Cat Scan 08/15/24 12:[address] facial bones wo con Stat Cat Scan 08/15/24 12:[address] head/brain wo con Stat Cat Scan 08/15/24 12:24 Taken Ankle XR - Left minimum 3 Views [XR ankle LT min 3V] Exams 08/15/24 12:24 Taken Stat Knee XR left 3 views [XR knee LT 3V] Stat Exams 08/15/24 12:24 Taken Medical Decision Narrative: This is a 53-year-old female history of hypertension, hyperlipidemia, CAD, PAD, sleep apnea, numerous left eye surgeries presenting with head trauma after fall. Patient states that she tried to roll over in bed, fell out of bed, landed on the ground hit her eye on the coffee table as she rolled out of bed. This happened just before arrival. Having pain left side of her nose and left knee/ankle. Has not ambulated since any of this. Pain is mild in intensity, does not radiate. No loss of consciousness. Patient not on anticoagulation. History obtained with patient. On arrival, patient very well-appearing. She does have a 1 cm laceration at left medial canthus. No new left orbital changes or acute traumatic changes of the eye. 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 No signs of basilar or depressed skull fracture. Left lower extremity tender, but no outward signs of injury or deformity. Neurovascularly intact. Differential includes intracranial hemorrhage, critical C-spine injury, lacrimal gland injury, globe injury, among others. CT head and C-spine were ordered, on independent rotation, these were negative for any acute abnormality. X-ray left knee and left ankle were also obtained given no acute bony abnormality of the imaged lower extremity on independent interpretation. Because patient has laceration to medial canthus with concern for lacrimal duct involvement, [facility] was contacted and case was discussed at length, graciously excepted transfer for ophthalmology evaluation with Dr. Perez. 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 Electronic artist representative of the spoken language may permit errors. Although I have reviewed the note, some errors may still exist. Critical Care Critical Care Time Critical Care Time: Yes (ophthalmological) Attestation: On 08/15/24, the high probability of a clinically significant, sudden or life threatening deterioration of the following system(s) required my full and direct attention, intervention and personal management. The time I documented below is in addition to time spent performing reported procedures but includes the following listed in this critical care notation. Total Time Total Critical Care Time: 35
[2024-08-15 13:40] VITALS: BP 124/53; PULSE 85; O2SAT 94
[2024-08-15 15:00] VITALS: BP 124/53; PULSE 71; RESP 20; TEMP 36.8; O2SAT 95
== END 2024-08-15 15:02 | disposition short-term general hospital (02) ==
PROVIDERS: Emergency Provider Emergency Medicine; PCP Family Medicine
DX: S01.112A Laceration without foreign body of left eyelid and periocular area, initial encounter (principal); S09.90XA Unspecified injury of head, initial encounter; S01.81XA Laceration without foreign body of other part of head, initial encounter; M25.562 Pain in left knee; M25.572 Pain in left ankle and joints of left foot; W06.XXXA Fall from bed, initial encounter
CPT/HCPCS: 70450; 70486; 72125; 73562; 73610; 99285

== ENCOUNTER 2024-09-06 12:24 | Outpatient (CLI) | payer OTHER, SELFPAY ==
--- NOTE | 2024-09-06 12:32 | XR_ITS ---
FINAL REPORT CLINICAL HISTORY: CHF COMPARISON: 07/20/2024 FINDINGS: Two views of the chest were obtained. The exam is suboptimal secondary to the patient's body habitus. The PICC line noted on the prior exam has been removed. Cardiomegaly is present, along with mild pulmonary vascular congestion. The mediastinum is normal. No acute pulmonary abnormality is identified. There is no pneumothorax. The bony thorax is intact. IMPRESSION: Cardiomegaly with mild pulmonary vascular congestion. Suboptimal exam secondary to the patient's body habitus. Reviewed, Interpreted and Dictated by Miah Queen III, MD Transcribed by Thania Lutz Authenticated and . [facility]
== END 2024-09-06 23:59 | disposition home or self-care (01) ==
LOC: RAD 12:27
PROVIDERS: PCP Family Medicine; Visit Provider Internal Medicine
DX: I50.9 Heart failure, unspecified (principal); I51.7 Cardiomegaly
CPT/HCPCS: 71046

== ENCOUNTER 2024-09-21 12:15 | Outpatient (CLI) | payer OTHER, SELFPAY ==
[2024-09-21 12:38] LABS: Basophils % 0.4 % (0.1-2.0); Eosinophils # 0.1 K/mm3 (0.0-0.4); Eosinophils % 0.9 % (0.1-12.0); Hematocrit 36.9 % (37.0-47.0); Hemoglobin 11.5 g/dL (12.2-16.2); Lymphocytes # 1.4 K/mm3 (0.7-4.5); Lymphocytes % 18.6 % (10-50); Mean Corpuscular HGB Conc 31.2 g/dL (31.8-35.4); Mean Corpuscular Hemoglobin 28.2 pg (27.0-31.2); Mean Corpuscular Volume 90.2 fl (81-99); Mean Platelet Volume 10.2 fl (7.4-10.4); Monocytes # 0.4 K/mm3 (0.1-1.0); Monocytes % 4.7 % (1.7-9.3); Neutrophils # 5.6 K/mm3 (1.8-7.8); Neutrophils % 75.4 % (37.0-80.0); Platelet Count 154 K/mm3 (142-424); Red Cell Distribution Width 16.3 % (11.5-17.5); White Blood Count 7.4 K/mm3 (4.8-10.8)
[2024-09-21 13:01] LABS: Chloride 93 mmol/L (98-107)
[2024-09-21 13:02] LABS: Albumin Level 3.6 g/dl (3.5-5.0); Potassium 3.2 mmoL/L (3.5-5.1); Sodium 138 mmol/L (136-145)
[2024-09-21 13:04] LABS: Alanine Aminotransferase 24 U/L (12-78); Aspartate Amino Transferase 33 U/L (14-36); Blood Urea Nitrogen 19 mg/dl (7-17); Estimated Glomerular Filt Rate 58 ml/min (>60); GFR (African American) 70 ML/MIN (>60)
[2024-09-21 13:05] LABS: Albumin/Globulin Ratio 0.9 (1.1-1.8); Alkaline Phosphatase 72 U/L (38-126); Bilirubin,Total 1.2 mg/dl (0.2-1.3); Calcium 8.4 mg/dl (8.4-10.2); Globulin 3.8 g/dL (1.3-3.2); Glucose 172 mg/dl (74-100); Total Protein,Serum 7.4 g/dl (6.3-8.2)
[2024-09-21 13:12] LABS: Anion Gap 12.2 mEq/L (5-15); Carbon Dioxide 36 mmol/L (22.0-30.0)
== END 2024-09-21 23:59 | disposition home or self-care (01) ==
LOC: LAB 12:15
PROVIDERS: PCP Family Medicine; Visit Provider Family Medicine
DX: D64.9 Anemia, unspecified (principal); E87.6 Hypokalemia; E83.42 Hypomagnesemia
CPT/HCPCS: 36415; 80053; 83735; 85025

== ENCOUNTER 2025-08-01 08:10 | Outpatient (CLI) | payer MEDICAID, SELFPAY ==
--- OUTSIDE RECORDS SUMMARY | 2025-06-28 09:30 | XMS_ITS | Encounter Summary ---
Author Organization Healthcare Address [address] [place] [address] Care Team Providers Care Client Relationship Executive Name Role Phone Chris Underwood MD Primary Care Provider [phone] Reason for Visit * Reason Comments Consult Encounter Details Date Type Department Care Team (Latest Contact Info) Description 06/28/2025 9:30 AM EDT [facility] [address] [place] [address] Shelley Lim, SEW[employer] REPAIRER [address] [place] [address] Low back pain (Primary Dx) Social History Tobacco Use Types Packs/Day Years Used Date Smoking Tobacco: Former Cigarettes 1.5 37.5 0 06/29/1983 - 12/30/2020 Passive Smoke Exposure: Past Smokeless Tobacco: Never Comments:NA Alcohol Use Standard Drinks/Week Comments Not Currently 0 (1 standard drink = 0.6 oz pur e alcohol) Humiliation, Afraid, Rape, and Kick questionnair e Answer Date Recorded Within the last year, have y ou been afraid of your partner or ex-partner? No 08/16/2024 Within the last year, have y ou been humiliated or emotionally abused in other ways by your partner or ex-partner? No Within the last year, have y ou been kicked, hit, slapped, or otherwise physically hurt by your partner or ex-partner? No 08/16/2024 Within the last year, have y ou been raped or forced to have any kind of sexual activity by your partner or ex-partner? No 08/16/2024 PHQ-2 Answer Date Recorded Patient Health Questionnaire-2 Score 0 06/28/2025 Hunger Vital Sign Answer Date Recorded Within the past 12 months, y ou worried that your food would run out before you got the money to buy more. Never true 08/16/20 24 Within the past 12 months, t he food you bought just didn't last and you didn't have money to get more. Never true 08/16/2024 PRAPARE - Transportation Answer Date Re corded In the past 12 months, has l ack of transportation kept you from medical appointments or from getting medications? No 07/30 In the past 12 months, has l ack of transportation kept you from meetings, work, or from getting things needed for daily living? No 08/16/2024 Housing Stability Vital Sign Answer Josiah e Recorded In the last 12 months, was t here a time when you were not able to pay the mortgage or rent on time? No 08/16/2024 In the last 12 months, how many places have you lived? 1 08/16/2024 In the last 12 months, was t here a time when you did not have a steady place to sleep or slept in a group home (including now)? No 08/16/2024 PHQ-9 Answer Date Recorded Patient Health Questionnaire-9 Score 0 05/28/2025 Utilities Answer Date Recorded In the past 12 months has th e [employer], gas, oil, or water company threatened to shut off services in your home? No 08/16/2024 Comments No Sex and Gender Information Value Date Recorded Sex Assigned at Female 08/20/2021 4:02 PM EDT Legal Sex Female 6:44 PM EDT Gender Identity Female 08/20/2021 4:02 PM EDT Sexual Orientation Straight 10/30/2021 4: 24 PM EST documented as of this encounter Last Filed Vital Signs Vital Sign Reading Time Taken Comments Blood Pressure - - Pulse - - Temperature - - Respiratory Rate - - Oxygen Saturation 97% 06/28/2025 9:34 AM EDT 3.5L nc Inhaled Oxygen Concentration - - Weight 149 kg (328 lb 7.8 oz) 06/28/2025 9:34 AM EDT Height 177.8 cm (5' 10 ) 06/28/2025 9:34 AM EDT Body Mass Index 47.13 06/28/2025 9:34 AM EDT documented in this encounter Functional Status * Over the past 2 weeks, how often have you been bothered by any of the following problems? Question Answer Date of Assessment Author Little interest or pleasure in doing things Not at all 06/28/2025 9:37 AM EDT Elvia Diez Feeling down, depressed, or hopeless Not at all 06/28/2025 9:37 AM EDT Elvia Diez Patient Health Questionnaire -2 Score 0 06/28/2025 9:37 AM EDT Elvia Diez * If you checked off any problems on this questionnaire so far, Question Answer Date of Assessment Author How difficult have these problems made it for you to do your work, take care of things at home, or get along with other people? Not difficult at all 06/28/2025 9:37 AM EDT Elvia Diez documented as of this encounter Miscellaneous Notes * H&P - Shelley Lim, DRISS - 06/28/2025 9:30 AM EDT Images from the original note were not included. Zora Jerez presents today for consultation as requested by Dr. Antonieta Bernstein regarding assessment of possible L2-L3 discitis/osteomyelitis. Telehealth Statement Patient Verification Patient identity has been confirmed using name and date of ? Yes Authorizations and Agreements/Telemedicine Consent sent and consent confirmed? Yes Patient Location: Home/Other Patient confirms they are physically located in [place]? Yes If the patient is not physically located in [place], the provider has confirmed with [facility] thatthe provider is authorized to provide services in patient's stated location? N/A Provider Location: [facility] facility Audio and video or audio only? Audio and video Total visit time: 41 minutes Subjective History of Present Illness: HPI Zora Jerez is a 54 y.o. female with a past medical history of diabetes mellitus, morbid obesity, lymphedema, SHAYNE on CPAP, PVD, left toe amputations. She is being evaluated for possible L2-C8jevjjxhx/osteomyelitis. She has been evaluated by ID here at . MR spine [without contrast] with findings of possible L2-L3 discitis versus noninfectious discitis related to Modic changes. Presenting today, via telehealth, to have her imaging evaluated in to discuss efficacy of bone biopsy. She is chronically ill appearing. On 3-4 L nasal cannula baseline. She is having back, hip, leg pain Allergies: Beta adrenergic blockers, H2 antagonists, Lisinopril, Metoprolol, Duloxetine hcl, Histamine, Amlodipine, Duloxetine, Methocarbamol, Sulfamethoxazole, Sulfamethoxazole-trimethoprim, and Trimethoprim Medications: Current Medications[1] Past Surgical History: Zora has a past surgical history that includes Superior mestenteric artery stent (04/2019); Amputation foot / toe (Left); Retinal detachment surgery; Ruptured globe exploration and repair (Left, 2020); Pars plana vitrectomy (Left, 10/01/2022); Pars plana vitrectomy (Left, 01/29/2022); Amputation (11/02/2019); Eye surgery (Left, 08/14/2024); and Toe amputation (Bilateral, 08/22/2024). Past Medical History: She has a past medical history of Arthritis, Blindness, CHF (congestive heart failure) ([facility]) (08/20/2021), COPD (chronic obstructive pulmonary disease) ([facility]), Delayed emergence from anesthesia (08/20/2021), Diabetes mellitus, type 2 ([facility]) (08/20/2021), Eye trauma (08/21/2021), GERD (gastroesophageal reflux disease), HLD (hyperlipidemia), HTN (hypertension) (08/20/2021), Hypoparathyroidism (08/20/2021), Insulin pump training (02/13/2025), Lumbar spinal stenosis, Morbid obesity ([facility]) (08/20/2021), SHAYNE (obstructive sleep apnea) (08/20/2021), Peripheral edema (08/20/2021), Peripheral vascular disease ([facility]) (08/20/2021), Personal history of Methicillin resistant Staphylococcus aureus infection, Retinal detachment (09/04/2021), and Tinnitus. Past Family History: Herfamily history includes Blindness in her maternal grandmother; Cancer in her father, maternal grandfather, maternal grandmother, and mother's sister; Cardiac disorder in an other family member; Cataracts in her father and mother; Diabetes in her mother and mother's sister; Glaucoma in her mother's sister; Hyperlipidemia in her father, mother, and sibling; Hypertension in her father, mother, mother's sister, and sibling; Other cancer in her father and another family member; Stroke in an otherfamily member. Past Social History: She reports that she quit smoking about 4 years ago. Her smoking use included cigarettes. She started smoking about 42 years ago. She has a 56.3 pack-year smoking history. She has been exposed to tobacco smoke. She has never used smokeless tobacco. She reports that she does not currently use alcohol. She reports that she does not use drugs. Review of Systems: Review of Systems 14 point ROS negative except for above. Objective Physical Exam: There were no vitals filed for this visit. Physical Exam General appearance: alert and oriented, in no acute distress Imaging: VAS US Venous Duplex Lower Extremity Bilateral Narrative: CLINICAL INDICATION: Acute limb swelling TECHNIQUE: Non-invasive, real time duplex exam of the lower extremity venous circulation with Doppler ultrasonic waveform and spectral analysis was performed. COMPARISON: None. FINDINGS: Technically difficult exam due to vessel depth. Right: Venous duplex demonstrates compressible common femoral, proximal femoral, popliteal veins. The mid and distal femoral veins, posterior tibial and peroneal veins unable to be visualized due to vessel depth. The venous spectral analysis demonstrates a spontaneous, phasic, augmentable and nonpulsatile flow signal. Left: Venous duplex demonstrates compressible femoral, popliteal, and posterior tibial veins. The common femoral and peroneal veins were not visualized due to vessel depth. The venous spectral analysis demonstrates a spontaneous, phasic, augmentable and nonpulsatile flow signal. Impression: Right: Normal, limited study; no evidence of acute DVT is identified in visualized vessels. Left: Normal, limited study; no evidence of acute DVT is identified in visualized vessels. COMMUNICATION: Per this written report. Preliminary report signed by ORALIA García on 08/17/2024 11:51 AM By electronically signing this report, I, the attending physician, attest that I have personally reviewed the images/data for the above examination(s) and I agree with the final edited report. Drafted by ORALIA García on 08/17/2024 11:45 AM Final report signed by Vasiliy Altamirano MD on 08/17/2024 12:29 PM Echo, Adult Transthoracic Complete Left Ventricle: The left ventricle is normal size. There is normal left ventricular myocardial thickness and mass. The left ventricular systolic function is normal. The LVEF is visually estimated at 60 - 70%. The diastolic function is abnormal. There is grade II (moderate) diastolic dysfunction. The left ventricular filling pressure is elevated. Right Ventricle: The right ventricle is mildly dilated. The right ventricular systolic function is normal. Right ventricular systolic pressure is mildly elevated (35-50mmHg). Valves: No significant valvular stenosis or regurgitation. Pericardium: There is a trace circumferential pericardial effusion. There is no echocardiographic evidence of cardiac tamponade. Labs: Labs in chart were reviewed. Lab Results Component Value Date WBC 6.77 05/28/2025 HGB 11.5 05/28/2025 HCT 39.2 05/28/2025 PLT 167 05/28/2025 Lab Results Component Value Date NA 143 05/28/2025 K 3.5 (L) 05/28/2025 CL 96 (L) 05/28/2025 CO2 35 (H) 05/28/2025 BUN 17 05/28/2025 CREATININE 0.84 05/28/2025 GLUCOSE 124 (H) 05/28/2025 Lab Results Component Value Date CALCIUM 9.0 05/28/2025 MG 1.8 (L) 08/23/2024 PHOS 4.1 08/22/2024 Lab Results Component Value Date AST 14 05/28/2025 ALT 11 05/28/2025 ALKPHOS 86 05/28/2025 Lab Results Component Value Date APTT 22 (L) 07/13/2024 INR 1.1 07/13/2024 Assessment/Plan Possible L2-L3 discitis/osteomyelitis versus degenerative disc disease -Personally reviewed MR spine [without contrast] 05/07/25: Findings of possible L2-L3 discitis versusnoninfectious discitis related to Modic changes. -CRP 15.9. WBC 6.7. -ID following Chronic hypoxic respiratory failure requiring supplemental oxygen -On 4LNC at baseline Obesity -BMI 47 -Complicates all aspects of care PLAN -After personally reviewing the MRI of the lumbar spine from 6/9/25 (performed without contrast), the findings at L2-L3 are suggestive of either possible discitis/osteomyelitis or degenerative changes related to Modic endplate signal changes. At this time, the patient is clinically stable, without systemic signs of infection, and does not appear overtly infectious. Given the patient???s elevated BMI of 47, baseline oxygen requirement of 4L via nasal cannula, and lack of optimal imaging due to patients ability to tolerate imaging/prior imaging limitations, proceeding with biopsy is not warranted at this time. Additionally, the current imaging lacks contrast, which limits further characterization. If clinical concern persists or increases, a contrast-enhanced MRI would be needed prior to reconsidering biopsy for further evaluation. -Can consider treating for discitis [If believe will aid in reducing pain] and evaluate with subsequent contrasted imaging after treatment and/or obtaining MR with contrast now for us to evaluate on a more prompt basis. -Please feel free to reach out for any additional concerns/questions. Thank you for allowing me to participate in the care of Zora Jerez. Shelley Lim APRN Vascular & Interventional Radiology I spent >48 minutes on this encounter; including preparing to see the patient, which involved review/interpretation of diagnostics and reports; obtaining and/or reviewing separately obtained history; performing appropriate physical exam; communicating finding, reviewing labs/imaging, counseling/educating the patient; documentation in EMR; and formulating subsequent treatment plan. [1] Current Outpatient Medications: acetone, urine, test strip, 1 strip as needed for high blood sugar (Test when glucose greater than 240 mg/dl two times in a row; or during illness)., Disp: 50 each, Rfl: 3 albuterol (Proventil) (2.5 MG/3ML) 0.083% nebulizer solution, 3 mL (2.5 mg)., Disp: , Rfl: albuterol 108 (90 Base) MCG/ACT inhaler, Inhale 2 puffs 3 (three) times a day if needed for wheezing or shortness of breath., Disp: , Rfl: Alcohol Swabs (B-D SINGLE USE SWABS REGULAR) pads, USE FIVE TIMES DAILY NEEDED, Disp: , Rfl: aspirin 81 MG chewable tablet, Chew 1 tablet (81 mg) 1 (one) time each day., Disp: , Rfl: atorvastatin (Lipitor) 80 MG tablet, Take 1 tablet (80 mg) by mouth 1 (one) time each day in the evening., Disp: , Rfl: BD Pen Needle [place] U/F 32G X 4 MM misc, USE FIVE TIMES DAILY, Disp: , Rfl: Benzocaine-Resorcinol (Vagisil) 5-2 % cream, Apply 1 application. topically 3 (three) times a day.,Disp: , Rfl: Blood Glucose Monitoring Suppl (ONE TOUCH ULTRA 2) w/Device kit device kit, use as directed, Disp: , Rfl: bumetanide (Bumex) 2 MG tablet, Take 2 tablets (4 mg) by mouth 2 (two) times a day. Patient is to take Bumex 4mg by mouth twice daily until she reaches her dry weight (estimated 325lbs) and then Bumex 4mg once daily after that indefinitely, Disp: , Rfl: clopidogrel (Plavix) 75 MG tablet, Take 1 tablet (75 mg) by mouth 1 (one) time each day., Disp: , Rfl: Continuous Glucose Sensor (Dexcom G6 Sensor) misc, 1 each every 10 days., Disp: 9 each, Rfl: 1 Continuous Glucose Sensor (Dexcom G7 Sensor) misc, 1 sensor every 10 days., Disp: 3 each, Rfl: 3 Continuous Glucose Transmitter (Dexcom G6 transmitter) misc, Use as directed every 90 days, Disp: 1each, Rfl: 3 doxycycline (Vibramycin) 100 MG capsule, TAKE (1) CAPSULE BY MOUTH TWICE DAILY., Disp: , Rfl: dulaglutide 4.5 MG/0.5ML solution auto-injector, Inject 4.5 mg under the skin 1 (one) time per week., Disp: 2 mL, Rfl: 3 FeroSul 325 (65 Fe) MG tablet, take (1) tablet by mouth twice a day., Disp: , Rfl: Glucagon (Gvoke PFS) 1 MG/0.2ML solution prefilled syringe, Inject 1 mg under the skin 1 (one) timeas needed (hypoglycemic emergency) for up to 1 dose., Disp: 0.2 mL, Rfl: 1 GNP Zinc Oxide 20 % ointment, , Disp: , Rfl: hydrocortisone 1 % cream, APPLY 1 GRAM TO THE AFFECTED AREA(S) BY TOPICAL ROUTE FOUR TIMES DAILY ASNEEDED, Disp: , Rfl: Insulin Dispos Laborer Aqu[employer] Accessories (Omnipod Pod Pals) misc, 1 patch every other day., Disp: 15 each, Rfl: 5 insulin lispro (HumaLOG KWIKPEN) 200 UNIT/ML injection pen, Use as directed with OmniPod - Max TDD : 150 units of U200 per day, Disp: 30 mL, Rfl: 3 losartan (Cozaar) 25 MG tablet, daily., Disp: , Rfl: magnesium oxide (Mag-Ox) 400 (240 Mg) MG tablet, Take 1 tablet (400 mg) by mouth 2 (two) times a day., Disp: , Rfl: meloxicam (Mobic) 15 MG tablet, daily., Disp: , Rfl: NON FORMULARY, Magic Butt [place] 1 Ointment Apply topically to left and right groin once daily, Disp:, Rfl: nystatin (Mycostatin) 640101 UNIT/GM powder, Apply 1 Application topically 2 (two) times a day. Apply to lower abdomen., Disp: , Rfl: Omnipod 5 [id number] Pods Gen 5 (Omnipod5) misc, USE DIRECTED CHANGE EVERY 2 DAYS., Disp: 15 each, Rfl: 2 OneTouch Ultra Test test strip, 4 times a day., Disp: , Rfl: potassium chloride CR (Klor-Con M20) 20 MEQ ER tablet, , Disp: , Rfl: potassium chloride CR (Klor-Con) 10 MEQ ER tablet, Take 3 tablets (30 mEq) by mouth 1 (one) time each day if needed. Administer with as needed furosemide., Disp: , Rfl: predniSONE (Deltasone) 5 MG tablet, , Disp: , Rfl: RABEprazole (Aciphex) 20 MG EC tablet, Take 1 tablet (20 mg) by mouth 1 (one) time each day. Do notcrush, chew, or split., Disp: , Rfl: torsemide (Demadex) 100 MG tablet, Take 1 tablet by mouth daily., Disp: , Rfl: documented in this encounter Plan of Treatment Upcoming Encounters Date Type Department Care Team (Late st Contact Info) Description 08/06/2025 9:00 AM EDT Office Visit [facility] [address] [place] [address] Sajan Lopez MD [address] [place] [address] 08/24/2025 9:20 AM EDT [facility] [address] [place] [address] Joaquin Almodovar MD [address] [place] [address] 09/13/2025 3:40 PM EDT Office Visit [facility] [address] [place] [address] Jennifer Becerra MD [address] [facility] [address] [place] [address] 11/07/2025 11:15 AM EST Office Visit [facility] [address] [place] [address] Mark Santos, OD [address] [place] [address] documented as of this encounter Visit Diagnoses Diagnosis Low back pain- Primary Lumbago documented in this encounter Additional Health Concerns Infection Onset Date Last Indicated Resolved Time MRSA 02/09/2024 02/09/2024 Assessment Noted Time PHQ-9 Depression Total Score: 0 05/28/20 25 11:13 AM EDT A fall risk assessment has been complete d for the patient 06/28/2025 9:37 AM EDT A Body Mass Index follow-up plan has been documented for the patient 06/28/2025 9:59 AM EDT documented as of this encounter Care Teams Client Relationship Executive Relationship Specialty Start Date End Date Chris Underwood MD [address] [place], [place] [phone] (work) PCP - General 04/11/21 documented as of this encounter
--- OUTSIDE RECORDS SUMMARY | 2025-07-02 13:30 | XMS_ITS | Encounter Summary ---
Author Organization [facility] Address [address] [place] [address] Care Team Providers Care Pipe Processor Name Role Phone Chris Underwood MD Primary Care Provider Reason for Visit * Reason Comments Follow-up * Consultation (Routine) - Closed Specialty Diagnoses / Procedures Referred By Contac t Referred To Contact Diagnoses Abnormal MRI, lumbar spine Antonieta Bernstein APRN [address] [address] Phone: tel: fax: Referral ID Status Reason Start Date Expiration Date Visits Re quested Visits Authorized [id number] Closed 05/28/2025 11/27/2026 1 1 Encounter Details Date Type Department Care Team (Late st Contact Info) Description 07/02/2025 1:30 PM EDT Office Visit [facility] [address] [place] [address] Antonieta Bernstein APRN [address] [address] Abnormal MRI, lumbar spine (Primary [...] place to sleep or slept in a senior care (including now)? No 08/16/2024 PHQ-9 Answer Date [...] * Progress Notes - Antonieta Bernstein, MANAGER ACTIVITIES - 07/02/2025 1:30 PM EDT Telehealth Visit [...] She reports that she was inpatient at [facility] 03/22 - 03/25 for hip and back pain. She reported to her PCPfor hospital follow-up on 04/05/25 and reported continued back pain. Patient reported having x-rays while inpatient but did not have an MRI. MRI w/o contrast was ordered by her PCP and done on 05/07/25 at [facility] here in [place]. Patient reports that she is experiencing some [...] Patient confirms they are physically located in [place]? Yes If the patient is not physically located in [place], the provider has confirmed with [facility] thatthe provider is authorized to provide services in patient's stated location? N/A Provider Location: [facility] facility Audio and video or audio only? Audio and video Total visit time: 25 minutes documented in this encounter Plan of Treatment Upcoming Encounters Date Type Department Care Team (Late st Contact Info) Description 08/06/2025 9:00 AM EDT Office Visit [facility] [address] [place] [address] Sajan Lopez MD [address] [facility] [address] [place] [address] 08/24/2025 9:20 AM EDT Office Visit [facility] [address] [facility] 5th Floor [address] [place] [address] Joaquin Almodovar MD [address] [place] [address] 09/13/2025 3:40 PM EDT Office Visit [facility] Endocrinology [address] [place] [phone] Jennifer Becerra MD [address] [facility] [address] [place] [address] 11/07/2025 11:15 AM EST Office Visit [facility] [address] [place] [address] Mark Santos, OD [address] [place] [address] documented as of this encounter [...] documented as of this encounter Care Teams Pipe Processor Relationship Specialty Start Date End Date Chris Underwood MD [address] [place], [place] [phone] PCP - General 04/11/21 documented as of this encounter
--- OUTSIDE RECORDS SUMMARY | 2025-07-13 11:30 | XMS_ITS | Encounter Summary ---
Author Organization [facility] Address [address] [place] [address] Care Team Providers Care Dining Car Server Name Role Phone Chris Underwood MD Primary Care Provider [phone] Encounter Details Date Type Department Care Team (Late st Contact Info) Description 07/13/2025 11:30 AM EDT Pre[facility] Testing [facility] [address], [address] [place] [address] Social History Tobacco Use Types Packs/Day Years [...] place to sleep or slept in a [place] health care facility (including now)? No 08/16/2024 PHQ-9 Answer Date [...] fibrillation, CAD, dyspnea, dysrhythmias, pacemaker or past [place]. hypertension: is well controlled. Does not have [...] We will defer wound care to her permit coordinator at this point. If she would like [...] not have a cerebrovascular accident. Musculoskeletal: arthritis. [facility] additional comments: Possible L2-L3 discitis/osteomyelitis vs severe [...] with Dr. Nieves who spoke with her Traffic Worker's ELAN. They feel she is optimized and does not need any further cardiac workup. Will proceed with MRI. 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 CHF (congestive heart failure) ([facility]) 08/20/2021 COPD (chronic obstructive pulmonary disease) ([facility]) Delayed emergence from anesthesia 08/20/2021 Diabetes mellitus, type 2 ([facility]) 08/20/2021 Eye trauma 08/21/2021 GERD (gastroesophageal reflux disease) HLD (hyperlipidemia) HTN (hypertension) 08/20/2021 Hypoparathyroidism 08/20/2021 Insulin pump training 02/13/2025 Omnipod 5 G7 with U200 Lumbar spinal stenosis Morbid obesity ([facility]) 08/20/2021 SHAYNE (obstructive sleep apnea) 08/20/2021 patient denies Peripheral edema 08/20/2021 Peripheral vascular disease ([facility]) 08/20/2021 Personal history of Methicillin resistant Staphylococcus [...] Grandmother Mary Sanam Cancer Mother's Sister Clare Angelina Diabetes Mother's Sister Clare Bluebell Glaucoma Mother's Sister Clare Bluebell Hypertension Mother's Sister Jody Sanam Anesthesia problems [...] times a day. Non-Formulary Medication, Magic Butt [place] 1 Ointment Apply topically to left and [...] not taking: Reported on 07/13/2025) Omnipod 5 [id number] Pods Gen 5, USE DIRECTED CHANGE EVERY [...] UNIT/ML patient supplied pump Consult with your Hydrocrane Operator regarding instructions on insulin pump magnesium oxide (Mag-Ox) 400 (240 Mg) MG tablet Hold day of surgery Butt balm Hold day of surgery nystatin (Mycostatin) 666852 UNIT/GM powder Hold day of surgery omega-3 [...] card, photo ID, along with power of energy attorney, guardianship or advanced directives if applicable [...] Description 08/06/2025 9:00 AM EDT Office Visit [place] [address] [place] [address] Sajan Lopez MD [facility] [address] [place] [address] 08/24/2025 9:20 AM EDT Office Visit [facility] [address] [facility] 5th Floor [address] [place] [address] Joaquin Almodovar MD [address] [facility] [address] [place] [address] 09/13/2025 3:40 PM EDT Office Visit [facility] Endocrinology [address] [place] [address] Jennifer Becerra MD [address] [place] [address] 11/07/2025 11:15 AM EST Office Visit [facility] [address] [place] [address] Mark Santos, OD [address] [place] [address] documented as of this encounter [...] documented as of this encounter Care Teams Dining Car Server Relationship Specialty Start Date End Date Chris Underwood MD [address] [place] [address] PCP - General 04/11/21 documented as of this encounter
--- OUTSIDE RECORDS SUMMARY | 2025-07-20 14:36 | XMS_ITS | Encounter Summary ---
Author Organization [facility] Address [address] [place] [address] Care Team Providers Care Senior Systems Programmer Name Role Phone Chris Underwood MD Primary Care Provider [phone] Reason for Visit * Imaging (Routine) - Closed Specialty Diagnoses / Procedures Referred By Contac t Referred To Contact Radiology Diagnoses Abnormal MRI, lumbar spine Vertebral osteomyelitis (CMS/HCC) Procedures Imaging MRI Procedure Not Performed MR Lumbar Spine w and wo IV Contrast Antonieta Bernstein, CHARGER TESTER [address] [facility] [address] [place] [address] Phone: tel: fax: Referral ID Status Reason Start Date Expiration Date Visits Re quested Visits Authorized [id number] Closed 07/05/2025 01/04/2027 1 1 Encounter Details Date Type Department Care Team (Latest Contact Info) Description 07/20/2025 2:36 PM EDT - 07/20/2025 11:59 PM EDT Hospital Encounter [facility] A Radiology [address] [place] [address] Abnormal MRI, lumbar spine; Vertebral osteomyelitis (CMS/HCC) [...] to sleep or slept in a senior living (including now)? No 08/16/2024 PHQ-9 Answer Date [...] FOUR TIMES DAILY NEEDED 04/26/2025 Insulin Dispos Hog Ribber Accessories (Omnipod Pod Pals) miscIndications:T ype 2 diabetes mellitus with hyperglycemia, with long-term current use of insulin (CMS/HCC) 1 patch every other day. 15 each 5 02/26/2025 insulin lispro (Admelog) 100 UNIT/ML patient supplied pump Inject under the skin continuously. U 200 magnesium oxide (Mag-Ox) 400 (240 Mg) MG tablet Take 1 tablet by mouth 2 times a day. NON FORMULARY Magic Butt [place] 1 Ointment Apply topically to left and right groin once daily nystatin (Mycostatin) 597048 UNIT/GM powder Apply 1 Application topically 2 (two) times a day. Apply to lower abdomen. omega-3 (Fish Oil) 1000 MG capsule Take 2 capsules by mouth 2 times a day. 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 Use as directed with OmniPod - Max TDD : 150 units of U200 per day 30 mL 3 06/22/2025 documented as of this encounter Plan of Treatment Upcoming Encounters Date Type Department Care Team (Late st Contact Info) Description 08/06/2025 9:00 AM EDT Office Visit [facility] [address] [facility] [place] [address] Sajan Lopez MD [address] [facility] [address] [place] [address] 08/24/2025 9:20 AM EDT Office Visit [facility] [address] [facility] 5th Floor [address] [place] [address] Joaquin Almodovar MD [address] [facility] [address] [place] [address] 09/13/2025 3:40 PM EDT Office Visit [facility] Endocr[facility]ology [address] [place] [address] Jennifer Becerra MD [address] [facility] [address] [place] [address] 11/07/2025 11:15 AM EST Office Visit [facility] [address] [facility] [place] [address] Mark Santos, OD [address] [facility] [address] [place] [address] documented as of this encounter [...] IV CONTRAST Reason: Body Habitus Antonieta Bernstein CHARGER TESTER IMG MRI PROCEDURES Final R esult IMAGING [...] documented as of this encounter Care Teams Senior Systems Programmer Relationship Specialty Start Date End Date Chris Underwood MD [address] [place] [address] PCP - General 04/11/21 documented as of this encounter
--- NOTE | 2025-08-01 | US_ITS ---
FINAL REPORT CLINICAL HISTORY: AORTOILIAC OCCLUSIVE DISEASE,EX SMOKER,HLD,DM,LEG PAIN COMPARISON: None FINDINGS: ANKLE-BRACHIAL PRESSURE INDICES Pressure indices are as follows: RIGHT LOWER EXTREMITY: Ankle-brachial pressure index: 1.1 Comments: Normal LEFT LOWER EXTREMITY: Ankle-brachial pressure index: 1.27 Comments: Normal IMPRESSION No evidence of significant obstructive peripheral vascular disease of the lower extremities. Reviewed, Interpreted and Dictated by Raji Madera MD Transcribed by Thania Lutz Authenticated and [facility]
--- NOTE | 2025-08-01 08:22 | XR_ITS ---
FINAL REPORT CLINICAL HISTORY: PAIN COMPARISON: None FINDINGS: LEFT SHOULDER 4 views of the left shoulder were obtained. There is no acute fracture or dislocation. Visualized joint spaces are normally aligned. Mild hypertrophic changes present involving the acromioclavicular joint. Soft tissues are unremarkable. IMPRESSION: No acute bony abnormality. Reviewed, Interpreted and Dictated by Raji Madera MD Transcribed by Thania Lutz Authenticated and [facility]
--- NOTE | 2025-08-01 08:24 | US_ITS ---
FINAL REPORT CLINICAL HISTORY: AORTOILIACE OCCLUSIVE DISEASE FINDINGS: Limited images of the abdominal aorta were obtained. Exam is suboptimal due to patient's body habitus. The aorta is normal in size at the level of the xiphoid but is not visualized below the xiphoid. IMPRESSION: Limited exam as detailed above. CT is recommended if further evaluation is desired. Reviewed, Interpreted and Dictated by Raji Madera MD Transcribed by Zora Edwards Authenticated and [facility]
--- OUTSIDE RECORDS SUMMARY | 2025-08-01 08:28 | XMS_ITS | Encounter Summary ---
Author Organization [facility] Address [address] [place] [address] Care Team Providers Care Biofuels Plant Manager Name Role Phone Chris Underwood MD Primary Care Provider [phone] Reason for Visit * Reason Onset Date Comments HCN Paperwork/Documentation Request 07/19/2025 Encounter Details Date Type Department Care Team (Late st Contact Info) Description 07/19/2025 Telephone [facility] [address] [facility] 5th Floor [address] [place] [address] Joaquin Almodovar MD [address] [facility] [address] [place] [address] HCN Paperwork/Documentatio n Request Social History Tobacco Use Types Packs/Day Years [...] place to sleep or slept in a intermediate (including now)? No 08/16/2024 PHQ-9 Answer Date Recorded Patient Health Questionnaire-9 Score 0 05/28/2025 Utilities Answer Date Recorded In the past 12 months has th e [employer], [employer], oil, or water [employer] threatened to shut off services in your home? No 08/16/2024 Comments No Sex and Gender Information Value Date Recorded Sex Assigned at Female 08/20/2021 4:02 PM EDT Legal Sex Female 6:44 PM EDT Gender Identity Female 08/20/2021 4:02 PM EDT Sexual Orientation Straight 10/30/2021 4: 24 PM EST documented as of this encounter Miscellaneous Notes * Telephone Encounter - Antoine Jett - 07/19/2025 11:05 AM EDT Same Day Appt/Overbook Request Reason for Call: Alondra fournier/ Ap Jacob on the line she says the CTA order received is she will need a new one with new date Best contact number: Other: [phone] Optimal time of day to reach caller: ANYTIME Additional comments/information from caller: Note: Please do not reply to this message. Follow-up communication and further actions as a result of this message need to be communicated with the patient directly, if the patient is not active onMyChart. If the patient is active on MyChart, they will receive notification of the communication/outcome via [employer]. documented in this encounter Plan of Treatment Upcoming Encounters Date Type Department Care Team (Late st Contact Info) Description 08/06/2025 9:00 AM EDT Office Visit [facility] [address] [place] [address] Sajan Lopez MD [address] [facility] [address] [place] [address] 08/24/2025 9:20 AM EDT Office Visit [facility] [address] [facility] 5th Floor [address] [place] [address] Joaquin Almodovar MD [address] [facility] [address] [place] [address] 09/13/2025 3:40 PM EDT Office Visit [facility] [address] [place] [address] Jennifer Becerra MD [address] [place] [address] 11/07/2025 11:15 AM EST Office Visit [facility] [address] [facility] [place] [address] Mark Santos, OD [address] [place] [address] documented as of this encounter [...] documented as of this encounter Care Teams Biofuels Plant Manager Relationship Specialty Start Date End Date Chris Underwood MD [address] [place] [address] PCP - General 04/11/21 documented as of this encounter
--- OUTSIDE RECORDS SUMMARY | 2025-08-01 08:28 | XMS_ITS | Encounter Summary ---
Author Organization Healthcare Address [address] [place] [address] Care Team Providers Care Associate Editor Name Role Phone Chirs Underwood MD Primary Care Provider Jyoti Salinas Unavailable [phone] Encounter Details Date Type Department Care Team (Late st Contact Info) Description 08/16/2024 Ophth Exam [facility] [address] [place] [address] Saima Vanegas MD [address] [place] [address] Social History Tobacco Use Types Packs/Day Years Used Date Smoking Tobacco: Former Cigarettes 1.5 37.5 0 06/29/1983 - 12/30/2020 Smokeless Tobacco: Never Comments:NA Alcohol Use Standard [...] Date Recorded Patient Health Questionnaire-2 Score 0 12/31/2023 Hunger Vital Sign Answer Date Recorded Within [...] place to sleep or slept in a retirement (including now)? No 08/16/2024 Utilities Answer Date Recorded In the past [...] PM EST documented as of this encounter Functional Status * Calculated C-SSRS Risk Score (Lifetime/Recent) Answer Date of Assessment Author No Risk Indicated 08/19/2024 8:00 AM EDT Viviane cheema, Juan Antonio, RN * Question Answer Date of Assessment Author 1. Wish to be (Past 1 Month) No 024 8:00 AM EDT Juan Antonio Dozier, RN 2. Non-Specific Active Suici larisa Thoughts (Past 1 Month) No 08/19/2024 8:00 AM EDT Valerio Dozier, RN 6. Suicidal Behavior (Lifetime) No 8:00 AM EDT Juan Antonio Dozier, RN documented as of this encounter Plan of Treatment Upcoming Encounters Date Type Department Care Team (Late st Contact Info) Description 08/06/2025 9:00 AM EDT Office Visit [facility] [address] [facility] [place] [address] Sajan Lopez MD [address] [facility] [address] [place] [address] 08/24/2025 9:20 AM EDT Office Visit [facility] [address] [facility] 5th Floor Wing [address], [address] [place] [address] Joaquin Almodovar MD [address] [facility] [address] [place] [address] 09/13/2025 3:40 PM EDT Office Visit [facility] [address] [place] [address] Jennifer Becerra MD [address] [facility] [address] [place] [address] 11/07/2025 11:15 AM EST Office Visit [facility] [address] [place] [address] Mark Santos, OD [address] [facility] [address] [place] [address] documented as of this encounter Visit Diagnoses Not on filedocumented in this encounter Additional Health Concerns Infection Onset Date 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
--- OUTSIDE RECORDS SUMMARY | 2025-08-01 08:28 | XMS_ITS | Encounter Summary ---
Author Organization [facility] Address [address] [place] [address] Care Team Providers Care Manager Floor Name Role Phone Chris Underwood MD Primary Care Provider [phone] Encounter Details Date Type Department Care Team (Late st Contact Info) Description 07/19/2025 Telephone [facility] [address] [place] [address] Carmen Clark, RN [facility] OPERATING [facility] Social History Tobacco Use Types Packs/Day Years [...] place to sleep or slept in a alf (including now)? No 08/16/2024 PHQ-9 Answer Date Recorded Patient Health Questionnaire-9 Score 0 05/28/2025 Utilities Answer Date Recorded In the past 12 months has th e [employer], gas, oil, or water company threatened to [...] encounter Miscellaneous Notes * Telephone Encounter - Carmen Clark RN - 07/19/2025 3:01 PM EDT Patient is calling requesting a new RX for U200 insulin, due to having a hole in her syringe so when she went to insert into Pod, it ran out on side of syringe. She is also having a MRI tomorrow and have to take her Pod off. She is on her last PEN. She is requesting it be sent in today with an increased quantity of MDD of 200 units a day. She is requesting a callback. documented in this encounter Plan of Treatment Upcoming Encounters Date Type Department Care Team (Late st Contact Info) Description 08/06/2025 9:00 AM EDT Office Visit [facility] [address] [facility] [place] [address] Sajan Lopez MD [address] [facility] [address] [place] [address] 08/24/2025 9:20 AM EDT Office Visit [facility] [address] [facility] 5th Floor Wing [address] [place] [address] Joaquin Almodovar MD [address] [facility] [address] [place] [address] 09/13/2025 3:40 PM EDT [facility] [address] [place] [address] Jennifer Becerra MD [address] [place] [address] 11/07/2025 11:15 AM EST Office Visit [facility] [address] [facility] [place] [address] Mark Santos, YOGI [address] [facility] [address] [place] [address] documented as of this encounter [...] documented as of this encounter Care Teams Manager Floor Relationship Specialty Start Date End Date Chris Underwood MD [address] [place] [address] PCP - General 04/11/21 documented as of this encounter
--- OUTSIDE RECORDS SUMMARY | 2025-08-01 08:29 | XMS_ITS | Encounter Summary ---
Author Organization [facility] Address [address] [place] [address] Care Team Providers Care Aerial Tram Operator Name Role Phone Chris Underwood MD Primary Care Provider [phone] Encounter Details Date Type Department Care Team (Latest Contact Info) Description 07/20/2025 Travel Social History Tobacco Use Types Packs/Day Years [...] place to sleep or slept in a fci (including now)? No 08/16/2024 PHQ-9 Answer Date [...] PM EST documented as of this encounter Plan of Treatment Upcoming Encounters Date Type Department Care Team (Late st Contact Info) Description 08/06/2025 9:00 AM EDT Office Visit [facility] [address] [place] [address] [place] [address] [place] [address] [address] [place] [address] 08/24/2025 9:20 AM EDT Office Visit [facility] [address] [facility] 5th Floor Wing [address], [address] [place] [address] Joaquin Almodovar MD [address] [place] [address] 09/13/2025 3:40 PM EDT Office Visit [facility] Endocrinology [address] [place] [address] Jennifer Becerra MD [address] [facility] [address] [place] [address] 11/07/2025 11:15 AM EST Office Visit [facility] [address] [place] [address] Mark Santos, OD [address] [place] [address] documented as of this encounter [...] documented as of this encounter Care Teams Aerial Tram Operator Relationship Specialty Start Date End Date Chris Underwood MD [address] [place], [place] [phone] PCP - General 04/11/21 documented as of this encounter
--- OUTSIDE RECORDS SUMMARY | 2025-08-01 08:29 | XMS_ITS | Encounter Summary ---
Author Organization [facility] Address [address] [place] [address] Care Team Providers Care Narrative Writer Name Role Phone Chris Underwood MD Primary Care Provider Encounter Details Date Type Department Care Team (Latest Contact Info) Description 07/19/2025 Travel Social History Tobacco Use Types Packs/Day [...] place to sleep or slept in a assisted (including now)? No 08/16/2024 PHQ-9 Answer Date [...] Description 08/06/2025 9:00 AM EDT Office Visit [place] [facility] [address] [place] [address] [place] [address] [place] [address] 100 [place] [address] 08/24/2025 9:20 AM EDT Office Visit [facility] [address] [facility] 5th Floor Wing [address], [address] [place] [address] Joaquin Almodovar MD [address] [place] [address] 09/13/2025 3:40 PM EDT Office Visit [facility] Endocrinology [address] [place] [address] Jennifer Becerra MD [address] [facility] [address] [place] [address] 11/07/2025 11:15 AM EST Office Visit [facility] [address] [place] [address] Mark Santos, OD [address] [place] [address] documented as of this encounter [...] documented as of this encounter Care Teams Narrative Writer Relationship Specialty Start Date End Date Chris Underwood MD [address] [place], [place] [phone] PCP - General 04/11/21 documented as of this encounter
--- OUTSIDE RECORDS SUMMARY | 2025-08-01 08:30 | XMS_ITS | Encounter Summary ---
Author Organization Healthcare Address [address] [place] [address] Care Team Providers Care Pit Steward Name Role Phone Chris Underwood MD Primary Care Provider [phone] Encounter Details Date Type Department Care Team (Late st Contact Info) Description 07/18/2025 Telephone [facility] [address] [facility] 5th Floor Wing D, [address] [place] [address] Joaquin Almodovar MD [address] [facility] [address] [place] [address] Social History Tobacco Use Types Packs/Day Years [...] place to sleep or slept in a long-term (including now)? No 08/16/2024 PHQ-9 Answer Date [...] Description 08/06/2025 9:00 AM EDT Office Visit [facility] [address] [place] [address] Sajan Lopez MD [address] [facility] [address] [place] [address] 08/24/2025 9:20 AM EDT Office Visit [facility] [address] 5th Floor [address] [place] [address] Joaquin Almodovar MD [address] [place] [address] 09/13/2025 3:40 PM EDT Office Visit [facility] Endocrinology [address] [place] [address] Jennifer Becerra MD [address] [place] [address] 11/07/2025 11:15 AM EST Office Visit [facility] [address] [place] [address] Mark Santos, OD [address] [place] [address] documented as of this encounter [...] documented as of this encounter Care Teams Pit Steward Relationship Specialty Start Date End Date Chris Underwood MD [address] [place] [address] PCP - General 04/11/21 documented as of this encounter
--- OUTSIDE RECORDS SUMMARY | 2025-08-01 08:30 | XMS_ITS | Encounter Summary ---
Author Organization [facility] Address [address] [place] [address] Care Team Providers Care Design Manager Name Role Phone Chris Underwood MD Primary Care Provider [phone] Encounter Details Date Type Department Care Team (Late st Contact Info) Description 07/13/2025 Telephone [facility] [address] [place] [address] Angelic Kwok RN [facility] Social History Tobacco Use Types Packs/Day Years [...] Description 08/06/2025 9:00 AM EDT Office Visit [facility] [address] [place] [address] Sajan Lopez MD [address] [facility] [address] [place] [address] 08/24/2025 9:20 AM EDT Office Visit [facility] [address] 5th Floor [address] [place] [address] Joaquin Almodovar MD [address] [place] [address] 09/13/2025 3:40 PM EDT Office Visit [facility] Endocrinology [address] [place] [address] Jennifer Becerra MD [address] [place] [address] 11/07/2025 11:15 AM EST Office Visit [facility] [address] [place] [address] Mark Santos, OD [address] [place] [address] documented as of this encounter [...] documented as of this encounter Care Teams Design Manager Relationship Specialty Start Date End Date Chris Underwood MD [address] [place] [address] PCP - General 04/11/21 documented as of this encounter
--- OUTSIDE RECORDS SUMMARY | 2025-08-01 08:30 | XMS_ITS | Encounter Summary ---
Author Organization [facility] Address [address] [place] [address] Care Team Providers Care Manager Of Enterprise Name Role Phone Chris Underwood MD Primary Care Provider [phone] Encounter Details Date Type Department Care Team (Latest Contact Info) Description 07/02/2025 Travel Social History Tobacco Use Types Packs/Day [...] place to sleep or slept in a custodial (including now)? No 08/16/2024 PHQ-9 Answer Date [...] Description 08/06/2025 9:00 AM EDT Office Visit [place] [address] [place] [address] [place] [address] [place] [address] [address] [place] [address] 08/24/2025 9:20 AM EDT Office Visit [facility] [address] [facility] 5th Floor [address], [address] [place] [address] Joaquin Almodovar MD [address] [place] [address] 09/13/2025 3:40 PM EDT Office Visit [facility] Endocrinology [address] [place] [address] Jennifer Becerra MD [address] [facility] [address] [place] [address] 11/07/2025 11:15 AM EST Office Visit [facility] [address] [place] [address] Mark Santos, OD [address] [place] [address] documented as of this encounter [...] as of this encounter Care Teams Manager Of Enterprise Relationship Specialty Start Date End Date Chris Underwood MD [address] [place], [place] [phone] PCP - General 04/11/21 documented as of this encounter
--- OUTSIDE RECORDS SUMMARY | 2025-08-01 08:30 | XMS_ITS | Encounter Summary ---
Author Organization [facility] Address [address] [place] [address] Care Team Providers Care Nurse Unit Manager Name Role Phone Chris Underwood MD Primary Care Provider [phone] Encounter Details Date Type Department Care Team (Latest Contact Info) Description 07/13/2025 Travel Social History Tobacco Use Types Packs/Day [...] place to sleep or slept in a skilled nursing (including now)? No 08/16/2024 PHQ-9 Answer Date [...] Description 08/06/2025 9:00 AM EDT Office Visit [place] [address] [place] [address] [place] [address] [place] [address] [address] [place] [address] 08/24/2025 9:20 AM EDT Office Visit [facility] [address] [facility] 5th Floor [address] [place] [address] Joaquin Almodovar MD [address] [place] [address] 09/13/2025 3:40 PM EDT Office Visit [facility] Endocrinology [address] [place] [address] Jennifer Becerra MD [address] [facility] [address] [place] [address] 11/07/2025 11:15 AM EST Office Visit [facility] [address] [place] [address] Mark Santos, OD [address] [place] [address] documented as of this encounter [...] documented as of this encounter Care Teams Nurse Unit Manager Relationship Specialty Start Date End Date Chris Underwood MD [address] [place], [place] [phone] PCP - General 04/11/21 documented as of this encounter
--- OUTSIDE RECORDS SUMMARY | 2025-08-01 08:30 | XMS_ITS | Encounter Summary ---
Author Organization Healthcare Address [address] [place] [address] Care Team Providers Care Icicle Machine Operator Name Role Phone Chris Underwood MD Primary Care Provider [phone] Encounter Details Date Type Department Care Team (Late st Contact Info) Description 07/05/2025 Orders Only [facility] [address] [place] [address] Antonieta Bernstein, DRISS [address] [facility] 100 [place] [address] Abnormal MRI, lumbar spine (Primary Dx); Vertebral osteomyelitis (CMS/HCC) Social History Tobacco Use Types Packs/Day Years [...] place to sleep or slept in a half-way (including now)? No 08/16/2024 PHQ-9 Answer Date [...] Description 08/06/2025 9:00 AM EDT Office Visit [facility] [address] [place] [address] Sajan Lopez MD [address] [facility] [address] [place] [address] 08/24/2025 9:20 AM EDT Office Visit [facility] [address] 5th Floor [address] [place] [address] Joaquin Almodovar MD [address] [place] [address] 09/13/2025 3:40 PM EDT Office Visit [facility] Endocrinology [address] [place] [address] Jennifer Becerra MD [address] [facility] 125 [place] [address] 11/07/2025 11:15 AM EST Office Visit [facility] [address] [facility] [place] [address] Mark Santos, OD [address] [facility] [address] [place] [address] documented as of this encounter Visit Diagnoses Diagnosis Abnormal MRI, lumbar spine- Primary Vertebral osteomyelitis (CMS/HCC) Unspecified osteomyelitis, other specified site documented in this encounter Additional Health Concerns Infection Onset Date Last Indicated Resolved Time MRSA 02/09/2024 02/09/2024 Assessment Noted Time PHQ-9 Depression Total Score: 0 05/28/20 11:13 AM EDT A fall risk assessment has been complete d for the patient 06/28/2025 9:37 AM EDT A Body Mass Index follow-up plan has been documented for the patient 07/05/2025 1:23 PM EDT documented as of this encounter Care Teams Icicle Machine Operator Relationship Specialty Start Date End Date Chris Underwood MD [address] [place] [address] PCP - General 04/11/21 documented as of this encounter
--- OUTSIDE RECORDS SUMMARY | 2025-08-01 08:30 | XMS_ITS | Encounter Summary ---
Author Organization Healthcare Address [address] [place] [address] Care Team Providers Care Burr Sander Name Role Phone Chris Underwood MD Primary Care Provider [phone] Encounter Details Date Type Department Care Team (Late st Contact Info) Description 07/05/2025 Telephone [facility] [address] [place] [address] Antonieta Bernstein, DRISS [address] [facility] 100 [place] [address] Social History Tobacco Use Types Packs/Day Years [...] in a retirement (including now)? No 08/16/2024 PHQ-9 Answer Date [...] Miscellaneous Notes * Telephone Encounter - Carmen Monique RN - 07/05/2025 4:09 PM EDT Called and spoke to pt. Reviewed questions on adult sedation form. No further needs. * Telephone Encounter - Christie Brooks - 07/05/2025 3:47 PM EDT Clinical Concern/Question Reason for Call: Pt is calling you back Best contact number: [phone] (mobile) Optimal time of day to reach caller: ANYTIME Additional comments/information from caller: None Note: Please do not reply to this message. Follow-up communication and further actions as a result of this message need to be communicated with the patient directly, if the patient is not active onMyChart. If the patient is active on MyChart, they will receive notification of the communication/outcome via [employer]. documented in this encounter Plan of Treatment Upcoming Encounters Date Type Department Care Team (Late st Contact Info) Description 08/06/2025 9:00 AM EDT Office Visit [facility] [address] [place] [address] Sajan Lopez MD [address] [facility] [address] [place] [address] 08/24/2025 9:20 AM EDT Office Visit [facility] [address] [facility] 5th Floor Wing [address] [place] [address] Joaquin Almodovar MD [address] [facility] [address] [place] [address] 09/13/2025 3:40 PM EDT Office Visit [facility] [address] [place] [address] Jennifer Becerra MD [address] [place] [address] 11/07/2025 11:15 AM EST Office Visit [facility] [address] [place] [address] Mark Santos, OD [address] [place] [address] documented as of this encounter [...] documented as of this encounter Care Teams Burr Sander Relationship Specialty Start Date End Date Chris Underwood MD [address] [place] [address] PCP - General 04/11/21 documented as of this encounter
--- OUTSIDE RECORDS SUMMARY | 2025-08-01 08:30 | XMS_ITS | Encounter Summary ---
Author Organization [facility] Address [address] [place] [address] Care Team Providers Care Phlebotomist Medical Lab Assistant Name Role Phone Chris Underwood MD Primary Care Provider [phone] Reason for Visit * Reason Onset Date Comments HCN Clinical Concern/Question 07/10/2025 Encounter Details Date Type Department Care Team (Late st Contact Info) Description 07/10/2025 Telephone [facility] [address] [facility] 5th Floor Wing [address], [address] [place] [address] Joaquin Almodovar MD [address] [facility] [address] [place] [address] HCN Clinical Concern/Question Social History Tobacco Use Types Packs/Day Years [...] the past 12 months has th e [employer], gas, oil, or water company threatened to [...] encounter Miscellaneous Notes * Telephone Encounter - Jyoti Gallego - 07/10/2025 2:37 PM EDT Patient Phone Message Reason for Call: Pt is calling asking for Vasc lab order and AT abd/pelvis with runoff to be sent to [facility] to have-Has appt with Dr Almodovar on 08/24. Please advise would like a call back when sent Best contact number and optimal time of day to reach caller: [phone] Note: Please do not reply to this message. Follow-up communication and further actions as a result of this message need to be communicated with the patient directly, if the patient is not active onMyChart. If the patient is active on MyChart, they will receive notification of the communication/outcome via [employer]. documented in this encounter Plan of Treatment Upcoming Encounters Date Type Department Care Team (Late st Contact Info) Description 08/06/2025 9:00 AM EDT Office Visit [facility] [address] [place] [address] Sajan Lopez MD [address] [facility] 100 [place] [address] 08/24/2025 9:20 AM EDT Office Visit [facility] [address] [facility] 5th Floor [address] [place] [address] Joaquin Almodovar MD [address] [facility] [address] [place] [address] 09/13/2025 3:40 PM EDT [facility] [address] [place] [address] Jennifer Becerra MD [address] [facility] 125 [place] [address] 11/07/2025 11:15 AM EST Office Visit [facility] [address] [place] [address] Mark Santos, OD [address] [place] [address] documented as of this encounter [...] documented as of this encounter Care Teams Phlebotomist Medical Lab Assistant Relationship Specialty Start Date End Date Chris Underwood MD [address] [place] [address] PCP - General 04/11/21 documented as of this encounter
--- OUTSIDE RECORDS SUMMARY | 2025-08-01 08:30 | XMS_ITS | Encounter Summary ---
Author Organization Healthcare Address [address] [place] [address] Care Team Providers Care Smoking Tobacco Cutter Operator Name Role Phone Chris Underwood MD Primary Care Provider [phone] Encounter Details Date Type Department Care Team (Late st Contact Info) Description 05/07/2025 Orders Only External Location [address] [place] [address] Chris Underwood MD [address] [place] [address] Social History Tobacco Use Types Packs/Day Years [...] Date Recorded Patient Health Questionnaire-2 Score 0 03/13/2025 Hunger Vital Sign Answer Date Recorded Within [...] place to sleep or slept in a nursing home (including now)? No 08/16/2024 Utilities Answer Date [...] Description 08/06/2025 9:00 AM EDT Office Visit [facility] [address] [place] [address] Sajan Lopez MD [address] [facility] 100 [place] [address] 08/24/2025 9:20 AM EDT Office Visit [facility] [address] 5th Floor [address] [place] [address] Joaquin Almodovar MD [address] [place] [address] 09/13/2025 3:40 PM EDT Office Visit [facility] Endocrinology [address] [place] [address] Jennifer Becerra MD [address] [facility] [address] [place] [address] 11/07/2025 11:15 AM EST Office Visit [facility] [address] [place] [address] Mark Santos, OD [address] [place] [address] documented as of this encounter Procedures Procedure Name Priority Date/Time Associated Diagnosis Comments MR OUTSIDE IMAGES 05/07/2025 1:06 PM EDT documented in this encounter Results * MR transfer of outside films (05/07/2025 1:06 PM EDT) Anatomical Region Laterality Modality Magnetic Resonan ce 05/07/2025 1:06 PM EDT Chris Underwood MD IMG MRI PROCEDURES Final Resul t documented in this encounter Visit Diagnoses Not on filedocumented in this encounter Additional Health Concerns Infection Onset Date Last Indicated Resolved Time MRSA 02/09/2024 02/09/2024 Assessment Noted Time A fall risk assessment has been complete d for the patient 11/06/2024 10:58 AM EST A Body Mass Index follow-up plan has been documented for the patient 03/15/2025 2:57 PM EDT documented as of this encounter Care Teams Smoking Tobacco Cutter Operator Relationship Specialty Start Date End Date Chris Underwood MD [address] [place] [address] PCP - General 04/11/21 documented as of this encounter
--- OUTSIDE RECORDS SUMMARY | 2025-08-01 08:30 | XMS_ITS | Encounter Summary ---
Author Organization Healthcare Address [address] [place] [address] Care Team Providers Care Manufacturing Team Member Name Role Phone Chris Underwood MD Primary Care Provider [phone] Jyoti Salinas Unavailable [phone] Encounter Details Date Type Department Care Team (Late Contact Info) Description 06/05/2022 Orders Only External Location [address] [place] [address] Radiant, Imaging Upload Social History Tobacco Use Types Packs/Day Years Used Date Smoking Tobacco: Former Cigarettes Q uit: 2020 Smokeless Tobacco: Never Comments:quit 2020. Alcohol Use Standard Drinks/Week Comments No 0 (1 standard drink = 0.6 oz pur e alcohol) PHQ-2 Answer Date Recorded Patient Health Questionnaire-2 Score 0 05/11/2022 Comments No Sex and Gender Information Value Date Recorded Sex Assigned at Female 08/20/2021 4:02 PM EDT Legal Sex Female 6:44 PM EDT Gender Identity Female 08/20/2021 4:02 PM EDT Sexual Orientation Straight 10/30/2021 4: 24 PM EST COVID-19 Exposure Response Date Recorded In the last 10 days, have yo u been in contact with someone who was confirmed or suspected to have Coronavirus/COVID-19? No / Unsure 05/25/2022 11:46 AM EDT documented as of this encounter Plan of Treatment Upcoming Encounters Date Type Department Care Team (Late Contact Info) Description 08/06/2025 9:00 AM EDT Office Visit [facility] [address] [facility] [place] [address] Sajan Lopez MD [address] [facility] [address] [place] [address] 08/24/2025 9:20 AM EDT Office Visit [facility] [address] 5th Floor [address] [place] [address] Joaquin Almodovar MD [address] [place] [address] 09/13/2025 3:40 PM EDT [facility] [address] [place] [address] Jennifer Becerra MD [address] [facility] [address] [place] [address] 11/07/2025 11:15 AM EST Office Visit [facility] [address] [place] [address] Mark Santos, OD [address] [place] [address] documented as of this encounter Procedures Procedure Name Priority Date/Time Associated Diagnosis Comments CT OUTSIDE IMAGES 06/05/2022 10:29 AM EDT documented in this encounter Results * CT OUTSIDE IMAGES (06/05/2022 10:29 AM EDT) Anatomical Region Laterality Modality Computed Tomogra phy 06/05/2022 10:2 9 AM EDT us Imaging Upload Radiant IMG CT PROCEDURES Final R esult documented in this encounter Visit Diagnoses Not on filedocumented in this encounter Additional Health Concerns Infection Onset Date Last Indicated Resolved Time MRSA 05/05/2021 05/05/2021 10/01/2022 10:4 8 AM EDT MRSA 02/09/2024 02/09/2024 Assessment Noted Time A fall risk assessment has been complete d for the patient 05/25/2022 1:09 PM EDT documented as of this encounter Care Teams Manufacturing Team Member Relationship Specialty Start Date End Date Chris Underwood MD [address] [place] [id number] PCP - General 04/11/21 Jyoti Salinas [address] [address] Registered Nurse 02/20/25 03/16/25 documented as of this encounter
--- OUTSIDE RECORDS SUMMARY | 2025-08-01 08:30 | XMS_ITS | Encounter Summary ---
Author Organization Healthcare Address [address] [place] [address] Care Team Providers Care Optical Instrument Assembly Supervisor Name Role Phone Chris Underwood MD Primary Care Provider [phone] Encounter Details Date Type Department Care Team (Late st Contact Info) Description 06/28/2025 Telephone [facility] Vascular Interventional Radiology [address] [facility] [address] [place] [address] Elvia Diez Social History Tobacco Use Types Packs/Day Years [...] place to sleep or slept in a chcf (including now)? No 08/16/2024 PHQ-9 Answer Date [...] as of this encounter Functional Status * Over the past 2 weeks, how often have you been bothered by any of the following problems? Question Answer Date of Assessment Author Little interest or pleasure in doing things Not at all 06/28/2025 9:37 AM Elvia Turcios Feeling down, depressed, or hopeless Not at all 06/28/2025 9:37 AM Elvia Turcios Patient Health Questionnaire -2 Score 0 06/28/2025 9:37 AM Elvia Turcios * If you checked off any problems on this questionnaire so far, Question Answer Date of Assessment Author How difficult have these problems made it for you to do your work, take care of things at home, or get along with other people? Not difficult at all 06/28/2025 9:37 AM EDT Elvia Diez documented as of this encounter Plan of Treatment Upcoming Encounters Date Type Department Care Team (Late st Contact Info) Description 08/06/2025 9:00 AM EDT Office Visit [facility] [address] [facility] [place] [address] Sajan Lopez MD [address] [facility] [address] [place] [address] 08/24/2025 9:20 AM EDT Office Visit [facility] [address] [facility] 5th Floor [address] [place] [address] Joaquin Almodovar MD [address] [facility] [address] [place] [address] 09/13/2025 3:40 PM EDT Office Visit [facility] Endocrinology [address] [place] [address] Jennifer Becerra MD [address] [place] [address] 11/07/2025 11:15 AM EST Office Visit [facility] [address] [place] [address] Mark Santos, OD [address] [facility] [address] [place] [address] documented as of this encounter [...] documented as of this encounter Care Teams Optical Instrument Assembly Supervisor Relationship Specialty Start Date End Date Chris Underwood MD [address] [place] [address] PCP - General 04/11/21 documented as of this encounter
--- OUTSIDE RECORDS SUMMARY | 2025-08-01 08:31 | XMS_ITS | Encounter Summary ---
Author Organization Healthcare Address [address] [place] [id number] Care Team Providers Care Instrumentation Manager Name Role Phone Chris Underwood MD Primary Care Provider Jyoti Salinas Unavailable [phone] Encounter Details Date Type Department Care Team (Late st Contact Info) Description 08/20/2021 Ophth Exam [facility] [address] [place] [address] Campos Haines MD [address] [place] [id number] Social History Tobacco Use Types Packs/Day Years Used Date Smoking Tobacco: Former Smokeless Tobacco: Never Alcohol Use Standard Drinks/Week Comments No 0 (1 standard drink = 0.6 oz pur e alcohol) Comments Unknown Sex and Gender Information Value Date Recorded Sex Assigned at Female 08/20/2021 4:02 PM EDT Legal Sex Female 6:44 PM EDT Gender Identity Female 08/20/2021 4:02 PM EDT Sexual Orientation Straight 10/30/2021 4: 24 PM EST COVID-19 Exposure Response Date Recorded In the last month, have you been in contact with someone who was confirmed or suspected to have Coronavirus / COVID-19? No / Unsure 08/20/2021 4:02 PM EDT documented as of this encounter Functional Status * Calculated C-SSRS Risk Score (Lifetime/Recent) Answer Date of Assessment Author No Risk Indicated 08/20/2021 11:01 PM EDT Jennifer Quigley, RN * Question Answer Date of Assessment Author 1. Wish to be (Past 1 Month) No 08/20/2021 11:01 PM EDT Jennifer Purcell, RN 2. Non-Specific Active Suici larisa Thoughts (Past 1 Month) No 08/20/2021 11:01 PM EDT Sa dasha Purcell RN 6. Suicidal Behavior (Lifetime) No 11:01 PM EDT Jennifer Purcell, RN documented as of this encounter Plan of Treatment Upcoming Encounters Date Type Department Care Team (Late st Contact Info) Description 08/06/2025 9:00 AM EDT Office Visit [facility] [address] [facility] [place] [address] Sajan Lopez MD [address] [facility] [address] [place] [address] 08/24/2025 9:20 AM EDT Office Visit [facility] [address] [facility] 5th Floor [address] [place] [address] Joaquin Almodovar MD [address] [facility] [address] [place] [address] 09/13/2025 3:40 PM EDT Office Visit [facility] Endocrinology [address] [place] [address] Jennifer Becerra MD [address] [place] [address] 11/07/2025 11:15 AM EST Office Visit [facility] [address] [place] [address] Mark Santos, OD [address] [place] [address] documented as of this encounter Visit Diagnoses Not on filedocumented in this encounter Additional Health Concerns Infection Onset Date Last Indicated Resolved Time MRSA 05/05/2021 05/05/2021 10/01/2022 10:4 8 AM EDT MRSA 02/09/2024 02/09/2024 documented as of this encounter Care Teams Instrumentation Manager Relationship Specialty Start Date End Date Chris Underwood MD [address] [place], [place] [phone] PCP - General 04/11/21 Jyoti Salinas [address] [place] [phone] Registered Nurse 02/20/25 03/16/25 documented as of this encounter
--- OUTSIDE RECORDS SUMMARY | 2025-08-01 08:31 | XMS_ITS | Encounter Summary ---
Author Organization [facility] Address [address] [place] [address] Care Team Providers Care Human Services Care Specialist Name Role Phone Chris Underwood MD Primary Care Provider [phone] Encounter Details Date Type Department Care Team (Latest Contact Info) Description 06/26/2025 Travel Social History Tobacco Use Types Packs/Day [...] Date Recorded Patient Health Questionnaire-2 Score 0 05/28/2025 Hunger Vital Sign Answer Date Recorded Within [...] Description 08/06/2025 9:00 AM EDT Office Visit [place] [address] [place] [address] [place] [address] [place] [address] 100 [place] [address] 08/24/2025 9:20 AM EDT Office Visit [facility] [address] [facility] 5th Floor [address] [place] [address] Joaquin Almodovar MD [address] [place] [address] 09/13/2025 3:40 PM EDT Office Visit [facility] Endocrinology [address] [place] [address] Jennifer Becerra MD 2[address] [facility] [address] [place] [address] 11/07/2025 11:15 AM EST Office Visit [facility] [address] [place] [address] Mark Santos, OD [address] [place] [address] documented as of this encounter [...] plan has been documented for the patient 06/07/2025 7:58 AM EDT documented as of this encounter Care Teams Human Services Care Specialist Relationship Specialty Start Date End Date Chris Underwood MD [address] [place], [place] [phone] PCP - General 04/11/21 documented as of this encounter
--- OUTSIDE RECORDS SUMMARY | 2025-08-01 08:31 | XMS_ITS | Encounter Summary ---
Author Organization Healthcare Address [address] [place] [address] Care Team Providers Care Slipman Name Role Phone Chris Underwood MD Primary Care Provider [phone] Encounter Details Date Type Department Care Team (Late st Contact Info) Description 06/21/2025 Telephone [facility] Diabetes Education [address] [place] [address] Marj Hart, PROCESSOR HELPER [address] [facility] [address] [place] [address] Social History Tobacco Use Types Packs/Day Years [...] encounter Miscellaneous Notes * Telephone Encounter - Georgette Oropeza - 06/22/2025 3:06 PM EDT Called pt to discuss insulin usage. Pt stated she only has 2 pens left of U 200 which will not be enough until her next refill in 8 days. New rx was sent in. 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 Called pt back and confirmed . No further action needed. * Telephone Encounter - Deisy Bonner CDE, ALLY - 06/21/2025 3:31 PM EDT Patient calling b/c when new omnipod rx was sent in for every 2 days change we didn't send in new rx for humalog dose change. Has had a pod fail and is now almost out of insulin and pharmacy won't let her refill again until new rx w/ new dosage is on the rx. Requesting a call back documented in this encounter Plan of Treatment Upcoming Encounters Date Type Department Care Team (Late st Contact Info) Description 08/06/2025 9:00 AM EDT Office Visit [facility] [address] [place] [address] Sajan Lopez MD [address] [facility] 100 [place] [address] 08/24/2025 9:20 AM EDT Office Visit [facility] [address] [facility] 5th Floor [address] [place] [address] Joaquin Almodovar MD [address] [facility] [address] [place] [address] 09/13/2025 3:40 PM EDT Office Visit [facility] Endocrinology [address] [place] [address] Jennifer Becerra MD [address] [place] [address] 11/07/2025 11:15 AM EST Office Visit [facility] [address] [place] [address] Mark Santos, OD [address] [place] [address] documented as of this encounter [...] documented as of this encounter Care Teams Slipman Relationship Specialty Start Date End Date Chris Underwood MD [address] [place], [place] [phone] PCP - General 04/11/21 documented as of this encounter
--- OUTSIDE RECORDS SUMMARY | 2025-08-01 08:31 | XMS_ITS | Encounter Summary ---
Author Organization [facility] Address [address] [place] [address] Care Team Providers Care Green Pipefitter Name Role Phone Chris Underwood MD Primary Care Provider [phone] Reason for Referral * Imaging (Routine) - Pending Review Specialty Diagnoses / Procedures Referred By Contac t Referred To Contact Neurosurgery Diagnoses Abnormal MRI, lumbar spine Procedures Consult to Interventional Radiology Antonieta Bernstein APRN [address] [address] Phone: tel: fax: Referral ID Status Reason Start Date Expiration Date V isits Requested Visits Authorized [id number] Pending Review 06/04/2025 12/04/2026 1 1 Encounter Details Date Type Department Care Team (Late st Contact Info) Description 06/04/2025 Orders Only [facility] [address]01 [place] [address] Antonieta Bernstein APRN 310 [facility] 100 [place] [address] Abnormal MRI, lumbar spine (Primary Dx) Social [...] the past 12 months has th e Riskified, gas, oil, or water company threatened to [...] Description 08/06/2025 9:00 AM EDT Office Visit [facility] 3101 [facility] [place] [address] Sajan Lopez MD 3101 [facility] 100 [place] [address] 08/24/2025 9:20 AM EDT Office Visit [facility] [address] [facility] 5th Floor [address] [place] [address] Joaquin Almodovar MD [address] [facility] [address] [place] [address] 09/13/2025 3:40 PM EDT Office Visit [facility] Endocrinology [address] [place] [address] Jennifer Becerra MD [address] [facility] 125 [place] [address] 11/07/2025 11:15 AM EST Office Visit [facility] [address] [place] [address] Mark Santos, YOGI [address] [facility] [address] [place] [address] Scheduled Orders Name Type Priority Associated Diagnoses Orde r Schedule Consult to Interventional Radiology Imaging Routine Abnormal MRI, lumbar spine Expected: 06/04/2025, Expires: 12/06/2026 Wound Culture and Gram Stain Microbiology Routine Abnormal MRI, lumbar spine Expected: 06/04/2025 (Approximate), Expires: 12/06/2026 Fungal Culture, Routine Microbiology Routine Abnormal MRI, lumbar spine Expected: 06/04/2025 (Approximate), Expires: 12/06/2026 documented as of this encounter Visit Diagnoses [...] documented as of this encounter Care Teams Green Pipefitter Relationship Specialty Start Date End Date Chris Underwood MD [address] [place] [address] PCP - General 04/11/21 documented as of this encounter
--- OUTSIDE RECORDS SUMMARY | 2025-08-01 08:31 | XMS_ITS | Encounter Summary ---
Author Organization [facility] Address [address] [place] [address] Care Team Providers Care Shipping And Receiving Specialist Name Role Phone Chris Underwood MD Primary Care Provider [phone] Jyoti Salinas Unavailable [phone] Encounter Details Date Type Department Care Team (Late Contact Info) Description 04/16/2024 Orders Only External Location [address] [place] [address] Provider, External Social History Tobacco Use Types Packs/Day Years Used Date Smoking Tobacco: Former Cigarettes 1.5 37.5 0 06/29/1983 - 12/30/2020 Smokeless Tobacco: Never Comments:NA Alcohol Use Standard Drinks/Week Comments Not Currently 0 (1 standard drink = 0.6 oz pur e alcohol) PHQ-2 Answer Date Recorded Patient Health Questionnaire-2 Score 0 12/31/2023 Comments No Sex and Gender Information Value Date Recorded Sex Assigned at Female 08/20/2021 4:02 PM EDT Legal Sex Female 6:44 PM EDT Gender Identity Female 08/20/2021 4:02 PM EDT Sexual Orientation Straight 10/30/2021 4: 24 PM EST documented as of this encounter Plan of Treatment Upcoming Encounters Date Type Department Care Team (Late Contact Info) Description 08/06/2025 9:00 AM EDT Office Visit [place] [address] [place] [address] [place] [address] [place] [address] [place] [address] 08/24/2025 9:20 AM EDT Office Visit [facility] [address] 5th Floor [address] [place] [address] Joaqiun Almodovar MD [address] [place] [address] 09/13/2025 3:40 PM EDT Office Visit [facility] Endocrinology [address] [place] [address] Jennifer Becerra MD [address] [facility] [address] [place] [address] 11/07/2025 11:15 AM EST Office Visit [facility] [address] [place] [address] Mark Santos, OD [address] [place] [address] documented as of this encounter Procedures Procedure Name Priority Date/Time Associated Diagnosis Comments CT THORACIC OUTSIDE IMAGES 04/16/2024 7:17 PM EDT documented in this encounter Results * CT THORACIC OUTSIDE IMAGES (04/16/2024 7:17 PM EDT) Anatomical Region Laterality Modality Computed Tomogra phy 04/16/2024 7:17 PM EDT us External Provider IMG CT PROCEDURES Final Result documented in this encounter Visit Diagnoses Not on filedocumented in this encounter Additional Health Concerns Infection Onset Date Last Indicated Resolved Time MRSA 02/09/2024 02/09/2024 Assessment Noted Time A fall risk assessment has been complete d for the patient 09/03/2023 9:27 AM EDT A Body Mass Index follow-up plan has been documented for the patient 12/31/2023 11:26 AM EST documented as of this encounter Care Teams Shipping And Receiving Specialist Relationship Specialty Start Date End Date Chris Underwood MD [address] [place] [address] PCP - General 04/11/21 Jyoti Salinas [address] [address] Registered Nurse 02/20/25 03/16/25 documented as of this encounter
--- OUTSIDE RECORDS SUMMARY | 2025-08-01 08:31 | XMS_ITS | Encounter Summary ---
Author Organization [facility] Address [address] [place] [address] Care Team Providers Care Locker Room Clerk Name Role Phone Chris Underwood MD Primary Care Provider Encounter Details Date Type Department Care Team (Late st Contact Info) Description 06/07/2025 Telephone [facility] Endocrinology [address] [place] [address] Jude Urrutia Social History Tobacco Use Types Packs/Day Years [...] * Telephone Encounter - Georgette Oropeza - 06/08/2025 9:34 AM EDT Returned pts call and lvm letting pt know she currently has refills and if more are needed before August to request them and we will send refills until her appointment * Telephone Encounter - Jude Urrutia - 06/07/2025 5:04 PM EDT N/A documented in this encounter Plan of Treatment Upcoming Encounters Date Type Department Care Team (Late st Contact Info) Description 08/06/2025 9:00 AM EDT Office Visit [facility] [address] [facility] [place] [address] Sajan Lopez MD [address] [facility] [address] [place] [address] 08/24/2025 9:20 AM EDT Office Visit [facility] [address] [facility] 5th Floor [address] [place] [address] Joaquin Almodovar MD [address] [facility] [address] [place] [address] 09/13/2025 3:40 PM EDT Office Visit [facility] Endocrinology [address] [place] [address] Jennifer Becerra MD [address] [facility] [address] [place] [address] 11/07/2025 11:15 AM EST Office Visit [facility] [address] [place] [address] Mark Santos, OD [address] [facility] [address] [place] [address] documented as of this encounter [...] documented as of this encounter Care Teams Locker Room Clerk Relationship Specialty Start Date End Date Chris Underwood MD [address] [place] [address] PCP - General 04/11/21 documented as of this encounter
--- OUTSIDE RECORDS SUMMARY | 2025-08-01 08:31 | XMS_ITS | Encounter Summary ---
Author Organization [facility] Address [address] [place] [address] Care Team Providers Care Stained Glass Installer Name Role Phone Chris Underwood MD Primary Care Provider [phone] Reason for Visit * Reason Onset Date Comments Med Refill 06/08/2025 Encounter Details Date Type Department Care Team (Late st Contact Info) Description 06/08/2025 Refill [facility] [address] [place] [address] Georgette Oropeza 2195 [facility] 125 [place] [address] Social History Tobacco Use Types [...] place to sleep or slept in a halfway (including now)? No 08/16/2024 PHQ-9 Answer Date [...] Description 08/06/2025 9:00 AM EDT Office Visit [facility] [address] [place] [address] Sajan Lopez MD [address] [facility] [address] [place] [address] 08/24/2025 9:20 AM EDT Office Visit [facility] [address] 5th Floor [address], [address] [place] [address] Joaquin Almodovar MD [address] [place] [address] 09/13/2025 3:40 PM EDT Office Visit [facility] Endocrinology [address] [place] [address] Jennifer Becerra MD 2[address] [facility] [address] [place] [address] 11/07/2025 11:15 AM EST Office Visit [facility] [address] [place] [address] Mark Santos, OD [address] [place] [address] documented as of this encounter [...] documented as of this encounter Care Teams Stained Glass Installer Relationship Specialty Start Date End Date Chris Underwood MD [address] [place] [address] PCP - General 04/11/21 documented as of this encounter
--- OUTSIDE RECORDS SUMMARY | 2025-08-01 08:31 | XMS_ITS | Encounter Summary ---
Author Organization [facility] Address [address] [place] [address] Care Team Providers Care Managing Partner Name Role Phone Chris Underwood MD Primary Care Provider Jyoti Salinas Unavailable Encounter Details Date Type Department Care Team (Late Contact Info) Description 01/12/2019 Orders Only External Location [address] [place] [address] Provider, External Social History Tobacco Use Types Packs/Day Years Used Date Smoking Tobacco: Never Assessed Comments Unknown Sex and Gender Information Value Date Recorded Sex Assigned at Female 08/20/2021 4:02 PM EDT Legal Sex Female 6:44 PM EDT Gender Identity Female 08/20/2021 4:02 PM EDT Sexual Orientation Straight 10/30/2021 4: 24 PM EST documented as of this encounter Plan of Treatment Upcoming Encounters Date Type Department Care Team (Late Contact Info) Description 08/06/2025 9:00 AM EDT Office Visit [place] [address] [place] [address] Sajan Lopez MD [address] [place] [address] 100 [place] [address] 08/24/2025 9:20 AM EDT Office Visit [facility] [address] [facility] 5th Floor Wing D, [address] [place] [address] Joaquin Almodovar MD [address] [place] [address] 09/13/2025 3:40 PM EDT Office Visit [facility] Endocr[facility]ology [address] [place] [address] Jennifer Becerra MD 2[address] [facility] [address] [place] [address] 11/07/2025 11:15 AM EST Office Visit [facility] [address] [place] [address] Mark Santos, OD [address] [place] [address] documented as of this encounter Procedures Procedure Name Priority Date/Time Associated Diagnosis Comments CT OUTSIDE IMAGES 01/12/2019 6:27 AM EST documented in this encounter Results * CT OUTSIDE IMAGES (01/12/2019 6:27 AM EST) Anatomical Region Laterality Modality Computed Tomogra phy 01/12/2019 6:27 AM EST us External Provider IMG CT PROCEDURES Final Result documented in this encounter Visit Diagnoses Not on filedocumented in this encounter Additional Health Concerns Infection Onset Date Last Indicated Resolved Time MRSA 05/05/2021 05/05/2021 10/01/2022 10:4 8 AM EDT MRSA 02/09/2024 02/09/2024 documented as of this encounter Care Teams Managing Partner Relationship Specialty Start Date End Date Chris Underwood MD [address] [place] [address] PCP - General 04/11/21 Jyoti Salinas 2[address] [facility] [address] [place] [address] Registered Nurse 02/20/25 03/16/25 documented as of this encounter
--- OUTSIDE RECORDS SUMMARY | 2025-08-01 08:31 | XMS_ITS | Encounter Summary ---
Author Organization [facility] Address [address] [place] [address] Care Team Providers Care Floor Assembler Name Role Phone Chris Underwood MD Primary Care Provider [phone] Encounter Details Date Type Department Care Team (Latest Contact Info) Description 06/28/2025 Travel Social History Tobacco Use Types Packs/Day [...] the past 12 months has th e [employer], gas, oil, or water company threatened to [...] Description 08/06/2025 9:00 AM EDT Office Visit [facility] [address] [facility] [address] Sajan Lopez MD [address] [facility] [address] [place] [address] 08/24/2025 9:20 AM EDT Office Visit [facility] [address] 5th Floor Wing [address], [address] [place] [address] Joaquin Almodovar MD [address] [facility] [address] [place] [address] 09/13/2025 3:40 PM EDT Office Visit [facility] [address] [place] [address] Jennifer Becerra MD 2[address] [facility] 125 [place] [address] 11/07/2025 11:15 AM EST Office Visit [facility] [address] [place] [address] Mark Santos, OD [address] [facility] [address] [place] [address] documented as of this encounter [...] documented as of this encounter Care Teams Floor Assembler Relationship Specialty Start Date End Date Chris Underwood MD [address] [place] [address] PCP - General 04/11/21 documented as of this encounter
--- OUTSIDE RECORDS SUMMARY | 2025-08-01 08:31 | XMS_ITS | Encounter Summary ---
Author Organization Healthcare Address [address] [place] [address] Care Team Providers Care Pharmacy Sales Representative Name Role Phone Chris Underwood MD Primary Care Provider [phone] Encounter Details Date Type Department Care Team (Late st Contact Info) Description 06/15/2025 Telephone [facility] [address] [place] [address] Antonieta Bernstein, DRISS 3101 [facility] 100 [place] [address] Social History Tobacco Use Types [...] encounter Miscellaneous Notes * Telephone Encounter - Christie Brooks - 06/15/2025 2:17 PM EDT Clinical Concern/Question Reason for Call: Pt is calling to see if you needs to see her before the biopsy or after Best contact number: [phone] (mobile) Optimal time of day to reach caller: ANYTIME Additional comments/information from caller: None Note: Please do not reply to this message. Follow-up communication and further actions as a result of this message need to be communicated with the patient directly, if the patient is not active onMyChart. If the patient is active on MyChart, they will receive notification of the communication/outcome via MyChart. documented in this encounter Plan of Treatment Upcoming Encounters Date Type Department Care Team (Late st Contact Info) Description 08/06/2025 9:00 AM EDT Office Visit [facility] [address] [facility] [place] [address] Sajan Lopez MD 3101 [facility] [address] [place] [address] 08/24/2025 9:20 AM EDT Office Visit [facility] [address] [facility] 5th Floor Wing D, [address] [place] [address] Joaquin Almodovar MD [address] [facility] [address] [place] [address] 09/13/2025 3:40 PM EDT Office Visit [facility] Endocrinology [address] [place] [address] Jennifer Becerra MD 2[address] [facility] 125 [place] [address] 11/07/2025 11:15 AM EST Office Visit [facility] [address] [place] [address] Mark Santos, OD [address] [place] [address] documented as of this encounter [...] documented as of this encounter Care Teams Pharmacy Sales Representative Relationship Specialty Start Date End Date Chris Underwood MD [address] [place] [address] PCP - General 04/11/21 documented as of this encounter
--- OUTSIDE RECORDS SUMMARY | 2025-08-01 08:31 | XMS_ITS | Encounter Summary ---
Author Organization [facility] Address [address] [place] [address] Care Team Providers Care Lucerne Farmer Name Role Phone Chris Underwood MD Primary Care Provider [phone] Reason for Visit * Reason Comments Med Refill Encounter Details Date Type Department Care Team (Late st Contact Info) Description 06/22/2025 Refill [facility] Education [address] [place] [address] Marj Hart L, SENIOR HYDROGEOLOGIST [address] [facility] [address] [place] [address] Type 2 diabetes mellitus with hyperglycemia, with long-term current use of insulin ([facility]); 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 No 08/16/2024 Comments No Sex and Gender Information Value Date Recorded Sex Assigned at Female 08/20/2021 4:02 PM EDT Legal Sex Female 6:44 PM EDT Gender Identity Female 08/20/2021 4:02 PM EDT Sexual Orientation Straight 10/30/2021 4: 24 PM EST documented as of this encounter Miscellaneous Notes * Telephone Encounter - Anaya Porter, PharmD - 06/22/2025 9:04 AM EDT Refill request does not meet protocol. Sending to clinic for review. Additional info: Clarification required: MDD on rx request differs from the one on med list. documented in this encounter Plan of Treatment Upcoming Encounters Date Type Department Care Team (Late st Contact Info) Description 08/06/2025 9:00 AM EDT Office Visit [facility] [address] [facility] [place] [address] Sajan Lopez MD [address] [place] [address] 08/24/2025 9:20 AM EDT Office Visit [facility] [address] [facility] 5th Floor Wing [address], [address] [place] [address] Joaquin Almodovar MD [address] [facility] [address] [place] [address] 09/13/2025 3:40 PM EDT Office Visit [facility] Endocrinology [address] [place] [address] Jennifer Becerra MD 2[address] [facility] [address] [place] [address] 11/07/2025 11:15 AM EST Office Visit [facility] [address] [facility] [place] [address] Mark Santos, OD [address] [facility] [address] [place] [address] documented as of this encounter Visit Diagnoses Diagnosis Type 2 diabetes mellitus with hyperglycemia, with long-term current use of insulin ([facility]) 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
--- OUTSIDE RECORDS SUMMARY | 2025-08-01 08:32 | XMS_ITS | Encounter Summary ---
Author Organization Healthcare Address [address] [place] [address] Care Team Providers Care Wool Shearer Name Role Phone Chris Underwood MD Primary Care Provider [phone] Encounter Details Date Type Department Care Team (Late st Contact Info) Description 07/23/[address] [address] Too Jimenez MD [address] [place] [address] [id number] Social History Tobacco Use Types Packs/Day Years [...] encounter Miscellaneous Notes * Telephone Encounter - Too Jimenez MD - 07/23/2025 1:19 PM EDT Ms. Jerez called our clinic stating she is low on her insulin. She has had recent MRIs that have required her to remove her Omnipod which has resulted in lost insulin. Refilled Humalog U200 insulin pens. Too Jimenez MD Endocrinology Fellow Pager: [phone], Epic Chat Preferred documented in this encounter Plan of Treatment Upcoming Encounters Date Type Department Care Team (Late st Contact Info) Description 08/06/2025 9:00 AM EDT Office Visit [facility] [address] [facility] [place] [address] Sajan Lopez MD [address] [facility] [address] [place] [address] 08/24/2025 9:20 AM EDT Office Visit [facility] [address] [facility] 5th Floor Wing [address], [address] [place] [address] Joaquin Almodovar MD [address] [facility] [address] [place] [address] 09/13/2025 3:40 PM EDT Office Visit [facility] [address] [place] [address] Jennifer Becerra MD [address] [facility] [address] [place] [address] 11/07/2025 11:15 AM EST Office [facility] [address] [facility] [place] [address] Mark Santos, OD [address] [place] [address] documented as of this encounter Visit Diagnoses Diagnosis Type 2 diabetes mellitus with hyperglycemia, with long-term current use of insulin (CMS/HCC) 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 [...] documented as of this encounter Care Teams Wool Shearer Relationship Specialty Start Date End Date Chris Underwood MD [address] [place] [address] PCP - General 04/11/21 documented as of this encounter
--- OUTSIDE RECORDS SUMMARY | 2025-08-01 08:32 | XMS_ITS | Encounter Summary ---
Author Organization [facility] Address [address] [place] [address] Care Team Providers Care Toolmaker Name Role Phone Chris Underwood MD Primary Care Provider [phone] Reason for Referral * Imaging (Routine) - Authorized Specialty Diagnoses / Procedures Referred By Contac t Referred To Contact Diagnoses Vertebral osteomyelitis (CMS/HCC) Abnormal MRI, lumbar spine Procedures MR Lumbar Spine w and wo IV Contrast Gloria Salcedo MD [address] [place] [address] Phone: tel: fax: [facility] (r [facility] MRI) [address] [place] [address] Phone: tel: Referral ID Status Reason Start Date Expiration Date V isits Requested Visits Authorized [id number] Authorized 07/23/2025 01/22/2027 1 1 Encounter Details Date Type Department Care Team (Late st Contact Info) Description 07/23/2025 Orders Only [address] [address] Gloria Salcedo MD [address] [place] [address] 100 [place] [address] Abnormal MRI, lumbar spine (Primary Dx); Vertebral [...] encounter Miscellaneous Notes * Progress Notes - Gloria Salcedo MD - 07/23/2025 9:58 AM EDT ID Brief Note MRI L spine w/wo contrast unable to be done at due to habitus. New order for third constitution party scan placed. Pt needs follow-up appt with ID. desktop analyst notified to schedule visit Gloria Salcedo MD documented in this encounter Plan of Treatment Upcoming Encounters Date Type Department Care Team (Late st Contact Info) Description 08/06/2025 9:00 AM EDT Office Visit [facility] [address] [place] [address] Sajan Lopez MD [address] [place] [address] [address] [place] [address] 08/24/2025 9:20 AM EDT Office [facility] [address] [facility] 5th Floor Wing [address], [address] [place] [address] Joaquin Almodovar MD [address] [facility] [address] [place] [address] 09/13/2025 3:40 PM EDT Office Visit [facility] Endocrinology [address] [place] [address] Jennifer Becerra MD [address] [place] [address] 11/07/2025 11:15 AM EST Office Visit [facility] [address] [place] [address] Mark Santos, OD [address] [place] [address] Scheduled Orders Name Type Priority Associated Diagnoses Orde r Schedule MR Lumbar Spine w and wo IV Contrast Imaging Routine Vertebral osteomyelitis (CMS/HCC) Abnormal MRI, lumbar spine Expected: 07/23/2025 (Approximate), Expires: 01/24/2027 documented as of this encounter Visit Diagnoses [...] documented as of this encounter Care Teams Toolmaker Relationship Specialty Start Date End Date Chris Underwood MD [address] [place], [place] [id number] PCP - General 04/11/21 documented as of this encounter
--- OUTSIDE RECORDS SUMMARY | 2025-08-01 08:32 | XMS_ITS | Encounter Summary ---
Author Organization Healthcare Address [address] [place] [address] Care Team Providers Care Field Case Manager Name Role Phone Chris Underwood MD Primary Care Provider Jyoti Salinas Unavailable Encounter Details Date Type Department Care Team (Late st Contact Info) Description 09/05/2019 Orders Only External Location [address] [place] [address] Ananth Roblero MD [address] [facility] [address] [place] [address] Social History Tobacco Use Types [...] Description 08/06/2025 9:00 AM EDT Office Visit [facility] [address] [place] [address] Sajan Lopez MD 3101 [facility] [address] [place] [address] 08/24/2025 9:20 AM EDT Office Visit [facility] [address] 5th Floor [address], [address] [place] [address] Joaquin Almodovar MD [address] [place] [address] 09/13/2025 3:40 PM EDT Office Visit [facility] Endocrinology [address] [place] [address] Jennifer Becerra MD 2[address] [facility] [address] [place] [address] 11/07/2025 11:15 AM EST Office Visit [facility] [address] [place] [address] Mark Santos, OD [address] [place] [address] documented as of this encounter Procedures Procedure Name Priority Date/Time Associated Diagnosis Comments CT OUTSIDE IMAGES 09/05/2019 10:41 PM EDT documented in this encounter Results * CT OUTSIDE IMAGES (09/05/2019 10:41 PM EDT) Anatomical Region Laterality Modality Computed Tomogra phy 09/05/2019 10:4 1 PM EDT Ananth Roblero MD IMG CT PROCEDURES Final Re sult documented in this encounter Visit Diagnoses Not on filedocumented in this encounter Additional Health Concerns Infection Onset Date Last Indicated Resolved Time MRSA 05/05/2021 05/05/2021 10/01/2022 10:4 8 AM EDT MRSA 02/09/2024 02/09/2024 documented as of this encounter Care Teams Field Case Manager Relationship Specialty Start Date End Date Chris Underwood MD [address] [place] [address] PCP - General 04/11/21 Jyoti Salinas [address] [address] Registered Nurse 02/20/25 03/16/25 documented as of this encounter
--- OUTSIDE RECORDS SUMMARY | 2025-08-01 08:32 | XMS_ITS | Encounter Summary ---
Author Organization [facility] Address [address] [place] [address] Care Team Providers Care Global Marketing Specialist Name Role Phone Chris Underwood MD Primary Care Provider Jyoti Salinas Unavailable [phone] Encounter Details Date Type Department Care Team (Late Contact Info) Description 07/29/2024 Lab Requisition [facility] [address] [place] [address] System, Provider Not In, [address] [place] [address] Encounter for general adult medical examination without abnormal findings Social History Tobacco Use Types Packs/Day Years [...] Office Visit [facility] [address] [place] [address] Sajan Lopez MD 3101 [facility] [address] [place] [address] 08/24/2025 9:20 AM EDT Office Visit [facility] [address] 5th Floor [address] [place] [address] Joaquin Almodovar MD [address] [place] [address] 09/13/2025 3:40 PM EDT Office Visit [facility] Endocrinology [address] [place] [address] Jennifer Becerra MD 2195 [facility] 125 [place] [address] 11/07/2025 11:15 AM EST Office Visit [facility] [address] [facility] [place] [address] Mark Santos, OD [address] [facility] [address] [place] [address] documented as of this encounter Procedures Procedure Name Priority Date/Time Associated Diagnosis Comments VANCOMYCIN, TROUGH, PLASMA Routine 07/29/2024 9:20 PM EDT Encounter for general adult medical examination without abnormal findings documented in this encounter Results * Vancomycin, trough (07/29/2024 9:20 PM EDT) Vancomycin, Trough, Plasma 13.5 10.0 - 20.0 ug/mL 07/30/2024 12:02 AM EDT [facility] Blood Venous blood specimen / Unknown 07/29/2024 9:20 PM EDT 07/29/2024 11:43 PM EDT Narrative [facility] - 07/30/2024 12:02 AM EDT Therapeutic Trough level: 10-20ug/mL Supra-therapeutic Trough level: >20 ug/mL us Provider Not In System LAB BLOOD ORDERABLES F inal Result [facility] [address] [place] [address] documented in this encounter Visit Diagnoses Diagnosis Encounter for general adult medical examination without abnormal findings documented in this encounter Additional Health Concerns Infection Onset Date Last Indicated Resolved Time MRSA 02/09/2024 02/09/2024 Assessment Noted Time A fall risk assessment has been complete d for the patient 09/03/2023 9:27 AM EDT A Body Mass Index follow-up plan has been documented for the patient 07/28/2024 11:12 AM EDT documented as of this encounter Care Teams Global Marketing Specialist Relationship Specialty Start Date End Date Chris Underwood MD [address] [place] [address] PCP - General 04/11/21 Jyoti Salinas [address] [address] Registered Nurse 02/20/25 03/16/25 documented as of this encounter
--- OUTSIDE RECORDS SUMMARY | 2025-08-01 08:32 | XMS_ITS | Encounter Summary ---
Author Organization Healthcare Address [address] [place] [address] Care Team Providers Care Health Outcomes Liaison Name Role Phone Chris Underwood MD Primary Care Provider [phone] Jyoti Salinas Unavailable Encounter Details Date Type Department Care Team (Late st Contact Info) Description 12/28/2019 Orders Only External Location [address] [place] [address] Joaquin Almodovar MD [address] [facility] [address] [place] [address] Social History Tobacco Use Types [...] Description 08/06/2025 9:00 AM EDT Office Visit [facility] [address] [place] [address] Sajan Lopez MD [address] [facility] [address] [place] [address] 08/24/2025 9:20 AM EDT Office Visit [place] [facility] [address] [place] [address] Joaquin Almodovar MD [address] [place] [address] 09/13/2025 3:40 PM EDT Office Visit [facility] [address] [place] [address] Jennifer Becerra MD [address] [facility] [address] [place] [address] 11/07/2025 11:15 AM EST Office Visit [facility] [address] [place] [address] Mark Santos, OD [address] [place] [address] documented as of this encounter Procedures Procedure Name Priority Date/Time Associated Diagnosis Comments CT OUTSIDE IMAGES 12/28/2019 12:11 PM EST documented in this encounter Results * CT OUTSIDE IMAGES (12/28/2019 12:11 PM EST) Anatomical Region Laterality Modality Computed Tomogra phy 12/28/2019 12:1 1 PM EST us Joaquin Almodovar MD IMG CT PROCEDURES Final Result documented in this encounter Visit Diagnoses Not on filedocumented in this encounter Additional Health Concerns Infection Onset Date Last Indicated Resolved Time MRSA 05/05/2021 05/05/2021 10/01/2022 10:4 8 AM EDT MRSA 02/09/2024 02/09/2024 documented as of this encounter Care Teams Health Outcomes Liaison Relationship Specialty Start Date End Date Chris Underwood MD [address] [place] [id number] PCP - General 04/11/21 Jyoti Salinas [address] [address] Registered Nurse 02/20/25 03/16/25 documented as of this encounter
--- OUTSIDE RECORDS SUMMARY | 2025-08-01 08:32 | XMS_ITS | Encounter Summary ---
Author Organization [facility] Address [address] [place] [address] Care Team Providers Care Director Of Land Name Role Phone Chris Underwood MD Primary Care Provider Jyoti Salinas Unavailable [phone] Encounter Details Date Type Department Care Team (Late Contact Info) Description 01/12/2019 Orders Only External Location [address] [place] [address] Provider, External Social History Tobacco Use Types [...] Description 08/06/2025 9:00 AM EDT Office Visit [facility] [address] [place] [address] Sajan Lopez MD [address] [place] [address] [address] [place] [address] 08/24/2025 9:20 AM EDT Office Visit [facility] [address] [facility] 5th Floor [address] [place] [address] Joaquin Almodovar MD [address] [place] [address] 09/13/2025 3:40 PM EDT Office Visit [facility] [address] [place] [address] Jennifer Becerra MD [address] [facility] [address] [place] [address] 11/07/2025 11:15 AM EST Office Visit [facility] [address] [place] [address] Mark Santos, OD [address] [place] [address] documented as of this encounter Procedures Procedure Name Priority Date/Time Associated Diagnosis Comments CT OUTSIDE IMAGES 01/12/2019 6:23 AM EST documented in this encounter Results * CT OUTSIDE IMAGES (01/12/2019 6:23 AM EST) Anatomical Region Laterality Modality Computed Tomogra phy 01/12/2019 6:23 AM EST us External Provider IMG CT PROCEDURES Final Result documented in this encounter Visit Diagnoses Not on filedocumented in this encounter Additional Health Concerns Infection Onset Date Last Indicated Resolved Time MRSA 05/05/2021 05/05/2021 10/01/2022 10:4 8 AM EDT MRSA 02/09/2024 02/09/2024 documented as of this encounter Care Teams Director Of Land Relationship Specialty Start Date End Date Chris Underwood MD [address] [place] [id number] PCP - General 04/11/21 Jyoti Salinas [address] [facility] [address] [place] [address] Registered Nurse 02/20/25 03/16/25 documented as of this encounter
--- OUTSIDE RECORDS SUMMARY | 2025-08-01 08:32 | XMS_ITS | Clinical Summary ---
Author Organization [facility] Address [address] [place] [address] Care Team Providers [facility] [employer] Manager Name Role Phone Chris Underwood MD Primary Care Provider [phone] Allergies Active Allergy Reactions Criticality Noted Date Comments Amlodipine Other - please document in the comment field Low 08/20/2021 messes with my BP/ heart Beta Adrenergic Blockers Other - please document in the comment field High 08/29/2021 BP bottoms out. Duloxetine Unknown - Patient states they do not know rxn details Low 02/01/2019 Duloxetine Hcl Hives,Other - please document in the comment field Medium 01/12/2019 vomiting, mcdermott,nausea H2 Antagonists Other - please document in the comment field,Itching High 08/26/2022 Histamine Itching Medium 02/01/2019 Lisinopril Angioedema,Anaphyl axis,Swelling High 01/12/2019 Methocarbamol Other - please document in the comment field Low 07/20/2024 Pt reports that this medication caused some abnormal muscle movements. Metoprolol Unknown - Patient states they do not know rxn details High 07/19/2024 syncope Sulfamethoxazole Unknown - Patient states they do not know rxn details Low 07/19/2024 Sulfamethoxazole-Trimetho prim Other - please document in the comment field,Unknown - Patient states they do not know rxn details Low 09/08/2019 messes with my kidneys creatnine increases Trimethoprim Unknown - Patient states they do not know rxn details Low 07/19/2024 Medications clopidogrel (Plavix) 75 MG tablet Take 1 tablet by mouth daily. Active RABEprazole (Aciphex) 20 MG EC tablet Take 1 tablet by mouth daily. Do not crush, chew, or split. Active atorvastatin (Lipitor) 80 MG tablet Take 1 tablet by mouth every evening. Active aspirin 81 MG chewable tablet Chew 1 tablet daily. Active nystatin (Mycostatin) 134002 UNIT/GM powder Apply 1 Application topically 2 (two) times a day. Apply to lower abdomen. Active potassium chloride CR (Klor-Con) 10 MEQ ER tablet Take 4 tablets by mouth daily. Administer with as needed furosemide. Active albuterol 108 (90 Base) MCG/ACT inhaler Inhale 2 puffs 3 times a day as needed for wheezing or shortness of breath. Active NON FORMULARY Magic Butt [place] 1 Ointment Apply topically to left and right groin once daily Active magnesium oxide (Mag-Ox) 400 (240 Mg) MG tablet Take 1 tablet by mouth 2 times a day. Active Benzocaine-Reso rcinol (Vagisil) 5-2 % cream Apply 1 application. topically 3 (three) times a day. Active bumetanide (Bumex) 2 MG tablet Take 2 tablets (4 mg) by mouth 2 (two) times a day. Patient is to take Bumex 4mg by mouth twice daily until she reaches her dry weight (estimated 325lbs) and then Bumex 4mg once daily after that indefinitely 08/23/20 Active Additional Information Patient taking differently: 2 mgOral 2 times daily (0900 & 1500), Patient is to take Bumex 4mg by mouth twice daily until she reaches her dry weight (estimated 325lbs) and then Bumex 4mg once daily after that indefinitely, Reported on 07/13/2025 albuterol (Proventil) (2.5 MG/3ML) 0.083% nebulizer solution Take 3 mL by nebulization 3 times a day as needed. 09/19/20 24 Active acetone, urine, test strip 1 strip as needed for high blood sugar (Test when glucose greater than 240 mg/dl two times in a row; or during illness). 50 each 3 02/01/20 25 Active Glucagon (Gvoke PFS) 1 MG/0.2ML solution prefilled syringe Inject 1 mg under the skin 1 (one) time as needed (hypoglycemic emergency) for up to 1 dose. 0.2 mL 1 02/01/20 25 Active Insulin Dispos Geospatial Image Analyst Accessories (Omnipod Pod Pals) miscIndications :Type 2 diabetes mellitus with hyperglycemia, with long-term current use of insulin (CMS/HCC) 1 patch every other day. 15 each 5 02/27/20 25 Active dulaglutide 4.5 MG/0.5ML solution auto-injector Inject 4.5 mg under the skin 1 (one) time per week. 2 mL 3 03/15/20 25 026 Active Additional Information Patient taking differently:4.5 mg Subcutaneous Weekly, On Sundays, Reported on 07/13/2025 Continuous Glucose Sensor (Dexcom G7 Sensor) misc 1 sensor every 10 days. 3 each 3 04/05/20 25 Active Continuous Glucose Sensor (Dexcom G6 Sensor) misc 1 each every 10 days. 9 each 1 05/22/20 25 Active Continuous Glucose Transmitter (Dexcom G6 transmitter) misc Use as directed every 90 days 1 each 3 05/22/20 25 Active Blood Glucose Monitoring Suppl (ONE TOUCH ULTRA 2) w/Device kit device kit use as directed 02/20/20 25 Active FeroSul 325 (65 Fe) MG tablet take (1) tablet by mouth twice a day. 05/15/20 25 Active OneTouch Ultra Test test strip 4 times a day. 05/15/20 25 Active hydrocortisone 1 % cream APPLY 1 GRAM TO THE AFFECTED AREA(S) BY TOPICAL ROUTE FOUR TIMES DAILY NEEDED 04/26/20 25 Active GNP Zinc Oxide 20 % ointment Apply 1 Application topically as needed. Butt balm 12/15/19 25 Active Omnipod 5 [id number] Pods Gen 5 (Omnipod5) miscIndications :Type 2 diabetes mellitus with hyperglycemia, with long-term current use of insulin (CMS/HCC),Retin al detachment of left eye with multiple breaks USE DIRECTED CHANGE EVERY 2 DAYS. 15 each 2 05/31/20 25 Active insulin lispro (Admelog) 100 UNIT/ML patient supplied pump Inject under the skin continuously. U 200 Active alpha tocopherol (Vitamin E) 100 units capsule Take 1 capsule by mouth daily. Active gabapentin (Neurontin) 800 MG tablet Take 2 tablets by mouth 2 times a day. Active omega-3 (Fish Oil) 1000 MG capsule Take 2 capsules by mouth 2 times a day. Active insulin lispro (HumaLOG KWIKPEN) 200 UNIT/ML injection penIndications: Type 2 diabetes mellitus with hyperglycemia, with long-term current use of insulin (CMS/HCC),Retin al detachment of left eye with multiple breaks Use as directed with OmniPod - Max TDD : 150 units of U200 per day 30 mL 3 07/23/20 25 Active insulin lispro (HumaLOG KWIKPEN) 200 UNIT/ML injection penIndications: Type 2 diabetes mellitus with hyperglycemia, with long-term current use of insulin (CMS/HCC),Retin al detachment of left eye with multiple breaks Use as directed with OmniPod - Max TDD : 150 units of U200 per day 30 mL 3 06/22/20 25 025 Discontin ued(Reord er) Active Problems Problem Noted Date Diagnosed Date Amputation of toe of left foot 05/28/2025 Amputation of toe of right foot 05/28/2025 Hypoxemia 04/16/2025 Elevated blood-pressure read ing, without diagnosis of hypertension 04/05/2025 Hypokalemia 04/05/2025 Iron deficiency anemia, unspecified 04/05/2025 Cardiomegaly 03/23/2025 Other specified deforming do rsopathies, thoracolumbar region 03/23/2025 Lumbago with sciatica, left side 03/22/2025 Lumbago with sciatica, right side 03/22/2025 Muscle weakness (generalized) 03/22/2025 Other spondylosis with radiculopathy, lumbar reg ion 03/22/2025 Type 2 diabetes mellitus wit h diabetic peripheral angiopathy without gangrene 03/22/2025 Acquired absence of left foot 02/23/2025 Acquired absence of right foot 02/23/2025 Insulin pump training 02/13/2025 Overview (03/18/2025): Omnipod 5 G7 with U200 Pain, unspecified 01/22/2025 Acute respiratory failure with hypoxia Primary generalized (osteo)arthritis 01/14/2025 Solitary pulmonary nodule 01/14/2025 Unspecified abnormalities of gait and mobility 0 01/14/2025 Obstructive sleep apnea (adult) (pediatric) 12/30 Pain in right hip 01/12/2025 Abnormal level of blood mineral 12/15/2024 Acute upper respiratory infection, unspecified 0 12/15/2024 Chronic obstructive pulmonary disease, unspecifi ed 11/13/2024 Other general symptoms and signs 07/29/2024 Low back pain 07/13/2024 Radicular pain 07/13/2024 Candidiasis of skin and nail 07/04/2024 Non-pressure chronic ulcer o f other part of left foot with unspecified severity 06/13/2024 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 01/21/2022 Overview (01/21/2022): Added automatically from request for surgery [id number] Neuropathy 10/02/2021 Spinal stenosis of lumbar region 09/04/2021 Bilateral sacroiliitis 09/04/2021 Gastroesophageal reflux disease 08/29/2021 Antiplatelet or antithrombotic long-term use 11/2020 Decreased functional activity tolerance 08/29/20 21 History of MRSA infection 08/29/2021 Vitreous hemorrhage of left eye 08/25/2021 Overview (08/25/2021): Added automatically from request for surgery [id number] Assessment & Plan (09/05/2021 11:50 AM EDT): POD1 s/p AC washout and PPV/EL/AFx/retinectomy/oil for post-RGR hyphema, vitreous hemorrhage, and retinal detachment/incarceration left eye on 09/04/2021 - Doing well, retina attached under oil, unable to position face down so maintain 50% right side-down, 50% left side-down positioning for 7 more days - No heavy lifting (more than 10lbs), or bending below the waist for 1 week - Keep the area dry, can shower neck-down; recommend using a wash-cloth for the face - Use eye-shield at night time (only required at night) - To simplify will keep her drops similar to prior regimen: continue cyclogyl TID, ofloxacin QID OS; increase pred forte to QID OS; restart brimonidine TID OS for elevated IOP - Use erythromycin up to QID OS for comfort - Emphasize importance of no strenuous activity or bending to reduce risk of rebleed - Patient was counseled on concerning visual symptoms including loss of vision, flashes, new floaters, shade over vision, eye pain, redness, photophobia and was asked to call should these symptoms develop RTC 1 week for POW1 visit Tinnitus of right ear 08/21/2021 Ruptured globe, left, subsequent encounter 08/20 Overview (08/20/2021): Added automatically from request for surgery [id number] Assessment & Plan (08/25/2021 11:43 AM EDT): POD5 s/p RGR OS with residual hyphema. IOP good today. Continue cyclogyl TID, ofloxacin QID, brimonidine BID, pred forte QID and emycin qhs OS. RTC Wednesday for B-scan OS and IOP check Atherosclerosis of artery of both lower extremit ies 08/20/2021 Hyperlipidemia 08/20/2021 Peripheral edema 08/20/2021 Class 3 severe obesity with serious comorbidity and body mass index (BMI) of 50.0 to 59.9 in adult 08/20/2021 Aortoiliac occlusive disease 09/28/2019 Hypertension 02/01/2019 Type 2 diabetes mellitus wit h hyperglycemia, with long-term current use of insulin 02/01/2019 Resolved Problems Problem Noted Date Diagnosed Date Resolved Date Acute respiratory failure wi th hypoxia and hypercarbia 08/17/2024 08/23/2024 Acute decompensated heart failure 08/17/2024 08/23/2024 Normocytic anemia 08/17/2024 08/23/2024 Acute encephalopathy 08/16/2024 024 Delayed emergence from anesthesia 08/20/2021 09/05/2021 Encounters Date Type Department Care Team Description 07/23/2025 Telephone [facility] [address] [place] [address] Too Jimenez MD 07/23/2025 Orders Only [facility] [address] [place] [id number] Alex Salcedo MD Abnormal MRI, lumbar spine (Primary Dx); Vertebral osteomyelitis (CMS/HCC) 07/20/2025 2:36 PM EDT - 07/20/2025 11:59 PM EDT Hospital Encounter [facility] [address] [place] [address] Abnormal MRI, lumbar spine; Vertebral osteomyelitis (CMS/HCC) Discharge Disposition: Home or Self Care 07/20/2025 Travel 07/19/2025 Travel 07/19/2025 Telephone [facility] [address] [place] [address] Carmen Clark RN 07/19/2025 Telephone [facility] [address] [place] [address] Joaquin Almodovar MD HCN Paperwork/Documentat ion Request 07/18/2025 Telephone [facility] [address] [facility] 5th Floor [address] [place] [address] Joaquin Almodovar MD 07/13/2025 11:30 AM EDT Pre-Admission Testing [facility] [address] [place] [address] 07/13/2025 Telephone [facility] [address] [place] [address] Angelic Kwok RN 07/13/2025 Travel 07/10/2025 Telephone [facility] [address] [facility] [address] Floor [address] [place] [address] Joaquin Almodovar MD HCN Clinical Concern/Question 07/05/2025 Telephone [address] [place] [address] Antonieta Bernstein, MOTORSPORTS TECHNICIAN 07/05/2025 Orders Only [address] [address] Antonieta Bernstein, MOTORSPORTS TECHNICIAN Abnormal MRI, lumbar spine (Primary Dx); Vertebral osteomyelitis (CMS/HCC) 07/02/2025 1:30 PM EDT Office Visit [address] [address] Antonieta Bernstein, MOTORSPORTS TECHNICIAN Abnormal MRI, lumbar spine (Primary Dx) 07/02/2025 Travel 06/28/2025 9:30 AM EDT Office Visit [facility] [address] [facility] [address] [place] [address] Shelley Lim, MOTORSPORTS TECHNICIAN Low back pain (Primary Dx) 06/28/2025 Telephone [facility] [address] [facility] [address] [place] [address] Elvia Diez 06/28/2025 Travel 06/26/2025 Travel 06/22/2025 Refill [facility] [place] [address] Marj Hart, MOTORSPORTS TECHNICIAN Type 2 diabetes mellitus with hyperglycemia, with long-term current use of insulin (CMS/HCC); 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 06/21/2025 Telephone [facility] [address] [place] [address] Marj Hart, MOTORSPORTS TECHNICIAN 06/15/[address] [address] Antonieta Bernstein, MOTORSPORTS TECHNICIAN 06/08/2025 Refill [facility] [address] [place] [address] Georgette Oropeza 06/07/2025 Telephone [facility] [address] [place] [address] Jude Urrutia 06/04/2025 Orders Only [address] [address] Antonieta Bernstein, MOTORSPORTS TECHNICIAN Abnormal MRI, lumbar spine (Primary Dx) 05/30/2025 Refill [facility] [address] [place] [address] Marj Hart, MOTORSPORTS TECHNICIAN Type 2 diabetes mellitus with hyperglycemia, with long-term current use of insulin ([facility]); 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 05/28/2025 11:30 AM EDT Office Visit [address] [address] Antonieta Bernstein, MOTORSPORTS TECHNICIAN Abnormal MRI, lumbar spine (Primary Dx); Vertebral osteomyelitis ([facility]/HCC) 05/28/2025 Travel 05/22/2025 Telephone [facility] [address] [place] [address] Jennifer Becerra MD 05/18/2025 Telephone [facility] [address] [place] [address] None, None 05/18/2025 Telephone [facility] [address] [place] [id number] Marj Hart, MOTORSPORTS TECHNICIAN Pt request settings change in OMP5 U200 05/07/2025 Orders Only External Location [address] [place] [address] Chris Underwood MD from Last 3 Months Immunizations Immunization Administration Dates Next Due Moderna COVID-19 Vaccine (Re d Cap) 12+ years 06/25/2022,12/10/2021,06/13/2021,2020 TD (adult), 2 Lf tetanus tox oid, preservative free, adsorbed 03/10/2004 Tdap 08/15/2024 Family History Medical History Relation Name Comments Cancer Father Joaquin Jerez Cataracts Father Joaquin Jerez Hyperlipidemia Father Joaquin Jerez Hypertension Father Joaquin Jerez Other cancer Father Joaquin Jerez Cancer Maternal Grandfather Reji Sanam Blindness Maternal Grandmother Mary Sanam Cancer Maternal Grandmother Mary Sanam Cataracts Mother Arpita [place] Diabetes Mother Arpita [place] Hyperlipidemia Mother Arpita [place] Hypertension Mother Arpita [place] Cancer Mother's Sister 1 Clare Angelina Diabetes Mother's Sister 1 Clrae [place] Glaucoma Mother's Sister 1 Clare Angelina Hypertension Mother's Sister 2 Jody Sanam Cardiac disorder Other 1 Stroke Other 2 Other cancer Other 3 Hypertension Sibling 1 Hyperlipidemia Sibling 2 Anesthesia problems Neg Hx Malig Hyperthermia Neg Hx Relation Name Status Comments Father Joaquin Mckeone Maternal Grandfather Reji Sanam Maternal Grandmother Mary Sanam Mother Arpita [place] Mother's Sister 1 Clare [place] Mother's Sister 2 Jody Sanam Other 1 Other 2 Other 3 Sibling 1 Sibling 2 Social History Tobacco Use Types Packs/Day Years Used Date Smoking Tobacco: Former Cigarettes 1.5 37.5 0 06/29/1983 - 12/30/2020 Passive Smoke Exposure: Past Smokeless Tobacco: Never Tobacco Cessation:Counseling Given: Not Answered Comments:NA Alcohol Use Standard Drinks/Week Comments Not [...] place to sleep or slept in a fpc (including now)? No 08/16/2024 PHQ-9 Answer Date Recorded Patient Health Questionnaire-9 Score 0 05/28/2025 Utilities Answer Date Recorded In the past 12 months has th e [employer], gas, oil, or water company threatened to shut off services in your home? No 08/16/2024 Comments No Sex and Gender Information Value Date Recorded Sex Assigned at Female 08/20/2021 4:02 PM EDT Legal Sex Female 6:44 PM EDT Gender Identity Female 08/20/2021 4:02 PM EDT Sexual Orientation Straight 10/30/2021 4: 24 PM EST Last Filed Vital Signs Vital Sign Reading Time Taken Comments Blood Pressure 102/64 05/28/2025 11:14 AM EDT Pulse 66 05/28/2025 11:14 AM EDT Temperature 36.6 C (97.8 F) 05/28/2025 11:14 AM EDT Respiratory Rate 20 05/28/2025 11:14 AM EDT Oxygen Saturation 97% 06/28/2025 9:34 AM EDT 3.5L nc Inhaled Oxygen Concentration - - Weight 159 kg (350 lb) 07/13/2025 12:57 PM EDT Height 177.8 cm (5' 10 ) 06/28/2025 9:34 AM EDT Body Mass Index 50.22 06/28/2025 9:34 AM EDT Plan of Treatment Upcoming Encounters Date Type Department Care Team (Late st Contact Info) Description 08/06/2025 9:00 AM EDT Office Visit [facility] [address] [facility] [place] [address] Sajan Lopez MD [address] [facility] [address] [place] [address] 08/24/2025 9:20 AM EDT Office Visit [facility] [address] [facility] 5th [address] [place] [address] Joaquin Almodovar MD [address] [facility] [address] [place] [address] 09/13/2025 3:40 PM EDT Office Visit [facility] [address] [place] [address] Jennifer Becerra MD [address] [place] [address] 11/07/2025 11:15 AM EST Office Visit [facility] [address] [facility] [place] [address] Mark Santos, OD [address] [place] [address] Health Maintenance Due Date Last Done Comments [facility]-/Child/Adol SDOH Screenings 1969 Diabetes: Dental Exam 1979 [facility]-Hepatitis B Vaccines (1 of 3 - 19+ 3-dose series) 1988 [facility]-Pneumococcal Vaccine: 50+ Years (1 of 2 - PCV) 1988 [facility]-Pap Smear 1990 [facility]-Cervical Cancer Screening 1999 [facility]-HPV/Cotest 1999 CT Colonography 2014 Colonoscopy 2014 FIT-DNA 2014 FIT 2014 FOBT 2014 Sigmoidoscopy 2014 [facility]-Colorectal Cancer Screening 2014 [facility]-Breast Cancer Screening 2019 [facility]-Zoster Vaccines (1 of 2) 2019 [id number] Vaccine ( season) 2024 06/25/2022, 12/10/2021, 06/13/2021, Additional history exists [facility]-Diabetes: Hemoglobin A1C 11/15/2024, 09/17/2022, 05/25/2022, Additional history exists [facility]- SDOH Screenings 02/13/2025 [facility]-Adult SDOH Screenings 02/13/2025 08/16/2024 [facility]-Influenza Vaccine (#1) 2025 [facility]-Lung Cancer Screening 08/15/2025 08/15/2024 [facility]-Depression Screening 06/28/2026 06/28/2025, 05/01 [facility]-DTaP,Tdap,and Td Vaccines (2 - Td or Tdap) 08/15/2034 08/15/2024, 03/10/2004 [facility]-HIV Screening Completed 07/13/2024, , 08/20/2021 [facility]-Hepatitis C Screening Completed 2023, 07/02/2023, 08/20/2021, Additional history exists [facility]-Obesity Intervention Completed 025, 06/28/2025, 05/28/2025, Additional history exists HPV Vaccines Aged Out No longer eligi ble based on patient's age to complete this topic [facility]-HIB Vaccines Aged Out No longer e ligible based on patient's age to complete this topic [facility]-Hepatitis A Vaccines Aged Out No longer eligible based on patient's age to complete this topic [facility]-IPV Vaccines Aged Out No longer e ligible based on patient's age to complete this topic [facility]-Rotavirus Vaccines Aged Out No lo nger eligible based on patient's age to complete this topic Medical Devices Implanted Type Area Sheet Metal Worker Device Identifier Shelf Expiration Date Model / Serial / Lot Lens Ct Amie 602.Us Dpt 18.5 - [id number] - [id number] Implanted:Qty: 1 on 10/01/2022 by Yvonne Govea MD at [facility] Lens Left: Eye [id number] 05/28/2026 LENS 602 18.5 / [id number] / Oil Silicone Adato 5000 Syringe 10ml - [id number] - [id number] Implanted:Qty: 1 on 09/04/2021 by Yvonne Govea MD at [facility] Left: Eye [id number] 03/28/2024 ES 5000 S / [id number] / Procedures Procedure Name Priority Date/Time Associated Diagnosis Comments IMAGING MRI PROCEDURE NOT PERFORMED Routine 07/20/2025 5:00 PM EDT Abnormal MRI, lumbar spine Vertebral osteomyelitis (CMS/HCC) COMPREHENSIVE METABOLIC PANEL, PLASMA Routine 05/28/2025 11:55 AM EDT Aortoiliac occlusive disease (CMS/HCC) C-REACTIVE PROTEIN, PLASMA Routine 05/28/2025 11:55 AM EDT Abnormal MRI, lumbar spine CBC WITH AUTO DIFFERENTIAL Routine 05/28/2025 11:55 AM EDT Abnormal MRI, lumbar spine MR OUTSIDE IMAGES 05/07/2025 1:0 6 PM EDT HEMOGLOBIN A1C Routine 08/16/2024 2:[address] ANGIO CHEST STAT 08/15/2024 7:24 PM EDT HEPATITIS C ANTIBODY - ED W/REFLEX TO HCV QUANT PCR STAT 07/13/2024 5:17 PM EDT ED HIV 1/2 ANTIBODY/ANTIGEN SCREEN WITH REFLEX TO HIV I/II DIFFERENTIATION STAT 07/13/2024 5:17 PM EDT from Last 3 Months or Most Recently Relevant to Health Maintenance Results * Imaging MRI Procedure Not Performed (07/20/2025 5:00 PM EDT) Narrative IMAGING - 07/20/2025 6:32 PM EDT This procedure was not performed. Procedure: MR LUMBAR W AND WO IV CONTRAST Reason: Body Habitus us Antonieta Bernstein MOTORSPORTS TECHNICIAN IMG MRI PROCEDURES Final R esult IMAGING * (ABNORMAL) CBC and differential (05/28/2025 11:55 AM EDT) WBC Count 6.77 3.70 - 10.30 10*3/uL LAB HEMATOLOGY METHOD 05/28/2025 3:24 PM EDT [facility] RBC Count 4.22 3.90 - 5.20 10*6/uL LAB HEMATOLOGY METHOD 05/28/2025 3:24 PM EDT [facility] HGB 11.5 11.2 - 15.7 g/dL LAB HEMATOLOGY METHOD 05/28/2025 3:24 PM EDT [facility] HCT 39.2 34.0 - 45.0 % LAB HEMATOLOGY METHOD 05/28/2025 3:24 PM EDT [facility] Platelet Count 167 155 - 369 10*3/uL LAB HEMATOLOGY METHOD 05/28/2025 3:24 PM EDT [facility] MCV 93 79 - 98 fL LAB HEMATOLOGY METHOD 05/28/2025 3:24 PM EDT [facility] MCH 27.3 26.0 - 32.0 pg LAB HEMATOLOGY METHOD 05/28/2025 3:24 PM EDT [facility] MCHC 29.3(L) 30.7 - 35.5 g/dL LAB HEMATOLOGY METHOD 05/28/2025 3:24 PM EDT [facility] RDW 17.2(H) 11.5 - 14.5 % LAB HEMATOLOGY METHOD 05/28/2025 3:24 PM EDT [facility] MPV 11.9 8.8 - 12.5 fL LAB HEMATOLOGY METHOD 05/28/2025 3:24 PM EDT [facility] nRBC 0.0 <=0.0 per 100 WBCs LAB HEMATOLOGY METHOD 05/28/2025 3:24 PM EDT [facility] Differential Type Automated LAB HEMATOLOGY METHOD 05/28/2025 3:24 PM EDT [facility] Neutrophils % 66 % LAB HEMATOLOGY METHOD 05/28/2025 3:24 PM EDT [facility] Lymphocytes % 27 % LAB HEMATOLOGY METHOD 05/28/2025 3:24 PM EDT [facility] Monocytes % 6 % LAB HEMATOLOGY METHOD 05/28/2025 3:24 PM EDT [facility] Eosinophils % 1 % LAB HEMATOLOGY METHOD 05/28/2025 3:24 PM EDT [facility] Basophils % 0 % LAB HEMATOLOGY METHOD 05/28/2025 3:24 PM EDT [facility] Immature Granulocytes % 0 % LAB HEMATOLOGY METHOD 05/28/2025 3:24 PM EDT [facility] Neutrophils Absolute 4.44 1.60 - 6.10 10*3/uL LAB HEMATOLOGY METHOD 05/28/2025 3:24 PM EDT [facility] Lymphocytes Absolute 1.80 1.20 - 3.90 10*3/uL LAB HEMATOLOGY METHOD 05/28/2025 3:24 PM EDT [facility] Monocytes Absolute 0.42 0.30 - 0.90 10*3/uL LAB HEMATOLOGY METHOD 05/28/2025 3:24 PM EDT [facility] Eosinophils Absolute 0.06 0.00 - 0.50 10*3/uL LAB HEMATOLOGY METHOD 05/28/2025 3:24 PM EDT [facility] Basophils Absolute 0.03 0.00 - 0.10 10*3/uL LAB HEMATOLOGY METHOD 05/28/2025 3:24 PM EDT [facility] Immature Granulocytes Absolute 0.02 0.00 - 0.06 10*3/uL LAB HEMATOLOGY METHOD 05/28/2025 3:24 PM EDT [facility] Blood Venous blood specimen / Unknown Venipuncture / Unknown 05/28/2025 11:55 AM EDT 05/28/2025 12:02 PM EDT Narrative [facility] - 05/28/2025 3:24 PM EDT Therapeutic decision making should be based on absolute values, rather than percentages. Antonieta Boogie Day [employer]ORSPOR[employer] TECHNICIAN LAB BLOOD ORDERABLES Final Result Performing Organization Address City/[facility]/ZIP Co de Phone Number [facility] [address] [place] [address] * (ABNORMAL) C-reactive protein (05/28/2025 11:55 AM EDT) CRP, Plasma 15.9(H) <=8.0 mg/L 05/28/2025 3:35 PM EDT [facility] Blood Venous blood specimen / Unknown Venipuncture / Unknown 05/28/2025 11:55 AM EDT 05/28/2025 12:02 PM EDT Narrative [facility] - 05/28/2025 3:35 PM EDT This CRP test is appropriate for assessment of infection, systemic inflammation and/or tissue injury. To assess cardiovascular disease risk order high sensitivity CRP (CRPH). Antonieta Keagan [place] MOTORSPORTS TECHNICIAN LAB BLOOD ORDERABLES Final Result [facility] [address] [place] [address] * (ABNORMAL) Comprehensive metabolic panel (05/28/2025 11:55 AM EDT) Glucose, Plasma 124(H) 74 - 99 mg/dL 05/28/2025 3:35 PM EDT [facility] BUN, Plasma 17 7 - 21 mg/dL 05/28/2025 3:35 PM EDT [facility] Creatinine, Plasma 0.84 0.60 - 1.10 mg/dL 05/28/2025 3:35 PM EDT [facility] BUN/Creatinine Ratio 20 05/28/2025 3:35 PM EDT [facility] Sodium, Plasma 143 136 - 145 mmol/L 05/28/2025 3:35 PM EDT [facility] Potassium, Plasma 3.5(L) 3.6 - 4.9 mmol/L 05/28/2025 3:35 PM EDT [facility] Chloride, Plasma 96(L) 97 - 107 mmol/L 05/28/2025 3:35 PM EDT [facility] CO2, Plasma 35(H) 22 - 29 mmol/L 05/28/2025 3:35 PM EDT [facility] Anion Gap 12 6 - 16 mmol/L 05/28/2025 3:35 PM EDT [facility] Total Calcium, Plasma 9.0 8.9 - 10.2 mg/dL 05/28/2025 3:35 PM EDT [facility] Total Protein 7.4 6.3 - 7.9 g/dL 05/28/2025 3:35 PM EDT [facility] Albumin, Plasma 3.9 3.5 - 5.2 g/dL 05/28/2025 3:35 PM EDT [facility] AST, Plasma 14 10 - 35 U/L 05/28/2025 3:35 PM EDT [facility] ALT, Plasma 11 10 - 35 U/L 05/28/2025 3:35 PM EDT [facility] Alkaline Phosphatase, Plasma 86 35 - 104 U/L 05/28/2025 3:35 PM EDT [facility] Total Bilirubin, Plasma 0.9 0.2 - 1.1 mg/dL 05/28/2025 3:35 PM EDT [facility] eGFRcr 82.2 mL/min/1.7 3m*2 05/28/2025 3:35 PM EDT [facility] Comment:Reported eGFRcr in m L/min/1.73m2 is based the CKD-EPI 2020 equation that does not use a race coefficient. Blood Venous blood specimen / Unknown Venipuncture / Unknown 05/28/2025 11:55 AM EDT 05/28/2025 12:02 PM EDT us Cally GALAVIZ LAB BLOOD ORDERABLES Final Resu lt Performing Organization Address City/[facility]/ZIP Co de Phone Number [facility] [address] [place] [address] * MR transfer of outside films (05/07/2025 1:06 PM EDT) Anatomical Region Laterality Modality Magnetic Resonan ce 05/07/2025 1:06 PM EDT us Chris Underwood MD IMG MRI PROCEDURES Final Resul t * (ABNORMAL) Hemoglobin A1c (08/16/2024 2:44 AM EDT) Hemoglobin A1c 7.6(H) <5.7 % 08/16/2024 3:57 AM EDT [facility] Blood Venous blood specimen / Unknown Venipuncture / Unknown 08/16/2024 2:44 AM EDT 08/16/2024 3:40 AM EDT Narrative [facility] - 08/16/2024 3:57 AM EDT HA1C Interpretive Data: Diagnosis of Diabetes: Diabetic > or = 6.5% Pre-diabetic 5.7 to 6.4% Non-diabetic < or = 5.6% Glycemic Targets for Type I and Type II Diabetics: Non- Adults <7.0% Adults <6.0% Children and Adolescents <7.5% Source: [place] [employer]. Standards of medical care in diabetes,2017. Diabetes Care.2017:40 (suppl 1):S1-S135. HbA1c assay performed by an ion-exchange chromatography method that is certified traceable to the DCCT. us Nissa Gottlieb MD LAB BLOOD ORDERABLES Fin al Result Performing Organization Address City/[facility]/ZIP Co de Phone Number [facility] [address] [place] [address] * CT Angio Chest (08/15/2024 7:24 PM EDT) Anatomical Region Laterality Modality Chest Computed Tomogra phy Impressions 08/16/2024 1:25 AM EDT 1. No acute vascular injury in the chest, abdomen, or pelvis. 2. 11 mm left basilar solid pulmonary nodule, which is nonspecific. Could sequelae of infection or other inflammatory process although other etiologies are not excluded. Recommend follow-up CT chest without contrast study in 3 months to assess stability. 3. Determined 25 mm left adrenal nodule. Recommend future evaluation with dedicated adrenal mass MRI study. 4. No definite acute traumatic findings within the chest, abdomen, or pelvis within the limitations of the study. ATTENDING COMMENT: Examination is limited secondary to significant photon starvation. There is diffuse fat stranding and skin thickening of the lower anterior pelvic wall which is nonspecific and could represent panniculitis in the correct clinical setting. CRITICAL RESULT: No. COMMUNICATION: Per this written report. Preliminary report signed by Indio Merchant MD on 08/15/2024 11:31 PM By electronically signing this report, I, the attending physician, attest that I have personally reviewed the images/data for the above examination(s) and agree with the final edited report. Drafted by Indio Merchant MD on 08/15/2024 11:01 PM Final report signed by Jyoti Centeno MD on 08/16/2024 1:25 AM Narrative 08/16/2024 1:25 AM EDT CLINICAL INDICATION: fall, ?chest trauma ?rib fx, also check for ?PE given SOA TECHNIQUE: Imaging of the chest abdomen and pelvis was performed, from thoracic inlet through pubic symphysis, using spiral technique, following administration of IV contrast, Omnipaque 350, 150 mL according to the CTA thoracic aorta/chest and CTA Abdomen/Pelvis protocol. Reformatted images in the coronal, sagittal, and oblique planes were generated from the axial data set to facilitate diagnostic accuracy. In addition, 3D images were created and reviewed. Total DLP (Dose-Length Product): 5440 mGy*cm . Please note: The reported value represents the total of one or more individual components during the CT acquisition on this date and at this time, and as such, the same value may appear in more than one CT report depending on the interpreting/reporting physicians. COMPARISON: None. FINDINGS: Chest: Aorta/Vessels: No acute injury of the thoracic aorta or its major branches. No periaortic hematoma. No filling defect within the central pulmonary arteries to suggest pulmonary embolism. Pleural/Pericardial Space: No pneumothorax. No pleural effusions. No pericardial effusion. Lymph Nodes: No lymphadenopathy within the chest. Lungs: Central airways are patent. 11 mm subpleural left basilar solid pulmonary nodule (series 5, image 183). Mediastinum: Otherwise unremarkable. Chest wall: No chest wall hematoma or contusion. Bones: No acute fracture within the limitations of the study. For further evaluation of the spine, see dedicated report for CT spine studies. Abdomen: Vessels: No acute injury of the abdominal aorta or its major branches. Calcified atherosclerotic plaque within the distal abdominal aorta causing likely mild to moderate narrowing. Evaluation is limited by patient body habitus. Liver/Gallbladder/Biliary System: The liver demonstrates homogeneous enhancement. Normal Gallbladder. No intra- or extra-hepatic biliary ductal dilatation. Spleen: The spleen enhances homogeneously. Pancreas: The pancreas enhances homogeneously. Adrenals: 25 mm indeterminate left adrenal nodule (series 4, image 270). Right adrenal is unremarkable. Kidneys: The kidneys demonstrate symmetric nephrogram and excretion. No renal or ureteral calculi. No hydronephrosis. Bowel/Mesentery: The small bowel loops are not dilated. The large bowel loops are not dilated. The appendix is visualized and normal. Colonic diverticula without evidence of acute diverticulitis. Lymph Nodes: No lymphadenopathy within the abdomen or pelvis. Fluid Survey: No free fluid. Pelvis: The pelvic viscera are unremarkable. Body Wall: Multiple calcifications within the subcutaneous tissues of the left posterior pelvic wall which are nonspecific and could represent sequela of prior injection sites. Bones: No acute fracture. For further evaluation of the spine, see dedicated report for CT spine studies. Procedure Note True, Jyoti Terrell MD - 08/16/2024 CLINICAL INDICATION: fall, ?chest trauma ?rib fx, also check for ?PE given SOA TECHNIQUE: Imaging of the chest abdomen and pelvis was performed, from thoracic inletthrough pubic symphysis, using spiral technique, following administrationof IV contrast, Omnipaque 350, 150 mL according to the CTA thoracicaorta/chest and CTA Abdomen/Pelvis protocol. Reformatted images in thecoronal, sagittal, and oblique planes were generated from the axial dataset to facilitate diagnostic accuracy. In addition, 3D images were createdand reviewed. Total DLP (Dose-Length Product): 5440 mGy*cm . Please note: The reportedvalue represents the total of one or more individual components during theCT acquisition on this date and at this time, and as such, the same valuemay appear in more than one CT report depending on theinterpreting/reporting physicians. COMPARISON: None. FINDINGS: Chest: Aorta/Vessels: No acute injury of the thoracic aorta or its majorbranches. No periaortic hematoma. No filling defect within the centralpulmonary arteries to suggest pulmonary embolism. Pleural/Pericardial Space: No pneumothorax. No pleural effusions. Nopericardial effusion. Lymph Nodes: No lymphadenopathy within the chest. Lungs: Central airways are patent. 11 mm subpleural left basilar solidpulmonary nodule (series 5, image 183). Mediastinum: Otherwise unremarkable. Chest wall: No chest wall hematoma or contusion. Bones: No acute fracture within the limitations of the study. For furtherevaluation of the spine, see dedicated report for CT spine studies. Abdomen: Vessels: No acute injury of the abdominal aorta or its major branches.Calcified atherosclerotic plaque within the distal abdominal aorta causinglikely mild to moderate narrowing. Evaluation is limited by patient bodyhabitus. Liver/Gallbladder/Biliary System: The liver demonstrates homogeneousenhancement. Normal Gallbladder. No intra- or extra-hepatic biliaryductal dilatation. Spleen: The spleen enhances homogeneously. Pancreas: The pancreas enhances homogeneously. Adrenals: 25 mm indeterminate left adrenal nodule (series 4, image 270).Right adrenal is unremarkable. Kidneys: The kidneys demonstrate symmetric nephrogram and excretion. Norenal or ureteral calculi. No hydronephrosis. Bowel/Mesentery: The small bowel loops are not dilated. The large bowelloops are not dilated. The appendix is visualized and normal. Colonicdiverticula without evidence of acute diverticulitis. Lymph Nodes: No lymphadenopathy within the abdomen or pelvis. Fluid Survey: No free fluid. Pelvis: The pelvic viscera are unremarkable. Body Wall: Multiple calcifications within the subcutaneous tissues of theleft posterior pelvic wall which are nonspecific and could representsequela of prior injection sites. Bones: No acute fracture. For further evaluation of the spine, seededicated report for CT spine studies. IMPRESSION: 1. No acute vascular injury in the chest, abdomen, or pelvis. 2. 11 mm left basilar solid pulmonary nodule, which is nonspecific. Couldsequelae of infection or other inflammatory process although otheretiologies are not excluded. Recommend follow-up CT chest without contraststudy in 3 months to assess stability. 3. Determined 25 mm left adrenal nodule. Recommend future evaluation withdedicated adrenal mass MRI study. 4. No definite acute traumatic findings within the chest, abdomen, orpelvis within the limitations of the study. ATTENDING COMMENT: Examination is limited secondary to significant photon starvation. There is diffuse fat stranding and skin thickening of the lower anteriorpelvic wall which is nonspecific and could represent panniculitis in thecorrect clinical setting. CRITICAL RESULT: No. COMMUNICATION: Per this written report. Preliminary report signed by Indio Merchant MD on 08/15/2024 11:31 PM By electronically signing this report, I, the attending physician, attestthat I have personally reviewed the images/data for the aboveexamination(s) and agree with the final edited report. Drafted by Indio Merchant MD on 08/15/2024 11:01 PM Final report signed by Jyoti Centeno MD on 08/16/2024 1:25 AM us Orlando GALAVIZ IMG CT PROCEDURES Final Result * ED HIV 1/2 Antibody/Antigen Screen w/Reflex to HIV 1/2 Differentiation (07/13/2024 5:17 PM EDT) Pathologist [facility] HIV 1 & 2 Antibody/Antigen Screen Non Reactive Non Reactive 07/13/2024 6:14 PM EDT [facility] Comment:Screening for HIV 1 & 2 antibodies, and P24 antigen is NONREACTIVE. No confirmatory testing is required. Blood Venous blood specimen / Unknown Venipuncture / Unknown 07/13/2024 5:17 PM EDT 07/13/2024 5:31 PM EDT us Luis Fernando Holguin MD LAB BLOOD ORDERABLES Final Res [facility] [address] [place] [address] * Hepatitis C Antibody - ED (07/13/2024 5:17 PM EDT) Hepatitis C Antibody Negative Negative 07/13/2024 6:31 PM EDT [facility] Blood Venous blood specimen / Unknown Venipuncture / Unknown 07/13/2024 5:17 PM EDT 07/13/2024 5:31 PM EDT us Luis Fernando Holguin MD LAB BLOOD ORDERABLES Final Res ult [facility] [address] [place] [address] from Last 3 Months or Most Recently Relevant to Health Maintenance Additional Health Concerns Infection Onset Date Last Indicated 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 Yes * Full Code Date Activated Date Inactivated Comments 09/04/2021 8:54 PM 09/04/2021 8:54 PM Question Answer Comments Patient has decision-making capacity? Yes * Full Code Date Activated Date Inactivated Comments 09/04/2021 8:54 PM 09/04/2021 8:54 PM Question Answer Comments Patient has decision-making capacity? Yes * Full Code Date Activated Date Inactivated Comments 09/04/2021 8:54 PM 09/04/2021 8:54 PM Question Answer Comments Patient has decision-making capacity? Yes * Full Code Date Activated Date Inactivated Comments 08/20/2021 2:27 PM 08/22/2021 4:36 PM Question Answer Comments Patient has decision-making capacity? Yes Care Teams Financial Center Manager Relationship Specialty Start Date End Date Chris Underwood MD [address] [place] [address] PCP - General 04/11/21
[2025-08-01 10:14] LABS: Blood Urea Nitrogen 21 mg/dl (7-17); Creatinine,Serum 0.80 mg/dl (0.52-1.04); Estimated Glomerular Filt Rate 74 ml/min (>60); GFR (African American) 90 ML/MIN (>60)
[2025-08-01] MEDS: 0.9 % SODIUM CHLORIDE 50 ML VIAL IV (10:36)
[2025-08-01] MEDS: IOPAMIDOL-370 (76%);100ML BOTTLE 120 ML IV (10:36)
[2025-08-01] MEDS: SODIUM CHLORIDE 0.9% 10ML SYR (RAD ONLY) 10 ML IV (10:36)
== END 2025-08-01 23:59 | disposition home or self-care (01) ==
LOC: RAD 08:11
PROVIDERS: PCP Family Medicine; Visit Provider Surgery Vascular Surgery
DX: M25.512 Pain in left shoulder (principal); I74.09 Other arterial embolism and thrombosis of abdominal aorta; E78.5 Hyperlipidemia, unspecified; E11.9 Type 2 diabetes mellitus without complications; M79.606 Pain in leg, unspecified; Z87.891 Personal history of nicotine dependence
CPT/HCPCS: 36415; 73030; 76770; 82565; 84520; 93923; Q9967

== ENCOUNTER 2025-08-21 10:40 | Outpatient (CLI) | payer MEDICAID, SELFPAY ==
--- OUTSIDE RECORDS SUMMARY | 2025-06-28 09:30 | XMS_ITS | Encounter Summary ---
Author Organization Healthcare Address [address] [place] [address] Care Team Providers Care Photoengraver Name Role Phone Chris Underwood MD Primary Care Provider [phone] Reason for Visit * Reason Comments Consult Encounter Details Date Type Department Care Team (Latest Contact Info) Description 06/28/2025 9:30 AM EDT Office Visit [facility] [address] [place] [address] Shelley Lim, NEON MOLDER [address] [place] [address] Low back pain (Primary Dx) [...] place to sleep or slept in a usp (including now)? No 08/16/2024 PHQ-9 Answer Date Recorded Patient Health Questionnaire-9 Score 0 05/28/2025 Utilities Answer Date Recorded In the past 12 months has th e [employer], gas, oil, or water company threatened to [...] 06/28/2025 9:37 AM EDT Elvia Diez * How difficult have these problems made it for you to do your work, take care of things at home, or get along with other people? Answer Date of Assessment Author Not difficult at all 06/28/2025 9:37 AM EDT Elvia Stark documented as of this encounter Miscellaneous Notes [...] Patient confirms they are physically located in [place]? Yes If the patient is not physically located in [place], the provider has confirmed with Legal thatthe provider is authorized to provide services in patient's stated location? N/A Provider Location: [facility] facility Audio and video or audio only? Audio and video Total visit time: 41 minutes Subjective History of Present Illness: HPI Zora Jerez is a 54 y.o. female with a past medical history of diabetes mellitus, morbid obesity, lymphedema, SHAYNE on CPAP, PVD, left toe amputations. She is being evaluated for possible L2-G1lltwhico/osteomyelitis. She has been evaluated by ID here [...] (congestive heart failure) ([facility]) (08/20/2021), COPD (chronic obstructive pulmonary disease) ([facility]), Delayed emergence from anesthesia (08/20/2021), Diabetes mellitus, type 2 ([facility]) (08/20/2021), Eye trauma (08/21/2021), GERD (gastroesophageal reflux disease), HLD (hyperlipidemia), HTN (hypertension) (08/20/2021), Hypoparathyroidism (08/20/2021), Insulin pump training (02/13/2025), Lumbar spinal stenosis, Morbid obesity ([facility]) (08/20/2021), SHAYNE (obstructive sleep apnea) (08/20/2021), Peripheral edema (08/20/2021), Peripheral vascular disease ([facility]) (08/20/2021), Personal history of Methicillin resistant Staphylococcus [...] the MRI of the lumbar spine from 05/07/25 (performed without contrast), the findings at L2-L3 [...] DAILY ASNEEDED, Disp: , Rfl: Insulin Dispos Water Hauler Accessories (Omnipod Pod Pals) misc, 1 patch [...] Disp: , Rfl: NON FORMULARY, Magic Butt [place] 1 Ointment Apply topically to left and right groin once daily, Disp:, Rfl: nystatin (Mycostatin) 863337 UNIT/GM powder, Apply 1 Application topically 2 (two) times a day. Apply to lower abdomen., Disp: , Rfl: Omnipod 5 [id number] Pods Gen 5 (Omnipod5) misc, USE DIRECTED [...] Care Team (Late st Contact Info) Description 08/24/2025 9:20 AM EDT Office Visit [facility] [address] [facility] 5th Floor [address] [place] [phone] Joaquin Almodovar MD [address] [place] [address] 09/13/2025 3:40 PM EDT Office Visit [facility] Endocr[facility]ology [address] [place] [phone] Jennifer Becerra MD [address] [place] [address] 10/12/2025 1:00 PM EST Consult [place] [facility] [address] [place] [address] Peter Coleman MD [address] [place] [address] 11/07/2025 11:15 AM EST Office Visit [facility] [address] [place] [address] Mark Santos, OD [address] [facility] [address] [place] [address] documented as of this encounter [...] documented as of this encounter Care Teams Photoengraver Relationship Specialty Start Date End Date Chris Underwood MD [address] [place], [place] [phone] PCP - General 04/11/21 documented as of this encounter
--- OUTSIDE RECORDS SUMMARY | 2025-07-02 13:30 | XMS_ITS | Encounter Summary ---
Author Organization [facility] Address [address] [place] [address] Care Team Providers Care Clipper Operator Name Role Phone Chris Underwood MD Primary Care Provider [phone] Reason for Visit * Reason Comments Follow-up * Consultation (Routine) - Closed Specialty Diagnoses / Procedures Referred By Contac t Referred To Contact Diagnoses Abnormal MRI, lumbar spine Antonieta Bernstein APRN [address] [address] Phone: tel: fax: Referral ID Status Reason Start Date Expiration Date Visits Re quested Visits Authorized [id number] Closed 05/28/2025 11/27/2026 1 1 Encounter Details Date Type Department Care Team (Late st Contact Info) Description 07/02/2025 1:30 PM EDT Office Visit [facility] [address] [place] [address] Antonieta Bernstein APRN [address] [address] Abnormal MRI, lumbar spine (Primary Dx) Social History Tobacco Use Types [...] place to sleep or slept in a correction (including now)? No 08/16/2024 PHQ-9 Answer Date Recorded Patient Health Questionnaire-9 Score 0 05/28/2025 Utilities Answer Date Recorded In the past 12 months has th e electric, gas, oil, or water company threatened to shut off services in your home? No 08/16/2024 Comments No Sex and Gender Information Value Date Recorded Sex Assigned at Female 08/20/2021 4:02 PM EDT Legal Sex Female 6:44 PM EDT Gender Identity Female 08/20/2021 4:02 PM EDT Sexual Orientation Straight 10/30/2021 4: 24 PM EST documented as of this encounter Miscellaneous Notes * Progress Notes - Antonieta Bernstein, MANAGER [employer] - 07/02/2025 1:30 PM EDT Telehealth Visit Subjective Patient ID: Zora Jerez is a 54 y.o. female. Chief Complaint Patient presents with Follow-up HPI Ms. Jerez presents to clinic today for follow-up on possible L2-L3 discitis/osteomyelitis vs severe noninfectious discitis related to Modic changes related to DDD. Patient has a PMHx significant for diabetes mellitus, morbid obesity, lymphedema, SHAYNE on CPAP, PVD, left toe amputations. She was previously seen in this clinic for severe cutaneous yeast infection under her pannus and in groin. Patient reports that she has been experiencing back pain without any known injury since February. She reports that she was inpatient at [facility] 03/22 - 03/25 for hip and back pain. She reported to her PCPfor hospital follow-up on 04/05/25 and reported continued back pain. Patient reported having x-rays while inpatient but did not have an MRI. MRI w/o contrast was ordered by her PCP and done on 05/07/25 at [facility] here in [place]. Patient reports that she is experiencing some leg numbness and that shecan barely stand long enough to transfer from the wheelchair. She states her left hip and leg don't want to work and that her entire left side does not work well and she has popping in her neck. She reports that the issues with her left arm and shoulder issues are newer. The following portions of the chart were reviewed this encounter and updated as appropriate: Tobacco Allergies Meds Med Hx Surg Hx Fam Hx Review of Systems Constitutional: Negative for appetite change, chills, diaphoresis, fatigue, fever and unexpected weight change. Respiratory: Negative for cough, chest tightness and shortness of breath. Cardiovascular: Negative for chest pain and leg swelling. Gastrointestinal: Negative for abdominal distention, abdominal pain, constipation, diarrhea, nauseaand vomiting. Musculoskeletal: Positive for arthralgias, back pain and neck pain. Negative for gait problem and joint swelling. Skin: Negative for rash and wound. Neurological: Positive for weakness. Negative for dizziness, light-headedness and headaches. Psychiatric/Behavioral: Negative for behavioral problems and confusion. The patient is not nervous/anxious. Objective Physical Exam Constitutional: Appearance: Normal appearance. Pulmonary: Effort: Pulmonary effort is normal. Abdominal: General: Bowel sounds are normal. Neurological: Mental Status: She is alert and oriented to person, place, and time. Psychiatric: Mood and Affect: Mood normal. Behavior: Behavior normal. Assessment/Plan Assessment & Plan Abnormal MRI, lumbar spine Patient was referred to IR for possible vertebral biopsy but they declined due to the patient's co-morbidities and the lack of MRI with contrast. I will schedule an MRI w/ contrast; patient will needsedation due to her inability to tolerate the procedure. Telehealth Statement Patient Verification Patient identity has been confirmed using name and date of ? Yes Authorizations and Agreements/Telemedicine Consent sent and consent confirmed? Yes Patient Location: Home/Other Patient confirms they are physically located in [place]? Yes If the patient is not physically located in [place], the provider has confirmed with [facility] thatthe provider is authorized to provide services in patient's stated location? N/A Provider Location: [facility] facility Audio and video or audio only? Audio and video Total visit time: 25 minutes documented in this encounter Plan of Treatment Upcoming Encounters Date Type Department Care Team (Late st Contact Info) Description 08/24/2025 9:20 AM EDT Office Visit [facility] [address] [facility] 5th Floor [address] [place] [address] Joaquin Almodovar MD [address] [facility] [address] [place] [address] 09/13/2025 3:40 PM EDT Office Visit [facility] Endocrinology [address] [address] Jennifer Becerra MD [address] [place] [address] 10/12/2025 1:00 PM EST Consult [facility] [address] [place] [address] Peter Coleman MD [address] [place] [address] 11/07/2025 11:15 AM EST Office Visit [facility] [address] [place] [address] Mark Santos, OD [address] [place] [address] documented as of this encounter Visit Diagnoses Diagnosis Abnormal MRI, lumbar spine- Primary documented in this encounter Additional Health Concerns Infection Onset Date Last Indicated Resolved Time 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
--- OUTSIDE RECORDS SUMMARY | 2025-07-13 11:30 | XMS_ITS | Encounter Summary ---
Author Organization [facility] Address [address] [place] [address] Care Team Providers Care Birdcage Assembler Name Role Phone Chris Underwood MD Primary Care Provider [phone] Encounter Details Date Type Department Care Team (Late st Contact Info) Description 07/13/2025 11:30 AM EDT Pre-Admission Testing [place] [facility] Pre-op Clinic [address] [place] [address] Social History Tobacco Use Types Packs/Day Years [...] place to sleep or slept in a fdc (including now)? No 08/16/2024 PHQ-9 Answer Date [...] fibrillation, CAD, dyspnea, dysrhythmias, pacemaker or past [place]. hypertension: is well controlled. Does not have [...] We will defer wound care to her senior network systems engineer at this point. If she would like [...] not have a cerebrovascular accident. Musculoskeletal: arthritis. [facility] [place] additional comments: Possible L2-L3 discitis/osteomyelitis vs severe [...] with Dr. Nieves who spoke with her Staff Technologist's ELAN. They feel she is optimized and does not need any further cardiac workup. Will proceed with MRI. 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 CHF (congestive heart failure) [place] [place] 08/20/2021 COPD (chronic obstructive pulmonary disease) ([facility] [place] Delayed emergence from anesthesia 08/20/2021 Diabetes mellitus, type 2 ([facility] [place] 08/20/2021 Eye trauma 08/21/2021 GERD (gastroesophageal reflux disease) HLD (hyperlipidemia) HTN (hypertension) 08/20/2021 Hypoparathyroidism 08/20/2021 Insulin pump training 02/13/2025 Omnipod 5 G7 with U200 Lumbar spinal stenosis Morbid obesity ([facility] [place] 08/20/2021 SHAYNE (obstructive sleep apnea) 08/20/2021 patient denies Peripheral edema 08/20/2021 Peripheral vascular disease ([facility] [place] 08/20/2021 Personal history of Methicillin resistant Staphylococcus [...] Grandmother Mary Sanam Cancer Mother's Sister Clare Houston Diabetes Mother's Sister Clare Houston Glaucoma Mother's Sister Clare Angelina Hypertension Mother's [...] times a day. Non-Formulary Medication, Magic Butt [place] 1 Ointment Apply topically to left and [...] not taking: Reported on 07/13/2025) Omnipod 5 [id number] Pods Gen 5, USE DIRECTED CHANGE EVERY [...] UNIT/ML patient supplied pump Consult with your Sponge Press Operator regarding instructions on insulin pump magnesium oxide (Mag-Ox) 400 (240 Mg) MG tablet Hold day of surgery Butt balm Hold day of surgery nystatin (Mycostatin) 215764 UNIT/GM powder Hold day of surgery omega-3 [...] card, photo ID, along with power of employment attorney, guardianship or advanced directives if applicable [...] Description 08/24/2025 9:20 AM EDT Office Visit [facility] [address] [place] [address] Joaquin Almodovar MD [address] [facility] [address] [place] [address] 09/13/2025 3:40 PM EDT Office Visit [facility] Endocrinology [address] [place] [phone] Jennifer Becerra MD [address] [place] [phone] 10/12/2025 1:00 PM EST Consult [place] Clinic [facility] [address] [place] [address] Peter Coleman MD [address] [place] [address] 11/07/2025 11:15 AM EST Office Visit [facility] [address] [place] [address] Mark Santos, OD [address] [place] [address] documented as of this encounter [...] documented as of this encounter Care Teams Birdcage Assembler Relationship Specialty Start Date End Date Chris Underwood MD [address] [place] [id number] PCP - General 04/11/21 documented as of this encounter
--- OUTSIDE RECORDS SUMMARY | 2025-07-20 14:36 | XMS_ITS | Encounter Summary ---
Author Organization [facility] Address [address] [place] [address] Care Team Providers Care Mail Officer Name Role Phone Chris Underwood MD Primary Care Provider [phone] Reason for Visit * Imaging (Routine) - Closed Specialty Diagnoses / Procedures Referred By Contac t Referred To Contact Radiology Diagnoses Abnormal MRI, lumbar spine Vertebral osteomyelitis (CMS/HCC) Procedures Imaging MRI Procedure Not Performed MR Lumbar Spine w and wo IV Contrast Antonieta Bernstein, HOME CARE PHYSICAL THERAPIST [address] [facility][1] [address] [place] [address] Phone: tel: fax: Referral ID Status Reason Start Date Expiration Date Visits Re quested Visits Authorized [id number] Closed 07/05/2025 01/04/2027 1 1 Encounter Details Date Type Department Care Team (Latest Contact Info) Description 07/20/2025 2:36 PM EDT - 07/20/2025 11:59 PM EDT Hospital Encounter [facility] Radiology [address] [place] [address] Abnormal MRI, lumbar spine; Vertebral osteomyelitis (CMS/HCC) [...] FOUR TIMES DAILY NEEDED 04/26/2025 Insulin Dispos Cdl B Driver Accessories (Omnipod Pod Pals) miscIndications:T ype 2 diabetes mellitus with hyperglycemia, with long-term current use of insulin 1 patch every other day. 15 each 5 02/26/2025 insulin lispro (Admelog) 100 UNIT/ML patient supplied pump Inject under the skin continuously. U 200 magnesium oxide (Mag-Ox) 400 (240 Mg) MG tablet Take 1 tablet by mouth 2 times a day. NON FORMULARY Magic Butt [place] 1 Ointment Apply topically to left and right groin once daily nystatin (Mycostatin) 459102 UNIT/GM powder Apply 1 Application topically 2 (two) times a day. Apply to lower abdomen. omega-3 (Fish Oil) 1000 MG capsule Take 2 capsules by mouth 2 times a day. 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 15 each 2 05/31/2025 OneTouch Ultra Test test strip 4 times [...] U200 per day 30 mL 3 06/22/2025 documented as of this encounter Plan of Treatment Upcoming Encounters Date Type Department Care Team (Late st Contact Info) Description 08/24/2025 9:20 AM EDT Office Visit [facility] [address] 5[address] [place] [address] Joaquin Almodovar MD [address] [place] [address] 09/13/2025 3:40 PM EDT Office Visit [facility] [address] [place] [address] Jennifer Becerra MD [address] [place] [address] 10/12/2025 1:00 PM EST Consult [facility] [address] [place] [address] Peter Coleman MD [address] [place] [address] 11/07/2025 11:15 AM EST Office Visit [facility] [address] [place] [address] Mark Santos, OD [address] [place] [address] documented as of this encounter Procedures Procedure Name Priority Date/Time Associated Diagnosis Comments IMAGING MRI PROCEDURE NOT PERFORMED Routine 07/20/2025 5:00 PM EDT Abnormal MRI, lumbar spine Vertebral osteomyelitis (CMS/HCC) documented in this encounter Results * Imaging MRI Procedure Not Performed (07/20/2025 5:00 PM EDT) Narrative IMAGING - 07/20/2025 6:32 PM EDT This procedure was not performed. Procedure: MR LUMBAR W AND WO IV CONTRAST Reason: Body Habitus Antonieta Bernstein HOME CARE PHYSICAL THERAPIST IMG MRI PROCEDURES Final R esult IMAGING [...] documented as of this encounter Care Teams Mail Officer Relationship Specialty Start Date End Date Chris Underwood MD [address] [place] [address] PCP - General 04/11/21 documented as of this encounter
--- OUTSIDE RECORDS SUMMARY | 2025-08-06 09:00 | XMS_ITS | Encounter Summary ---
Author Organization [facility] Address [address] [place] [address] Care Team Providers Care Pinking Sewing Machine Operator Name Role Phone Chris Underwood MD Primary Care Provider [phone] Reason for Referral * Consultation (Routine) - Authorized Specialty Diagnoses / Procedures Referred By Contac t Referred To Contact Neurosurgery Diagnoses Abnormal MRI, lumbar spine Sajan Lopez MD [address] [place] [phone] Phone: tel: fax: [facility] [address], [address] [place] [address] Phone: tel: fax: Referral ID Status Reason Start Date Expiration Date Visits Requested Visits Authorized [id number] Authorized Specialty Services Required 08/06/2025 02/05/2027 1 1 Encounter Details Date Type Department Care Team (Late st Contact Info) Description 08/06/2025 9:00 AM EDT Office Visit [address] [address] Sajan Lopez MD [address] [place] [phone] Abnormal MRI, lumbar spine (Primary Dx) Social [...] place to sleep or slept in a residential (including now)? No 08/16/2024 PHQ-9 Answer Date [...] Patient confirms they are physically located in [place]? Yes If the patient is not physically located in [place], the provider has confirmed with [facility] thatthe provider is authorized to provide services in patient's stated location? N/A Provider Location: [facility] facility Audio and video or audio only? [...] prior to that. She was inpatient at [facility] 03/22 - 03/25 for hip and back pain. She reported to her PCP for hospital follow-up on 04/05/25 and reported continued back pain. MRI w/o contrast was ordered by her PCP and done on05/07/25 at [facility] in [place]. That MRI was read as suggestive of [...] last , 08/03/25 at [facility] here in [place]. This MRI was not read as concerning [...] was seen in our clinic by Antonieta Lamas and referred for IR guided biopsy. IR [...] Description 08/24/2025 9:20 AM EDT Office Visit [facility] [address] [facility] 5th Floor Wing [address], [address] [place] [phone] Joaquin Almodovar MD [address] [place] [address] 09/13/2025 3:40 PM EDT Office Visit [facility] Endocrinology [address] [place] [address] Jennifer Becerra MD [address] [place] [address] 10/12/2025 1:00 PM EST Consult [place] [facility] [address] [place] [address] Peter Coleman MD [address] [place] [address] 11/07/2025 11:15 AM EST Office Visit [facility] [address] [facility] [place] [address] Mark Santos, OD [address] [facility] [address] [place] [address] Scheduled Referrals Name Type Priority [...] documented as of this encounter Care Teams Pinking Sewing Machine Operator Relationship Specialty Start Date End Date Chris Underwood MD [address] [place] [address] PCP - General 04/11/21 documented as of this encounter
--- NOTE | 2025-08-21 10:42 | CT_ITS ---
FINAL REPORT TECHNIQUE: Thin section axial images were obtained through the left shoulder without contrast. Reconstruction images were obtained from the axial data. Exam was performed using dose reduction technique. CLINICAL HISTORY: LT SHOULDER PAIN COMPARISON: None FINDINGS: There is no acute fracture or dislocation. The acromioclavicular joint is intact. 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 No acute soft tissue abnormality is identified of the shoulder. There is opacification of the left mastoid air cells. IMPRESSION: No acute abnormality of the left shoulder. Left mastoiditis. Reviewed, Interpreted and Dictated by Denise Barnett MD Transcribed by Leonor Florez Authenticated and [facility]
--- OUTSIDE RECORDS SUMMARY | 2025-08-21 10:42 | XMS_ITS | Encounter Summary ---
Author Organization Healthcare Address [address] [place] [address] Care Team Providers Care Professor Of Forestry Name Role Phone Chris Underwood MD Primary Care Provider Encounter Details Date Type Department Care Team (Late st Contact Info) Description 07/05/2025 Telephone [facility] [address] [place] [address] Antonieta Bernstein, DRISS [address] [facility] [address] [place] [address] Social History Tobacco Use Types [...] place to sleep or slept in a mcfp (including now)? No 08/16/2024 PHQ-9 Answer Date [...] No further needs. * Telephone Encounter - Jurgen Brookssa Artis - 07/05/2025 3:47 PM EDT Clinical Concern/Question Reason for Call: Pt is calling you back Best contact number: [phone] (mobile) Optimal time of day to reach caller: ANYTIME Additional comments/information from caller: None Note: Please do not reply to this message. Follow-up communication and further actions as a result of this message need to be communicated with the patient directly, if the patient is not active onMyChart. If the patient is active on MyChart, they will receive notification of the communication/outcome via Crashmobhart. documented in this encounter Plan of Treatment Upcoming Encounters Date Type Department Care Team (Late st Contact Info) Description 08/24/2025 9:20 AM EDT Office Visit [facility] [address] 5th Floor [address], [address] [place] [address] Joaquin Almodovar MD [address] [facility] [address] [place] [address] 09/13/2025 3:40 PM EDT Office Visit [facility] Endocrinology [address] [place] [address] Jennifer Becerra MD [address] [place] [address] 10/12/2025 1:00 PM EST Consult [facility] [address] [place] [address] Peter Coleman MD [address] [place] [address] 11/07/2025 11:15 AM EST Office Visit [facility] [address] [place] [address] Mark Santos, OD [address] [place] [address] documented as of this encounter [...] documented as of this encounter Care Teams Professor Of Forestry Relationship Specialty Start Date End Date Chris Underwood MD [address] [place] [address] PCP - General 04/11/21 documented as of this encounter
--- OUTSIDE RECORDS SUMMARY | 2025-08-21 10:42 | XMS_ITS | Encounter Summary ---
Author Organization [facility] Address [address] [place] [address] Care Team Providers Care Corporate Pilot Name Role Phone Chris Underwood MD Primary Care Provider [phone] Encounter Details Date Type Department Care Team [...] Description 08/24/2025 9:20 AM EDT Office Visit [facility] [address] 5th Floor [address] [place] [address] Joaquin Almodovar MD [address] [facility] [address] [place] [address] 09/13/2025 3:40 PM EDT Office Visit [facility] Endocrinology [address] [place] [address] Jennifer Becerra MD [address] [place] [address] 10/12/2025 1:00 PM EST Consult [place] [facility] [address] [place] [address] Peter Coleman MD [address] [place] [address] 11/07/2025 11:15 AM EST Office Visit [facility] [address] [place] [address] Mark Santos, OD [address] [place] [address] documented as of this encounter [...] documented as of this encounter Care Teams Corporate Pilot Relationship Specialty Start Date End Date Chris Underwood MD [address] [place], [place] [phone] PCP - General 04/11/21 documented as of this encounter
--- OUTSIDE RECORDS SUMMARY | 2025-08-21 10:42 | XMS_ITS | Encounter Summary ---
Author Organization Healthcare Address [address] [place] [address] Care Team Providers Care Electrical Systems Design Engineer Name Role Phone Chris Underwood MD Primary Care Provider [phone] Encounter Details Date Type Department Care Team (Late st Contact Info) Description 07/05/2025 Orders Only [facility] [address] [place] [address] Antonieta Bernstein, DRISS [address] [facility] [address] [place] [address] Abnormal MRI, lumbar spine (Primary [...] Description 08/24/2025 9:20 AM EDT Office Visit [facility] [address] [facility] 5th Floor [address], [address] [place] [address] Joaquin Almodovar MD [address] [place] [address] 09/13/2025 3:40 PM EDT Office Visit [facility] Endocrinology [address] [place] [address] Jennifer Becerra MD [address] [place] [address] 10/12/2025 1:00 PM EST Consult [place] [facility] [address] [place] [address] Peter Coleman MD [address] [place] [address] 11/07/2025 11:15 AM EST Office Visit [facility] [address] [place] [address] Mark Santos, OD [address] [place] [address] documented as of this encounter [...] documented as of this encounter Care Teams Electrical Systems Design Engineer Relationship Specialty Start Date End Date Chris Underwood MD [address] [place] [address] PCP - General 04/11/21 documented as of this encounter
--- OUTSIDE RECORDS SUMMARY | 2025-08-21 10:42 | XMS_ITS | Encounter Summary ---
Author Organization Healthcare Address [address] [place] [address] Care Team Providers Care Hunting Sales Associate Name Role Phone Chris Underwood MD Primary Care Provider [phone] Encounter Details Date Type Department Care Team (Late st Contact Info) Description 06/28/2025 Telephone [facility] Vascular Interventional Radiology [address] [facility] [address] [place] [address] Elvia Diez Social History Tobacco [...] place to sleep or slept in a longterm (including now)? No 08/16/2024 PHQ-9 Answer Date [...] 0 06/28/2025 9:37 AM Elvia Turcios * How difficult have these problems made it for you to do your work, take care of things at home, or get along with other people? Answer Date of Assessment Author Not difficult at all 06/28/2025 9:37 AM EDT Elvia Stark documented as of this encounter Plan of Treatment Upcoming Encounters Date Type Department Care Team (Late st Contact Info) Description 08/24/2025 9:20 AM EDT Office Visit [facility] [address] 5th Floor [address] [place] [address] Joaquin Almodovar MD [address] [place] [address] 09/13/2025 3:40 PM EDT Office Visit [facility] Endocrinology [address] [place] [address] Jennifer Becerra MD [address] [place] [address] 10/12/2025 1:00 PM EST Consult [facility] [address] 1st [place] [address] Peter Coleman MD [address] [place] [address] 11/07/2025 11:15 AM EST Office Visit [facility] [address] [place] [address] Mark Santos, OD [address] [facility] [address] [place] [address] documented as of this encounter [...] documented as of this encounter Care Teams Hunting Sales Associate Relationship Specialty Start Date End Date Chris Underwood MD [address] [place] [address] PCP - General 04/11/21 documented as of this encounter
--- OUTSIDE RECORDS SUMMARY | 2025-08-21 10:42 | XMS_ITS | Encounter Summary ---
Author Organization [facility] Address [address] [place] [address] Care Team Providers Care Body Trimmer Upholsterer Name Role Phone Chris Underwood MD Primary Care Provider [phone] Reason for Visit * Reason Onset Date Comments HCN Clinical Concern/Question 07/10/2025 Encounter Details Date Type Department Care Team (Late st Contact Info) Description 07/10/2025 Telephone [facility] [address] [facility] 5th Floor Wing [address], [address] [place] [address] Joaquin Almodovar MD [address] [facility] [address] [place] [address] HCN Clinical Concern/Question Social History [...] the past 12 months has th e [place], gas, oil, or water company threatened to [...] abd/pelvis with runoff to be sent to [facility] to have-Has appt with Dr Almodovar on 08/24. Please advise would like a call back when sent Best contact number and optimal time of day to reach caller: [phone] Note: Please do not reply to this [...] Description 08/24/2025 9:20 AM EDT Office Visit [facility] [address] 5th Floor [address], [address] [place] [address] Joaquin Almodovar MD [address] [facility] [address] [place] [address] 09/13/2025 3:40 PM EDT [facility] [address] [place] [address] Jennifer Becerra MD [address] [facility] [address] [place] [address] 10/12/2025 1:00 PM EST Consult [facility] [address] 1st [place] [address] Peter Coleman MD [address] [facility] [address] [place] [address] 11/07/2025 11:15 AM EST Office Visit [facility] Care [address] [place] [address] Mark Santos, OD [address] [address] documented as of this encounter Visit [...] documented as of this encounter Care Teams Body Trimmer Upholsterer Relationship Specialty Start Date End Date Chris Underwood MD [address] [place] [address] PCP - General 04/11/21 documented as of this encounter
--- OUTSIDE RECORDS SUMMARY | 2025-08-21 10:42 | XMS_ITS | Encounter Summary ---
Author Organization Healthcare Address [address] [place] [address] Care Team Providers Care Oyster Tonger Name Role Phone Chris Underwood MD Primary Care Provider [phone] Jyoti Salinas Unavailable [phone] Encounter Details Date Type Department Care Team (Late st Contact Info) Description 08/16/2024 Ophth Exam [facility] [address] [place] [address] Saima Vanegas MD [address] [place] [address] Social History Tobacco Use Types [...] in a intermediate (including now)? No 08/16/2024 Utilities Answer Date [...] No 8:00 AM EDT Juan Antonio Dozier, ANTONIO documented as of this encounter Plan of Treatment Upcoming Encounters Date Type Department Care Team (Late st Contact Info) Description 08/24/2025 9:20 AM EDT Office Visit [facility] [address] 5th Floor [address], [address] [place] [address] Joaquin Almodovar MD [address] [place] [address] 09/13/2025 3:40 PM EDT Office Visit [facility] Endocrin[facility] [address] [place] [address] Jennifer Becerra MD [address] [place] [address] 10/12/2025 1:00 PM EST Consult [facility] [address] [place] [address] Peter Coleman MD [address] [place] [address] 11/07/2025 11:15 AM EST Office Visit [facility] [address] [place] [address] Mark Santos, OD [address] [facility] [address] [place] [address] documented as of this encounter [...] documented as of this encounter Care Teams Oyster Tonger Relationship Specialty Start Date End Date Chris Underwood MD [address] [place] [address] PCP - General 04/11/21 Jyoti Salinas [address] [address] Registered Nurse 02/20/25 03/16/25 documented as of this encounter
--- OUTSIDE RECORDS SUMMARY | 2025-08-21 10:43 | XMS_ITS | Encounter Summary ---
Author Organization [facility] Address [address] [place] [address] Care Team Providers Care Entry Level Manufacturing Engineer Name Role Phone Chris Underwood MD Primary Care Provider [phone] Encounter Details Date Type Department Care Team (Late st Contact Info) Description 07/13/2025 Telephone [facility] [address] [place] [phone] Angelic Kwok RN [facility] RADI[facility]Y Social History [...] Description 08/24/2025 9:20 AM EDT Office Visit [place] [facility] [address] [facility] 5th Floor Wing [address], [address] [place] [address] Joaquin Almodovar MD [address] [facility] [address] [place] [address] 09/13/2025 3:40 PM EDT [facility] [address] [place] [address] Jennifer Becerra MD [address] [place] [address] 10/12/2025 1:00 PM EST Consult [place] [facility] [address] 1st [place] [address] Peter Coleman MD [address] [place] [address] 11/07/2025 11:15 AM EST Office Visit [facility] [address] [place] [address] Mark Santos, OD [address] [place] [address] documented as of this encounter [...] documented as of this encounter Care Teams Entry Level Manufacturing Engineer Relationship Specialty Start Date End Date Chris Underwood MD [address] [place] [address] PCP - General 04/11/21 documented as of this encounter
--- OUTSIDE RECORDS SUMMARY | 2025-08-21 10:43 | XMS_ITS | Encounter Summary ---
Author Organization Healthcare Address [address] [place] [address] Care Team Providers Care Set Up Mechanic Coil Winding Machines Name Role Phone Chris Underwood MD Primary Care Provider [phone] Encounter Details Date Type Department Care Team (Late st Contact Info) Description 08/17/2025 Telephone [facility] Endocrinology [address] [place] [address] Marj Hart, CALL CENTER SUPERVISOR [address] [facility] [address] [place] [address] Social History Tobacco Use Types [...] encounter Miscellaneous Notes * Telephone Encounter - KENDRICK RIZVI - 08/20/2025 2:53 PM EDT Pt called back, states insulin still has not been sent to her pharmacy and she is about to run out. * Telephone Encounter - Deisy Bonner CDE, ALLY - 08/17/2025 3:46 PM EDT Patient called back, inquired about concerns regarding shortage of insulin again. Pt admits over the last 30 days has had to have 3 MRI and a FIT test which required removal of pod that contained insulin. Inquired if pt has run out of pods. Admits was short of pods but pharmacy was able to contact insurance and request and early fill, couldn't do that with insulin. Pt admits frustration b/c we write it for a 40 day supply. Explained to pt we write rx for how much she is using per day and then pharmacy decides the day supply this will equal depending on if they break open insulin pen boxes. Ptthen inquired if I had looked at OP5 data, informed her that I did. (SEE SCANNED MEDIA) She then admits that she is getting ready to change one pod right now and will then have to change it again around midnight tomorrow. Inquired why as her pump download indicated that she uses approximately 114 units/d, inquired if she used the pod until it was actually empty. Pt admits when it alerts her she tries to always use it until it is completely drained. Pt admits will run out of insulin by Wednesday and her pharmacy does not keep this in stock and if provider approves changing MDD on her rx then it will need to be sent in today so they can go ahead and order it. Informed pt that I will notify provider with the above information and they are the ones to decide if they want to change MDD on rx. Patient voiced understanding, no other concerns. * Telephone Encounter - Deisy Bonner CDE, ALLY - 08/17/2025 3:27 PM EDT Called pharmacy to confirm next available fill date. They did confirm 08/24 is next day but in theory pt should have another 15 day supply left. Inquired if she ever c/o about running short on pods, pharmacy staff indicated no. Dispense hx shows she fills pods q 30 days. OF NOTE- This may indicate that pt is using 200 units from one pen to fill OP5 pod and then disposing of the other 100 units, causing a consistent call to [facility] to request larger quantity b/c going torun out of insulin. Called pt to inquire about her pod fill process and what she is doing w/ pen that has remaining 100units in it. No answer, left v/m requesting she call back to discuss situation. * Telephone Encounter - KENDRICK RIZVI - 08/17/2025 2:43 PM EDT Pt is down to 2 insulin pens, she fills her omnipod every other day, and is not able to get refillsuntil 08/24. documented in this encounter Plan of Treatment Upcoming Encounters Date Type Department Care Team (Late st Contact Info) Description 08/24/2025 9:20 AM EDT Office Visit [facility] [address] 5th Floor [address] [place] [address] Joaquin Almodovar MD [address] [facility] [address] [place] [address] 09/13/2025 3:40 PM EDT Office Visit [facility] Endocrinology [address] [place] [address] Jennifer Becerra MD [address] [place] [address] 10/12/2025 1:00 PM EST Consult [facility] [address] [place] [address] Peter Coleman MD [address] [facility] [address] [place] [address] 11/07/2025 11:15 AM EST Office Visit [facility] [address] [place] [address] Mark Santos, OD [address] [place] [address] documented as of this encounter [...] documented as of this encounter Care Teams Set Up Mechanic Coil Winding Machines Relationship Specialty Start Date End Date Chris Underwood MD [address] [place] [address] PCP - General 04/11/21 documented as of this encounter
--- OUTSIDE RECORDS SUMMARY | 2025-08-21 10:43 | XMS_ITS | Encounter Summary ---
Author Organization [facility] Address [address] [place] [address] Care Team Providers Care Wringer Machine Operator Name Role Phone Chris Underwood MD Primary Care Provider [phone] Jyoti Salinas Unavailable [phone] Encounter Details Date Type Department Care Team (Late Contact Info) Description 09/05/2019 Orders Only External Location [address] [place] [address] Ananth Roblero MD [id number] [place] [address] Social History Tobacco Use Types Packs/Day Years [...] Department Care Team (Late Contact Info) Description 08/24/2025 9:20 AM EDT Office Visit [facility] [address] [facility] 5th Floor Wing [address] [place] [address] Joaquin Almodovar MD [address] [facility] [address] [place] [address] 09/13/2025 3:40 PM EDT Office Visit [facility] Endocrinology [address] [place] [address] Jennifer Becerra MD [address] [place] [address] [place] [address] 10/12/2025 1:00 PM EST Consult [place] [facility] [address] 1st [place] [address] Peter Coleman MD [address] [place] [address] 11/07/2025 11:15 AM EST Office Visit [facility] [address] [place] [address] Mark Santos, OD [address] [place] [address] documented as of this encounter [...] documented as of this encounter Care Teams Wringer Machine Operator Relationship Specialty Start Date End Date Chris Underwood MD [address] [place] [address] PCP - General 04/11/21 Jyoti Salinas [address] [address] Registered Nurse 02/20/25 03/16/25 documented as of this encounter
--- OUTSIDE RECORDS SUMMARY | 2025-08-21 10:43 | XMS_ITS | Encounter Summary ---
Author Organization [facility] Address [address] [place] [address] Care Team Providers Care Property Supervisor Name Role Phone Chris Underwood MD Primary Care Provider [phone] Reason for Visit * Reason Comments Med Refill Encounter Details Date Type Department Care Team (Late st Contact Info) Description 06/22/2025 Refill [facility] Diabetes Education [address] [place] [address] Marj Hart L, LAWN MOWER MECHANIC [address] [facility] [address] [place] [address] Type 2 diabetes mellitus with hyperglycemia, with long-term current use of insulin ([facility]); 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 [...] the past 12 months has th e [employer], gas, oil, or water [employer] threatened to shut off services in your [...] Description 08/24/2025 9:20 AM EDT Office Visit [facility] [address] 5th Floor Wing D, [address] [place] [address] Joaquin Almodovar MD [address] [facility] [address] [place] [address] 09/13/2025 3:40 PM EDT [facility] [address] [place] [address] Jennifer Becerra MD [address] [place] [address] 10/12/2025 1:00 PM EST Consult [facility] [address] [place] [address] Peter Coleman MD [address] [facility] [address] [place] [address] 11/07/2025 11:15 AM EST Office Visit 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
--- OUTSIDE RECORDS SUMMARY | 2025-08-21 10:43 | XMS_ITS | Encounter Summary ---
Author Organization [facility] Address [address] [place] [address] Care Team Providers Care Professor Of Legal Studies Name Role Phone Chris Underwood MD Primary Care Provider [phone] Reason for Visit * Reason Onset Date Comments HCN Paperwork/Documentation Request 07/19/2025 Encounter Details Date Type Department Care Team (Late st Contact Info) Description 07/19/2025 Telephone [facility] [address] [facility] 5th Floor Wing D, [address] [place] [address] Joaquin Almodovar MD [address] [facility] [address] [place] [address] HCN Paperwork/Documentatio n Request Social [...] place to sleep or slept in a detention (including now)? No 08/16/2024 PHQ-9 Answer Date Recorded Patient Health Questionnaire-9 Score 0 05/28/2025 Utilities Answer Date Recorded In the past 12 months has th e [employer], [employer], oil, or water boarding pass threatened to shut off services in your [...] Day Appt/Overbook Request Reason for Call: Alondra w/ Ap James on the line she says the CTA order received is she will need a new one with new date Best contact number: Other: [phone] Optimal time of day to reach caller: ANYTIME Additional comments/information from caller: Note: Please do not reply to this message. Follow-up communication and further actions as a result of this message need to be communicated with the patient directly, if the patient is not active onMyChart. If the patient is active on MyChart, they will receive notification of the communication/outcome via [employer]hart. documented in this encounter Plan of Treatment Upcoming Encounters Date Type Department Care Team (Late st Contact Info) Description 08/24/2025 9:20 AM EDT Office Visit [facility] [address] 5th Floor Wing D, [address] [place] [address] Joaquin Almodovar MD [address] [facility] [address] [place] [address] 09/13/2025 3:40 PM EDT Office Visit [facility] Endocrinology [address] [place] [address] Jennifer Becerra MD 2[address] [facility] [address] [place] [address] 10/12/2025 1:00 PM EST Consult [facility] [address] 1st [place] [address] Peter Coleman MD [address] [facility] [address] [place] [address] 11/07/2025 11:15 AM EST Office Visit [facility] Eye Care [address] [place] [address] Mark Santos, OD [address] [place] [address] documented as of this encounter [...] of this encounter Care Teams Professor Of Legal Studies Relationship Specialty Start Date End Date Chris Underwood MD [address] [place] [address] PCP - General 04/11/21 documented as of this encounter
--- OUTSIDE RECORDS SUMMARY | 2025-08-21 10:43 | XMS_ITS | Encounter Summary ---
Author Organization [facility] Address [address] [place] [address] Care Team Providers Care Focus Puller Name Role Phone Chris Underwood MD Primary Care Provider [phone] Encounter Details Date Type Department Care Team [...] a nursing home (including now)? No 08/16/2024 PHQ-9 Answer [...] Description 08/24/2025 9:20 AM EDT Office Visit [facility] [address] 5th Floor Wing D, [address] [place] [address] Joaquin Almodovar MD [address] [facility] [address] [place] [address] 09/13/2025 3:40 PM EDT Office Visit [facility] Endocrinology [address] [place] [address] Jennifer Becerra MD [address] [place] [address] 10/12/2025 1:00 PM EST Consult [place] [facility] [address] 1st [place] [address] Peter Coleman MD [address] [place] [address] 11/07/2025 11:15 AM EST Office Visit [facility] Advanced [facility] Care [address] [place] [address] Mark Santos, OD [address] [place] [address] documented as of this encounter [...] documented as of this encounter Care Teams Focus Puller Relationship Specialty Start Date End Date Chris Underwood MD [address] [place] [address] PCP - General 04/11/21 documented as of this encounter
--- OUTSIDE RECORDS SUMMARY | 2025-08-21 10:43 | XMS_ITS | Encounter Summary ---
Author Organization [facility] Address [address] [place] [address] Care Team Providers Care Police Surgeon Name Role Phone Chris Underwood MD Primary Care Provider [phone] Encounter Details Date Type Department Care Team (Late st Contact Info) Description 07/19/2025 Telephone [facility] Endocrinology [address] [place] [address] Carmen Clark, RN [facility] OPERATING ROOM Social History Tobacco [...] the past 12 months has th e [employer], gas, oil, or water company threatened to [...] Description 08/24/2025 9:20 AM EDT Office Visit [facility] Comprehensive Vascular Clinic [address] 5th Floor Wing D, [address] [place] [address] Joaquin Almodovar MD [facility] [address] [facility] [address] [place] [address] 09/13/2025 3:40 PM EDT Office [facility] [address] [place] [address] Jennifer Becerra MD 2[address] [facility] 125 [place] [address] 10/12/2025 1:00 PM EST Consult [facility] [address], 1st [place] [address] Peter Coleman MD [address] [facility] [address] [place] [address] 11/07/2025 11:15 AM EST Office Visit [facility] Advanced Eye Care [address] [place] [address] Mark Santos, YOGI [address] [facility] [address] [place] [address] documented as of this encounter [...] documented as of this encounter Care Teams Police Surgeon Relationship Specialty Start Date End Date Chris Underwood MD [address] [place] [address] PCP - General 04/11/21 documented as of this encounter
--- OUTSIDE RECORDS SUMMARY | 2025-08-21 10:43 | XMS_ITS | Encounter Summary ---
Author Organization [facility] Address [address] [place] [address] Care Team Providers Care Punchboard Inserter Name Role Phone Chris Underwood MD Primary Care Provider [phone] Encounter Details Date Type Department Care Team [...] the past 12 months has th e [employer], gas, oil, or water company threatened to [...] things Not at all 06/28/2025 9:37 AM PANCHOT Elvia Diez Feeling down, depressed, or hopeless Not at all 06/28/2025 9:37 AM PANCHOT Elvia Diez Patient Health Questionnaire -2 Score [...] Description 08/24/2025 9:20 AM EDT Office Visit [facility] Comprehensive Vascular Clinic [address] 5th Floor Wing D, [address] [place] [address] Joaquin Almodovar MD [address] [facility] [address] [place] [address] 09/13/2025 3:40 PM EDT Office Visit [facility] Endocrinology [address] [place] [address] Jennifer Becerra MD [address] [place] [address] 10/12/2025 1:00 PM EST Consult [facility] [address] 1st [place] [address] Peter Coleman MD [address] [facility] [address] [place] [address] 11/07/2025 11:15 AM EST Office Visit [facility] Advanced [facility] Care [address] [place] [address] Mark Santos, OD [address] [facility] [address] [place] [address] documented as of this encounter [...] documented as of this encounter Care Teams Punchboard Inserter Relationship Specialty Start Date End Date Chris Underwood MD [address] [place] [address] PCP - General 04/11/21 documented as of this encounter
--- OUTSIDE RECORDS SUMMARY | 2025-08-21 10:43 | XMS_ITS | Encounter Summary ---
Author Organization Healthcare Address [address] [place] [address] Care Team Providers Care Petroleum Analyst Name Role Phone Chris Underwood MD Primary Care Provider Jyoti Salinas Unavailable Encounter Details Date Type Department Care Team (Late st Contact Info) Description 01/12/2019 Orders Only External Location [address] [place] [address] Provider, External Social History Tobacco Use Types [...] Description 08/24/2025 9:20 AM EDT Office Visit [facility] [address] [facility] 5th Floor Wing D, [address] [place] [address] Joaquin Almodovar MD [address] [facility] [address] [place] [address] 09/13/2025 3:40 PM EDT Office Visit [facility] Endocrinology Critical access hospital5 [place] [address] Jennifer Becerra MD [address] [place] [address] 10/12/2025 1:00 PM EST Consult [facility] [address] 1st [place] [address] Peter Coleman MD [address] [place] [address] 11/07/2025 11:15 AM EST Office Visit [facility] Eye Care [address] [place] [address] Mark Santos, OD [address] [place] [address] documented as of this encounter [...] documented as of this encounter Care Teams Petroleum Analyst Relationship Specialty Start Date End Date Chris Underwood MD [address] [place] [address] PCP - General 04/11/21 Jyoti Salinas [address] [facility] [address] [place] [address] Registered Nurse 02/20/25 03/16/25 documented as of this encounter
--- OUTSIDE RECORDS SUMMARY | 2025-08-21 10:43 | XMS_ITS | Encounter Summary ---
Author Organization Healthcare Address [address] [place] [address] Care Team Providers Care Community Living Instructor Name Role Phone Chris Underwood MD Primary Care Provider [phone] Encounter Details Date Type Department Care Team (Late st Contact Info) Description 06/21/[address] [facility] Diabetes Education [address] [place] [address] Marj Hart, KITCHEN STEWARDESS 2[address] [facility] [address] [place] [address] Social History Tobacco Use Types [...] place to sleep or slept in a long term (including now)? No 08/16/2024 PHQ-9 Answer Date [...] Called pharmacy and pt is able to sisal picker her insulin as early as tomorrow. Called [...] Description 08/24/2025 9:20 AM EDT Office Visit [facility] Comprehensive Vascular Clinic [address] 5th Floor Wing D, [address] [place] [address] Joaquin Almodovar MD [address] [facility] [address] [place] [address] 09/13/2025 3:40 PM EDT Office Visit [facility] Endocrinology [address] [place] [address] Jennifer Becerra MD [address] [facility] [address] [place] [address] 10/12/2025 1:[address] [facility] [address] 1st [place] [address] Peter Coleman MD [address] [facility] [address] [place] [address] 11/07/2025 11:15 AM EST Office Visit [facility] Eye Care [address] [place] [address] Mark Santos, OD [address] [place] [address] documented as of this encounter [...] documented as of this encounter Care Teams Community Living Instructor Relationship Specialty Start Date End Date Chris Underwood MD [address] [place], [place] [id number] PCP - General 04/11/21 documented as of this encounter
--- OUTSIDE RECORDS SUMMARY | 2025-08-21 10:43 | XMS_ITS | Encounter Summary ---
Author Organization Healthcare Address [address] [place] [id number] Care Team Providers Care Associate Buyer Name Role Phone Chris Underwood MD Primary Care Provider Jyoti Salinas Unavailable [phone] Encounter Details Date Type Department Care Team (Late st Contact Info) Description 08/20/2021 Ophth Exam [facility] Advanced Eye Care [address] [place] [address] Campos Haines MD [address] [place] [id number] Social History Tobacco Use Types Packs/Day Years [...] No 08/20/2021 11:01 PM EDT Sa dasha Purcell, RN 6. Suicidal Behavior (Lifetime) No 11:01 PM EDT Jennifer Purcell, RN documented as of this encounter Plan of Treatment Upcoming Encounters Date Type Department Care Team (Late st Contact Info) Description 08/24/2025 9:20 AM EDT Office Visit [facility] Comprehensive V[facility] Clinic [address] 5th Floor Wing D, [address] [place] [address] Joaquin Almodovar MD [address] [facility] [address] [place] [address] 09/13/2025 3:40 PM EDT Office Visit [facility] Endocrinology [address] [place] [address] Jennifer Becerra MD [address] [place] [address] 10/12/2025 1:00 PM EST Consult [facility] [address] 1st [place] [address] Peter Coleman MD [address] [place] [address] 11/07/2025 11:15 AM EST Office Visit [facility] Advanced Eye Care [address] [place] [address] Mark Santos, OD [address] [place] [address] documented as of this encounter Visit Diagnoses Not on filedocumented in this encounter Additional Health Concerns Infection Onset Date Last Indicated Resolved Time MRSA 05/05/2021 05/05/2021 10/01/2022 10:4 8 AM EDT MRSA 02/09/2024 02/09/2024 documented as of this encounter Care Teams Associate Buyer Relationship Specialty Start Date End Date Chris Underwood MD [address] [place], [place] [id number] PCP - General 04/11/21 Jyoti Salinas [address] [place] [address] Registered Nurse 02/20/25 03/16/25 documented as of this encounter
--- OUTSIDE RECORDS SUMMARY | 2025-08-21 10:43 | XMS_ITS | Encounter Summary ---
Author Organization [facility] Address [address] [place] [address] Care Team Providers Care Prior Authorization Nurse Name Role Phone Chris Underwood MD Primary Care Provider Jyoti Salinas Unavailable Encounter Details Date Type Department Care Team (Late st Contact Info) Description 12/28/2019 Orders Only External Location [address] [place] [address] Joaquin Almodovar MD [address] [address] Social History Tobacco Use Types Packs/Day Years [...] Description 08/24/2025 9:20 AM EDT Office Visit [facility] [address] [facility] 5th Floor Wing D, [address] [place] [address] Joaquin Almodovar MD [address] [place] [address] 09/13/2025 3:40 PM EDT Office Visit [facility] Endocrinology [address] [place] [address] Jennifer Becerra MD [address] [place] [address] 10/12/2025 1:00 PM EST Consult [place] [facility] [address] 1st [place] [address] Peter Coleman MD [address] [place] [address] 11/07/2025 11:15 AM EST Office Visit [facility] Advanced Eye Care [address] [place] [address] Mark Santos, OD [address] [place] [address] documented as of this encounter [...] documented as of this encounter Care Teams Prior Authorization Nurse Relationship Specialty Start Date End Date Chris Underwood MD [address] [place] [address] PCP - General 04/11/21 Jyoti Salinas [address] [address] Registered Nurse 02/20/25 03/16/25 documented as of this encounter
--- OUTSIDE RECORDS SUMMARY | 2025-08-21 10:43 | XMS_ITS | Encounter Summary ---
Author Organization Healthcare Address [address] [place] [address] Care Team Providers Care Bench Examiner Name Role Phone Chris Underwood MD Primary Care Provider [phone] Encounter Details Date Type Department Care Team (Late st Contact Info) Description 07/18/2025 Telephone [place] [facility] [address] [facility] 5th Floor Wing D, [address] [place] [address] Joaquin Almodovar MD [address] [facility] [address] [place] [address] Social History Tobacco Use Types [...] place to sleep or slept in a snf (including now)? No 08/16/2024 PHQ-9 Answer Date [...] Description 08/24/2025 9:20 AM EDT Office Visit [facility] Comprehensive Vascular Clinic [address] [facility] 5th Floor Wing D, [address] [place] [address] Joaquin Almodovar MD [address] [place] [address] 09/13/2025 3:40 PM EDT [facility] [address] [place] [address] Jennifer Becerra MD [address] [place] [address] 10/12/2025 1:00 PM EST Consult [place] [facility] [address] 1st [place] [address] Peter Coleman MD [address] [place] [address] 11/07/2025 11:15 AM EST Office [facility] Advanced Eye Care [address] [place] [address] Mark Santos, OD [address] [place] [address] documented as of this encounter [...] documented as of this encounter Care Teams Bench Examiner Relationship Specialty Start Date End Date Chris Underwood MD [address] [place] [address] PCP - General 04/11/21 documented as of this encounter
--- OUTSIDE RECORDS SUMMARY | 2025-08-21 10:43 | XMS_ITS | Encounter Summary ---
Author Organization [facility] Address [address] [place] [address] Care Team Providers Care Assembler Body Name Role Phone Chris Underwood MD Primary Care Provider [phone] Encounter Details Date Type Department Care Team [...] No 08/16/2024 Housing Stability Vital Sign Answer Josaih e Recorded In the last 12 months, [...] Description 08/24/2025 9:20 AM EDT Office Visit [facility] [address] 5th Floor [address], [address] [place] [address] Joaquin Almodovar MD [address] [facility] [address] [place] [address] 09/13/2025 3:40 PM EDT Office Visit [facility]ini Peg[facility] Endocrinology [address] [place] [address] Jennifer Becerra MD [address] [place] [address] 10/12/2025 1:00 PM EST Consult [place] [facility] [address] 1st [place] [address] Peter Coleman MD [address] [place] [address] 11/07/2025 11:15 AM EST Office Visit [facility] Advanced Eye Care [address] [place] [address] Mark Santos, OD [address] [place] [address] documented as of this encounter [...] documented as of this encounter Care Teams Assembler Body Relationship Specialty Start Date End Date Chris Underwood MD [address] [place], [place] [address] PCP - General 04/11/21 documented as of this encounter
--- OUTSIDE RECORDS SUMMARY | 2025-08-21 10:43 | XMS_ITS | Encounter Summary ---
Author Organization [facility] Address [address] [place] [address] Care Team Providers Care Senior Talent Acquisition Specialist Name Role Phone Chris Underwood MD Primary Care Provider [phone] Encounter Details Date Type Department Care Team [...] Description 08/24/2025 9:20 AM EDT Office Visit [place] [facility] [address] 5th Floor Wing [address], [address] [place] [address] Joaquin Almodovar MD [address] [facility] [address] [place] [address] 09/13/2025 3:40 PM EDT Office Visit [facility] Endocrinology [address] [place] [address] Jennifer Becerra MD [address] [place] [address] 10/12/2025 1:00 PM EST Consult [place] [facility] [address] 1st [place] [address] Peter Coleman MD [address] [place] [address] 11/07/2025 11:15 AM EST Office Visit [facility] Advanced Eye Care [address] [place] [address] Mark Santos, OD [address] [place] [address] documented as of this [...] as of this encounter Care Teams Senior Talent Acquisition Specialist Relationship Specialty Start Date End Date Chris Underwood MD [address] [place], [place] [id number] PCP - General 04/11/21 documented as of this encounter
--- OUTSIDE RECORDS SUMMARY | 2025-08-21 10:43 | XMS_ITS | Encounter Summary ---
Author Organization Healthcare Address [address] [place] [address] Care Team Providers Care Environmental Director Name Role Phone Chris Underwood MD Primary Care Provider Jyoti Salinas Unavailable [phone] Encounter Details Date Type Department Care Team (Late st Contact Info) Description 01/12/2019 Orders Only External Location [address] [place] [address] Provider, External Social History Tobacco Use Types [...] Description 08/24/2025 9:20 AM EDT [facility] [address] [facility] 5th Floor [address] [place] [address] Joaquin Almodovar MD [address] [facility] [address] [place] [address] 09/13/2025 3:40 PM EDT Office Visit [facility] [place] [id number] Jennifer Becerra MD [address] [place] [address] 10/12/2025 1:00 PM EST Consult [facility] [address] [place] [address] Peter Coleman MD [address] [place] [address] 11/07/2025 11:15 AM EST Office Visit [facility] [address] [place] [address] Mark Santos, OD [address] [place] [address] documented as of this encounter [...] documented as of this encounter Care Teams Environmental Director Relationship Specialty Start Date End Date Chris Underwood MD [address] [place] [address] PCP - General 04/11/21 Jyoti Salinas [address] [facility] [address] [place] [address] Registered Nurse 02/20/25 03/16/25 documented as of this encounter
--- OUTSIDE RECORDS SUMMARY | 2025-08-21 10:43 | XMS_ITS | Encounter Summary ---
Author Organization Healthcare Address [address] [place] [address] Care Team Providers Care Director Mba Name Role Phone Chris Underwood MD Primary Care Provider [phone] Encounter Details Date Type Department Care Team (Late st Contact Info) Description 05/07/2025 Orders Only External Location [address] [place] [address] Chris Underwood MD [address] [place] [id number] Social History Tobacco Use Types Packs/Day [...] in a halfway (including now)? No 08/16/2024 Utilities Answer Date [...] Description 08/24/2025 9:20 AM EDT Office Visit [facility] [address] [facility] 5th Floor [address] [place] [address] Joaquin Almodovar MD [address] [facility] [address] [place] [address] 09/13/2025 3:40 PM EDT Office Visit [facility] Endocrinology [address] [place] [address] Jennifer Becerra MD [address] [place] [address] 10/12/2025 1:00 PM EST Consult [place] [facility] [address] [place] [address] Peter Coleman MD [address] [place] [address] 11/07/2025 11:15 AM EST Office Visit [facility] [address] [place] [address] Mark Santos, OD [address] [place] [address] documented as of this encounter [...] as of this encounter Care Teams Director Mba Relationship Specialty Start Date End Date Chris Underwood MD [address] [place] [address] PCP - General 04/11/21 documented as of this encounter
--- OUTSIDE RECORDS SUMMARY | 2025-08-21 10:43 | XMS_ITS | Encounter Summary ---
Author Organization [facility] Address [address] [place] [address] Care Team Providers Care Solar Sales Name Role Phone Chris Underwood MD Primary Care Provider [phone] Jyoti Salinas Unavailable [phone] Encounter Details Date Type Department Care Team (Late Contact Info) Description 04/16/2024 Orders Only External Location [address] [place] [address] Provider, External Social History Tobacco Use Types [...] Description 08/24/2025 9:20 AM EDT Office Visit [facility] [address] [facility] 5th Floor [address] [place] [address] Joaquin Almodovar MD [address] [place] [address] 09/13/2025 3:40 PM EDT Office Visit [facility] Endocrinology [address] [place] [address] Jennifer Becerra MD [address] [place] [address] 10/12/2025 1:00 PM EST Consult [place] [facility] [address] [place] [address] Peter Coleman MD [address] [place] [address] 11/07/2025 11:15 AM EST Office Visit [facility] [address] [place] [address] Mark Santos, OD [address] [facility] [address] [place] [address] documented as of this encounter [...] documented as of this encounter Care Teams Solar Sales Relationship Specialty Start Date End Date Chris Underwood MD [address] [phone] PCP - General 04/11/21 Jyoti Salinas [address] [address] Registered Nurse 02/20/25 03/16/25 documented as of this encounter
--- OUTSIDE RECORDS SUMMARY | 2025-08-21 10:43 | XMS_ITS | Clinical Summary ---
Author Organization [facility] Address [address] [place] [address] Care Team Providers Care Sales Route Driver Helper Name Role Phone Chris Underwood MD Primary Care Provider [phone] Allergies Active Allergy Reactions Criticality Noted Date [...] Chew 1 tablet daily. Active nystatin (Mycostatin) 963355 UNIT/GM powder Apply 1 Application topically 2 (two) times a day. Apply to lower abdomen. Active potassium chloride CR (Klor-Con) 10 MEQ ER tablet Take 4 tablets by mouth daily. Administer with as needed furosemide. Active albuterol 108 (90 Base) MCG/ACT inhaler Inhale 2 puffs 3 times a day as needed for wheezing or shortness of breath. Active NON FORMULARY Magic Butt Levasy 1 Ointment Apply topically to left and [...] mL 1 02/01/20 25 Active Insulin Dispos Quarry Plug And Feather Driller Accessories (Omnipod Pod Pals) miscIndications :Type 2 [...] mouth twice a day. 05/15/20 25 Active Logical LightingTouch Ultra Test test strip 4 times a day. 05/15/20 25 Active hydrocortisone 1 % cream APPLY 1 GRAM TO THE AFFECTED AREA(S) BY TOPICAL ROUTE FOUR TIMES DAILY NEEDED 04/26/20 25 Active GNP Zinc Oxide 20 % ointment Apply 1 Application topically as needed. Butt balm 12/15/19 25 Active Omnipod 5 [id number] Pods Gen 5 (Omnipod5) miscIndications :Type 2 [...] (01/21/2022): Added automatically from request for surgery [id number] Neuropathy 10/02/2021 Spinal stenosis of lumbar region 09/04/2021 Bilateral sacroiliitis 09/04/2021 Gastroesophageal reflux disease 08/29/2021 Antiplatelet or antithrombotic long-term use 11/2020 History of MRSA infection 08/29/2021 Vitreous hemorrhage of left eye 08/25/2021 Overview (08/25/2021): Added automatically from request for surgery [id number] Assessment & Plan (09/05/2021 11:50 AM EDT): [...] (08/20/2021): Added automatically from request for surgery [id number] Assessment & Plan (08/25/2021 11:43 AM EDT): POD5 s/p RGR OS with residual hyphema. IOP good today. Continue cyclogyl TID, ofloxacin QID, brimonidine BID, pred forte QID and emycin qhs OS. RTC Wednesday for B-scan OS and IOP check Atherosclerosis of artery of both lower extremit ies 08/20/2021 Hyperlipidemia 08/20/2021 Class 3 severe obesity with serious [...] anemia 08/17/2024 08/23/2024 Acute encephalopathy 08/16/2024 024 Decreased functional activity tolerance 08/29/2021 08/19/2025 Delayed emergence from anesthesia 08/20/2021 09/05/2021 Peripheral edema 08/20/2021 08/19/2025 Encounters Date Type Department Care Team Description 08/17/2025 Telephone [facility] Endocrinology [address] [place] [address] Marj Hart, CLINIC DIRECTOR 08/17/2025 Travel 08/06/2025 9:00 AM EDT Office Visit [facility] [address] [place] [address] Sajan Lopez MD Abnormal MRI, lumbar spine (Primary Dx) 08/06/2025 Travel 08/02/2025 Orders Only External Location [address] [place] [address] Provider, External 08/01/2025 Orders Only External Location [address] [place] [address] Provider, External 08/01/2025 Orders Only External Location [address] [place] [address] Provider, External 08/01/2025 Orders Only External Location [address] [place] [address] Provider, External 07/23/2025 Telephone [facility] Endocrinology [address] [place] [address] Too Jimenez MD 07/23/2025 Orders Only [facility] [address] [place] [address] Alex Salcedo MD Abnormal MRI, lumbar spine (Primary Dx); Vertebral osteomyelitis (CMS/HCC) 07/20/2025 2:36 PM EDT - 07/20/2025 11:59 PM EDT Hospital Encounter [facility] [address] [place] [address] Abnormal MRI, lumbar spine; Vertebral osteomyelitis (CMS/HCC) Discharge Disposition: Home or Self Care 07/20/2025 Travel 07/19/2025 Travel 07/19/2025 Telephone [facility] Endocrinology [address] [place] [address] Carmen Clark, RN 07/19/2025 Telephone [facility] Comprehensive Vascular Clinic [address] [place] [address] Joaquin Almodovar MD HCN Paperwork/Documentat ion Request 07/18/2025 Telephone [facility] Vascular Clinic [address] [facility] 5th Floor [address] [place] [address] Joaquin Almodovar MD 07/13/2025 11:30 AM EDT Pre-Admission Testing [facility] Pre-op Clinic [address] [facility], 1st [place] [address] 07/13/2025 Telephone [facility] [address] [place] [address] Angelic Kwok RN 07/13/2025 Travel 07/10/2025 Telephone [facility] Vascular [facility] [address] [place] [address] Joaquin Almodovar MD HCN Clinical Concern/Question 07/05/2025 Telephone [facility] [address] [place] [address] Antonieta Bernstein APRN 07/05/2025 Orders Only [facility] [address] [place] [address] Antonieta Bernstein, DRISS Abnormal MRI, lumbar spine (Primary Dx); Vertebral osteomyelitis (CMS/HCC) 07/02/2025 1:30 PM EDT Office Visit [facility] [address] [place] [address] [place], Antonieta M, CLINIC DIRECTOR Abnormal MRI, lumbar spine (Primary Dx) 07/02/2025 Travel 06/28/2025 9:30 AM EDT Office Visit [facility] Vascular Interventional Radiology [address] [facility] [address] [place] [address] Shelley Lim, CLINIC DIRECTOR Low back pain (Primary Dx) 06/28/2025 Telephone [facility] Vascular Interventional Radiology [address] [facility] [address] [place] [address] RgDarwinElvia S 06/28/2025 Travel 06/26/2025 Travel 06/22/2025 Refill [facility] Diabetes Education [address] [place] [address] Marj Hart, CLINIC DIRECTOR Type 2 diabetes mellitus with hyperglycemia, with long-term current use of insulin ([facility]); 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 06/21/2025 Telephone [facility] Diabetes Education [address] [place] [address] Marj Hart, CLINIC DIRECTOR 06/15/[address] [address] Antonieta Bernstein, CLINIC DIRECTOR 06/08/2025 Refill [facility] Endocrinology [address] [place] [address] Georgette Oropeza 06/07/2025 Telephone [facility] Endocrinology [address] [place] [address] Jude Urrutia 06/04/2025 Orders Only [address] [address] Antonieta Bernstein, CLINIC DIRECTOR Abnormal MRI, lumbar spine (Primary Dx) 05/30/2025 Refill [facility] Diabetes Education [address] [place] [address] Marj Hart, CLINIC DIRECTOR Type 2 diabetes mellitus with hyperglycemia, with long-term current use of insulin ([facility]/HCC); 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 05/28/2025 11:30 AM EDT Office Visit [facility] [address] [place] [address] Antonieta Bernstein, DRISS Abnormal MRI, lumbar spine (Primary Dx); Vertebral osteomyelitis (CMS/HCC) 05/28/2025 Travel 05/22/2025 Telephone [facility] Endocrinology [address] [place] [address] Jennifer Becerra MD from Last 3 Months Immunizations Immunization Administration Dates Next Due Moderna COVID-19 Vaccine (Re d Cap) 12+ years 06/25/2022,12/10/2021,06/13/2021,2020 TD (adult), 2 Lf tetanus tox oid, preservative free, adsorbed 03/10/2004 Tdap 08/15/2024 Family History Medical History Relation Name Comments Cancer Father Joaquin Earlywinfina Cataracts Father Joaquin Jerez Hyperlipidemia Father Joaquin Earlywine Hypertension Father Joaquin Jerez Other cancer Father Joaquin Earlywinfina Cancer Maternal Grandfather Reji Sanam Blindness Maternal Grandmother Mary Sanam Cancer Maternal Grandmother Mary Sanam Cataracts Mother Arpita Earlywine Diabetes Mother Arpita Earlywine Hyperlipidemia Mother Arpita Earlywine Hypertension Mother Arpita Earlywine Cancer Mother's Sister 1 Clare [place] Diabetes Mother's Sister 1 Clare Angelina Glaucoma Mother's Sister 1 Clare [place] Hypertension Mother's Sister 2 Jody Sanam Cardiac disorder Other 1 Stroke Other 2 Other cancer Other 3 Hypertension Sibling 1 Hyperlipidemia Sibling 2 Anesthesia problems Neg Hx Malig Hyperthermia Neg Hx Relation Name Status Comments Father Joaquin Earlywine Maternal Grandfather Reji Sanam Maternal Grandmother Mary Sanam Mother Arpita Earlywine Mother's Sister 1 Clare [place] Mother's Sister 2 Jody Sanam Other 1 [...] th e electric, gas, oil, or water [employer] threatened to shut off services in your [...] Description 08/24/2025 9:20 AM EDT Office Visit [facility] [address] 5th Floor [address] [place] [address] Joaquin Almodovar MD [address] [facility] [address] [place] [address] 09/13/2025 3:40 PM EDT [facility] [address] [place] [address] Jennifer Becerra MD [address] [place] [address] 10/12/2025 1:00 PM EST Consult [facility] [address] 1st [place] [address] Peter Coleman MD [address] [place] [address] 11/07/2025 11:15 AM EST Office Visit [facility] [address] [place] [address] Mark Santos, OD [address] [place] [address] Health Maintenance Due Date Last Done Comments [facility]-Infant/Child/Adol SDOH Screenings 1969 Diabetes: Dental Exam 1979 [facility]- SDOH Screenings 1987 [facility]-Adult SDOH Screenings 1987 [facility]-Hepatitis B Vaccines (1 of 3 - 19+ 3-dose series) 1988 [facility]-Pneumococcal Vaccine: 50+ Years (1 of 2 - PCV) 1988 [facility]-Pap Smear 1990 [facility]-Cervical Cancer Screening 1999 [facility]-HPV/Cotest 1999 CT Colonography 2014 Colonoscopy 2014 FIT-DNA 2014 FIT 2014 FOBT 2014 Sigmoidoscopy 2014 [facility]-Colorectal Cancer Screening 2014 [facility]-Breast Cancer Screening 2019 [facility]-Zoster Vaccines (1 of 2) 2019 [facility]-Diabetes: Hemoglobin A1C 11/15/2024, 09/17/2022, 05/25/2022, Additional history exists ZUD-[id number]-60 Vaccine (2024- season) 2025 06/25/2022, 12/10/2021, 06/13/2021, Additional history exists [facility]-Influenza Vaccine (#1) 2025 [facility]-Lung Cancer Screening 08/15/2025 08/15/2024 [facility]-Depression Screening 06/28/2026 06/28/2025, 05/01 [facility]-DTaP,Tdap,and Td Vaccines (2 - Td or Tdap) 08/15/2034 08/15/2024, 03/10/2004 [facility]-HIV Screening Completed 07/13/2024, , 08/20/2021 [facility]-Hepatitis C Screening Completed 2023, 07/02/2023, 08/20/2021, Additional history exists [facility]-Obesity Intervention Completed 025, 07/02/2025, 06/28/2025, Additional history exists HPV Vaccines Aged Out [...] this topic Medical Devices Implanted Type Area Hydraulic Press In Operator Device Identifier Shelf Expiration Date Model / Serial / Lot Lens Ct Amie 602.Us Dpt 18.5 - [id number] - [id number] Implanted:Qty: 1 on 10/01/2022 by Yvonne Govea MD at [facility] Lens Left: Eye Cesar [id number] 05/28/2026 LENS 602 18.5 / [id number] / Oil Silicone Adato 5000 Syringe 10ml - [id number] - [id number] Implanted:Qty: 1 on 09/04/2021 by Yvonne Govea MD at [facility] Left: Eye [employer]-[id number] 03/28/2024 ES 5000 S / [id number] / Procedures Procedure Name Priority Date/Time Associated Diagnosis Comments MR NEURO OUTSIDE IMAGES 08/02/20 9:[address] OUTSIDE IMAGES 08/01/2025 10: 32 AM EDT US OUTSIDE IMAGES 08/01/2025 8:5 9 AM EDT US OUTSIDE IMAGES 08/01/2025 8:2 9 AM EDT IMAGING MRI PROCEDURE NOT PERFORMED Routine 07/20/2025 5:00 PM EDT Abnormal MRI, lumbar spine Vertebral osteomyelitis (CMS/HCC) COMPREHENSIVE METABOLIC PANEL, PLASMA Routine 05/28/2025 11:55 AM EDT Aortoiliac occlusive disease (CMS/HCC) C-REACTIVE PROTEIN, PLASMA Routine 05/28/2025 11:55 AM EDT Abnormal MRI, lumbar spine CBC WITH AUTO DIFFERENTIAL Routine 05/28/2025 11:55 AM EDT Abnormal MRI, lumbar spine HEMOGLOBIN A1C Routine 08/16/2024 2:[address] ANGIO CHEST STAT 08/15/2024 7:24 PM EDT HEPATITIS C ANTIBODY - ED W/REFLEX TO HCV QUANT PCR STAT 07/13/2024 5:17 PM EDT ED HIV 1/2 ANTIBODY/ANTIGEN SCREEN WITH REFLEX TO HIV I/II DIFFERENTIATION STAT 07/13/2024 5:17 PM EDT from Last 3 Months or Most Recently Relevant to Health Maintenance Results * MR NEURO OUTSIDE IMAGES (08/02/2025 9:58 AM EDT) Anatomical Region Laterality Modality Magnetic Resonan ce 08/02/2025 9:58 AM EDT us External Provider IMG MRI PROCEDURES Final Resul t * CT OUTSIDE IMAGES (08/01/2025 10:32 AM EDT) Anatomical Region Laterality Modality Computed Tomogra phy 08/01/2025 10:3 2 AM EDT us External Provider IMG CT PROCEDURES Edited Resul t - Final * US OUTSIDE IMAGES (08/01/2025 8:59 AM EDT) Only the most recent of2 resultswithin the time period is included. Anatomical Region Laterality Modality Ultrasound 08/01/2025 8:59 AM EDT us External Provider IMG US PROCEDURES Edited Resul t - Final * Imaging MRI Procedure Not Performed (07/20/2025 5:00 PM EDT) Narrative IMAGING - 07/20/2025 6:32 PM EDT This procedure was not performed. Procedure: MR LUMBAR W AND WO IV CONTRAST Reason: Body Habitus us Antonieta Bernstein CLINIC DIRECTOR IMG MRI PROCEDURES Final R esult IMAGING * (ABNORMAL) CBC and differential (05/28/2025 11:55 AM EDT) WBC Count 6.77 3.70 - 10.30 10*3/uL LAB HEMATOLOGY METHOD 05/28/2025 3:24 PM EDT [facility] RBC Count 4.22 3.90 - 5.20 10*6/uL LAB HEMATOLOGY METHOD 05/28/2025 3:24 PM EDT [facility] HGB 11.5 11.2 - 15.7 g/dL LAB HEMATOLOGY METHOD 05/28/2025 3:24 PM EDT [facility] HCT 39.2 34.0 - 45.0 % LAB HEMATOLOGY METHOD 05/28/2025 3:24 PM EDT [facility] Platelet Count 167 155 - 369 10*3/uL LAB HEMATOLOGY METHOD 05/28/2025 3:24 PM EDT [facility] MCV 93 79 - 98 fL LAB HEMATOLOGY METHOD 05/28/2025 3:24 PM EDT [facility] MCH 27.3 26.0 - 32.0 pg LAB HEMATOLOGY METHOD 05/28/2025 3:24 PM EDT [facility] MCHC 29.3(L) 30.7 - 35.5 g/dL LAB HEMATOLOGY METHOD 05/28/2025 3:24 PM EDT [facility] RDW 17.2(H) 11.5 - 14.5 % LAB HEMATOLOGY METHOD 05/28/2025 3:24 PM EDT [facility] MPV 11.9 8.8 - 12.5 fL LAB HEMATOLOGY METHOD 05/28/2025 3:24 PM EDT [facility] nRBC 0.0 <=0.0 per 100 WBCs LAB HEMATOLOGY METHOD 05/28/2025 3:24 PM EDT [facility] Differential Type Automated LAB HEMATOLOGY METHOD 05/28/2025 3:24 PM EDT [facility] Neutrophils % 66 % LAB HEMATOLOGY METHOD 05/28/2025 3:24 PM EDT [facility] Lymphocytes % 27 % LAB HEMATOLOGY METHOD 05/28/2025 3:24 PM EDT [facility] Monocytes % 6 % LAB HEMATOLOGY METHOD 05/28/2025 3:24 PM EDT [facility] Eosinophils % 1 % LAB HEMATOLOGY METHOD 05/28/2025 3:24 PM EDT [facility] Basophils % 0 % LAB HEMATOLOGY METHOD 05/28/2025 3:24 PM EDT [facility] Immature Granulocytes % 0 % LAB HEMATOLOGY METHOD 05/28/2025 3:24 PM EDT [facility] Neutrophils Absolute 4.44 1.60 - 6.10 10*3/uL LAB HEMATOLOGY METHOD 05/28/2025 3:24 PM EDT [facility] Lymphocytes Absolute 1.80 1.20 - 3.90 10*3/uL LAB HEMATOLOGY METHOD 05/28/2025 3:24 PM EDT [facility] Monocytes Absolute 0.42 0.30 - 0.90 10*3/uL LAB HEMATOLOGY METHOD 05/28/2025 3:24 PM EDT [facility] Eosinophils Absolute 0.06 0.00 - 0.50 10*3/uL LAB HEMATOLOGY METHOD 05/28/2025 3:24 PM EDT [facility] Basophils Absolute 0.03 0.00 - 0.10 10*3/uL LAB HEMATOLOGY METHOD 05/28/2025 3:24 PM EDT [facility] Immature Granulocytes Absolute 0.02 0.00 - 0.06 10*3/uL LAB HEMATOLOGY METHOD 05/28/2025 3:24 PM EDT [facility] Blood Venous blood specimen / Unknown Venipuncture / Unknown 05/28/2025 11:55 AM EDT 05/28/2025 12:02 PM EDT Narrative [facility] - 05/28/2025 3:24 PM EDT Therapeutic decision making should be based on absolute values, rather than percentages. Antonieta Boogie Day CLINIC DIRECTOR LAB BLOOD ORDERABLES Final Result [facility] [address] [place] [address] * (ABNORMAL) C-reactive protein (05/28/2025 11:55 AM EDT) CRP, Plasma 15.9(H) <=8.0 mg/L 05/28/2025 3:35 PM EDT [facility] Blood Venous blood specimen / Unknown Venipuncture / Unknown 05/28/2025 11:55 AM EDT 05/28/2025 12:02 PM EDT Narrative [facility] - 05/28/2025 3:35 PM EDT This CRP test is appropriate for assessment of infection, systemic inflammation and/or tissue injury. To assess cardiovascular disease risk order high sensitivity CRP (CRPH). Antonieta Boogie [place] CLINIC DIRECTOR LAB BLOOD ORDERABLES Final Result Performing Organization Address [facility] Co de Phone Number [facility] [address] [place] [address] * (ABNORMAL) Comprehensive metabolic panel (05/28/2025 11:55 AM EDT) Pathologist [facility] Glucose, Plasma 124(H) 74 - 99 mg/dL 05/28/2025 3:35 PM EDT [facility] BUN, Plasma 17 7 - 21 mg/dL 05/28/2025 3:35 PM EDT [facility] Creatinine, Plasma 0.84 0.60 - 1.10 mg/dL 05/28/2025 3:35 PM EDT [facility] BUN/Creatinine Ratio 20 05/28/2025 3:35 PM EDT [facility] Sodium, Plasma 143 136 - 145 mmol/L 05/28/2025 3:35 PM EDT [facility] Potassium, Plasma 3.5(L) 3.6 - 4.9 mmol/L 05/28/2025 3:35 PM EDT [facility] Chloride, Plasma 96(L) 97 - 107 mmol/L 05/28/2025 3:35 PM EDT [facility] CO2, Plasma 35(H) 22 - 29 mmol/L 05/28/2025 3:35 PM EDT [facility] Anion Gap 12 6 - 16 mmol/L 05/28/2025 3:35 PM EDT [facility] Total Calcium, Plasma 9.0 8.9 - 10.2 mg/dL 05/28/2025 3:35 PM EDT [facility] Total Protein 7.4 6.3 - 7.9 g/dL 05/28/2025 3:35 PM EDT [facility] Albumin, Plasma 3.9 3.5 - 5.2 g/dL 05/28/2025 3:35 PM EDT [facility] AST, Plasma 14 10 - 35 U/L 05/28/2025 3:35 PM EDT [facility] ALT, Plasma 11 10 - 35 U/L 05/28/2025 3:35 PM EDT [facility] Alkaline Phosphatase, Plasma 86 35 - 104 U/L 05/28/2025 3:35 PM EDT [facility] Total Bilirubin, Plasma 0.9 0.2 - 1.1 mg/dL 05/28/2025 3:35 PM EDT [facility] eGFRcr 82.2 mL/min/1.7 3m*2 05/28/2025 3:35 PM EDT [facility] Comment:Reported eGFRcr in m L/min/1.73m2 is based the CKD-EPI 2020 equation that does not use a race coefficient. Blood Venous blood specimen / Unknown Venipuncture / Unknown 05/28/2025 11:55 AM EDT 05/28/2025 12:02 PM EDT us Cally GALAVIZ LAB BLOOD ORDERABLES Final Resu lt [facility] [address] [place] [address] * (ABNORMAL) Hemoglobin A1c (08/16/2024 2:44 AM EDT) Hemoglobin A1c 7.6(H) <5.7 % 08/16/2024 3:57 AM EDT [facility] Blood Venous blood specimen / Unknown Venipuncture / Unknown 08/16/2024 2:44 AM EDT 08/16/2024 3:40 AM EDT Narrative [facility] - 08/16/2024 3:57 AM EDT HA1C Interpretive Data: Diagnosis of Diabetes: Diabetic > or = 6.5% Pre-diabetic 5.7 to 6.4% Non-diabetic < or = 5.6% Glycemic Targets for Type I and Type II Diabetics: Non- Adults <7.0% Adults <6.0% Children and Adolescents <7.5% Source: [place] [employer]. Standards of medical care in diabetes,2017. Diabetes Care.2017:40 (suppl 1):S1-S135. HbA1c assay performed by an ion-exchange chromatography method that is certified traceable to the DCCT. us Nissa Gottlieb MD LAB BLOOD ORDERABLES Fin al Result [facility] [address] [place] [address] * CT Angio Chest (08/15/2024 7:24 PM [...] Jyoti Centeno MD on 08/16/2024 1:25 AM [place] GALAVIZ IMG CT PROCEDURES Final Result * ED HIV 1/2 Antibody/Antigen Screen w/Reflex to HIV 1/2 Differentiation (07/13/2024 5:17 PM EDT) Pathologist [facility] HIV 1 & 2 Antibody/Antigen Screen Non Reactive Non Reactive 07/13/2024 6:14 PM EDT [facility] Comment:Screening for HIV 1 & 2 antibodies, and P24 antigen is NONREACTIVE. No confirmatory testing is required. Blood Venous blood specimen / Unknown Venipuncture / Unknown 07/13/2024 5:17 PM EDT 07/13/2024 5:31 PM EDT Luis Fernando Holguin MD LAB BLOOD ORDERABLES Final Res ult Performing Organization Address City/[facility]/ZIP Co de Phone Number [facility] [address] [place] [address] * Hepatitis C Antibody - ED (07/13/2024 5:17 PM EDT) Pathologist [facility] Hepatitis C Antibody Negative Negative 07/13/2024 6:31 PM EDT [facility] Blood Venous blood specimen / Unknown Venipuncture / Unknown 07/13/2024 5:17 PM EDT 07/13/2024 5:31 PM EDT Luis Fernando Holguin MD LAB BLOOD ORDERABLES Final Res ult Performing Organization Address City/[facility]/ZIP Co de Phone Number [facility] [address] [place] [address] from Last 3 Months or Most Recently Relevant to Health Maintenance Additional Health Concerns Infection Onset Date Last Indicated MRSA 02/09/2024 02/09/2024 [place] [address] [facility] MEDICAID Advance Directives * Full Code (Latest [...] Patient has decision-making capacity? Yes Care Teams Sales Route Driver Helper Relationship Specialty Start Date End Date Chris Underwood MD [address] [place] [address] PCP - General 04/11/21
--- OUTSIDE RECORDS SUMMARY | 2025-08-21 10:43 | XMS_ITS | Encounter Summary ---
Author Organization [facility] Address [address] [place] [address] Care Team Providers [employer] Paraprofessional Name Role Phone Chris Underwood MD Primary Care Provider [phone] Encounter Details Date Type Department Care Team [...] Description 08/24/2025 9:20 AM EDT [facility] [address] [place] [address] Joaquin Almodovar MD [address] [facility] [address] [place] [address] 09/13/2025 3:40 PM EDT Office Visit Giin Peguero [facility] Endocrinology [address] [place] [phone] Jennifer Becerra MD [address] [place] [address] 10/12/2025 1:00 PM EST Consult [place] [facility] [address] [place] [address] Peter Coleman MD [address] [place] [address] 11/07/2025 11:15 AM EST Office Visit [facility] [address] [place] [address] Mark Santos, OD [address] [place] [address] documented as of this encounter [...] documented as of this encounter Care Teams [employer] Paraprofessional Relationship Specialty Start Date End Date Chris Underwood MD [address] [place], [place] [id number] PCP - General 04/11/21 documented as of this encounter
--- OUTSIDE RECORDS SUMMARY | 2025-08-21 10:43 | XMS_ITS | Encounter Summary ---
Author Organization [facility] Address [address] [place] [address] Care Team Providers Care Veterans' Counselor Name Role Phone Chris Underwood MD Primary Care Provider [phone] Encounter Details Date Type Department Care Team (Late st Contact Info) Description 08/01/2025 Orders Only External Location [address] [place] [address] Provider, External Social History Tobacco Use Types [...] place to sleep or slept in a care home (including now)? No 08/16/2024 PHQ-9 Answer [...] [place] [facility] [address] [facility] 5th Floor [address] [place] [address] Joaquin Almodovar MD [address] [facility] [address] [place] [address] 09/13/2025 3:40 PM EDT Office Visit [facility] Endocrinology [address] [place] [address] Jennifer Becerra MD [address] [place] [address] 10/12/2025 1:00 PM EST Consult [place] [facility] [address] 1st [place] [address] Peter Coleman MD [address] [place] [address] 11/07/2025 11:15 AM EST Office Visit [facility] [address] [place] [address] Mark Santos, OD [address] [place] [address] documented as of this encounter Procedures Procedure Name Priority Date/Time Associated Diagnosis Comments US OUTSIDE IMAGES 08/01/2025 8:29 AM EDT documented in this encounter Results * US OUTSIDE IMAGES (08/01/2025 8:29 AM EDT) Anatomical Region Laterality Modality Ultrasound 08/01/2025 8:29 AM EDT us External Provider IMG US PROCEDURES Edited Resul t - Final documented in this encounter Visit Diagnoses Not [...] documented as of this encounter Care Teams Veterans' Counselor Relationship Specialty Start Date End Date Chris Underwood MD [address] [place] [address] PCP - General 04/11/21 documented as of this encounter
--- OUTSIDE RECORDS SUMMARY | 2025-08-21 10:43 | XMS_ITS | Encounter Summary ---
Author Organization [facility] Address [address] [place] [address] Care Team Providers Care Woven Label Designer Name Role Phone Chris Underwood MD Primary Care Provider [phone] Encounter Details Date Type Department Care Team (Late st Contact Info) Description 08/01/2025 Orders Only External Location [address] [place] [address] Provider, External Social History Tobacco Use Types [...] Description 08/24/2025 9:20 AM EDT Office Visit [place] [facility] [address] [facility] 5th Floor [address] [place] [address] Joaquin Almodovar MD [address] [facility] [address] [place] [address] 09/13/2025 3:40 PM EDT Office Visit [facility] Endocrinology [address] [place] [address] Jennifer Becerra MD [address] [place] [address] 10/12/2025 1:00 PM EST Consult [place] [facility] [address] 1st [place] [address] Peter Coleman MD [address] [place] [address] 11/07/2025 11:15 AM EST Office Visit [facility] [address] [place] [address] Mark Santos, OD [address] [place] [address] documented as of this encounter Procedures Procedure Name Priority Date/Time Associated Diagnosis Comments US OUTSIDE IMAGES 08/01/2025 8:59 AM EDT documented in this encounter Results * US OUTSIDE IMAGES (08/01/2025 8:59 AM EDT) Anatomical Region Laterality Modality Ultrasound 08/01/2025 8:59 [...] documented as of this encounter Care Teams Woven Label Designer Relationship Specialty Start Date End Date Chris Underwood MD [address] [place] [address] PCP - General 04/11/21 documented as of this encounter
--- OUTSIDE RECORDS SUMMARY | 2025-08-21 10:43 | XMS_ITS | Encounter Summary ---
Author Organization Healthcare Address [address] [place] [address] Care Team Providers Care Pyrometer Operator Name Role Phone Chris Underwood MD Primary Care Provider [phone] Jyoti Salinas Unavailable [phone] Encounter Details Date Type Department Care Team (Late Contact Info) Description 06/05/2022 Orders Only External Location [address] [place] [address] Radiant, Imaging Upload Social History Tobacco Use [...] [place] [facility] [address] 5th Floor [address] [place] [address] Joaquin Almodovar MD [address] [place] [address] 09/13/2025 3:40 PM EDT Office Visit [facility] Endocrinology [address] [place] [address] Jennifer Becerra MD [address] [place] [address] 10/12/2025 1:00 PM EST Consult [facility] [address] 1[address] [place] [address] Peter Coleman MD [address] [place] [address] 11/07/2025 11:15 AM EST Office Visit [facility] [address] [place] [address] Mark Santos, OD [address] [place] [address] documented as of this encounter [...] documented as of this encounter Care Teams Pyrometer Operator Relationship Specialty Start Date End Date Chris Underwood MD [address] [phone] PCP - General 04/11/21 Jyoti Salinas [address] [address] Registered Nurse 02/20/25 03/16/25 documented as of this encounter
--- OUTSIDE RECORDS SUMMARY | 2025-08-21 10:44 | XMS_ITS | Encounter Summary ---
Author Organization [facility] Address [address] [place] [address] Care Team Providers Care Maintenance Technician 3Rd Shift Name Role Phone Chris Underwood MD Primary Care Provider [phone] Encounter Details Date Type Department Care Team (Late st Contact Info) Description 07/23/[address] [address] Too Jimenez MD [address] [place] [address] Social History Tobacco Use Types Packs/Day [...] pens. Too Jimenez MD Endocrinology Fellow Pager: [phone], Epic Chat Preferred documented in this encounter Plan of Treatment Upcoming Encounters Date Type Department Care Team (Late st Contact Info) Description 08/24/2025 9:20 AM EDT Office Visit [facility] [address] 5th Floor [address] [place] [address] Joaquin Almodovar MD [address] [place] [address] 09/13/2025 3:40 PM EDT Office Visit [facility] Endocrinology [address] [place] [address] Jennifer Becerra MD [address] [place] [address] 10/12/2025 1:00 PM EST Consult [facility] [address] 1st [place] [address] Peter Coleman MD [address] [place] [address] 11/07/2025 11:15 AM EST Office Visit [facility] [address] [place] [address] Mark Santos, OD [address] [facility] [address] [place] [address] documented as of this encounter [...] documented as of this encounter Care Teams Maintenance Technician 3Rd Shift Relationship Specialty Start Date End Date Chris Underwood MD [address] [place] [address] PCP - General 04/11/21 documented as of this encounter
--- OUTSIDE RECORDS SUMMARY | 2025-08-21 10:44 | XMS_ITS | Encounter Summary ---
Author Organization [facility] Address [address] [place] [address] Care Team Providers Care Conservation Technician Name Role Phone Chris Underwood MD Primary Care Provider Encounter Details Date Type Department Care Team (Late st Contact Info) Description 08/01/2025 Orders Only External Location [address] [place] [address] Provider, External Social History Tobacco Use Types [...] Description 08/24/2025 9:20 AM EDT Office Visit [place] [facility] [address] [facility] 5th Floor [address] [place] [address] Joaquin Almodovar MD [address] [facility] [address] [place] [address] 09/13/2025 3:40 PM EDT Office Visit [facility] Endocrinology [address] [place] [address] Jennifer Becerra MD [address] [place] [address] 10/12/2025 1:00 PM EST Consult [place] [facility] [address] 1st [place] [address] Peter Coleman MD [address] [place] [address] 11/07/2025 11:15 AM EST Office Visit [facility] [address] [place] [address] Mark Santos, OD [address] [place] [address] documented as of this encounter Procedures Procedure Name Priority Date/Time Associated Diagnosis Comments CT OUTSIDE IMAGES 08/01/2025 10:32 AM EDT documented in this encounter Results * CT OUTSIDE IMAGES (08/01/2025 10:32 AM EDT) Anatomical Region Laterality Modality Computed Tomogra phy 08/01/2025 10:3 2 AM EDT us External Provider IMG CT PROCEDURES Edited Resul t - Final documented [...] documented as of this encounter Care Teams Conservation Technician Relationship Specialty Start Date End Date Chris Underwood MD [address] [place] [address] PCP - General 04/11/21 documented as of this encounter
--- OUTSIDE RECORDS SUMMARY | 2025-08-21 10:44 | XMS_ITS | Encounter Summary ---
Author Organization [facility] Address [address] [place] [address] Care Team Providers Care Nursery Technician Name Role Phone Chris Underwood MD Primary Care Provider [phone] Reason for Referral * Imaging (Routine) - Authorized Specialty Diagnoses / Procedures Referred By Contac t Referred To Contact Diagnoses Vertebral osteomyelitis (CMS/HCC) Abnormal MRI, lumbar spine Procedures MR Lumbar Spine w and wo IV Contrast Gloria Salcedo MD [address] [place] [address] Phone: tel: fax: [facility] ([facility] MRI) [address] [place] [address] Phone: tel: Referral ID Status Reason Start Date Expiration Date V isits Requested Visits Authorized [id number] Authorized 07/23/2025 01/22/2027 1 1 Encounter Details Date Type Department Care Team (Late st Contact Info) Description 07/23/2025 Orders Only [address] [address] Gloria Salcedo MD [address] [place] [address] [address] [place] [address] Abnormal MRI, lumbar spine (Primary Dx); Vertebral [...] due to habitus. New order for third alliance party scan placed. Pt needs follow-up appt with ID. desktop publisher notified to schedule visit Gloria Salcedo MD documented in this encounter Plan of Treatment Upcoming Encounters Date Type Department Care Team (Late st Contact Info) Description 08/24/2025 9:20 AM EDT Office Visit [facility] [address] [facility] 5th Floor Wing [address] [place] [address] Joaquin Almodovar MD [address] [facility] [address] [place] [address] 09/13/2025 3:40 PM EDT Office Visit [facility] Endocrinology [address] [place] [address] Jennifer Becerra MD [address] [facility] [address] [place] [address] 10/12/2025 1:00 PM EST Consult [place] [facility] [address] 1st [place] [address] Peter Coleman MD [address] [place] [address] 11/07/2025 11:15 AM EST Office Visit [facility] [address] [place] [address] Mark Santos, OD [address] [place] [address] Scheduled Orders Name Type Priority [...] documented as of this encounter Care Teams Nursery Technician Relationship Specialty Start Date End Date Chris Underwood MD [address] [place] [address] PCP - General 04/11/21 documented as of this encounter
--- OUTSIDE RECORDS SUMMARY | 2025-08-21 10:44 | XMS_ITS | Encounter Summary ---
Author Organization [facility] Address [address] [place] [address] Care Team Providers Care Licensed Real Estate Broker Name Role Phone Chris Underwood MD Primary Care Provider [phone] Encounter Details Date Type Department Care Team (Latest Contact Info) Description 08/17/2025 Travel Social History Tobacco Use Types Packs/Day [...] Description 08/24/2025 9:20 AM EDT Office Visit [place] [facility] [address] 5th Floor [address] [place] [address] Joaquin Almodovar MD [address] [facility] [address] [place] [address] 09/13/2025 3:40 PM EDT Office Visit [facility] Endocrinology [address] [place] [address] Jennifer Becerra MD [address] [place] [address] 10/12/2025 1:00 PM EST Consult [place] [facility] [address] 1[address] [place] [address] Peter Coleman MD [address] [place] [address] 11/07/2025 11:15 AM EST Office Visit [facility] [address] [place] [address] Mark Santos, OD [address] [place] [address] documented as of this encounter [...] documented as of this encounter Care Teams Licensed Real Estate Broker Relationship Specialty Start Date End Date Chris Underwood MD [address] [place], [place] [id number] PCP - General 04/11/21 documented as of this encounter
--- OUTSIDE RECORDS SUMMARY | 2025-08-21 10:44 | XMS_ITS | Encounter Summary ---
Author Organization [facility] Address [address] [place] [address] Care Team Providers Care It Compliance Manager Name Role Phone Chris Underwood MD Primary Care Provider [phone] Encounter Details Date Type Department Care Team (Latest Contact Info) Description 08/06/2025 Travel Social History Tobacco Use Types Packs/Day [...] Description 08/24/2025 9:20 AM EDT Office Visit [place] [facility] [address] 5th Floor [address] [place] [address] Joaquin Almodovar MD [address] [facility] [address] [place] [address] 09/13/2025 3:40 PM EDT Office Visit [facility] Endocrinology [address] [place] [address] Jennifer Becerra MD [address] [place] [address] 10/12/2025 1:00 PM EST Consult [place] [facility] [address] 1st [place] [address] Peter Coleman MD [address] [place] [address] 11/07/2025 11:15 AM EST Office Visit [facility] [address] [place] [address] Mark Santos, OD [address] [place] [address] documented as of this encounter [...] documented as of this encounter Care Teams It Compliance Manager Relationship Specialty Start Date End Date Chris Underwood MD [address] [place], [place] [phone] PCP - General 04/11/21 documented as of this encounter
--- OUTSIDE RECORDS SUMMARY | 2025-08-21 10:44 | XMS_ITS | Encounter Summary ---
Author Organization [facility] Address [address] [place] [address] Care Team Providers Care Pot Operator Name Role Phone hCris Underwood MD Primary Care Provider [phone] Jyoti Salinas Unavailable [phone] Encounter Details Date Type Department Care Team (Late Contact Info) Description 07/29/2024 Lab Requisition [facility] [address] [place] [address] System, Provider Not In, [address] [place] [address] Encounter for general adult medical examination without [...] [place] [facility] [address] [facility] 5th Floor Wing [address] [place] [address] Joaquin Almodovar MD [address] [place] [address] 09/13/2025 3:40 PM EDT Office Visit [facility] Endocrinology [address] [place] [address] Jennifer Becerra MD [address] [place] [address] 10/12/2025 1:00 PM EST Consult [place] [facility] [address] 1st [place] [address] Peter Coleman MD [address] [place] [address] 11/07/2025 11:15 AM EST Office Visit [facility] [address] [place] [address] Mark Santos, OD [address] [place] [address] documented as of this encounter [...] System LAB BLOOD ORDERABLES F inal Result [facility] [address] [place] [address] documented in this encounter Visit Diagnoses Diagnosis [...] documented as of this encounter Care Teams Pot Operator Relationship Specialty Start Date End Date Chris Underwood MD [address] [place] [address] PCP - General 04/11/21 Jyoti Salinas [address] [address] Registered Nurse 02/20/25 03/16/25 documented as of this encounter
--- OUTSIDE RECORDS SUMMARY | 2025-08-21 10:44 | XMS_ITS | Encounter Summary ---
Author Organization [facility] Address [address] [place] [address] Care Team Providers Care Supervisor Poultry Farm Name Role Phone Chris Underwood MD Primary Care Provider [phone] Encounter Details Date Type Department Care Team (Late st Contact Info) Description 08/02/2025 Orders Only External Location [address] [place] [address] Provider, External Social History Tobacco Use Types [...] Description 08/24/2025 9:20 AM EDT Office Visit [place] [facility] [address] [facility] 5th Floor [address] [place] [address] Joaquin Almodovar MD [address] [facility] [address] [place] [address] 09/13/2025 3:40 PM EDT Office Visit [facility] Endocrinology [address] [place] [address] Jennifer Becerra MD [address] [place] [address] 10/12/2025 1:00 PM EST Consult [place] [facility] [address] 1st [place] [address] Peter Coleman MD [address] [place] [address] 11/07/2025 11:15 AM EST Office Visit [facility] [address] [place] [address] Mark Santos, OD [address] [place] [address] documented as of this encounter Procedures Procedure Name Priority Date/Time Associated Diagnosis Comments MR NEURO OUTSIDE IMAGES 08/02/2025 9:58 AM EDT documented in this encounter Results * MR NEURO OUTSIDE IMAGES (08/02/2025 9:58 AM EDT) Anatomical Region Laterality Modality Magnetic Resonan ce 08/02/2025 9:58 AM EDT us External Provider IMG MRI PROCEDURES Final Resul t documented [...] documented as of this encounter Care Teams Supervisor Poultry Farm Relationship Specialty Start Date End Date Chris Underwood MD [address] [place] [address] PCP - General 04/11/21 documented as of this encounter
== END 2025-08-21 23:59 | disposition home or self-care (01) ==
LOC: RAD 10:40
PROVIDERS: PCP Family Medicine; Visit Provider Family Medicine
DX: H70.92 Unspecified mastoiditis, left ear (principal); M25.512 Pain in left shoulder
CPT/HCPCS: 73200

== ENCOUNTER 2025-09-10 17:43 | Emergency (ER) | payer MEDICAID, SELFPAY ==
--- OUTSIDE RECORDS SUMMARY | 2025-07-13 11:30 | XMS_ITS | Encounter Summary ---
Author Organization [facility] Address [address] [place] [address] Care Team Providers Care Tool Filer Hand Name Role Phone Chris Underwood MD Primary Care Provider [phone] Encounter Details Date Type Department Care Team (Late st Contact Info) Description 07/13/2025 11:30 AM EDT Pre-Admission Testing [place] Clinic Pre-op Clinic [address], [address] [place] [address] Social History Tobacco Use Types Packs/Day Years [...] place to sleep or slept in a prison (including now)? No 08/16/2024 PHQ-9 Answer Date [...] - Respiratory Rate - - Oxygen Saturation - - Inhaled Oxygen Concentration - - Weight 159 kg (350 lb) 07/13/2025 12:57 PM EDT Height - - Body Mass Index 50.22 06/28/2025 9:34 AM EDT documented in this encounter Miscellaneous Notes * PAT Evaluation Note - Kasey Herrmann APRN - 07/13/2025 11:30 AM EDT Images from the original note were not included. HPI Zora Jerez is a 54 y.o. female who presents with * possible OM/discitis * now scheduled for MRI lumbar spine w and wo contrast on 07/20/25. MRI of the lumbar spine from 05/07/25 (performed without contrast) showed L2-L3 are suggestive of either possible discitis/osteomyelitis or degenerative changes related to Modic endplate signal changes. Per IR, patient is clinically stable, without systemic signs of infection, and does not appear overtly infectious. Given the patient???s elevated BMI of 47, baseline oxygen requirement of 4L via nasal cannula, and lack of optimal imaging due to patients ability to tolerate imaging/prior imaging limitations, proceeding with biopsy is not warranted at this time. Additionally, the current imaging lacks contrast, which limits further characterization. Past Medical History[1] Family History[2] Social History[3] SURGICAL HISTORY: Surgical History[4] Allergies[5] MEDICATIONS: Current Medications[6] ROS Anesthesia: Date of last anesthetic: 09/2022 MAC/GA vitrectomy Successful airway: ETT Cuffed: yes Successful intubation technique: direct laryngoscopy Facilitating devices/methods: cricoid pressure and intubating stylet Endotracheal tube insertion site: oral Blade: Clayton Blade size: #3 ETT size (mm): 7.5 Cormack-Lehane Classification: grade I - full view of glottis Placement verified by: chest auscultation and capnometry Measured from: teeth ETT to teeth (cm): 22 Number of attempts at approach: 1 history of previous anesthesia, history of anesthetic complications, history of delayed emergence and obstructive sleep apnea (CPAP noncompliant). Cardiovascular: CHF (diastolic dysfunction), hyperlipidemia and PVD (aortoiliac occlusive disease s/p CERAB on DAPT). Does not have atrial fibrillation, CAD, dyspnea, dysrhythmias, pacemaker or past [place]. hypertension: is well controlled. Does not have chest pain. Cardio additional comments: Activity limited due to poor balance from toe amputations, weight, back/leg pain. Can take a few steps, stand/pivot. Uses rollator/wheelchair at home. OSH LHC 07/2022 Normal coronaries TTE 07/2024 ?? Left ventricle is normal size. There is normal left ventricular myocardial thickness and mass. The left ventricular systolic function is normal. The LVEF is visually estimated at 60 - 70%. The diastolic function is abnormal. There is grade II (moderate) diastolic dysfunction. The left ventricular filling pressure is elevated. ?? Right ventricle is mildly dilated. The right ventricular systolic function is normal. Right ventricular systolic pressure is mildly elevated (35-50mmHg). ?? No significant valvular stenosis or regurgitation. ?? There is a trace circumferential pericardial effusion. There is no echocardiographic evidence ofcardiac tamponade. Last Vascular note 05/2024 Her noninvasives were reviewed Her ABIs are near normal the show only mild disease Her toe pressures are in the 80s which is well above the accepted limits in a patient with diabetes Unfortunately, she does have some chronic wounds along her toes in both feet. Based on the testing and recent CTA, do not believe there is any intervention to be performed Suspect this is likely due to underlying microvascular disease from her diabetes From a vascular surgery standpoint she is optimized and we would not offer any further interventionor testing We will defer wound care to her information management manager at this point. If she would like she can follow with us for continued wound care as well Otherwise, we will see her back in 1 year with repeat testing . Respiratory: home oxygen (3.5L NC continuously). Patient has no dyspnea.no asthma: COPD: breathing at baseline.Has not had an upper respiratory infection in last 30 days. Has not had pneumonia in the last 30 days, RSV in the last 30 days or COVID in the last 30 days. HEENT: chipped teeth.Does not have loose teeth or missing teeth.decreased vision (blind left eye). Neurological: no seizures: Did not have a cerebrovascular accident. Musculoskeletal: arthritis. [facility] [place] additional comments: Possible L2-L3 discitis/osteomyelitis vs severe noninfectious discitis Toe amputations Gastrointestinal: GERD: well controlled.Does not have cirrhosis. morbid obesity. GI/ additional comments: No renal failure H/O SMA stent Hematological/Lymphatic: anemia. no hemophilia.History of no DVT. History of no pulmonary embolism. Not in a hypercoagulablestate. no history of chemotherapy no history of radiation MRSA (post toe amputation). Hem/Lymph ROS additional comments: BLE lymphedema, doesn't wrap legs Endocrine/Metabolic: diabetes mellitus type 2.well controlled. AM glucose 130-180, last A1c 6.4 Does not have thyroid disorder. OSH TTE 02/2025 OSH last Cards note 04/2025 Lab Results Component Value Date WBC 6.77 05/28/2025 HGB 11.5 05/28/2025 HCT 39.2 05/28/2025 MCV 93 05/28/2025 PLT 167 05/28/2025 Lab Results Component Value Date GLUCOSE 124 (H) 05/28/2025 BUN 17 05/28/2025 CREATININE 0.84 05/28/2025 BCR 20 05/28/2025 NA 143 05/28/2025 K 3.5 (L) 05/28/2025 CL 96 (L) 05/28/2025 CO2 35 (H) 05/28/2025 CA 9.1 09/28/2019 ALBUMIN 3.9 05/28/2025 ALKPHOS 86 05/28/2025 BILITOT 0.9 05/28/2025 Lab Results Component Value Date HGBA1C 7.6 (H) 08/16/2024 Lab Results Component Value Date INR 1.1 07/13/2024 INR 1.1 08/20/2021 INR 1.1 09/19/2019 Visit Vitals Wt 159 kg (350 lb) BMI 50.22 kg/m?? OB Status Postmenopausal Smoking Status Former BSA 2.8 m?? 07/13/2025 12:57 PM Vitals Weight (kg) 158.759 kg BMI 50.22 kg/m2 BSA (m2) 2.8 m2 Physical Exam Anesthesia Plan ASA 4 Anesthesia technique(s) discussed with the patient/family: general Comment: ELAN phone screen. Discussed with Dr. Brush. Patient was referred to IR for possible vertebral biopsy but they declined due to the patient's co- morbidities and the lack of MRI with contrast. Patient needs cardiac clearance. If we cannot get one, MRI will need to be postponed. Will attempt to get cardiac records and clearance on Wednesday. Addendum 07/17/25: I obtained cardiac records and uploaded them to her note. She has normal coronaries, normal EF, mild pulmonary hypertension. Discussed with Dr. Nieves who spoke with her Chief Airline Radio Operator's ELAN. They feel she is optimized and does not need any further cardiac workup. Will proceed with MRI. 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 CHF (congestive heart failure) ([facility] [place] [place] 08/20/2021 COPD (chronic obstructive pulmonary disease) ([facility] [place] [place] Delayed emergence from anesthesia 08/20/2021 Diabetes mellitus, type 2 ([facility] [place] [place]) 08/20/2021 Eye trauma 08/21/2021 GERD (gastroesophageal reflux disease) HLD (hyperlipidemia) HTN (hypertension) 08/20/2021 Hypoparathyroidism 08/20/2021 Insulin pump training 02/13/2025 Omnipod 5 G7 with U200 Lumbar spinal stenosis Morbid obesity ([facility] [place] [place]) 08/20/2021 SHAYNE (obstructive sleep apnea) 08/20/2021 patient denies Peripheral edema 08/20/2021 Peripheral vascular disease ([facility] [place] [place]) 08/20/2021 Personal history of Methicillin resistant Staphylococcus aureus infection Retinal detachment 09/04/2021 PPV/MP/EL/oil OS Tinnitus [2] Family History Problem Relation Name Age of Onset Cardiac disorder Other Stroke Other Diabetes Mother Arpita Earlywine Hypertension Mother Arpita Earlywine Hyperlipidemia Mother Arpita Earlywine Cataracts Mother Arpita Earlywine Hypertension Father Joaquin Earlywine Other cancer Father Joaquin Earlywine Hyperlipidemia Father Joaquin Earlywine Cancer Father Joaquin Earlywine Cataracts Father Joaquin Earlywine Hypertension Sibling Other cancer Other Hyperlipidemia Sibling Cancer Maternal Grandfather Reji Sanam Blindness Maternal Grandmother Mary Sanam Cancer Maternal Grandmother Mary Sanam Cancer Mother's Sister Clare Vidal Diabetes Mother's Sister Clare Vidal Glaucoma Mother's Sister Clare Angelina Hypertension Mother's Sister Jody Sanam Anesthesia problems Neg Hx Malig Hyperthermia Neg Hx [3] Social History Tobacco Use Smoking status: Former Current packs/day: 0.00 Average packs/day: 1.5 packs/day for 37.5 years (56.3 ttl pk-yrs) Types: Cigarettes Start date: 06/29/1983 Quit date: 12/30/2020 Years since quittin.5 Passive exposure: Past Smokeless tobacco: Never Tobacco comments: NA Vaping Use Vaping status: Never Used Substance Use Topics Alcohol use: Not Currently Drug use: No [4] Past Surgical History: Procedure Laterality Date AMPUTATION 11/02/2019 AMPUTATION FOOT / TOE Left little toe EYE SURGERY Left 08/14/2024 fell out of bed and ripped open tear duct. PARS PLANA VITRECTOMY Left 10/01/2022 Dr. Govea - PPV, Lens insertion with scleral fixation, EL PARS PLANA VITRECTOMY Left 01/29/2022 Dr. Govea - PPV, EL, SiO removal, KIMMIE RETINAL DETACHMENT SURGERY RUPTURED GLOBE EXPLORATION AND REPAIR Left 2020 SUPERIOR MESTENTERIC ARTERY STENT 04/2019 TOE AMPUTATION Bilateral 08/22/2024 [5] Allergies Allergen Reactions Beta Adrenergic Blockers Other - please document in the comment field BP bottoms out. H2 Antagonists Other - please document in the comment field and Itching Lisinopril Angioedema, Anaphylaxis and Swelling Metoprolol Unknown - Patient states they do not know rxn details syncope Duloxetine Hcl Hives and Other - please document in the comment field vomiting, mcdermott,nausea Histamine Itching Amlodipine Other - please document in the comment field messes with my BP/ heart Duloxetine Unknown - Patient states they do not know rxn details Methocarbamol Other - please document in the comment field Pt reports that this medication caused some abnormal muscle movements. Sulfamethoxazole Unknown - Patient states they do not know rxn details Sulfamethoxazole-Trimethoprim Other - please document in the comment field and Unknown - Patient states they do not know rxn details messes with my kidneys creatnine increases Trimethoprim Unknown - Patient states they do not know rxn details [6] Current Outpatient Medications: albuterol, Take 3 mL by nebulization 3 times a day as needed. albuterol, Inhale 2 puffs 3 times a day as needed for wheezing or shortness of breath. alpha tocopherol, Take 1 capsule by mouth daily. aspirin, Chew 1 tablet daily. atorvastatin, Take 1 tablet by mouth every evening. Vagisil, Apply 1 application. topically 3 (three) times a day. bumetanide, Take 2 tablets (4 mg) by mouth 2 (two) times a day. Patient is to take Bumex 4mg by mouth twice daily until she reaches her dry weight (estimated 325lbs) and then Bumex 4mg once daily after that indefinitely (Patient taking differently: Take 1 tablet by mouth 2 times a day. Patient is to take Bumex 4mg by mouth twice daily until she reaches her dry weight (estimated 325lbs) and then Bumex 4mg once daily after that indefinitely) clopidogrel, Take 1 tablet by mouth daily. dulaglutide, Inject 4.5 mg under the skin 1 (one) time per week. (Patient taking differently: Inject 4.5 mg under the skin 1 time per week. On Sundays) FeroSul, take (1) tablet by mouth twice a day. gabapentin, Take 2 tablets by mouth 2 times a day. GNP Zinc Oxide, Apply 1 Application topically as needed. Butt balm hydrocortisone, APPLY 1 GRAM TO THE AFFECTED AREA(S) BY TOPICAL ROUTE FOUR TIMES DAILY NEEDED insulin lispro, Inject under the skin continuously. U 200 magnesium oxide, Take 1 tablet by mouth 2 times a day. Non-Formulary Medication, Magic Butt [place] 1 Ointment Apply topically to left and right groin once daily nystatin, Apply 1 Application topically 2 (two) times a day. Apply to lower abdomen. omega-3, Take 2 capsules by mouth 2 times a day. potassium chloride CR, Take 4 tablets by mouth daily. Administer with as needed furosemide. RABEprazole, Take 1 tablet by mouth daily. Do not crush, chew, or split. acetone (urine) test, 1 strip as needed for high blood sugar (Test when glucose greater than 240 mg/dl two times in a row; or during illness). ONE TOUCH ULTRA 2, use as directed Dexcom G6 Sensor, 1 each every 10 days. Dexcom G7 Sensor, 1 sensor every 10 days. Dexcom G6 transmitter, Use as directed every 90 days Gvoke PFS, Inject 1 mg under the skin 1 (one) time as needed (hypoglycemic emergency) for up to 1 dose. Omnipod Pod Pals, 1 patch every other day. HumaLOG KWIKPEN, Use as directed with OmniPod - Max TDD : 150 units of U200 per day (Patient not taking: Reported on 07/13/2025) Omnipod 5 [id number] Pods Gen 5, USE DIRECTED CHANGE EVERY 2 DAYS. OneTouch Ultra Test, 4 times a day. * Preprocedure Instructions - Kasey Herrmann APRN - 07/13/2025 11:30 AM EDT Home Medication Instructions Current Medications Medication Instructions albuterol (Proventil) (2.5 MG/3ML) 0.083% nebulizer solution Take as needed albuterol 108 (90 Base) MCG/ACT inhaler Take as needed alpha tocopherol (Vitamin E) 100 units capsule Hold day of surgery aspirin 81 MG chewable tablet Take morning of surgery atorvastatin (Lipitor) 80 MG tablet Take night before surgery Benzocaine-Resorcinol (Vagisil) 5-2 % cream Hold day of surgery bumetanide (Bumex) 2 MG tablet Hold day of surgery clopidogrel (Plavix) 75 MG tablet Take morning of surgery dulaglutide 4.5 MG/0.5ML solution auto-injector Hold 7 days before surgery FeroSul 325 (65 Fe) MG tablet Hold day of surgery gabapentin (Neurontin) 800 MG tablet Take morning of surgery GNP Zinc Oxide 20 % ointment Hold day of surgery hydrocortisone 1 % cream Hold day of surgery insulin lispro (Admelog) 100 UNIT/ML patient supplied pump Consult with your Respite Worker regarding instructions on insulin pump magnesium oxide (Mag-Ox) 400 (240 Mg) MG tablet Hold day of surgery Butt balm Hold day of surgery nystatin (Mycostatin) 031404 UNIT/GM powder Hold day of surgery omega-3 (Fish Oil) 1000 MG capsule Hold day of surgery potassium chloride CR (Klor-Con) 10 MEQ ER tablet Hold day of surgery RABEprazole (Aciphex) 20 MG EC tablet Take morning of surgery General Preoperative Instructions You will be called the business day before surgery with your arrival time. No food after midnight the night before surgery. You can drink clear liquids up to 2 hours prior to arrival. Please do not try to get all your hydration in 2 hours prior to arrival. Start the day before surgery drinking more than you usually would.After midnight, you can have clear liquids only (water, apple juice, Gatorade) up to 2 hours prior to arrival. No red or purple. No coffee or tea. No alcohol or smoking prior to surgery. Arrive on time to avoid delays. Parking/Registration procedure explained. You MUST have a responsible adult available for transport to and from hospital. Visitation policy for the day of surgery reviewed. Bring insurance card, photo ID, along with power of research attorney, guardianship or advanced directives if applicable Do not bring money, jewelry or other valuables Hibiclens bathing instructions reviewed if applicable Notify surgeon of fever, illness, any changes or if you decide not to have surgery Diabetes Instructions (If applicable) Take diabetes medication as instructed You may have up to 4 ounces of apple juice 2 hours prior to arrival for surgery for low glucose documented in this encounter Plan of Treatment Upcoming Encounters Date Type Department Care Team (Late st Contact Info) Description 09/13/2025 3:40 PM EDT Office Visit [facility] Endocrinology [address] [place] [address] Jennifer Becerra MD [address] [place] [id number] 10/12/2025 1:00 PM EST Consult [facility] Clinic [facility] [address], [address] [place] [address] Peter Coleman MD [address] [place] [address] 11/07/2025 11:15 AM EST Office Visit [facility] [address] [place] [address] Mark Santos, OD [address] [place] [address] documented as of this encounter Visit Diagnoses Not on filedocumented in this encounter Additional Health Concerns Infection [...] documented as of this encounter Care Teams Tool Filer Hand Relationship Specialty Start Date End Date Chris Underwood MD [address] [place], [place] [id number] PCP - General 04/11/21 documented as of this encounter
--- OUTSIDE RECORDS SUMMARY | 2025-07-20 14:36 | XMS_ITS | Encounter Summary ---
Author Organization [facility] Address [address] [place] [address] Care Team Providers Care Category Specialist Name Role Phone Chris Underwood MD Primary Care Provider Reason for Visit * Imaging (Routine) - Closed Specialty Diagnoses / Procedures Referred By Contac t Referred To Contact Radiology Diagnoses Abnormal MRI, lumbar spine Vertebral osteomyelitis (CMS/HCC) Procedures Imaging MRI Procedure Not Performed MR Lumbar Spine w and wo IV Contrast Antonieta Bernstein, METAL PRODUCTS VIEWER [address] [facility] [address] [place] [address] Phone: tel: fax: Referral ID Status Reason Start Date Expiration Date Visits Re quested Visits Authorized [id number] Closed 07/05/2025 01/04/2027 1 1 Encounter Details Date Type Department Care Team (Latest Contact Info) Description 07/20/2025 2:36 PM EDT - 07/20/2025 11:59 PM EDT Hospital Encounter [facility] Radiology [address] [place] [address] Abnormal MRI, lumbar spine; Vertebral osteomyelitis (CMS/HCC) Discharge Disposition: Home or Self Care Social History Tobacco Use Types Packs/Day Years [...] PM EST documented as of this encounter Medications at Time of Discharge acetone, urine, test strip 1 strip as needed for high blood sugar (Test when glucose greater than 240 mg/dl two times in a row; or during illness). 50 each 3 01/31/2025 albuterol (Proventil) (2.5 MG/3ML) 0.083% nebulizer solution Take 3 mL by nebulization 3 times a day as needed. 09/19/2024 albuterol 108 (90 Base) MCG/ACT inhaler Inhale 2 puffs 3 times a day as needed for wheezing or shortness of breath. alpha tocopherol (Vitamin E) 100 units capsule Take 1 capsule by mouth daily. aspirin 81 MG chewable tablet Chew 1 tablet daily. atorvastatin (Lipitor) 80 MG tablet Take 1 tablet by mouth every evening. Benzocaine-Resorc inol (Vagisil) 5-2 % cream Apply 1 application. topically 3 (three) times a day. Blood Glucose Monitoring Suppl (ONE TOUCH ULTRA 2) w/Device kit device kit use as directed 02/19/2025 bumetanide (Bumex) 2 MG tablet Take 2 tablets (4 mg) by mouth 2 (two) times a day. Patient is to take Bumex 4mg by mouth twice daily until she reaches her dry weight (estimated 325lbs) and then Bumex 4mg once daily after that indefinitely 08/23/2024 clopidogrel (Plavix) 75 MG tablet Take 1 tablet by mouth daily. Continuous Glucose Sensor (Dexcom G6 Sensor) misc 1 each every 10 days. 9 each 1 05/22/2025 Continuous Glucose Sensor (Dexcom G7 Sensor) misc 1 sensor every 10 days. 3 each 3 04/05/2025 Continuous Glucose Transmitter (Dexcom G6 transmitter) misc Use as directed every 90 days 1 each 3 05/22/2025 dulaglutide 4.5 MG/0.5ML solution auto-injector Inject 4.5 mg under the skin 1 (one) time per week. 2 mL 3 03/15/2025 FeroSul 325 (65 Fe) MG tablet take (1) tablet by mouth twice a day. 05/15/2025 gabapentin (Neurontin) 800 MG tablet Take 2 tablets by mouth 2 times a day. Glucagon (Gvoke PFS) 1 MG/0.2ML solution prefilled syringe Inject 1 mg under the skin 1 (one) time as needed (hypoglycemic emergency) for up to 1 dose. 0.2 mL 1 01/31/2025 GNP Zinc Oxide 20 % ointment Apply 1 Application topically as needed. Butt balm 12/15/2024 hydrocortisone 1 % cream APPLY 1 GRAM TO THE AFFECTED AREA(S) BY TOPICAL ROUTE FOUR TIMES DAILY NEEDED 04/26/2025 Insulin Dispos [facility] Rn Accessories (Omnipod Pod Pals) miscIndications:T ype 2 diabetes mellitus with hyperglycemia, with long-term current use of insulin 1 patch every other day. 15 each 5 02/26/2025 insulin lispro (Admelog) 100 UNIT/ML patient supplied pump Inject under the skin continuously. U 200 magnesium oxide (Mag-Ox) 400 (240 Mg) MG tablet Take 1 tablet by mouth 2 times a day. NON FORMULARY Magic Butt [place] 1 Ointment Apply topically to left and right groin once daily nystatin (Mycostatin) 613711 UNIT/GM powder Apply 1 Application topically 2 (two) times a day. Apply to lower abdomen. omega-3 (Fish Oil) 1000 MG capsule Take 2 capsules by mouth 2 times a day. OneTouch Ultra Test test strip 4 times a day. 05/15/2025 potassium chloride CR (Klor-Con) 10 MEQ ER tablet Take 4 tablets by mouth daily. Administer with as needed furosemide. RABEprazole (Aciphex) 20 MG EC tablet Take 1 tablet by mouth daily. Do not crush, chew, or split. 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 15 each 2 05/31/2025 documented as of this encounter Plan of Treatment Upcoming Encounters Date Type Department Care Team (Late st Contact Info) Description 09/13/2025 3:40 PM EDT Office Visit [facility] Endocrinology [address] [place] [address] Jennifer Becerra MD [address] [place] [address] 10/12/2025 1:00 PM EST Consult [place] [facility] [address], [address]st [place] [address] Peter Coleman MD [address] [place] [address] 11/07/2025 11:15 AM EST Office Visit [facility] [address] [place] [address] Mark Santos, OD [address] [place] [address] documented as of this encounter Procedures Procedure Name Priority Date/Time Associated Diagnosis Comments IMAGING MRI PROCEDURE NOT PERFORMED Routine 07/20/2025 5:00 PM EDT Abnormal MRI, lumbar spine Vertebral osteomyelitis ([facility]/HCC) documented in this encounter Results * Imaging MRI Procedure Not Performed (07/20/2025 5:00 PM EDT) Narrative IMAGING - 07/20/2025 6:32 PM EDT This procedure was not performed. Procedure: MR LUMBAR W AND WO IV CONTRAST Reason: Body Habitus us Antonieta Bernstein METAL PRODUCTS VIEWER IMG MRI PROCEDURES Final R esult IMAGING documented in this encounter Visit Diagnoses Diagnosis Abnormal MRI, lumbar spine Vertebral osteomyelitis (CMS/HCC) Unspecified osteomyelitis, other specified site documented in this encounter Additional Health Concerns [...] documented as of this encounter Care Teams Category Specialist Relationship Specialty Start Date End Date Chris Underwood MD [address] [place] [address] PCP - General 04/11/21 documented as of this encounter
--- OUTSIDE RECORDS SUMMARY | 2025-08-06 09:00 | XMS_ITS | Encounter Summary ---
Author Organization [facility] Address [address] [place] [address] Care Team Providers Care Hoist Worker Name Role Phone Chris Underwood MD Primary Care Provider [phone] Reason for Referral * Consultation (Routine) - Authorized Specialty Diagnoses / Procedures Referred By Contac t Referred To Contact Neurosurgery Diagnoses Abnormal MRI, lumbar spine Sajan Lopez MD [address] [place] [phone] Phone: tel: fax: [facility] [address] [place] [address] Phone: tel: fax: Referral ID Status Reason Start Date Expiration Date Visits Requested Visits Authorized [id number] Authorized Specialty Services Required 08/06/2025 02/05/2027 1 1 Encounter Details Date Type Department Care Team (Late st Contact Info) Description 08/06/2025 9:00 AM EDT Office Visit [address] [phone] Sajan Lopez MD [address] [place] [phone] Abnormal MRI, lumbar spine (Primary Dx) Social [...] place to sleep or slept in a jail (including now)? No 08/16/2024 PHQ-9 Answer Date [...] encounter Miscellaneous Notes * Progress Notes - Sajan Lopez MD - 08/06/2025 9:00 AM EDT Telehealth Statement Patient Verification Patient identity has been confirmed using name and date of ? Yes Authorizations and Agreements/Telemedicine Consent sent and consent confirmed? Yes Patient Location: Home/Other Patient confirms they are physically located in [place]? Yes If the patient is not physically located in [place], the provider has confirmed with [facility] thatthe provider is authorized to provide services in patient's stated location? N/A Provider Location[facility] Audio and video or audio only? Audio and video Total visit time: 25 minutes Infectious Diseases Outpatient Follow-Up HPI Zora Jerez is a 54 y.o. female presenting for ID follow-up via teleheatl for back pain and possible L2-3 discitis. She initially saw Antonieta Lamas in the ID clinic on 05/28/25 for low backpain with concern for L2-3 discitis. She has a PMHx significant for diabetes mellitus, morbid obesity (BMI 50), lymphedema, SHAYNE on CPAP, PVD and left toe amputations. She reported back pain that started in February 2025. She had no known injury prior to that. She was inpatient at [facility] 03/22 - 03/25 for hip and back pain. She reported to her PCP for hospital follow-up on 04/05/25 and reported continued back pain. MRI w/o contrast was ordered by her PCP and done on05/07/25 at [facility] in [place]. That MRI was read as suggestive of infectious discitis/osteomye litis at L2-3, though it is asymmetric toward the left and could represent an unusually severe non-infectious discitis related to Modic changes. Her CRP on 05/28 was slightly elevated at 15.9 mg/L. Her pain was worsening at that time and it was making it difficulty to stand long enough to transferfrom the wheelchair. Ms. Lamas referrred her to IR for possible vertebral biopsy but they declined due to the patients co-mmorbidities and the lack of MRI with contrast. A new order was placed for an MRI with contrastto get a better evaluation of the spiine. This was done last , 08/03/25 at [facility] here in [place]. This MRI was not read as concerning for infectious discitis at all and is more suggestive of severe degenerative disk disease. ROS 14 point review of symptoms negative except as documented in the HPI. Objective There were no vitals filed for this visit. Physical Exam Labs: Lab Results Component Value Date WBC 6.77 05/28/2025 HGB 11.5 05/28/2025 HCT 39.2 05/28/2025 MCV 93 05/28/2025 PLT 167 05/28/2025 Chemistry Lab Results Component Value Date/Time NA 143 05/28/2025 1155 K 3.5 (L) 05/28/2025 1155 CL 96 (L) 05/28/2025 1155 CO2 35 (H) 05/28/2025 1155 BUN 17 05/28/2025 1155 CREATININE 0.84 05/28/2025 1155 Lab Results Component Value Date/Time CALCIUM 9.0 05/28/2025 1155 ALKPHOS 86 05/28/2025 1155 AST 14 05/28/2025 1155 ALT 11 05/28/2025 1155 BILITOT 0.9 05/28/2025 1155 0 Result Notes Component Ref Range & Units 2 mo ago 11 mo ago 2 yr ago 3 yr ago CRP, Plasma <=8.0 mg/L 15.9 High 49.3 High Imagin08/03/25 MRI Lumbar Spine with and without Contrast - [facility] Conclusion: Advanced degenerative changes throughout the lumbar spine as described in detail in the body of melinaport. At L4-5 there is mild anterolisthesis of L4 on L5. In combination with prominent concentric osteophyte complex as well as advanced facet arthropathy and ligamentous hypertrophy these findings result in severe canal stenosis and severe right and moderate left neural foraminal narrowing At L2-3 prominent concentric disc osteophyte complex asymmetrically prominent on the left coupled with moderate facet arthropathy and ligamentous hypertrophy results in moderate to severe canal stenosis and moderate to severe left and mild right neural foraminal narrowing At L3-4 moderate concentric disc osteophyte complex coupled with moderate facet arthropathy and ligamentous hypertrophy results in moderate canal stenosis and moderate bilateral neural foraminal narrowing At L5-S1 moderate concentric disc osteophyte complex asymmetrically prominent on the left coupled with moderate facet arthropathy and ligamentous hypertrophy left greater than right resulting in moderate left neural foraminal narrowing without canal or right neural foraminal narrowing. Assessment/Plan Ms. Jerez is a 54 yr old female with hx of obesity (BMI 50), diabetes mellitus type 2, lymphedema, SHAYNE on CPAP, PVD and left toe amputations who I saw today via telehealth for followup of recent MRI. She has developed back pain starting in February of this year which has been severe and progressive. She had a non contrasted MRI done in March which was read as suggestive of L2-3 discitis and osteomyelitis. She was seen in our clinic by Antonieta Lamsa and referred for IR guided biopsy. IR declined intervention citing her comoribidities and the lack of a contrasted MRI. A contrasted MRI was ordered which was performed last (08/03). This MRI shows severe degenerative changes involving L2-S1 that includes severe canal stenosis. There does not appear to be concerns for infection seen on this MRI. I think infection is very unlikely and her pain is instead related to the severe degenerative changes noted. Recs: - will place referral for spine surgery evaluation - would likely benefit from pain management, will defer to PCP - no further ID follow up is necessary at this point. I have instructed her to reach out PRN for any concerns. documented in this encounter Plan of Treatment Upcoming Encounters Date Type Department Care Team (Late st Contact Info) Description 09/13/2025 3:40 PM EDT Office Visit [facility] [address] [place] [phone] Jennifer Becerra MD [address] [place] [address] 10/12/2025 1:00 PM EST Consult [place] [facility] [address] [place] [address] Peter Coleman MD [address] [place] [address] 11/07/2025 11:15 AM EST Office Visit [facility] [address] [place] [address] Mark Santos, OD [address] [place] [address] Scheduled Referrals Name Type Priority Associated Diagnoses Order Schedule Ambulatory referral to Spine Surgery Outpatient Referral Routine Abnormal MRI, lumbar spine 1 Occurrences starting 08/06/2025 until 02/07/2027 documented as of this encounter Visit Diagnoses [...] plan has been documented for the patient 08/06/2025 9:51 AM EDT documented as of this encounter Care Teams Hoist Worker Relationship Specialty Start Date End Date Chris Underwood MD [address] [place] [id number] PCP - General 04/11/21 documented as of this encounter
--- OUTSIDE RECORDS SUMMARY | 2025-08-24 09:20 | XMS_ITS | Encounter Summary ---
Author Organization [facility] Address [address] [place] [address] Care Team Providers Care Food Service Worker Hospital Name Role Phone Chris Underwood MD Primary Care Provider [phone] Reason for Referral * Imaging (Routine) - Pending Review Specialty Diagnoses / Procedures Referred By Contac t Referred To Contact Cardiology Diagnoses Aortoiliac occlusive disease (CMS/HCC) Procedures VAS US Aorta IVC Iliac Vessels Duplex Muna Boles PA [address] [place] [address] Phone: tel: fax: Referral ID Status Reason Start Date Expiration Date Visits Requested Visits Authorized [id number] Pending Review Perform Procedure 08/24/2025 02/23/2027 1 1 * Imaging (Routine) - Pending Review Specialty Diagnoses / Procedures Referred By Contac t Referred To Contact Cardiology Diagnoses Aortoiliac occlusive disease (CMS/HCC) Procedures VAS Ankle Brachial Index - NICOLASA Only Stent Muna Boles PA [address] [place] [address] Phone: tel: fax: Referral ID Status Reason Start Date Expiration Date Visits Requested Visits Authorized [id number] Pending Review Perform Procedure 08/24/2025 02/23/2027 1 1 Reason for Visit * Reason Comments Aortoiliac occlusive disease Encounter Details Date Type Department Care Team (Latest Contact Info) Description 08/24/2025 9:20 AM EDT Office Visit [facility] [address] 5[address] [place] [address] Joaquin Almodovar MD [address] [facility] [address] [place] [address] Aortoiliac occlusive disease (CMS/HCC) (Primary Dx); Morbid obesity with body mass index of 50.0-59.9 in adult (CMS/HCC); Hypertension, unspecified type; Neuropathy Social History Tobacco Use Types Packs/Day Years [...] Sign Reading Time Taken Comments Blood Pressure 119/53 08/24/2025 8:43 AM EDT Pulse 76 08/24/2025 8:43 AM EDT Temperature 37 C (98.6 F) 08/24/2025 8:43 AM EDT Respiratory Rate - - Oxygen Saturation - - Inhaled Oxygen Concentration - - Weight 159 kg (350 lb 8.5 oz) 08/24/2025 8:43 AM EDT Height 177.8 cm (5' 10 ) 08/24/2025 8:43 AM EDT Body Mass Index 50.3 08/24/2025 8:43 AM EDT documented in this encounter Miscellaneous Notes * Progress Notes - Muna Boles PA - 08/24/2025 9:20 AM EDT Dear Chris Underwood MD, HPI We had the pleasure of seeing your patient, Zora Jerez, in clinic today for follow up. As you know, we have been following her for arterial insufficiency s/p CERAB [place] [address] Almodovar. We last saw her 1 year ago, and at that time, non-invasive vascular lab studies showed and NICOLASA of 0.85 on the Right and 0.84 on the Left. Since last follow up, she has not had complaints of disease progression. She denies rest pains, and there is no tissue loss. She reports continued lower extremity nerve pain, worse in the left leg, that she attributes to DDD found on MRI. She plans to follow up with PCP about this. Images from 08/01/25 at OSH show an NICOLASA on the Right of 1.08 and on the Left of 1.27. This is not significantly changed from the previous studies. She is maintained on aspirin, plavix and statin and is not smoking. 09/21/2019 (Scooby): Covered Endovascular Reconstruction of Aortic Bifurcation, angioplasty, CARLEY stent placement, right foot debridement. I personally and independently reviewed the Vascular Lab Images from 08/01/25 which showed: Normal ABIs, arterial duplex with no hemodynamically significant areas of stenosis, and CTA with runoff showspatent stents. Her chronic comorbid conditions that impact our treatment planning include: Patient Active Problem List Diagnosis Date Noted Morbid obesity with body mass index of 50.0-59.9 in adult ([facility]) 08/24/2025 Amputation of toe of left foot ([facility]) 05/28/2025 Amputation of toe of right foot ([facility]) 05/28/2025 Hypoxemia 04/16/2025 Elevated blood-pressure reading, without diagnosis of hypertension 04/05/2025 Hypokalemia 04/05/2025 Iron deficiency anemia, unspecified 04/05/2025 Cardiomegaly 03/23/2025 Other specified deforming dorsopathies, thoracolumbar region 03/23/2025 Lumbago with sciatica, left side 03/22/2025 Lumbago with sciatica, right side 03/22/2025 Muscle weakness (generalized) 03/22/2025 Other spondylosis with radiculopathy, lumbar region 03/22/2025 Type 2 diabetes mellitus with diabetic peripheral angiopathy without gangrene ([facility]) 03/22/2025 Acquired absence of left foot (CMS/[facility]) 02/23/2025 Acquired absence of right foot (CMS/[facility]) 02/23/2025 Insulin pump training 02/13/2025 Pain, unspecified 01/22/2025 Acute respiratory failure with hypoxia 01/14/2025 Primary generalized (osteo)arthritis 01/14/2025 Solitary pulmonary nodule 01/14/2025 Unspecified abnormalities of gait and mobility 01/14/2025 Obstructive sleep apnea (adult) (pediatric) 01/12/2025 Pain in right hip 01/12/2025 Abnormal level of blood mineral 12/15/2024 Acute upper respiratory infection, unspecified 12/15/2024 Chronic obstructive pulmonary disease, unspecified (CMS/[facility]) 11/13/2024 Other general symptoms and signs 07/29/2024 Low back pain 07/13/2024 Radicular pain 07/13/2024 Candidiasis of skin and nail 07/04/2024 Non-pressure chronic ulcer of other part of left foot with unspecified severity (CMS/[facility]) 06/13/2024 Other arterial embolism and thrombosis of abdominal aorta ([facility]) 06/12/2024 Diabetic ulcer of both feet associated with type 1 diabetes mellitus 04/16/2024 Chronic osteomyelitis of left foot ([facility]) 09/03/2023 PAD (peripheral artery disease) ([facility]) 09/03/2023 History of secondary intraocular lens implant 09/03/2023 Epiretinal membrane (ERM) of left eye 09/03/2023 Cellulitis of extremity 07/03/2023 Adrenal nodule ([facility]) 07/03/2023 Aphakia of left eye 07/16/2022 Weakness 05/25/2022 Trauma to eye, left 01/27/2022 Neuropathy 10/02/2021 Spinal stenosis of lumbar region 09/04/2021 Bilateral sacroiliitis 09/04/2021 Gastroesophageal reflux disease 08/29/2021 Antiplatelet or antithrombotic long-term use 08/29/2021 History of MRSA infection 08/29/2021 Tinnitus of right ear 08/21/2021 Atherosclerosis of artery of both lower extremities 08/20/2021 Hyperlipidemia 08/20/2021 Class 3 severe obesity with serious comorbidity and body mass index (BMI) of 50.0 to 59.9 in adult 08/20/2021 Aortoiliac occlusive disease (CMS/HCC) 09/28/2019 Hypertension 02/01/2019 Type 2 diabetes mellitus with hyperglycemia, with long-term current use of insulin ([facility]/HCC) 02/01/2019 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 01/21/2022 Vitreous hemorrhage of left eye (CMS/HCC) 08/25/2021 Ruptured globe, left, subsequent encounter 08/20/2021 The following portions of the chart were reviewed this encounter and updated as appropriate: Tobacco Allergies Meds Problems Med Hx Surg Hx Fam Hx Subjective Review of Systems All other systems reviewed and are negative. Objective Physical Exam AAOx3, NAD, sitting in wheelchair, accompanied by family Normal respiratory effort on room air Left eye patch Morbidly obese Feet NMI, left leg with varus deformity Assessment/Plan In Summary: Zora Jerez is a 54 y.o. year old female who we saw today in clinic for annual surveillance of CERAB. She continues to do well from a vascular standpoint. We discussed the importance of continued weight loss efforts and PCP follow up for further management of DDD. She will follow up in clinic in 1 year with repeat studies, sooner with any issues. Below is a summary of the diagnoses addressed in today's visit and any associated orders: Problem List Items Addressed This Visit Hypertension Aortoiliac occlusive disease (CMS/HCC) - Primary Relevant Orders VAS Ankle Brachial Index - NICOLASA Only Stent VAS US Aorta IVC Iliac Vessels Duplex Neuropathy Morbid obesity with body mass index of 50.0-59.9 in adult ([facility]) We will see her back for: Follow up in 1 year (on 08/24/2026). The patient was counseled on the importance of: - strict diabetic glucose control - aspirin therapy for overall cardiovascular health - plavix therapy for stroke prevention - statin therapy for control of hyperlipidemia and plaque stabilization - blood pressure monitoring - proper nutrition, exercise and maintaining a healthy weight. Cosigned by Joaquin Almodovar MD at 09/04/2025 8:46 PM EDT Associated attestation - Joaquin Almodovar MD - 09/04/2025 8:46 PM EDT I saw and evaluated the patient with the resident/fellow. I discussed the case with the resident/fellow and agree with the findings and plan as documented. documented in this encounter Plan of Treatment Upcoming Encounters Date Type Department Care Team (Late st Contact Info) Description 09/13/2025 3:40 PM EDT Office Visit [facility] Endocrinology [address] [place] [address] Jennifer Becerra MD [address] [place] [address] 10/12/2025 1:00 PM EST Consult [place] [facility] [address] [place] [address] Peter Coleman MD [address] [place] [address] 11/07/2025 11:15 AM EST Office Visit [facility] [address] [place] [address] Mark Santos, OD [address] [place] [address] Scheduled Orders Name Type Priority Associated Diagnoses Orde r Schedule VAS Ankle Brachial Index - NICOLASA Only Stent Vascular Ultrasound Routine Aortoiliac occlusive disease (CMS/HCC) Expected: 08/24/2026, Expires: 02/25/2027 VAS US Aorta IVC Iliac Vessels Duplex Vascular Ultrasound Routine Aortoiliac occlusive disease (CMS/HCC) Expected: 08/24/2026, Expires: 02/25/2027 documented as of this encounter Visit Diagnoses Diagnosis Aortoiliac occlusive disease (CMS/HCC)- Primary Morbid obesity with body mass index of 50.0-59.9 in adult Hypertension, unspecified type Neuropathy Mononeuritis of unspecified site documented in this encounter Additional Health Concerns Infection Onset Date Last Indicated Resolved Time MRSA 02/09/2024 02/09/2024 Assessment Noted Time PHQ-9 Depression Total Score: 0 05/28/20 25 11:13 AM EDT A fall risk assessment has been complete d for the patient 08/24/2025 8:47 AM EDT A Body Mass Index follow-up plan has been documented for the patient 08/24/2025 9:32 AM EDT documented as of this encounter Care Teams Food Service Worker Hospital Relationship Specialty Start Date End Date Chris Underwood MD [address] [place] [address] PCP - General 04/11/21 documented as of this encounter
[2025-09-10] VITALS (30 sets, daily range): BP systolic 111–159; BP diastolic 49–87; PULSE 68–89; RESP 16–18; TEMP 36.9; O2SAT 96–100; BMI 51.7
--- OUTSIDE RECORDS SUMMARY | 2025-09-10 17:51 | XMS_ITS | Encounter Summary ---
Author Organization [facility] Address [address] [place] [address] Care Team Providers Care Lining Printer Name Role Phone Chris Underwood MD Primary Care Provider Jyoti Salinas Unavailable Encounter Details Date Type Department Care Team (Late st Contact Info) Description 01/12/2019 Orders Only External Location [address] [place] [address] Provider, External Social History Tobacco Use Types [...] Description 09/13/2025 3:40 PM EDT Office Visit [facility] Endocrinology [address] [place] [address] Jeninfer Becerra MD [address] [facility] [address] [place] [address] 10/12/2025 1:00 PM EST Consult [place] [facility] [address] [place] [address] Peter Coleman MD [address] [place] [address] 11/07/2025 11:15 AM EST Office Visit [facility] [address] [place] [address] Mark Santos, OD [address] [place] [address] documented as of this encounter Procedures Procedure Name Priority Date/Time Associated Diagnosis Comments CT OUTSIDE IMAGES 01/12/2019 6:27 AM EST documented in this encounter Results * CT OUTSIDE IMAGES (01/12/2019 6:27 AM EST) Anatomical Region Laterality Modality Computed Tomogra phy 01/12/2019 6:27 AM EST us External Provider IMG CT PROCEDURES Edited Resul t - Final documented in this encounter Visit Diagnoses Not on filedocumented in this encounter Additional Health Concerns Infection Onset Date Last Indicated Resolved Time MRSA 05/05/2021 05/05/2021 10/01/2022 10:4 8 AM EDT MRSA 02/09/2024 02/09/2024 documented as of this encounter Care Teams Lining Printer Relationship Specialty Start Date End Date Chris Underwood MD [address] [place] [address] PCP - General 04/11/21 Jyoti Salinas [address] [place] [address] [address] [place] [address] Registered Nurse 02/20/25 03/16/25 documented as of this encounter
--- OUTSIDE RECORDS SUMMARY | 2025-09-10 17:51 | XMS_ITS | Encounter Summary ---
Author Organization [facility] Address [address] [place] [address] Care Team Providers Care Beet Topper Name Role Phone Chris Underwood MD Primary Care Provider [phone] Reason for Referral * Imaging (Routine) - Pending Review Specialty Diagnoses / Procedures Referred By Contac t Referred To Contact Cardiology Diagnoses Aortoiliac occlusive disease (CMS/HCC) Procedures VAS US Aorta IVC Iliac Vessels Duplex Muna Boles PA [address] [place] [address] Phone: tel: fax: Referral ID Status Reason Start Date Expiration Date Visits Requested Visits Authorized [id number] Pending Review Perform Procedure 08/23/2025 02/22/2027 1 1 * Imaging (Routine) - Pending Review Specialty Diagnoses / Procedures Referred By Contac t Referred To Contact Cardiology Diagnoses Aortoiliac occlusive disease (CMS/HCC) Procedures VAS Ankle Brachial Index - Segmental Muna Boles PA [address] [place] [address] Phone: tel: fax: Referral ID Status Reason Start Date Expiration Date Visits Requested Visits Authorized [id number] Pending Review Perform Procedure 08/23/2025 02/22/2027 1 1 Encounter Details Date Type Department Care Team (Late st Contact Info) Description 08/23/2025 Orders Only [facility] [address] [facility] 5th Floor [address] [place] [id number] Ambre Hauser, RN GS - Wound Care Aortoiliac occlusive disease (CMS/HCC) (Primary Dx) Social History Tobacco Use Types [...] Recorded In the past 12 months has e [employer], gas, oil, or water [employer] threatened to shut off services in your [...] Description 09/13/2025 3:40 PM EDT Office Visit [facility] Endocrinology [address] [place] [address] Jennifer Becerar MD [address] [facility] [address] [place] [address] 10/12/2025 1:00 PM EST Consult [place] [facility] [address] [place] [address] Peter Coleman MD [address] [place] [address] 11/07/2025 11:15 AM EST Office Visit [facility] [address] [facility] [place] [address] Mark Santos, OD [address] [place] [address] Scheduled Orders Name Type Priority Associated Diagnoses Orde r Schedule VAS Ankle Brachial Index - Segmental Vascular Ultrasound Routine Aortoiliac occlusive disease (CMS/HCC) Expected: 02/20/2026 (Approximate), Expires: 02/20/2027 VAS US Aorta IVC Iliac Vessels Duplex Vascular Ultrasound Routine Aortoiliac occlusive disease (CMS/HCC) Expected: 02/20/2026 (Approximate), Expires: 02/20/2027 documented as of this encounter Visit Diagnoses Diagnosis Aortoiliac occlusive disease (CMS/HCC)- Primary documented in this encounter Additional Health [...] documented as of this encounter Care Teams Beet Topper Relationship Specialty Start Date End Date Chris Underwood MD [address] [place] [address] PCP - General 04/11/21 documented as of this encounter
--- OUTSIDE RECORDS SUMMARY | 2025-09-10 17:51 | XMS_ITS | Encounter Summary ---
Author Organization [facility] Address [address] [place] [address] Care Team Providers Care Silo Worker Name Role Phone Chris Underwood MD Primary Care Provider [phone] Encounter Details Date Type Department Care Team (Latest Contact Info) Description 08/24/2025 Travel Social History Tobacco Use Types Packs/Day [...] Description 09/13/2025 3:40 PM EDT Office Visit [facility] Endocrinology [address] [place] [address] Jennifer Becerra MD [address] [place] [address] 10/12/2025 1:00 PM EST Consult [place] [facility] [address] [place] [address] Peter Coleman MD [address] [place] [address] 11/07/2025 11:15 AM EST Office Visit [facility] [address] [place] [address] Mark Santos, OD [address] [place] [address] documented as of this encounter [...] documented as of this encounter Care Teams Silo Worker Relationship Specialty Start Date End Date Chris Underwood MD [address] [place] [address] PCP - General 04/11/21 documented as of this encounter
--- OUTSIDE RECORDS SUMMARY | 2025-09-10 17:51 | XMS_ITS | Encounter Summary ---
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 Estella Franco MBBS [address] [place] [address] Phone: tel: fax: Referral ID Status Reason Start Date Expiration Date Visits Re quested Visits Authorized [id number] Closed 1 1 Encounter Details Date Type Department Care Team (Late st Contact Info) Description 08/21/2025 Telephone [facility] Endocrinology [address] [place] [address] Marj Hart, GRAIN DRIER OPERATOR [address] [facility] [address] [place] [address] Social History Tobacco Use Types [...] Description 09/13/2025 3:40 PM EDT Office Visit [facility] Endocrinology [address] [place] [address] Jennifer Becerra MD [address] [place] [address] 10/12/2025 1:00 PM EST Consult [place] [facility] [address] [place] [address] Peter Coleman MD [address] [place] [address] 11/07/2025 11:15 AM EST Office Visit [facility] [address] [place] [address] Mark Santos, OD [address] [place] [address] documented as of this encounter Visit Diagnoses Diagnosis Type 2 diabetes mellitus with hyperglycemia, with long-term current use of insulin- Primary 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 [...] documented as of this encounter Care Teams Tombstone Erector Relationship Specialty Start Date End Date Chris Underwood MD [address] [place] [address] PCP - General 04/11/21 documented as of this encounter
--- OUTSIDE RECORDS SUMMARY | 2025-09-10 17:51 | XMS_ITS | Encounter Summary ---
Author Organization [facility] Address [address] [place] [address] Care Team Providers Care Educational Resource Coordinator Name Role Phone Chris Underwood MD Primary Care Provider [phone] Reason for Visit * Reason Comments Med Refill Encounter Details Date Type Department Care Team (Late st Contact Info) Description 08/21/2025 Refill [facility] Diabetes Education [address] [place] [address] Marj Hart L, FUDGER [address] [facility] [address] [place] [address] Type 2 diabetes mellitus with hyperglycemia, with long-term current use of insulin ([facility]); Retinal detachment of left eye [...] In the past 12 months has e [employer], gas, oil, or water [employer] threatened to shut off services in your home? No 08/16/2024 Comments No Sex and Gender Information Value Date Recorded Sex Assigned at Female 08/20/2021 4:02 PM EDT Legal Sex Female 6:44 PM EDT Gender Identity Female 08/20/2021 4:02 PM EDT Sexual Orientation Straight 10/30/2021 4: 24 PM EST documented as of this encounter Miscellaneous Notes * Telephone Encounter - Leelee Hood - 08/21/2025 2:35 PM EDT Refill request does not meet protocol. Sending to clinic for review. Additional info: Medication not on protocol. documented in this encounter Plan of Treatment Upcoming Encounters Date Type Department Care Team (Late st Contact Info) Description 09/13/2025 3:40 PM EDT Office Visit [facility] Endocrinology [address] [place] [address] Jennifer Becerra MD [address] [place] [address] 10/12/2025 1:00 PM EST Consult [place] [facility] [address] [place] [address] Peter Coleman MD [address] [place] [address] 11/07/2025 11:15 AM EST Office Visit [facility] [address] [place] [address] Mark Santos, OD [address] [place] [address] documented as of this encounter [...] documented as of this encounter Care Teams Educational Resource Coordinator Relationship Specialty Start Date End Date Chris Underwood MD [address] [place] [address] PCP - General 04/11/21 documented as of this encounter
--- OUTSIDE RECORDS SUMMARY | 2025-09-10 17:51 | XMS_ITS | Encounter Summary ---
Author Organization [facility] Address [address] [place] [address] Care Team Providers Care Business Services Coordinator Name Role Phone Chris Underwood MD Primary Care Provider [phone] Encounter Details Date Type Department Care Team (Late st Contact Info) Description 08/01/2025 Orders Only External Location [address] [place] [address] Provider, External Social History Tobacco Use Types [...] Description 09/13/2025 3:40 PM EDT [facility]ocrinology [address] [place] [address] Jennifer Becerra MD [address] [facility] [address] [place] [address] 10/12/2025 1:00 PM EST Consult [place] [facility] Clinic [address] [place] [address] Peter Coleman MD [address] [place] [address] 11/07/2025 11:15 AM EST Office Visit [facility] [address] [place] [address] Mark Santos, OD [address] [place] [address] documented as of this encounter [...] documented as of this encounter Care Teams Business Services Coordinator Relationship Specialty Start Date End Date Chris Underwood MD [address] [place], [place] [id number] PCP - General 04/11/21 documented as of this encounter
--- OUTSIDE RECORDS SUMMARY | 2025-09-10 17:51 | XMS_ITS | Encounter Summary ---
Author Organization [facility] Address [address] [place] [address] Care Team Providers Care Calender Let Off Operator Name Role Phone Chris Underwood MD Primary Care Provider [phone] Encounter Details Date Type Department Care Team [...] Description 09/13/2025 3:40 PM EDT Office Visit [facility] Endocrinology [address] [place] [address] Jennifer Becerra MD [address] [place] [address] 10/12/2025 1:00 PM EST Consult [place] [facility] [address], 1st [place] [address] Peter Coleman MD [address] [place] [address] 11/07/2025 11:15 AM EST Office Visit [facility] [address] [place] [address] Mark Santos, OD [address] [place] [address] documented as of this encounter [...] documented as of this encounter Care Teams Calender Let Off Operator Relationship Specialty Start Date End Date Chris Underwood MD [address] [place] [address] PCP - General 04/11/21 documented as of this encounter
--- OUTSIDE RECORDS SUMMARY | 2025-09-10 17:51 | XMS_ITS | Encounter Summary ---
Author Organization [facility] Address [address] [place] [address] Care Team Providers Care Flight Operations Dispatch Clerk Name Role Phone Chris Underwood MD Primary Care Provider [phone] Reason for Visit * Reason Onset Date Comments HCN Clinical Concern/Question 07/10/2025 Encounter Details Date Type Department Care Team (Late st Contact Info) Description 07/10/2025 Telephone [place] [facility] [address] [facility] 5th Floor Wing [address], [address] [place] [address] Joaquin Almodovar MD [address] [facility] [address] [place] [address] HCN Clinical Concern/Question Social History [...] the past 12 months has th e [employer], gas, oil, or water company threatened to [...] abd/pelvis with runoff to be sent to [facility] to have-Has appt with Dr Almodovar on 08/24. Please advise would like a call back when sent Best contact number and optimal time of day to reach caller: [phone] Note: Please do not reply to this message. Follow-up communication and further actions as a result of this message need to be communicated with the patient directly, if the patient is not active onMyChart. If the patient is active on MyChart, they will receive notification of the communication/outcome via [employer]. documented in this encounter Plan of Treatment Upcoming Encounters Date Type Department Care Team (Late st Contact Info) Description 09/13/2025 3:40 PM EDT [facility] [address] [place] [address] Jennifer Becerra MD [address] [facility] [address] [place] [address] 10/12/2025 1:00 PM EST Consult [place] [facility] [address], 1st [place] [address] Peter Coleman MD [address] [place] [address] 11/07/2025 11:15 AM EST Office Visit [facility] [address] [facility] [place] [address] Mark Santos, OD [address] [facility] 550 [place] [address] documented as of this encounter [...] documented as of this encounter Care Teams Flight Operations Dispatch Clerk Relationship Specialty Start Date End Date Chris Underwood MD [address] [place] [address] PCP - General 04/11/21 documented as of this encounter
--- OUTSIDE RECORDS SUMMARY | 2025-09-10 17:51 | XMS_ITS | Encounter Summary ---
Author Organization Healthcare Address [address] [place] [address] Care Team Providers Care Director Records Management Name Role Phone Chris Underwood MD Primary Care Provider [phone] Jyoti Salinas Unavailable [phone] Encounter Details Date Type Department Care Team (Late st Contact Info) Description 08/16/2024 Ophth Exam [facility] [address] [place] [address] Saima Vanegas MD [address] [place] [address] Social History Tobacco Use Types [...] in a mcfp (including now)? No 08/16/2024 Utilities Answer Date [...] Description 09/13/2025 3:40 PM EDT Office Visit [facility] Endocrinology [address] [place] [address] Jennifer Becerra MD [address] [place] [address] 10/12/2025 1:[address] [place] [facility] [address] 1st [place] [address] Peter Coleman MD [address] [place] [address] 11/07/2025 11:15 AM EST Office Visit [facility] [address] [place] [address] Mark Santos, OD [address] [place] [address] documented as of this encounter [...] as of this encounter Care Teams Director Records Management Relationship Specialty Start Date End Date Chris Underwood MD [address] [place] [address] PCP - General 04/11/21 Jyoti Salinas [address] [address] Registered Nurse 02/20/25 03/16/25 documented as of this encounter
--- OUTSIDE RECORDS SUMMARY | 2025-09-10 17:51 | XMS_ITS | Encounter Summary ---
Author Organization Healthcare Address [address] [place] [address] Care Team Providers Care Drafting Teacher Name Role Phone Chris Underwood MD Primary Care Provider [phone] Encounter Details Date Type Department Care Team (Late st Contact Info) Description 07/18/2025 Telephone [place] [facility] [address] [facility] 5th Floor Wing [address], [address] [place] [address] Joaquin Almodovar MD [address] [facility] [address] [place] [address] Social History Tobacco Use Types [...] Description 09/13/2025 3:40 PM EDT Office Visit [facility] Endocrinology [address] [place] [address] Jennifer Becerra MD [address] [facility] [address] [place] [address] 10/12/2025 1:00 PM EST Consult [place] [facility] [address], 1st [place] [address] Peter Coleman MD [address] [place] [address] 11/07/2025 11:15 AM EST Office Visit [facility] [address] [place] [address] Mark Santos, OD [address] [place] [address] documented as of this encounter [...] documented as of this encounter Care Teams Drafting Teacher Relationship Specialty Start Date End Date Chris Underwood MD [address] [place] [address] PCP - General 04/11/21 documented as of this encounter
--- OUTSIDE RECORDS SUMMARY | 2025-09-10 17:51 | XMS_ITS | Encounter Summary ---
Author Organization [facility] Address [address] [place] [address] Care Team Providers Care Private Branch Exchange Service Advisor Name Role Phone Chris Underwood MD Primary Care Provider [phone] Encounter Details Date Type Department Care Team (Late st Contact Info) Description 07/13/2025 Telephone [facility] [address] [place] [phone] Angelic Kwok RN [facility] RADIOLOG[facility] Social History [...] Description 09/13/2025 3:40 PM EDT Office Visit [facility] [address] [place] [address] Jennifer Becerra MD [address] [place] [address] 10/12/2025 1:00 PM EST Consult [place] [facility] [address], 1st [place] [address] Peter Coleman MD [address] [place] [address] 11/07/2025 11:15 AM EST Office Visit [facility] [address] [place] [address] Mark Santos, OD [address] [place] [address] documented as of this encounter [...] documented as of this encounter Care Teams Private Branch Exchange Service Advisor Relationship Specialty Start Date End Date Chris Underwood MD [address] [place], [place] [id number] PCP - General 04/11/21 documented as of this encounter
--- OUTSIDE RECORDS SUMMARY | 2025-09-10 17:51 | XMS_ITS | Encounter Summary ---
Author Organization [facility] Address [address] [place] [address] Care Team Providers Care Lasting Machine Operator Name Role Phone Chris Underwood MD Primary Care Provider [phone] Encounter Details Date Type Department Care Team (Late st Contact Info) Description 08/01/2025 Orders Only External Location [address] [place] [address] Provider, External Social History Tobacco Use Types [...] Description 09/13/2025 3:40 PM EDT Office Visit [facility] Endocrinology [address] [place] [address] Jennifer Becerra MD [address] [facility] 125 [place] [address] 10/12/2025 1:00 PM EST Consult [place] [facility] Clinic [address], 1st [place] [address] Peter Coleman MD [address] [place] [address] 11/07/2025 11:15 AM EST Office Visit [facility] [address] [place] [address] Mark Santos, OD [address] [place] [address] documented as of this encounter [...] documented as of this encounter Care Teams Lasting Machine Operator Relationship Specialty Start Date End Date Chris Underwood MD [address] [place] [address] PCP - General 04/11/21 documented as of this encounter
--- OUTSIDE RECORDS SUMMARY | 2025-09-10 17:51 | XMS_ITS | Encounter Summary ---
Author Organization Healthcare Address [address] [place] [id number] Care Team Providers Care Squirrel Man Name Role Phone Chris Underwood MD Primary Care Provider Jyoti Salinas Unavailable [phone] Encounter Details Date Type Department Care Team (Late st Contact Info) Description 08/20/2021 Ophth Exam [facility] [address] [place] [address] Campos Haines MD [address] [place] [id number] Social History Tobacco Use Types Packs/Day Years [...] 3:40 PM EDT Office Visit [facility] Endocrinology [address] [place] [address] Jennifer Becerra MD [address] [facility] [address] [place] [address] 10/12/2025 1:[address] [place] [facility] [address], 1st [place] [address] Peter Coleman MD [address] [place] [address] 11/07/2025 11:15 AM EST Office Visit [facility] [address] [place] [address] Mark Santos, OD [address] [facility] [address] [place] [address] documented as of this encounter Visit Diagnoses Not on filedocumented in this encounter Additional Health Concerns Infection Onset Date Last Indicated Resolved Time MRSA 05/05/2021 05/05/2021 10/01/2022 10:4 8 AM EDT MRSA 02/09/2024 02/09/2024 documented as of this encounter Care Teams Squirrel Man Relationship Specialty Start Date End Date Chris Underwood MD [address] [place] [address] PCP - General 04/11/21 Jyoti Salinas [address] [phone] Registered Nurse 02/20/25 03/16/25 documented as of this encounter
--- OUTSIDE RECORDS SUMMARY | 2025-09-10 17:51 | XMS_ITS | Encounter Summary ---
Author Organization Healthcare Address [address] [place] [address] Care Team Providers Care Vp Of Digital Marketing Name Role Phone Chris Underwood MD Primary Care Provider [phone] Encounter Details Date Type Department Care Team (Late st Contact Info) Description 08/01/2025 Orders Only External Location [address] [place] [address] Joaquin Almodovar MD [address] [facility] [address] [place] [address] Social History Tobacco Use Types Packs/Day Years [...] Description 09/13/2025 3:40 PM EDT Office Visit [facility] Endocrinology [address] [place] [address] Jennifer Becerra MD [address] [place] [address] 10/12/2025 1:00 PM EST Consult [place] [facility] [address], 1st [place] [address] Peter Coleman MD [address] [place] [address] 11/07/2025 11:15 AM EST Office Visit [facility] [address] [place] [address] Mark Santos, OD [address] [place] [address] documented as of this encounter Procedures Procedure Name Priority Date/Time Associated Diagnosis Comments US OUTSIDE IMAGES 08/01/2025 8:29 AM EDT documented in this encounter Results * US OUTSIDE IMAGES (08/01/2025 8:29 AM EDT) Anatomical Region Laterality Modality Ultrasound 08/01/2025 8:29 AM EDT us Joaquin Almodovar MD IMG US PROCEDURES Edited Resul t - [...] documented as of this encounter Care Teams Vp Of Digital Marketing Relationship Specialty Start Date End Date Chris Underwood MD [address] [place] [address] PCP - General 04/11/21 documented as of this encounter
--- OUTSIDE RECORDS SUMMARY | 2025-09-10 17:51 | XMS_ITS | Encounter Summary ---
Author Organization Healthcare Address [address] [place] [address] Care Team Providers Care Cemetery Counselor Name Role Phone Chris Underwood MD Primary Care Provider [phone] Encounter Details Date Type Department Care Team (Late st Contact Info) Description 08/21/2025 Orders Only [facility] Endocrinology [address] [place] [address] Estella Franco MBBS [address] [place] [address] Social History Tobacco Use Types [...] encounter Miscellaneous Notes * Progress Notes - Estella Franco MBBS - 08/21/2025 5:22 PM EDT Pt has had to have 3 MRI and a FIT test which required removal of pod that contained insulin. Requiring insulin refills as she will run out of insulin midnight. I sent out a new prescription for U -200 insulin with increased MDD. Cosigned by Jennifer Becerra MD at 08/24/2025 3:55 PM EDT Associated attestation - Jennifer Becerra MD - 08/24/2025 3:55 PM EDT Signature only. documented in this encounter Plan of Treatment Upcoming Encounters Date Type Department Care Team (Late st Contact Info) Description 09/13/2025 3:40 PM EDT [facility] [address] [place] [address] Jennifer Becerra MD 2[address] [facility] [address] [place] [address] 10/12/2025 1:00 PM EST Consult [place] [facility] [address], 1st [place] [address] Peter Coleman MD [address] [place] [address] 11/07/2025 11:15 AM EST Office Visit [facility] [address] [place] [address] Mark Santos, OD [address] [place] [address] documented as of this encounter [...] documented as of this encounter Care Teams Cemetery Counselor Relationship Specialty Start Date End Date Chris Underwood MD [address] [place] [address] PCP - General 04/11/21 documented as of this encounter
--- OUTSIDE RECORDS SUMMARY | 2025-09-10 17:51 | XMS_ITS | Encounter Summary ---
Author Organization Healthcare Address [address] [place] [address] Care Team Providers Care Bottom Bleacher Name Role Phone Chris Underwood MD Primary Care Provider [phone] Encounter Details Date Type Department Care Team (Late st Contact Info) Description 05/07/2025 Orders Only External Location [address] [place] [address] Chris Underwood MD [address] [place] [address] Social History Tobacco Use Types Packs/Day [...] EDT Office Visit [facility] Endocrinology [address] [place] [address] Jennifer Becerra MD [address] [place] [address] 10/12/2025 1:00 PM EST Consult [place] [facility] [address], 1st [place] [address] Peter Coleman MD [address] [place] [address] 11/07/2025 11:15 AM EST Office Visit [facility] [address] [place] [address] Mark Santos, OD [address] [place] [address] documented as of this encounter Procedures Procedure Name Priority Date/Time Associated Diagnosis Comments MR OUTSIDE IMAGES 05/07/2025 1:06 PM EDT documented in this encounter Results * MR transfer of outside films (05/07/2025 1:06 PM EDT) Anatomical Region Laterality Modality Magnetic Resonan ce 05/07/2025 1:06 PM EDT us Chris Underwood MD IMG MRI PROCEDURES Edited Resu lt - Final documented in this encounter Visit [...] documented as of this encounter Care Teams Bottom Bleacher Relationship Specialty Start Date End Date Chris Underwood MD [address] [place] [address] PCP - General 04/11/21 documented as of this encounter
--- OUTSIDE RECORDS SUMMARY | 2025-09-10 17:52 | XMS_ITS | Encounter Summary ---
Author Organization [facility] Address [address] [place] [address] Care Team Providers Care Fruit Thinner Name Role Phone Chris Underwood MD Primary Care Provider [phone] Encounter Details Date Type Department Care Team [...] Description 09/13/2025 3:40 PM EDT Office Visit [facility] Endocrinology [address] [place] [address] Jennifer Becerra MD [address] [place] [address] 10/12/2025 1:00 PM EST Consult [place] [facility] [address], 1st [place] [address] Peter Coleman MD [address] [place] [address] 11/07/2025 11:15 AM EST Office Visit [facility] [address] [place] [address] Mark Santos, OD [address] [place] [address] documented as of this encounter [...] documented as of this encounter Care Teams Fruit Thinner Relationship Specialty Start Date End Date Chris Underwood MD [address] [place] [address] PCP - General 04/11/21 documented as of this encounter
--- OUTSIDE RECORDS SUMMARY | 2025-09-10 17:52 | XMS_ITS | Encounter Summary ---
Author Organization [facility] Address [address] [place] [address] Care Team Providers Care Dyer Helper Name Role Phone Chris Underwood MD Primary Care Provider [phone] Reason for Referral * Imaging (Routine) - Authorized Specialty Diagnoses / Procedures Referred By Contac t Referred To Contact Diagnoses Vertebral osteomyelitis (CMS/HCC) Abnormal MRI, lumbar spine Procedures MR Lumbar Spine w and wo IV Contrast Gloria Salcedo MD [address] [place] [address] Phone: tel: fax: [facility] ([facility] MRI) [address] [place] [address] Phone: tel: Referral ID Status Reason Start Date Expiration Date V isits Requested Visits Authorized [id number] Authorized 07/23/2025 01/22/2027 1 1 Encounter Details Date Type Department Care Team (Late st Contact Info) Description 07/23/2025 Orders Only [address] [address] Gloria Salcedo MD [address] [place] [address] [address] [place] [address] Abnormal MRI, lumbar spine (Primary Dx); Vertebral [...] due to habitus. New order for third green party scan placed. Pt needs follow-up appt with ID. 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 top publisher notified to schedule visit Gloria Salcedo MD documented in this encounter Plan of Treatment Upcoming Encounters Date Type Department Care Team (Late st Contact Info) Description 09/13/2025 3:40 PM EDT Office Visit [facility] Endocrinology [address] [place] [address] Jennifer Becerra MD [address] [place] [address] 10/12/2025 1:00 PM EST Consult [place] [facility] [address], 1st [place] [address] Peter Coleman MD [address] [place] [address] 11/07/2025 11:15 AM EST Office Visit [facility] [address] [place] [address] Mark Santos, OD [address] [place] [address] Scheduled Orders Name Type Priority [...] documented as of this encounter Care Teams Dyer Helper Relationship Specialty Start Date End Date Chris Underwood MD [address] [place] [address] PCP - General 04/11/21 documented as of this encounter
--- OUTSIDE RECORDS SUMMARY | 2025-09-10 17:52 | XMS_ITS | Encounter Summary ---
Author Organization [facility] Address [address] [place] [address] Care Team Providers Care Metallurgy Teacher Name Role Phone Chris Underwood MD Primary Care Provider [phone] Encounter Details Date Type Department Care Team [...] Description 09/13/2025 3:40 PM EDT Office Visit [facility] Endocrinology [address] [place] [address] Jennifer Becerra MD [address] [place] [address] 10/12/2025 1:00 PM EST Consult [place] [facility] [address], 1st [place] [address] Peter Coleman MD [address] [place] [address] 11/07/2025 11:15 AM EST Office Visit [facility] [address] [place] [address] Mark Santos, OD [address] [place] [address] documented as of this encounter [...] documented as of this encounter Care Teams Metallurgy Teacher Relationship Specialty Start Date End Date Chris Underwood MD [address] [place] [address] PCP - General 04/11/21 documented as of this encounter
--- OUTSIDE RECORDS SUMMARY | 2025-09-10 17:52 | XMS_ITS | Encounter Summary ---
Author Organization [facility] Address [address] [place] [address] Care Team Providers Care Brine Well Operator Name Role Phone Chris Underwood MD Primary Care Provider [phone] Encounter Details Date Type Department Care Team [...] Description 09/13/2025 3:40 PM EDT Office Visit [facility] Endocrinology [address] [place] [address] Jennifer Becerra MD [address] [place] [address] 10/12/2025 1:00 PM EST Consult [place] [facility] [address], 1st [place] [address] Peter Coleman MD [address] [place] [address] 11/07/2025 11:15 AM EST Office Visit [facility] Care [address] [place] [address] Mark Santos, OD [address] [place] [address] documented as of this encounter [...] documented as of this encounter Care Teams Brine Well Operator Relationship Specialty Start Date End Date Chris Underwood MD [address] [place] [address] PCP - General 04/11/21 documented as of this encounter
--- OUTSIDE RECORDS SUMMARY | 2025-09-10 17:52 | XMS_ITS | Encounter Summary ---
Author Organization Healthcare Address [address] [place] [address] Care Team Providers Care Real Estate Legal Secretary Name Role Phone Chris Underwood MD Primary Care Provider Jyoti Salinas Unavailable Encounter Details Date Type Department Care Team (Late st Contact Info) Description 12/28/2019 Orders Only External Location [address] [place] [address] Joaquin Almodovar MD [address] [facility] [address] [place] [address] Social History Tobacco Use Types [...] Office Visit [facility] [address] [place] [address] Jennifer Becerra MD [address] [place] [address] 10/12/2025 1:00 PM EST Consult [place] [facility] [address] [place] [address] Peter Coleman MD [address] [place] [address] 11/07/2025 11:15 AM EST Office Visit [facility] [address] [place] [address] Mark Santos, OD [address] [place] [address] documented as of this encounter Procedures Procedure Name Priority Date/Time Associated Diagnosis Comments CT OUTSIDE IMAGES 12/28/2019 12:11 PM EST documented in this encounter Results * CT OUTSIDE IMAGES (12/28/2019 12:11 PM EST) Anatomical Region Laterality Modality Computed Tomogra phy 12/28/2019 12:1 1 PM EST us Joaquin Almodovar MD IMG CT PROCEDURES Edited Resul t - Final documented in this encounter Visit Diagnoses Not on filedocumented in this encounter Additional Health Concerns Infection Onset Date Last Indicated Resolved Time MRSA 05/05/2021 05/05/2021 10/01/2022 10:4 8 AM EDT MRSA 02/09/2024 02/09/2024 documented as of this encounter Care Teams Real Estate Legal Secretary Relationship Specialty Start Date End Date Chris Undrewood MD [address] [place] [id number] PCP - General 04/11/21 Jyoti Salinas [address] [place] [address] [address] [place] [address] Registered Nurse 02/20/25 03/16/25 documented as of this encounter
--- OUTSIDE RECORDS SUMMARY | 2025-09-10 17:52 | XMS_ITS | Encounter Summary ---
Author Organization [facility] Address [address] [place] [address] Care Team Providers Care Account Strategist Name Role Phone Chris Underwood MD Primary Care Provider [phone] Encounter Details Date Type Department Care Team [...] Description 09/13/2025 3:40 PM EDT Office Visit [facility] [address] [place] [address] Jennifer Becerra MD [address] [place] [address] 10/12/2025 1:00 PM EST Consult [place] [facility] [address] [place] [address] Peter Coleman MD [address] [place] [address] 11/07/2025 11:15 AM EST Office Visit [facility] [address] [place] [address] Mark Santos, OD [address] [place] [address] documented as of this encounter [...] documented as of this encounter Care Teams Account Strategist Relationship Specialty Start Date End Date Chris Underwood MD [address] [place] [address] PCP - General 04/11/21 documented as of this encounter
--- OUTSIDE RECORDS SUMMARY | 2025-09-10 17:52 | XMS_ITS | Encounter Summary ---
Author Organization Healthcare Address [address] [place] [address] Care Team Providers Care Aviation Maintenance Instructor Name Role Phone Chris Underwood MD Primary Care Provider [phone] Jyoti Salinas Unavailable [phone] Encounter Details Date Type Department Care Team (Late Contact Info) Description 06/05/2022 Orders Only External Location [address] [place] [address] Radiant, Imaging Upload Social History Tobacco Use [...] Department Care Team (Late Contact Info) Description 09/13/2025 3:40 PM EDT Office Visit [facility] [address] [place] [address] Jennifer Becerra MD [address] [place] [address] 10/12/2025 1:00 PM EST Consult [place] [facility] [address] [place] [address] Peter Coleman MD [address] [place] [address] 11/07/2025 11:15 AM EST Office Visit [facility] [address] [place] [address] Mark Santos, OD [address] [place] [address] documented as of this encounter Procedures Procedure Name Priority Date/Time Associated Diagnosis Comments CT OUTSIDE IMAGES 06/05/2022 10:29 AM EDT documented in this encounter Results * CT OUTSIDE IMAGES (06/05/2022 10:29 AM EDT) Anatomical Region Laterality Modality Computed Tomogra phy 06/05/2022 10:2 9 AM EDT us Imaging Upload Radiant IMG CT PROCEDURES Edited Result - Final documented in this encounter Visit Diagnoses Not on filedocumented in this encounter Additional Health Concerns Infection Onset Date Last Indicated Resolved Time MRSA 05/05/2021 05/05/2021 10/01/2022 10:4 8 AM EDT MRSA 02/09/2024 02/09/2024 Assessment Noted Time A fall risk assessment has been complete d for the patient 05/25/2022 1:09 PM EDT documented as of this encounter Care Teams Aviation Maintenance Instructor Relationship Specialty Start Date End Date Chris Underwood MD [address] [place] [id number] PCP - General 04/11/21 Jyoti Salinas [address] [address] Registered Nurse 02/20/25 03/16/25 documented as of this encounter
--- OUTSIDE RECORDS SUMMARY | 2025-09-10 17:52 | XMS_ITS | Encounter Summary ---
Author Organization [facility] Address [address] [place] [address] Care Team Providers Care Data Miner Name Role Phone Chris Underwood MD Primary Care Provider [phone] Encounter Details Date Type Department Care Team (Late st Contact Info) Description 08/01/2025 Orders Only External Location [address] [place] [address] Provider, External Social History Tobacco Use Types [...] Description 09/13/2025 3:40 PM EDT Office Visit [facility] [address] [place] [address] Jennifer Becerra MD [address] [facility] [address] [place] [address] 10/12/2025 1:00 PM EST Consult [place] [facility] [address] [place] [address] Peter Coleman MD [address] [place] [address] 11/07/2025 11:15 AM EST Office Visit [facility] [address] [place] [address] Mark Santos, OD [address] [place] [address] documented as of this encounter [...] documented as of this encounter Care Teams Data Miner Relationship Specialty Start Date End Date Chris Underwood MD [address] [place] [address] PCP - General 04/11/21 documented as of this encounter
--- OUTSIDE RECORDS SUMMARY | 2025-09-10 17:52 | XMS_ITS | Clinical Summary ---
Author Organization [facility] Address [address] [place] [address] Care Team Providers Care Swatcher Name Role Phone Chris Underwood MD Primary Care Provider [phone] Allergies Active Allergy Reactions Criticality Noted Date [...] Chew 1 tablet daily. Active nystatin (Mycostatin) 108909 UNIT/GM powder Apply 1 Application topically 2 (two) times a day. Apply to lower abdomen. Active potassium chloride CR (Klor-Con) 10 MEQ ER tablet Take 4 tablets by mouth daily. Administer with as needed furosemide. Active albuterol 108 (90 Base) MCG/ACT inhaler Inhale 2 puffs 3 times a day as needed for wheezing or shortness of breath. Active NON FORMULARY Magic Butt Chebanse 1 Ointment Apply topically to left and right groin once daily Active magnesium oxide (Mag-Ox) 400 (240 Mg) MG tablet Take 1 tablet by mouth 2 times a day. Active Benzocaine-Res orcinol (Vagisil) 5-2 % cream Apply 1 application. [...] once daily after that indefinitely, Reported on 08/24/2025 albuterol (Proventil) (2.5 MG/3ML) 0.083% nebulizer solution [...] mL 1 02/01/20 25 Active Insulin Dispos Chief Contract Officer Accessories (Omnipod Pod Pals) miscIndication s:Type 2 diabetes mellitus with hyperglycemia, with long-term current use of insulin 1 patch every other day. 15 each 5 02/27/20 25 Active dulaglutide 4.5 MG/0.5ML solution auto-injector Inject 4.5 mg under the skin 1 (one) time per week. 2 mL 3 03/15/20 25 2025 Active Additional Information Patient taking differently:4.5 mg Subcutaneous Weekly, On Sundays, Reported on 08/24/2025 Continuous Glucose Sensor (Dexcom G7 Sensor) misc [...] TOPICAL ROUTE FOUR TIMES DAILY NEEDED 04/26/20 Active GNP Zinc Oxide 20 % ointment Apply 1 Application topically as needed. Butt balm 12/15/19 25 Active insulin lispro (Admelog) 100 UNIT/ML patient supplied pump Inject under the skin continuously. U 200 Active alpha tocopherol (Vitamin E) 100 units capsule Take 1 capsule by mouth daily. Active gabapentin (Neurontin) 800 MG tablet Take 2 tablets by mouth 2 times a day. Active omega-3 (Fish Oil) 1000 MG capsule Take 2 capsules by mouth 2 times a day. 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 Use as directed with OmniPod - Max TDD : 150 units of U200 per day 30 mL 3 07/23/20 25 2024 Discontinued(R kayden) Active Problems Problem Noted Date Diagnosed Date Morbid obesity with body mass index of 50.0-59.9 in adult 08/24/2025 Amputation of toe of left foot 05/28/2025 [...] 5 G7 with U200 Pain, unspecified 01/22/2025 Primary generalized (osteo)arthritis 01/14/2025 Solitary pulmonary nodule 01/14/2025 Unspecified abnormalities of gait and mobility 0 01/14/2025 Obstructive sleep apnea (adult) (pediatric) 12/30 Pain in right hip 01/12/2025 Abnormal level of blood mineral 12/15/2024 Chronic obstructive pulmonary disease, unspecifi ed 11/13/2024 Low back pain 07/13/2024 Radicular pain 07/13/2024 [...] (01/21/2022): Added automatically from request for surgery [id number] Neuropathy 10/02/2021 Spinal stenosis of lumbar region 09/04/2021 Bilateral sacroiliitis 09/04/2021 Gastroesophageal reflux disease 08/29/2021 Antiplatelet or antithrombotic long-term use 11/2020 History of MRSA infection 08/29/2021 Vitreous hemorrhage of left eye 08/25/2021 Overview (08/25/2021): Added automatically from request for surgery [id number] Assessment & Plan (09/05/2021 11:50 AM EDT): [...] (08/20/2021): Added automatically from request for surgery [id number] Assessment & Plan (08/25/2021 11:43 AM EDT): [...] Diagnosed Date Resolved Date Acute respiratory failure with hypoxia 01/14/2025 09/02/2025 Acute upper respiratory infe ction, unspecified 12/15/2024 09/02/2025 Acute respiratory failure wi th hypoxia and hypercarbia 08/17/2024 08/23/2024 Acute decompensated heart failure 08/17/2024 08/23/2024 Normocytic anemia 08/17/2024 08/23/2024 Acute encephalopathy 08/16/2024 024 Other general symptoms and signs 07/29/2024 09/02/2025 Decreased functional activity tolerance 08/29/2021 08/19/2025 Delayed emergence from anesthesia 08/20/2021 09/05/2021 Peripheral edema 08/20/2021 08/19/2025 Encounters Date Type Department Care Team Description 08/24/2025 9:20 AM EDT Office Visit [facility] [address] [place] [address] Joaquin Almodovar MD Aortoiliac occlusive disease ([facility]/HCC) (Primary Dx); Morbid obesity with body mass index of 50.0-59.9 in adult ([facility]/HCC); Hypertension, unspecified type; Neuropathy 08/24/2025 Travel 08/23/2025 Orders Only [facility] [address] [place] [address] Amber Hauser RN Aortoiliac occlusive disease (CMS/HCC) (Primary Dx) 08/21/2025 Orders Only [facility] Endocrinology [address] [place] [address] Estella Franco MBBS 08/21/2025 Telephone [facility] Endocrinology [address] [place] [address] Marj Hart APRN 08/21/2025 Refill [facility] Diabetes Education [address] [place] [address] Rory Hartmorris Carpenter, ELECTROENCEPHALOGRAPHIC TECHNICIAN Type 2 diabetes mellitus with hyperglycemia, with long-term current use of insulin (CMS/HCC); 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 08/17/2025 Telephone [facility] Endocrinology [address] [place] [address] Marj Hart, ELECTROENCEPHALOGRAPHIC TECHNICIAN 08/17/2025 Travel 08/06/2025 9:00 AM EDT Office Visit [address] [address] Sajan Lopez MD Abnormal MRI, lumbar spine (Primary Dx) 08/06/2025 Travel 08/02/2025 Orders Only External Location [address] [place] [address] Provider, External 08/01/2025 Orders Only External Location [address] [place] [address] Joaquin Almodovar MD 08/01/2025 Orders Only External Location [address] [place] [address] Provider, External 08/01/2025 Orders Only External Location [address] [place] [address] Provider, External 08/01/2025 Orders Only External Location [address] [place] [address] Provider, External 08/01/2025 Orders Only External Location [address] [place] [address] Provider, External 08/01/2025 Orders Only External Location [address] [place] [address] Provider, External 07/23/2025 Telephone [facility] Endocrinology [address] [place] [address] Too Jimenez MD 07/23/2025 Orders Only [address] [address] Alex Salcedo MD Abnormal MRI, lumbar spine (Primary Dx); Vertebral osteomyelitis (CMS/HCC) 07/20/2025 2:36 PM EDT - 07/20/2025 11:59 PM EDT Hospital Encounter [facility] [address] [place] [address] Abnormal MRI, lumbar spine; Vertebral osteomyelitis (CMS/HCC) Discharge Disposition: Home or Self Care 07/20/2025 Travel 07/19/2025 Travel 07/19/2025 Telephone [facility] Endocrinology [address] [place] [address] Carmen Clark, RN 07/19/2025 Telephone [facility] [address] [facility] [address] [place] [address] Joaquin Almodovar MD HCN Paperwork/Documentat ion Request 07/18/2025 Telephone [facility] [address] [facility] [address] [place] [address] Joaquin Almodovar MD 07/13/2025 11:30 AM EDT Pre-Admission Testing [facility] Pre-op Clinic [address] [place] [address] 07/13/2025 Telephone [facility] [address] [place] [address] Angelic Kwok RN 07/13/2025 Travel 07/10/2025 Telephone [facility] [address] [place] [address] Joaquin Almodovar MD HCN Clinical Concern/Question 07/05/2025 Telephone [facility] [address] [place] [address] Antonieta Bernstein, DRISS 07/05/2025 Orders Only [facility] [address] [place] [address] Antonieta Bernstein, ELECTROENCEPHALOGRAPHIC TECHNICIAN Abnormal MRI, lumbar spine (Primary Dx); Vertebral osteomyelitis (CMS/HCC) 07/02/2025 1:30 PM EDT Office Visit [facility] [address] [place] [address] Antonieta Bernstein, ELECTROENCEPHALOGRAPHIC TECHNICIAN Abnormal MRI, lumbar spine (Primary Dx) 07/02/2025 Travel 06/28/2025 9:30 AM EDT Office Visit [facility] Vascular Interventional Radiology [address] [place] [address] [place] [address] Shelley Lim, ELECTROENCEPHALOGRAPHIC TECHNICIAN Low back pain (Primary Dx) 06/28/2025 Telephone [facility] Interventional Radiology [address] [place] [address] [place] [address] Elvia Diez 06/28/2025 Travel 06/26/2025 Travel 06/22/2025 Refill [facility] Diabetes Education [address] [place] [address] Marj Hart, ELECTROENCEPHALOGRAPHIC TECHNICIAN Type 2 diabetes mellitus with hyperglycemia, with long-term current use of insulin (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 06/21/2025 Telephone [facility] Diabetes Education [address] [place] [address] Marj Hart, ELECTROENCEPHALOGRAPHIC TECHNICIAN 06/15/2025 Telephone [facility] [address] [place] [address] Antonieta Bernstein, ELECTROENCEPHALOGRAPHIC TECHNICIAN from Last 3 Months Immunizations Immunization Administration Dates Next Due Moderna COVID-19 Vaccine (Re d Cap) 12+ years 06/25/2022,12/10/2021,06/13/2021,2020 TD (adult), 2 Lf tetanus tox oid, preservative free, adsorbed 03/10/2004 Tdap 08/15/2024 Family History Medical History Relation Name Comments Cancer Father Joaquin Jerez Cataracts Father Joaquin Jerez Hyperlipidemia Father Joaquin Mckeonfina Hypertension Father Joaquin Jerez Other cancer Father Joaquin Earlywine Cancer Maternal Grandfather Reji Sanam Blindness Maternal Grandmother Mary Sanam Cancer Maternal Grandmother Mary Sanam Cataracts Mother Arpita Earlywine Diabetes Mother Arpita Earlywine Hyperlipidemia Mother Arpita Earlywine Hypertension Mother Arpita Earlywine Cancer Mother's Sister 1 Clare [place] Diabetes Mother's Sister 1 Clare Angelina Glaucoma Mother's Sister 1 Clare [place] Hypertension Mother's Sister 2 Jody Sanam Cardiac disorder Other 1 Stroke Other 2 Other cancer Other 3 Hypertension Sibling 1 Hyperlipidemia Sibling 2 Anesthesia problems Neg Hx Malig Hyperthermia Neg Hx Relation Name Status Comments Father Joaquin Mckeone Maternal Grandfather Reji Sanam Maternal Grandmother Mary Sanam Mother Arpita Earlywine Mother's Sister 1 Clare [place] Mother's Sister 2 Jody Sanam Other 1 [...] F) 08/24/2025 8:43 AM EDT Respiratory Rate 20 05/28/2025 11:14 AM EDT Oxygen Saturation 97% 06/28/2025 9:34 AM EDT 3.5L nc Inhaled Oxygen Concentration - - Weight 159 kg (350 lb 8.5 oz) 08/24/2025 8:43 AM EDT Height 177.8 cm (5' 10 ) 08/24/2025 8:43 AM EDT Body Mass Index 50.3 08/24/2025 8:43 AM EDT Plan of Treatment Upcoming Encounters Date Type Department Care Team (Late st Contact Info) Description 09/13/2025 3:40 PM EDT Office Visit Giin Peguero [facility] Endocrinology [address] [place] [address] Jennifer Becerra MD [address] [place] [address] 10/12/2025 1:00 PM EST Consult [place] [facility] [address] [place] [address] Peter Coleman MD [address] [place] [address] 11/07/2025 11:15 AM EST Office Visit [facility] [address] [place] [address] Mark Santos, OD [address] [place] [address] Health Maintenance Due Date Last [...] A1C 11/15/2024, 09/17/2022, 05/25/2022, Additional history exists [id number] Vaccine ( season) 2025 06/25/2022, 12/10/2021, 06/13/2021, Additional history exists [facility]-Influenza Vaccine (#1) 2025 [facility]-Lung Cancer Screening 08/15/2025 08/15/2024 [facility]-Depression Screening 06/28/2026 06/28/2025, 05/01 [facility]-DTaP,Tdap,and Td Vaccines (2 - Td or Tdap) 08/15/2034 08/15/2024, 03/10/2004 [facility]-HIV Screening Completed 07/13/2024, , 08/20/2021 [facility]-Hepatitis C Screening Completed 2023, 07/02/2023, 08/20/2021, Additional history exists [facility]-Obesity Intervention Completed 025, 08/06/2025, 07/02/2025, Additional history exists HPV Vaccines Aged Out [...] this topic Medical Devices Implanted Type Area Ethics Manager Device Identifier Shelf Expiration Date Model / Serial / Lot Lens Ct Amie 602.Us Dpt 18.5 - [id number] - [id number] Implanted:Qty: 1 on 10/01/2022 by Yvonne Govea MD at [facility] Lens Left: Eye [employer]-[id number] 05/28/2026 LENS 602 18.5 / [id number] / Oil Silicone Adato 5000 Syringe 10ml - [id number] - [id number] Implanted:Qty: 1 on 09/04/2021 by Yvonne Govea MD at [facility] Left: Eye [employer]-[id number] 03/28/2024 ES 5000 S / [id number] / Procedures Procedure Name Priority Date/Time Associated Diagnosis Comments MR NEURO OUTSIDE IMAGES 08/02/20 9:[address] OUTSIDE IMAGES 08/01/2025 10: [address] OUTSIDE IMAGES 08/01/2025 10: 32 AM EDT US OUTSIDE IMAGES 08/01/2025 8:5 9 AM EDT US OUTSIDE IMAGES 08/01/2025 8:5 9 AM EDT US OUTSIDE IMAGES 08/01/2025 8:2 9 AM EDT US OUTSIDE IMAGES 08/01/2025 8:2 9 AM EDT IMAGING MRI PROCEDURE NOT PERFORMED Routine 07/20/2025 5:00 PM EDT Abnormal MRI, lumbar spine Vertebral osteomyelitis (CMS/HCC) HEMOGLOBIN A1C Routine 08/16/2024 2:44 AM EDT [...] EDT us External Provider IMG MRI PROCEDURES Edited Resu lt - Final * CT OUTSIDE IMAGES (08/01/2025 10:32 AM EDT) Only the most recent of2 resultswithin the time period is included. Anatomical Region Laterality Modality Computed Tomogra phy 08/01/2025 10:3 2 AM EDT us External Provider IMG CT PROCEDURES Edited Resul t - Final * US OUTSIDE IMAGES (08/01/2025 8:59 AM EDT) Only the most recent of4 resultswithin the time period is included. Anatomical Region Laterality Modality Ultrasound 08/01/2025 8:59 AM EDT us External Provider IMG US PROCEDURES Edited Resul t - Final * Imaging MRI Procedure Not Performed (07/20/2025 5:00 PM EDT) Narrative IMAGING - 07/20/2025 6:32 PM EDT This procedure was not performed. Procedure: MR LUMBAR W AND WO IV CONTRAST Reason: Body Habitus us Antonieta Bernstein APRN IMG MRI PROCEDURES Final R esult IMAGING * (ABNORMAL) Hemoglobin A1c (08/16/2024 2:44 AM EDT) Hemoglobin A1c 7.6(H) <5.7 % 08/16/2024 3:57 AM EDT [facility] Blood Venous blood specimen / Unknown Venipuncture / Unknown 08/16/2024 2:44 AM EDT 08/16/2024 3:40 AM EDT Narrative [facility] - 08/16/2024 3:57 AM EDT HA1C Interpretive Data: Diagnosis of Diabetes: Diabetic > or = 6.5% Pre-diabetic 5.7 to 6.4% Non-diabetic < or = 5.6% Glycemic Targets for Type I and Type II Diabetics: Non- Adults <7.0% Adults <6.0% Children and Adolescents <7.5% Source: [place] [employer] Association. Standards of medical care in diabetes,2017. Diabetes Care.2017:40 (suppl 1):S1-S135. HbA1c assay performed by an ion-exchange chromatography method that is certified traceable to the DCCT. us Nissa Gottlieb MD LAB BLOOD ORDERABLES Fin al Result Performing Organization Address City/[facility]/ZIP Co de Phone Number [facility] [address] [place] [address] * CT Angio Chest (08/15/2024 7:24 PM [...] HIV 1/2 Differentiation (07/13/2024 5:17 PM EDT) HIV 1 & 2 Antibody/Antigen Screen Non Reactive Non Reactive 07/13/2024 6:14 PM EDT [facility] Comment:Screening for HIV 1 & 2 antibodies, and P24 antigen is NONREACTIVE. No confirmatory testing is required. Blood Venous blood specimen / Unknown Venipuncture / Unknown 07/13/2024 5:17 PM EDT 07/13/2024 5:31 PM EDT us Luis Fernando Holguin MD LAB BLOOD ORDERABLES Final Res ult [facility] [address] [place] [phone] * Hepatitis C Antibody - ED (07/13/2024 5:17 PM EDT) Hepatitis C Antibody Negative Negative 07/13/2024 6:31 PM EDT [facility] Blood Venous blood specimen / Unknown Venipuncture / Unknown 07/13/2024 5:17 PM EDT 07/13/2024 5:31 PM EDT us Luis Fernando Holguin MD LAB BLOOD ORDERABLES Final Res ult [facility] [address] [place] [phone] from Last 3 Months or Most Recently Relevant to Health Maintenance Additional Health Concerns Infection Onset Date Last Indicated MRSA 02/09/2024 02/09/2024 Insurance [facility] Therative [facility] MEDICAID Advance Directives * Full Code [...] Patient has decision-making capacity? Yes Care Teams Swatcher Relationship Specialty Start Date End Date Chris Underwood MD [address] [place] [address] PCP - General 04/11/21
--- OUTSIDE RECORDS SUMMARY | 2025-09-10 17:52 | XMS_ITS | Encounter Summary ---
Author Organization Healthcare Address [address] [place] [address] Care Team Providers Care Poultry Process Worker Name Role Phone Chris Underwood MD Primary Care Provider [phone] Encounter Details Date Type Department Care Team (Late st Contact Info) Description 07/23/[address] [address] Too Jimenez MD [address] [place] [address] [phone] Social History Tobacco Use Types Packs/Day Years [...] pens. Too Jimenez MD Endocrinology Fellow Pager: [phone], Epic Chat Preferred documented in this encounter Plan of Treatment Upcoming Encounters Date Type Department Care Team (Late st Contact Info) Description 09/13/2025 3:40 PM EDT Office Visit [facility] Endocrinology [address] [place] [address] Jennifer Becerra MD [address] [place] [address] 10/12/2025 1:00 PM EST Consult [place] [facility] [address] [facility] [address] [place] [address] Peter Coleman MD [address] [place] [address] 11/07/2025 11:15 AM EST Office Visit [facility] [address] [place] [address] Mark Santos, OD [address] [place] [address] documented as of this encounter [...] documented as of this encounter Care Teams Poultry Process Worker Relationship Specialty Start Date End Date Chris Underwood MD [address] [place] [address] PCP - General 04/11/21 documented as of this encounter
--- OUTSIDE RECORDS SUMMARY | 2025-09-10 17:52 | XMS_ITS | Encounter Summary ---
Author Organization [facility] Address [address] [place] [address] Care Team Providers Care Anti Air Warfare Operations Officer Name Role Phone Chris Underwood MD Primary Care Provider [phone] Jyoti Salinas Unavailable Encounter Details Date Type Department Care Team (Late Contact Info) Description 04/16/2024 Orders Only External Location [address] [place] [address] Provider, External Social History Tobacco Use Types [...] Visit [facility] [address] [place] [address] Jennifer Becerra MD [address] [address] 10/12/2025 1:00 PM EST Consult [place] [facility] [address] [place] [address] Peter Coleman MD [address] [place] [address] 11/07/2025 11:15 AM EST Office Visit [facility] [address] [place] [address] Mark Santos, OD [address] [place] [address] documented as of this encounter [...] documented as of this encounter Care Teams Anti Air Warfare Operations Officer Relationship Specialty Start Date End Date Chris Underwood MD [address] [place] [address] PCP - General 04/11/21 Jyoti Salinas [address] [place] [address] [phone] Registered Nurse 02/20/25 03/16/25 documented as of this encounter
--- OUTSIDE RECORDS SUMMARY | 2025-09-10 17:52 | XMS_ITS | Encounter Summary ---
Author Organization [facility] Address [address] [place] [address] Care Team Providers Care Substance Abuse Prevention Coordinator Name Role Phone Chris Underwood MD Primary Care Provider [phone] Reason for Visit * Reason Onset Date Comments HCN Paperwork/Documentation Request 07/19/2025 Encounter Details Date Type Department Care Team (Late st Contact Info) Description 07/19/2025 Telephone [place] [facility] [address] [facility] 5th [address] [place] [address] Joaquin Almodovar MD [address] [facility] [address] [place] [address] HCN Paperwork/Documentatio n Request Social [...] the past 12 months has th e [employer], [employer], oil, or water [employer] threatened to shut off services in your [...] Request Reason for Call: Alondra fournier/ Ap James on the line she says the CTA order received is she will need a new one with new date Best contact number: Other: [phone] Optimal time of day to reach caller: ANYTIME Additional comments/information from caller: Note: Please do not reply to this message. Follow-up communication and further actions as a result of this message need to be communicated with the patient directly, if the patient is not active onMyChart. If the patient is active on MyChart, they will receive notification of the communication/outcome via [employer]. documented in this encounter Plan of Treatment Upcoming Encounters Date Type Department Care Team (Late st Contact Info) Description 09/13/2025 3:40 PM EDT Office Visit [facility] Endocrinology [address] [place] [address] Jennifer Becerra MD [address] [place] [address] 10/12/2025 1:00 PM EST Consult [place] [facility] [address] [place] [address] Peter Coleman MD [address] [place] [address] 11/07/2025 11:15 AM EST Office Visit [facility] [address] [facility] [place] [address] Mark Santos, YOGI [address] [place] [address] documented as of this encounter [...] documented as of this encounter Care Teams Substance Abuse Prevention Coordinator Relationship Specialty Start Date End Date Crhis Underwood MD [address] [place] [address] PCP - General 04/11/21 documented as of this encounter
--- OUTSIDE RECORDS SUMMARY | 2025-09-10 17:52 | XMS_ITS | Encounter Summary ---
Author Organization [facility] Address [address] [place] [address] Care Team Providers Care Outsole Cutter Machine Name Role Phone Chris Underwood MD Primary Care Provider [phone] Encounter Details Date Type Department Care Team (Late st Contact Info) Description 08/01/2025 Orders Only External Location [address] [place] [address] Provider, External Social History Tobacco Use Types [...] [facility] Endocrinology [address] [place] [address] Jennifer Becerra MD [address] [facility] [address] [place] [address] 10/12/2025 1:00 PM EST Consult [place] [facility] [address], 1[address] [place] [address] Peter Coleman MD [address] [place] [address] 11/07/2025 11:15 AM EST Office Visit [facility] [address] [place] [address] Mark Santos, OD [address] [place] [address] documented as of this encounter [...] documented as of this encounter Care Teams Outsole Cutter Machine Relationship Specialty Start Date End Date Chris Underwood MD [address] [place], [place] [id number] PCP - General 04/11/21 documented as of this encounter
--- OUTSIDE RECORDS SUMMARY | 2025-09-10 17:52 | XMS_ITS | Encounter Summary ---
Author Organization [facility] Address [address] [place] [address] Care Team Providers Care Stencil Sprayer Name Role Phone Chris Underwood MD Primary Care Provider Jyoti Salinas Unavailable [phone] Encounter Details Date Type Department Care Team (Late st Contact Info) Description 01/12/2019 Orders Only External Location [address] [place] [address] Provider, External Social History Tobacco Use Types [...] Description 09/13/2025 3:40 PM EDT Office Visit [facility] Endocrinology [address] [place] [phone] Jennifer Becerra MD [address] [facility] [address] [place] [address] 10/12/2025 1:00 PM EST Consult [place] [facility] [address] [place] [address] Peter Coleman MD [address] [place] [address] 11/07/2025 11:15 AM EST Office Visit [facility] [address] [place] [address] Mark Santos, OD [address] [place] [address] documented as of this encounter [...] documented as of this encounter Care Teams Stencil Sprayer Relationship Specialty Start Date End Date Chris Underwood MD [address] [place] [address] PCP - General 04/11/21 Jyoti Salinas [address] [place] [address] [address] [place] [address] Registered Nurse 02/20/25 03/16/25 documented as of this encounter
--- OUTSIDE RECORDS SUMMARY | 2025-09-10 17:52 | XMS_ITS | Encounter Summary ---
Author Organization [facility] Address [address] [place] [address] Care Team Providers Care Mail Weigher Name Role Phone Chris Underwood MD Primary Care Provider [phone] Encounter Details Date Type Department Care Team (Late st Contact Info) Description 07/19/2025 Telephone [facility] [address] [place] [address] Carmen Clark, RN [facility] OPERATING ROOM Social History Tobacco [...] the past 12 months has th e [employer], gas, oil, or water company threatened to [...] Description 09/13/2025 3:40 PM EDT Office Visit [facility] Endocrinology [address] [place] [address] Jennifer Becerra MD [address] [place] [address] 10/12/2025 1:00 PM EST Consult [place] [facility] [address], 1[address] [place] [address] Peter Coleman MD [address] [place] [address] 11/07/2025 11:15 AM EST Office Visit [facility] [address] [place] [address] Mark Santos, OD [address] [place] [address] documented as of this encounter [...] as of this encounter Care Teams Mail Weigher Relationship Specialty Start Date End Date Chris Underwood MD [address] [place], [place] [phone] PCP - General 04/11/21 documented as of this encounter
--- OUTSIDE RECORDS SUMMARY | 2025-09-10 17:52 | XMS_ITS | Encounter Summary ---
Author Organization [facility] Address [address] [place] [address] Care Team Providers Care Cobbler Apprentice Name Role Phone Chris Underwood MD Primary Care Provider Jyoti Salinas Unavailable [phone] Encounter Details Date Type Department Care Team (Late Contact Info) Description 07/29/2024 Lab Requisition [facility] [address] [place] [address] System, Provider Not In, [address] [place] [address] Encounter for general adult medical examination without [...] Description 09/13/2025 3:40 PM EDT Office Visit [facility] Endocrinology [address] [place] [phone] Jennifer Becerra MD [address] [place] [address] 10/12/2025 1:00 PM EST Consult [place] [facility] [address] 1[address] [place] [address] Peter Coleman MD [address] [place] [address] 11/07/2025 11:15 AM EST Office Visit [facility] [address] [place] [address] Mark Santos, OD [address] [place] [address] documented as of this [...] F inal Result [facility] [address] [place] [address] documented in this encounter Visit Diagnoses Diagnosis [...] documented as of this encounter Care Teams Cobbler Apprentice Relationship Specialty Start Date End Date Chris Underwood MD [address] [place], [place] [phone] PCP - General 04/11/21 Jyoti Salinas [address] [place] [address] Registered Nurse 02/20/25 03/16/25 documented as of this encounter
--- OUTSIDE RECORDS SUMMARY | 2025-09-10 17:52 | XMS_ITS | Encounter Summary ---
Author Organization [facility] Address [address] [place] [address] Care Team Providers Care Scale Expert Name Role Phone Chris Underwood MD Primary Care Provider [phone] Encounter Details Date Type Department Care Team (Late st Contact Info) Description 08/17/2025 Telephone [facility] Endocrinology [address] [place] [address] Marj Hart, PIPE ORGAN TECHNICIAN [address] [facility] [address] [place] [address] Social History Tobacco Use Types [...] 100 units, causing a consistent call to [facility] to request larger quantity b/c going torun [...] Description 09/13/2025 3:40 PM EDT Office Visit [facility] Endocrinology [address] [place] [phone] Jennifer Becerra MD [address] [place] [phone] 10/12/2025 1:00 PM EST Consult [place] [facility] [address] 1[address] [place] [address] Peter Coleman MD [address] [place] [address] 11/07/2025 11:15 AM EST Office Visit [facility] [address] [place] [address] Mark Santos, OD [address] [place] [address] documented as of this encounter [...] documented as of this encounter Care Teams Scale Expert Relationship Specialty Start Date End Date Chris Underwood MD [address] [place] [address] PCP - General 04/11/21 documented as of this encounter
--- OUTSIDE RECORDS SUMMARY | 2025-09-10 17:52 | XMS_ITS | Encounter Summary ---
Author Organization [facility] Address [address] [place] [address] Care Team Providers Care Family Service Worker Name Role Phone Chris Unedrwood MD Primary Care Provider [phone] Jyoti Salinas Unavailable Encounter Details Date Type Department Care Team (Late st Contact Info) Description 09/05/2019 Orders Only External Location [address] [place] [address] Ananth Roblero MD [address] [facility] [address] [place] [phone] Social History Tobacco Use Types Packs/Day Years [...] EDT Office Visit [facility] [address] [place] [address] Jennifer Becerra MD [address] [place] [address] 10/12/2025 1:00 PM EST Consult [place] [facility] [address] 1[address] [place] [address] Peter Coleman MD [address] [place] [address] 11/07/2025 11:15 AM EST Office Visit [facility] [address] [place] [address] Mark Santos, OD [address] [place] [address] documented as of this encounter Procedures Procedure Name Priority Date/Time Associated Diagnosis Comments CT OUTSIDE IMAGES 09/05/2019 10:41 PM EDT documented in this encounter Results * CT OUTSIDE IMAGES (09/05/2019 10:41 PM EDT) Anatomical Region Laterality Modality Computed Tomogra phy 09/05/2019 10:4 1 PM EDT Ananth Roblero MD IMG CT PROCEDURES Edited R esult - Final documented in this encounter Visit Diagnoses Not on filedocumented in this encounter Additional Health Concerns Infection Onset Date Last Indicated Resolved Time MRSA 05/05/2021 05/05/2021 10/01/2022 10:4 8 AM EDT MRSA 02/09/2024 02/09/2024 documented as of this encounter Care Teams Family Service Worker Relationship Specialty Start Date End Date Chris Underwood MD [address] [place] [address] PCP - General 04/11/21 Jyoti Salinas [address] [place] [address] [address] [place] [phone] Registered Nurse 02/20/25 03/16/25 documented as of this encounter
--- OUTSIDE RECORDS SUMMARY | 2025-09-10 17:52 | XMS_ITS | Encounter Summary ---
Author Organization [facility] Address [address] [place] [address] Care Team Providers Care Sound Assistant Name Role Phone Chris Underwood MD Primary Care Provider Encounter Details Date Type Department Care Team (Late st Contact Info) Description 08/01/2025 Orders Only External Location [address] [place] [address] Provider, External Social History Tobacco Use Types [...] [facility] [address] [place] [address] Jennifer Becerra MD [address] [facility] [address] [place] [address] 10/12/2025 1:00 PM EST Consult [place] [facility] [address] 1[address] [place] [address] Peter Coleman MD [address] [place] [address] 11/07/2025 11:15 AM EST Office Visit [facility] [address] [place] [address] Mark Santos, OD [address] [place] [address] documented as of this encounter [...] documented as of this encounter Care Teams Sound Assistant Relationship Specialty Start Date End Date Chris Underwood MD [address] [place] [address] PCP - General 04/11/21 documented as of this encounter
--- OUTSIDE RECORDS SUMMARY | 2025-09-10 17:52 | XMS_ITS | Encounter Summary ---
Author Organization [facility] Address [address] [place] [address] Care Team Providers Care Tagman Name Role Phone Chris Underwood MD Primary Care Provider [phone] Encounter Details Date Type Department Care Team (Late st Contact Info) Description 08/02/2025 Orders Only External Location [address] [place] [address] Provider, External Social History Tobacco Use Types [...] Description 09/13/2025 3:40 PM EDT Office Visit [facility] Endocrinology [address] [place] [address] Jennifer Becerra MD [address] [facility] [address] [place] [address] 10/12/2025 1:00 PM EST Consult [place] Clinic [facility] Clinic [address] [place] [address] Peter Coleman MD [address] [place] [address] 11/07/2025 11:15 AM EST Office Visit [facility] [address] [place] [address] Mark Santos, OD [address] [place] [address] documented as of this encounter [...] documented as of this encounter Care Teams Tagman Relationship Specialty Start Date End Date Chris Underwood MD [address] [place] [address] PCP - General 04/11/21 documented as of this encounter
--- NOTE | 2025-09-10 18:17 | XR_ITS ---
PROCEDURE INFORMATION: Exam: XR Chest Exam date and time: 09/10/2025 6:30 PM Age: 54 years old Clinical indication: Shortness of breath; Additional info: Short of breath TECHNIQUE: Imaging protocol: Radiologic exam of the chest. Views: 1 view. COMPARISON: CR XR CHEST 2V 09/06/2024 12:45 PM FINDINGS: Limitations: The exam is significantly limited by the large amount of overlying soft tissues. Lungs: Central vascular fullness and mild interstitial prominence suggestive of mild CHF. Patchy airspace opacity overlying the left mid lung more likely corresponds to overlapping densities. Limited evaluation of the lung bases. Pleural spaces: Evaluation for a pleural effusion is significantly limited. Blunting of the left costophrenic angle more likely secondary to overlapping soft tissue densities. No large pneumothorax. Heart/Mediastinum: Probable mild cardiomegaly. Mediastinal contours are smooth. Bones/joints: Evaluation of the osseous structures is limited. IMPRESSION: 1. Examination is significantly limited by the large amount of overlying soft tissues. 2. Probable mild cardiomegaly. 3. Central vascular fullness and mild interstitial prominence suggestive of potential mild CHF. Evaluation is significantly limited. Follow-up conventional PA and lateral chest x-ray should be considered given significant limitations on this exam.
--- NOTE | 2025-09-10 18:21 | ED_ITS ---
<Statement entered by Orlando Smith DO - 09/11/25 00:35> I was consulted by the ELAN, and we discussed the complexity of problems being addressed. I approved the treatment and management plan for this patient's care in the emergency department, thus performing a substantive portion of the medical decision making. I independently evaluated this patient and obtained collateral history. Patient has a past medical history of diastolic dysfunction, diabetes, peripheral arterial disease, and morbid obesity. She presents today complaining of diffuse body aches. When asked specifically why she came to the emergency department today she tells me that her father is getting out of the usp and is returning home and the patient's mother is going to have to transition to caring for her father and is no longer going to be able to care for the patient herself. She states that in light of this she would like for us to do full body CT scans and extensive workup in order to find some kind of admittable diagnosis so that we can admit her to the hospital for 3 days so that she can qualify for long-term care facility placement so that her mother does not have to care for both her and her father. When asked if she has any other focal symptoms she does note that she has left lower extremity swelling. She denies chest pain, shortness of breath, abdominal pain, nausea, vomiting, and diarrhea. On my examination the patient is morbidly obese. She is saturating well on her baseline 3 L oxygen requirement. She is nontoxic and afebrile. She is hemodynamically stable and neurologically intact. Her lungs are clear to auscultation bilaterally. She does have some lower extremity edema noted which is worse in the left lower extremity. She has status post transmetatarsal amputation of both feet. In light of the left lower extremity swelling we decided to obtain hematologic labs, bedside POCUS of the left lower extremity, and a CT PE study. Labs were personally interpreted by me and demonstrate no leukocytosis, no transfusable anemia, no significant electrolyte derangements, and no evidence of acute kidney injury. Patient's troponin is less than 0.01 and her BNP is 160. Additionally she has no evidence of urinary tract infection. I did perform bedside POCUS assessment of the patient's left lower extremity and found that there was no deep vein thrombosis. Please see procedure note for details. CT PE study was personally interpreted by me and demonstrates no evidence of saddle pulmonary embolus. Official radiology read does note that there is multiple chronic findings noted on the scan, without evidence of acute actionable findings. I have had a long and extensive conversation with the patient at the bedside specifically noting that she does not have an admittable diagnosis at this time. She has access to diuretics at home which she can take for her lower extremity edema. She does not have any increasing oxygen requirement, pleural effusions noted on scan, or pulmonary edema noted on scan that would prompt us to admit her to the hospital for volume overload. Additionally, she does not have any acute decline in her ability to function mechanically that would prompt us to admit her to the hospital today. Out of an abundance of precaution we did decide to discuss this case with hospital medicine who also agreed with this assessment and stated that there would be no benefit from admission and that the patient could see her primary care provider in the outpatient setting. I did feel that this was reasonable to the patient was ultimately discharged home from Orlando Smith DO Limited DVT ultrasound notes Indication: Limited compression ultrasonography of the left lower extremity was performed to evaluate for noncompressibility of the deep veins of the patient. The ultrasound was performed with the following indications, as noted in the HPI: Swelling: Left lower extremity Identified structures: Left common femoral vein, femoral vein, popliteal vein were examined Findings: Lower extremity: Left common femoral vein: Good compressibility Left femoral vein: Good compressibility Left popliteal vein: Good compressibility Impression: Normal DVT study with no evidence of DVT in the left lower extremity Images were saved to permanent archive This study was technically adequate CPT: 43507-61-BX 84582-73-GS 60694-44 (complete bilateral study) This study was performed by me and I personally interpreted all images/videos. Based on my clinical judgment these images were adequate and did not necessitate further imaging. Discharge Plan Disposition Patient Disposition: Home, Self-Care Prescriptions Prescriptions: New bumetanide 2 mg tablet 2 mg PO DAILY 7 Days Qty: 7 0RF No Action gabapentin 800 mg tablet 800 mg PO QID clopidogrel [Plavix] 75 mg tablet 75 mg PO HS atorvastatin [Lipitor] 80 mg tablet 80 mg PO HS rabeprazole 20 mg tablet,delayed release (DR/EC) 20 mg PO HS potassium chloride 10 mEq tablet extended release 30 meq PO DAILY Trulicity 4.5 mg/0.5 mL pen injector 4.5 mg SQ WEEKLY spironolactone 25 mg tablet 25 mg PO DAILY prednisone 20 mg tablet 20 mg PO DAILY 7 Days Qty: 7 0RF furosemide 80 mg tablet 80 mg PO DAILYP PRN (Reason: weight gain >5 pounds) lidocaine 4 % Adhesive Patch,Medicated 1 patch TOPICAL DAILY ascorbic acid (vitamin C) 500 mg Tablet 500 mg PO DAILY aspirin [Aspirin Childrens] 81 mg Tablet,Chewable 81 mg PO DAILY Saccharomyces boulardii [Florastor] 250 mg Capsule 250 mg PO BID magnesium oxide 400 mg magnesium Tablet 400 mg PO BID methocarbamol 750 mg Tablet 750 mg PO QIDP PRN (Reason: muscle spasms) insulin glargine [Lantus Solostar U-100 Insulin] 100 unit/mL (3 mL) insulin pen 30 unit SQ BID Qty: 15 3RF hydrocodone-acetaminophen 7.5-325 mg Tablet 1 tab PO Q4HP PRN (Reason: Moderate Pain (4-6)) Qty: 20 0RF insulin lispro 100 unit/mL insulin pen 8 unit SQ TID Qty: 15 1RF ibuprofen 800 mg tablet 800 mg PO Q8H 5 Days Qty: 15 0RF Rx Instructions: Do not take meloxicam while taking ibuprofen. nystatin 100,000 unit/gram powder 1 applic topical BID Qty: 30 0RF Referrals Follow up/Referrals: [facility] [Other] - See instructions ProviderIesha [Tech - Non Licensed, Unknown] - See instructions Activity Restrictions/Add. Instructions Additional Instructions/Restrictions: Please follow up with your PCP as soon as you can to discuss placement in [facility]. Also discussed increasing your fluid pill and rechecking your kidney function. Clinical Impressions Clinical Impression: Obesity (BMI 30-39.9), Edema of both lower extremities, Lymphedema of both lower extremities Instructions Patient Instructions: DI for Obesity in Adults, DI for Chronic Pain in Adults, DI for Lymphedema Print Language Print Language: Chilean Discharge ED Provider: Orlando Smith Adult HPI General Chief complaint: PAIN Stated complaint: Left leg Swelling Time Seen by Provider: 09/10/25 17:47 Mode of Arrival: EMS Source of Information: Patient and EMS Description of Symptoms (Recalled from ER Triage Doc. by RN): PATIENT PRESENTS TO ED FOR PAIN ON THE ENTIRE LEFT SIDE OF HER BODY. REPORTS SHE HURTS FROM HER NECK TO HER ANKLE, STATES SHE HAS HAD NUMEROUS PROBLEMS WITH HER BACK, HIP, AND OTHER MUSCULOSKELETAL ISSUES. INITIAL EMS CALL WAS FOR SOA, BUT PT REPORTS MAIN PROBLEM IS PAIN. REPORTS SHE DOES NOT WALK AND USES A MEDICAL BED AT HOME. NO RECENT INJURY OR FALL. History of Present Illness HPI narrative: 54-year-old female arrives via EMS with pain to her left shoulder and left leg. She says she basically heard from her left neck to her left foot. She has had numerous problems with her back, hip and other musculoskeletal issues. She has had several CTs and problems seen. She was supposed to go to her primary care office today but they told her to go to the ED. She chose to come here because all her other scans have been here. Initial EMS call out was for shortness of air but patient does not complain of shortness of air at this time. She complains of increased swelling of her left leg. She says that her left leg needs to have fluid come off. She wants to be admitted for usp placement. She says that her mom is not doing well and her dad is getting released from a usp with 20% heart function. She has had no injuries or falls. She denies any recent fevers or chills. Her blood pressure looks good. Her doctor recently decreased her Bumex from two 2 mg tablets a day to 1 tablet a day. She usually sees a PCP in [facility]. Related Data Home Medications ?Medication ?Instructions ?Recorded ?Confirmed atorvastatin 80 mg tablet (Lipitor) 80 mg PO HS High c holesterol 10/31/19 01/11/25 clopidogrel 75 mg tablet (Plavix) 75 mg PO HS Heart di sease 10/31/19 01/11/25 gabapentin 800 mg tablet 800 mg PO QID 10/31/1901/11 rabeprazole 20 mg tablet,delayed 20 mg PO HS 10/31/19 01/11/25 release potassium chloride 10 mEq 30 meq PO DAILY 01/26/22 tablet,extended release dulaglutide 4.5 mg/0.5 mL 4.5 mg SQ WEEKLY on Tuesdays06/25/22 01/11/25 [facility] spironolactone 25 mg tablet 25 mg PO DAILY 03/02/23 furosemide 80 mg tablet 80 mg PO DAILYP PRN weight g ain >5 07/19/24 01/11/25 pounds Saccharomyces boulardii 250 mg 250 mg PO BID 07/20/24 01/11/25 capsule (Florastor) ascorbic acid (vitamin C) 500 mg 500 mg PO DAILY 07/2001/11/25 tablet aspirin 81 mg chewable tablet 81 mg PO DAILY 07/20/24 01/11/25 (Aspirin Childrens) lidocaine 4 % topical patch 1 patch topical DAILY appl y to 07/20/24 01/11/25 left hip magnesium oxide 400 mg PO BID 07/20/2401/11 methocarbamol 750 mg tablet 750 mg PO QIDP PRN muscle spasms 07/20/24 01/11/25 Previous Rx's ?Medication ?Instructions ?Recorded hydrocodone 7.5 mg-acetaminophen 1 tab PO Q4HP PRN Mod erate Pain 07/21/24 325 mg tablet (4-6) #20 tabs insulin glargine 100 unit/mL (3 30 unit (0.3 mL) SQ BI D #15 mL 07/21/24 mL) subcutaneous pen (Lantus Solostar U-100 Insulin) insulin lispro 100 unit/mL 8 unit (0.08 mL) SQ TID #15 mL 07/21/24 subcutaneous pen ibuprofen 800 mg tablet 800 mg PO Q8H 5 days #15 tab s 08/01/24 nystatin 100,000 unit/gram topical 1 applic topical BI D #30 grams 08/01/24 powder prednisone 20 mg tablet 20 mg PO DAILY 7 days #7 tab s 09/06/24 bumetanide 2 mg tablet 2 mg PO DAILY 7 days #7 tabs 09/10/25 Allergies Allergy/AdvReac Type Severity Reaction Status Date / Time duloxetine (From Cymbalta) Allergy Verified 01/11/25 11:18 Histamine H2 Inhibitors Allergy Verified 01/11/25 11:18 lisinopril Allergy Verified 01/11/25 11:18 sulfamethoxazole (From Allergy Verified 01/11/25 11:18 Bactrim) trimethoprim (From Bactrim) Allergy Verified 01/11/25 11:18 metoprolol AdvReac Severe Verified 01/11/25 11:18 beta blockers AdvReac Severe Insomnia Uncoded 09/21/24 10:58 PFSH PFSH Disclaimer: The information contained in this section may have been updated after the patient was seen, as this information can be updated by other users. 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 History of intravascular stent placement Family History Other No significant family history Social History Smoking Status: Former smoker second hand exposure: No alcohol intake: never substance use type: denies use current occupational status: employed Travel in the last 8 weeks?: None household members: none and other housing: apartment current occupational exposures/hazards: No caffeine: No Have you lived/traveled outside US in past 30 days?: No Contact w/someone who lives/traveled outside US past 30 days?: No Exposure to someone with infectious disease in past 14 days?: No Do you have a fever (greater than 100.4 F or 38 C)?: No Have you tested positive for COVID-19?: No Exposed to someone with COVID-19 in past 14 days?: No Do you have a sore throat?: No Do you have a cough?: No Do you have any weakness?: No Do you have any diarrhea?: No Are you experiencing any unusual bleeding?: No Do you have any muscle aches/pain?: No Do you have any abdominal pain?: No Are you experiencing loss of taste or smell?: No Other Medical History Have you received the Flu Vaccine for this season: No Have you received the Pneumonia Vaccine: No ROS Obtained: Yes Systems reviewed as appropriate & no additional complaints except as documented Constitutional Constitutional: Reports as per HPI Physical Exam General General appearance: alert Head Head exam: normocephalic Eye Eye exam: Present PERRL and EOMI ENT ENT exam: Present normal oropharynx and mucous membranes moist Neck Neck exam: Present full ROM and trachea midline Chest Chest inspection: Present normal inspection Respiratory Respiratory exam: Present normal lung sounds bilaterally Cardiovascular Cardiovascular exam: Present regular rate, normal rhythm, normal heart sounds, +S1 and +S2 Abdominal Exam Abdominal exam: Present soft and normal bowel sounds Extremities Exam Extremities exam: Present full ROM, tenderness and edema Neurological Exam Neurological exam: Present alert and oriented X3 Skin Skin exam: Present warm, dry, rash and erythema Medical Decision Making Medical Records Screening: Per USPSTF and CDC recommendations, given the prevalence of disease in our region, it is our hospital?s policy to screen for HIV and viral Hepatitis for all patients aged 18 and over and those with ongoing risk factors. Mike Inquiry Pt receiving controlled substance: No Mike was queried for this patient: No Vital Signs: 09/10/25 17:47 09/10/25 17:50 09/10/25 17:50 Temperature 98.4 F 98.4 F Temperature Source Oral Pulse Rate 81 78 Pulse Rate [Right] 78 Respiratory Rate 18 18 Blood Pressure 128/64 128/64 Blood Pressure [Right Arm] 128/64 Blood Pressure Mean Blood Pressure Mean [Right Arm] 85 02 Sat by Pulse Oximetry 97 98 98 Oxygen Delivery Method Nasal Cannula Nasal Cannula Oxygen Flow Rate (LPM) 3 3 09/10/25 18:00 09/10/25 18:15 09/10/25 19:00 Temperature Temperature Source Pulse Rate 77 72 68 Pulse Rate [Right] Respiratory Rate Blood Pressure 137/87 135/72 Blood Pressure [Right Arm] Blood Pressure Mean Blood Pressure Mean [Right Arm] 02 Sat by Pulse Oximetry 99 96 99 Oxygen Delivery Method Nasal Cannula Nasal Cannula Oxygen Flow Rate (LPM) 3 3 09/10/25 19:01 09/10/25 19:01 Temperature Temperature Source Pulse Rate 68 Pulse Rate [Right] Respiratory Rate Blood Pressure 136/68 Blood Pressure [Right Arm] Blood Pressure Mean 78 Blood Pressure Mean [Right Arm] 02 Sat by Pulse Oximetry Oxygen Delivery Method Oxygen Flow Rate (LPM) Lab Data Lab Results 09/10/25 18:40: WBC 6.4, RBC 4.06 L, Hgb 10.9 L, Hct 37.0, MCV 91.1, MCH 26.8 L, MCHC 29.5 L, RDW 15.9, Plt Count 142, MPV 12.5 H, Neut % (Auto) 69.2, Lymph % (Auto) 20.6, [place] % (Auto) 8.9, Eos % (Auto) 0.8, Baso % (Auto) 0.2, Neut # (Auto) 4.4, Lymph # (Auto) 1.3, [place] # (Auto) 0.6, Eos # (Auto) 0.1, Baso # (Auto) 0.0, ESR 19, D-Dimer 0.82 H, Sodium 142, Potassium 3.7, Chloride 96 L, C arbon Dioxide 43 H*, Anion Gap 6.7, BUN 22 H, Creatinine 0.90, Estimated Creat Clear 74, Estimated GFR 65, Est GFR ( Amer) 79, Glucose 98, Calcium 9.2, Magnesium 2.2, Total Bilirubin 1.0, AST 23, ALT 17, Alkaline Phosphatase 95, Troponin I < 0.01, C-Reactive Protein 14.2 H, NT-Pro-B Natriuret Pep 160 H, Total Protein 6.5, Albumin 3.7, Globulin 2.8, Albumin/Globulin Ratio 1.3, Lipase 79 09/10/25 18:40 09/10/25 18:40 Orders (Tests/Meds): ED MEDICATIONS Discontinued Medications Generic Name Dose Route Start Last Admin Trade Name Freq PRN Reason Stop Dose Admin Iopamidol 80 ml 09/10/25 19:45 09/10/25 19:46 Iopamidol-370 (76%);100ml Bottle IV 09/10/25 19:46 80 ml ONCE ONE Administration Sodium Chloride 50 ml 09/10/25 19:45 09/10/25 19:46 0.9 % Sodium Chloride 50 Ml Vial IV 09/10/25 19:46 50 ml ONCE ONE Administration Sodium Chloride 10 ml 09/10/25 19:45 09/10/25 19:46 Sodium Chloride 0.9% 10ml Syr (Rad Only) IV 09/10/25 19:46 10 ml ONCE ONE Administration ORDERS Category Date Time Status CTA Chest [CT angio chest PE protocol] Stat Cat Scan 09/10/25 19:27 Completed Chest XR -- portable [XR chest portable] Stat Exams 09/10/25 18:17 Completed POCUS Point of Care (ER Only) Stat Exams 09/10/25 20:59 Ordered BNP [NT Pro Brain Natriuretic Pep.] Stat Lab 09/10/25 18:40 Completed CBC [Complete Blood Count Auto Diff] Stat Lab 09/10/25 18:40 Completed CRP [C-Reactive Protein] Stat Lab 09/10/25 18:40 Completed Comprehensive Metabolic Panel Stat Lab 09/10/25 18:40 Completed D-Dimer Stat Lab 09/10/25 18:40 Completed Erythrocyte Sedimentation Rate Stat Lab 09/10/25 18:40 Completed Lipase Stat Lab 09/10/25 18:40 Completed Magnesium Stat Lab 09/10/25 18:40 Completed Trop I [Troponin I] Stat Lab 09/10/25 18:40 Completed Urinalysis and Microscopic Stat Lab 09/10/25 21:42 Received Medical Decision Narrative: patient is a 54-year-old female presenting to the emergency department for evaluation of swelling to the left leg, pain. Patient is hemodynamically stable and nontoxic-appearing upon arrival, afebrile. Differential diagnosis includes edema, CHF, among others. Workup will be conducted with hematologic labs, specific imaging. Initial inventions include crystalloid bolus, analgesic. Initial workup reviewed by me hematologic labs are remarkable forDimer of 0.82, we did a CTA to rule out PE. Patient's BUN was 22 creatinine was 0.90. Otherwise labs were nonactionable. CTA was nonactionable at this time. Dr. Smith saw patient and did a venous Doppler at bedside to rule out a blood clot in her left leg. It is swollen but patient does not have a DVT. Patient does have swelling in that left leg. I did talk to hospital medicine about patient's possible admission. Jyoti was on-call for hospital medicine. Patient does not have a reason for admission today. Patient really wanted to come in and have a qualified hospital stay in order to be eligible for placement for usp. Talk to Jyoti about this. Her just suggestion was for her to see her PCP in follow-up for adjustment of her diuretics. She did suggest that we increase her Bumex back to 2 mg twice a day and have her renal function rechecked by her PCP. Also have PCP get case management and home health out to talk to her about usp placement and eligibility. I will increase her Bumex as suggested by hospital medicine. Patient will be discharged home with these suggestions. I discussed this with patient and discussed that we would be happy to give her a dose of Bumex here and she said that she does not want 1 IV dose that she wants a few days of IV diuretics in the hospital . She says that that is not going to work, she knew that we would not help her and if we cannot admit her that she will just go to another hospital I discussed this with Dr. Smith. We will discharge patient as we do not have to admit patient to the hospital. Patient has no acute changes. She has had the same complaints for an extended amount of time and these complaints with her shoulder and leg are not new. Her mobility problems are not new for her. I did discuss with her that she needs to talk to her primary care about going into the [facility] and talking to case management. She says that her doctor told her that she has to come to the hospital. Critical Care Critical Care Time Critical Care Time: No
[2025-09-10 18:50] LABS: Hematocrit 37.0 % (37.0-47.0); Hemoglobin 10.9 g/dL (12.2-16.2); Immature Granulocytes % 0.3 %; Mean Corpuscular HGB Conc 29.5 g/dL (31.8-35.4); Mean Corpuscular Hemoglobin 26.8 pg (27.0-31.2); Mean Corpuscular Volume 91.1 fl (81-99); Nucleated Red Blood Cells % 0 %; Platelet Count 142 K/mm3 (142-424); Red Blood Count 4.06 M/mm3 (4.20-5.40); Red Cell Distribution Width-SD 52.6 fL; White Blood Count 6.4 K/mm3 (4.8-10.8)
[2025-09-10 19:07] LABS: Alanine Aminotransferase 17 U/L (12-78); Albumin Level 3.7 g/dl (3.5-5.0); Albumin/Globulin Ratio 1.3 (1.1-1.8); Alkaline Phosphatase 95 U/L (38-126); Aspartate Amino Transferase 23 U/L (14-36); Bilirubin,Total 1.0 mg/dl (0.2-1.3); Blood Urea Nitrogen 22 mg/dl (7-17); Calcium 9.2 mg/dl (8.4-10.2); Chloride 96 mmol/L (98-107); Creatinine Clearance Estimated 74 mL/min (50-200); Creatinine,Serum 0.90 mg/dl (0.52-1.04); Estimated Glomerular Filt Rate 65 ml/min (>60); GFR (African American) 79 ML/MIN (>60); Globulin 2.8 g/dL (1.3-3.2); Glucose 98 mg/dl (74-100); Lipase 79 U/L (23-300); Magnesium 2.2 mg/dl (1.6-2.3); Potassium 3.7 mmoL/L (3.5-5.1); Sodium 142 mmol/L (136-145); Total Protein,Serum 6.5 g/dl (6.3-8.2)
[2025-09-10 19:12] LABS: C-Reactive Protein 14.2 mg/L (0-4)
[2025-09-10 19:13] LABS: D-Dimer 0.82 ug/mL (0.0-0.5)
[2025-09-10 19:21] LABS: NT Pro Brain Natriuretic Pep. 160 pg/mL (0-125)
[2025-09-10 19:22] LABS: Troponin I < 0.01 ng/ml (0.00-0.034)
--- NOTE | 2025-09-10 19:27 | CT_ITS ---
PROCEDURE INFORMATION: Exam: CTA Chest With Contrast Exam date and time: 09/10/2025 7:47 PM Age: 54 years old Clinical indication: Shortness of breath TECHNIQUE: Imaging protocol: Computed tomographic angiography of the chest with contrast. Exam focused on the arteries. 3D rendering (Not supervised by radiologist): MIP and/or 3D reconstructed images were created by the technologist. Total images: 1205 Radiation optimization: All CT scans at this facility use at least one of these dose optimization techniques: automated exposure control; mA and/or kV adjustment per patient size (includes targeted exams where dose is matched to clinical indication); or iterative reconstruction. Contrast material: ISO 370; Contrast volume: 80 ml; Contrast route: INTRAVENOUS (IV); COMPARISON: CR XR CHEST PORTABLE 09/10/2025 6:30 PM FINDINGS: Pulmonary arteries: Enlarged main pulmonary arteries implying pulmonary arterial hypertension. No main or saddle pulmonary emboli. Nondiagnostic evaluation of lobar and segmental pulmonary arterial branches secondary to poor contrast opacification and attenuation artifacts. Aorta: No thoracic aortic aneurysm or dissection. Lungs: The trachea and main bronchi are patent. Minor bibasilar dependent atelectasis. No concerning infiltrate or airspace consolidation. 11 mm left lower lobe nodule. Pleural spaces: Bilateral pleural lipomatosis. No pleural effusion or pneumothorax. Heart: Normal heart size. No pericardial effusion. Coronary arteries: Coronary artery calcifications. Mediastinal space: Mediastinal lipomatosis. No mediastinal mass. Lymph nodes: No mediastinal or hilar lymphadenopathy. Mild periportal lymphadenopathy. Liver: Cirrhotic liver morphology. Spleen: Mild splenomegaly. Adrenal glands: Bilateral adrenal thickening. 3.3 cm low-attenuation left adrenal mass in keeping with adenoma. Bones/joints: Bone detail is mostly obscured by attenuation artifact. Mild degenerative changes of the thoracic spine. Soft tissues: Unremarkable. Notes: Considerable limitations from attenuation artifact referable to morbid obesity. Additional mild limitations from respiratory motion. IMPRESSION: 1. Considerable limitations from morbid obesity and attenuation artifact. 2. No main or saddle pulmonary emboli. 3. Lobar and segmental pulmonary arterial branch evaluation is nondiagnostic. 4. 11 mm left lower lobe pulmonary nodule. For both low risk and high risk patients, consider CT Chest at 3 months, PET/CT, or biopsy. (Reference: Jarad) 5. Liver cirrhosis. 6. Mild periportal adenopathy. 7. 3.3 cm left adrenal adenoma. 8. Mild cardiomegaly with coronary artery calcifications. 9. No thoracic aortic aneurysm or dissection. REFERENCES: Jarad Barney, et al. Guidelines for Management of Incidental Pulmonary Nodules Detected on CT Images: From the Fleischner Society 2017. Radiology. 2017;284(1):228-243.
[2025-09-10] MEDS: 0.9 % SODIUM CHLORIDE 50 ML VIAL IV (19:46)
[2025-09-10] MEDS: IOPAMIDOL-370 (76%);100ML BOTTLE 80 ML IV (19:46)
[2025-09-10] MEDS: SODIUM CHLORIDE 0.9% 10ML SYR (RAD ONLY) 10 ML IV (19:46)
[2025-09-10 19:55] LABS: Anion Gap 6.7 mEq/L (5-15); Carbon Dioxide 43 mmol/L (22.0-30.0)
[2025-09-10 21:51] LABS: Microscopic, Urine URINE MICROSCOPIC (MICROSCOPIC)
[2025-09-10 21:52] LABS: Bilirubin,Urine Negative (Negative); Color,Urine YELLOW (Yellow); Glucose,Urine (UA) Negative (Negative); Ketones,Urine Negative (Negative); Leukocyte Esterase,Urine Negative (Negative); PH,Urine 6.5 (5.0-8.5); Protein,Urine Negative (Negative); Specific Gravity, Urine 1.015 (1.005-1.030); Urobilinogen,Urine 0.2 EU/dl (0.2)
[2025-09-10 22:17] LABS: Bacteria,Urine Trace /lpf; RBC,Urine Occasional #/hpf (0-3); Squamous Epithelial Cell,Urine Occasional #/hpf (0-5)
--- NOTE | 2025-09-10 22:54 | PC.NURSE ---
RN gave EMS report and requested a POC fingerstick be performed on patient for transfer, Pt refused. EMS aware. personal banker aware. aware
== END 2025-09-10 22:56 | disposition home or self-care (01) ==
PROVIDERS: Nurse Practitioner; Emergency Provider Student in an Organized Health Care Education/Training Program; PCP Family Medicine
DX: R60.0 Localized edema (principal); I89.0 Lymphedema, not elsewhere classified; E66.01 Morbid (severe) obesity due to excess calories; I51.89 Other ill-defined heart diseases; E11.40 Type 2 diabetes mellitus with diabetic neuropathy, unspecified; I73.9 Peripheral vascular disease, unspecified; Z99.81 Dependence on supplemental oxygen; Z79.4 Long term (current) use of insulin
CPT/HCPCS: 71045; 71275; 80053; 81001; 83690; 83735; 83880; 84484; 85025; 85378; 85651; 86140; 99285; Q9967